=== PATIENT | female | born 1930 | race Hispanic/Latino ===

== ENCOUNTER 2016-12-03 13:28 | Emergency (ER) | payer MEDICARE, OTHER ==
[2016-12-03 13:29] VITALS: PULSE 78
[2016-12-03 13:39] VITALS: RESP 18; TEMP 97.6; O2SAT 95
[2016-12-03 13:40] VITALS: BMI 36.3
[2016-12-03] MEDS ORDERED: TraMADol/Apap 37.5/325 mg Tab PO STA (13:45)
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
[2016-12-03 14:22] LABS: HEMATOCRIT 47.2 % (36.0-48.0); MEAN CELL VOLUME 88.4 fl (80.0-105.0); MEAN CORPUSCULAR HEMOGLOBIN 30.3 pg (25.0-35.0); MEAN CORPUSCULAR HGB CONC 34.3 g/dl (31.0-37.0); MEAN PLATELET VOLUME 12.3 fl (7.0-11.0); RED CELL DISTRIBUTION WIDTH 14.1 % (11.5-14.5); WHITE BLOOD COUNT 16.5 10^3/ul (4.5-11.0)
[2016-12-03 14:31] LABS: INR 1.1 (0.93-1.08); PARTIAL THROMBOPLASTIN TIME 28.3 Seconds (23.7-30.8)
[2016-12-03 14:32] LABS: ALB/GLOB RATIO 1.2 (1.1-1.8); ALKALINE PHOSPHATASE 112 U/L (38-126); ALT/SGPT 71 U/L (7-56); AST/SGOT 52 U/L (14-36); BILIRUBIN,TOTAL 0.7 mg/dL (0.2-1.3); BLOOD UREA NITROGEN 13 mg/dL (7-21); CALCIUM 9.4 mg/dL (8.4-10.5); CARBON DIOXIDE 28 mmol/L (21-33); CHLORIDE 99 mmol/L (98-107); GFR AFRICAN-AMERICAN > 60; POTASSIUM 3.7 mmol/L (3.6-5.0); SODIUM 136 mmol/L (132-148)
[2016-12-03 14:44] LABS: GLUCOSE,RANDOM 380 mg/dL (70-110); TROPONIN I 0.04 ng/mL
--- NOTE | 2016-12-03 15:09 | CT ---
PROCEDURE: CT Lumbar Spine without contrast HISTORY: fall/back pain COMPARISON: None. TECHNIQUE: Axial computed tomography images were obtained of the lumbar spine without the use of intravenous contrast. Coronal and sagittal reformatted images were created and reviewed. Radiation dose: Total exam DLP = 655.87 mGy-cm. This CT exam was performed using one or more of the following dose reduction techniques: Automated exposure control, adjustment of the mA and/or kV according to patient size, and/or use of iterative reconstruction technique. FINDINGS: VERTEBRAE: Vertebral bodies are maintained in height. The transverse processes and posterior elements are intact. Normal vertebral alignment is maintained. DISCS/SPINAL CANAL/NEURAL FORAMINA: L1-2: Unremarkable. L2-3: Unremarkable. L3-4: Unremarkable. L4-5: Diffuse disc bulge. No focal herniation. Ligamentum flavum hypertrophy facet arthropathy. Mild central spinal stenosis. Mild bilateral neural foraminal stenosis. There is enlargement of the left L4 nerve root which may reflect a Tarlov cyst or a schwannoma. Similarly, there is enlargement of the left S1 nerve root, again which may reflect Tarlov cyst or schwannoma. There is chronic enlargement and remodeling of the left L5 neural foramen indicating the chronic nature of this process. Further evaluation with magnetic resonance imaging is advised on a nonemergent basis peer L5-S1: As above. Severe degenerative disc disease with loss of intervertebral disc space. Severe bilateral neural foraminal stenosis. PARASPINAL SOFT TISSUES: 3.1 cm infrarenal fusiform aneurysmal dilatation of the abdominal aorta. OTHER FINDINGS: None. IMPRESSION: No fracture/dislocation. 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 Recommend evaluation with magnetic resonance imaging on a nonemergent basis. 3.1 cm fusiform infrarenal abdominal aortic aneurysm.
[2016-12-03 16:38] LABS: URINE BILIRUBIN NEGATIVE (NEGATIVE); URINE BLOOD NEGATIVE (NEGATIVE); URINE GLUCOSE (UA) >=1000 mg/dL (NEGATIVE); URINE KETONE NEGATIVE (NEGATIVE); URINE LEUKOCYTE ESTERASE NEGATIVE Leu/uL (NEGATIVE); URINE PROTEIN NEGATIVE mg/dL (<30 mg/dL); URINE UROBILINOGEN 0.2 E.U./dL (<1 E.U./dL)
--- NOTE | 2016-12-03 16:42 | RAD ---
HISTORY: fall COMPARISON: No prior. FINDINGS: BONES: The vertebral bodies are maintained in height. Normal vertebral alignment is maintained. There are osteophytes seen at several lower thoracic intervertebral disc space levels without loss in height of the intervertebral disc spaces. DISC SPACES: Normal. SOFT TISSUES: Normal. OTHER FINDINGS: None. IMPRESSION: No evidence of fracture or dislocation.
--- NOTE | 2016-12-03 16:43 | RAD ---
PROCEDURE: CHEST RADIOGRAPH, 1 VIEW HISTORY: fall COMPARISON: None available. FINDINGS: LUNGS: Clear. PLEURA: No pneumothorax or pleural fluid seen. CARDIOVASCULAR: Mild cardiomegaly. Evaluation limited by oblique positioning. Mitral annular calcification noted. No congestive change. OSSEOUS STRUCTURES: No significant abnormalities. VISUALIZED UPPER ABDOMEN: Normal. OTHER FINDINGS: None. IMPRESSION: No active disease.
[2016-12-03 16:44] LABS: URINE APPEARANCE CLEAR (CLEAR); URINE COLOR YELLOW (YELLOW)
[2016-12-03] MEDS ORDERED: Insulin Regular 1 UNITS/0.01 ML ML SC STA (18:13)
[2016-12-03 19:01] VITALS: BP 128/71; PULSE 65
--- NOTE | 2016-12-04 08:00 | CARD ---
APPROVED REPORT EKG Measurement Heart [id number] <Conclusion> Atrial fibrillation Left axis deviation IVCD Inferior infarct, age unknown Anteroseptal infarct, old STTW changes c/w ischemia Prolonged QTc
--- NOTE | 2016-12-04 08:02 | RAD ---
PROCEDURE: Radiographs of the pelvis and bilateral hips HISTORY: fall COMPARISON: None. FINDINGS: BONES: The patient is seen to be status post open reduction internal fixation of proximal left femoral fracture by 3 compression screws through the proximal femurs intertrochanteric space and neck. No acute fractures identified with old healed fracture identified the proximal left femur. Pelvic ring appears intact. Diffuse osteopenia suggests osteoporosis. Degenerate changes seen moderately the bilateral sacroiliac and hip joints. JOINTS: No dislocation subluxation or distraction. Degenerate changes are identified as discussed above. Pubic symphysis: Unremarkable. SOFT TISSUES: Normal. OTHER FINDINGS: Vascular calcification are identified in the right greater than left pelvic and inguinal soft tissue regions. IMPRESSION: No acute fracture dislocation is identified bilaterally at the hip joints or throughout the remainder of the pelvic ring. Diffuse osteopenia suggests osteoporosis. Prior open reduction internal fixation proximal left femur noted.
== END 2016-12-03 20:20 | disposition home or self-care (01) ==
LOC: ED 13:28
DX: S39.012A Strain of muscle, fascia and tendon of lower back, initial encounter (principal); W06.XXXA Fall from bed, initial encounter; M54.5 Low back pain

== ENCOUNTER 2017-03-12 17:26 | Inpatient (IN) | payer OTHER ==
[2017-03-12 18:22] VITALS: BMI 32.5
[2017-03-12] MEDS ORDERED: Ceftaroline 400 mg Inj IVPB SCH (22:00)
[2017-03-12] MEDS: Insulin Detemir 100 units/ml Vial (Levemir) SC SCH (22:18)
[2017-03-12] MEDS: Insulin Lispro (humaLOG) LOW Coverage SC SCH (22:19)
[2017-03-12] MEDS ORDERED: Pneumococcal 23-Valent Vaccine IM ONE (23:50)
[2017-03-12] MEDS ORDERED: Influenza Vaccine 60 mcg/0.5 mL SYR (4YR UP) IM ONE (23:50)
[2017-03-13] MEDS: Pantoprazole 40 mg EC Tab PO SCH ×2 (05:25→10:16)
[2017-03-13] MEDS: Insulin Lispro (humaLOG) LOW Coverage SC SCH ×4 (07:01→21:51)
[2017-03-13] MEDS: Insulin Lispro 1 UNITS/0.01 ML SC SCH ×3 (07:01→18:03)
[2017-03-13 07:16] LABS: BASO # 0.02 K/mm3 (0.0-2.0); BASO % 0.2 % (0.0-3.0); BLOOD UREA NITROGEN 11 mg/dL (7-21); CALCIUM 9.3 mg/dL (8.4-10.5); EOS # 0.2 (0.0-0.7); EOS % 1.5 % (1.5-5.0); GFR AFRICAN-AMERICAN > 60; GFR NON-AFRICAN AMERICAN > 60; GRAN # 8.18 (1.4-6.5); GRAN % 76.7 % (50.0-68.0); HEMOGLOBIN 13.9 g/dL (12.0-16.0); LYMPH # 1.2 (1.2-3.4); LYMPH % 11.5 % (22.0-35.0); MEAN CELL VOLUME 92.5 fl (80.0-105.0); MEAN CORPUSCULAR HEMOGLOBIN 29.8 pg (25.0-35.0); MEAN CORPUSCULAR HGB CONC 32.2 g/dl (31.0-37.0); MEAN PLATELET VOLUME 13.4 fl (7.0-11.0); MONO # 1.1 (0.1-0.6); MONO % 10.1 % (1.0-6.0); RBC 4.67 10^6/uL (3.5-6.1); RED CELL DISTRIBUTION WIDTH 14.4 % (11.5-14.5); WHITE BLOOD COUNT 10.7 10^3/ul (4.5-11.0)
[2017-03-13 07:17] LABS: PH,URINE 7.5 (4.7-8.0); URINE BILIRUBIN NEGATIVE (NEGATIVE); URINE BLOOD NEGATIVE (NEGATIVE); URINE GLUCOSE (UA) NEGATIVE (NEGATIVE); URINE LEUKOCYTE ESTERASE NEGATIVE Leu/uL (NEGATIVE); URINE NITRATE NEGATIVE (NEGATIVE); URINE PROTEIN NEGATIVE mg/dL (<30 mg/dL)
[2017-03-13 07:18] LABS: URINE APPEARANCE CLEAR (CLEAR); URINE COLOR YELLOW (YELLOW)
[2017-03-13] MEDS: Potassium Chloride 20 mEq ER Tab PO SCH ×2 (08:42→10:14)
--- NOTE | 2017-03-13 08:53 | CON ---
DATE: 03/13/2017 ORTHOPEDIC CONSULTATION HISTORY OF PRESENT ILLNESS: An 86-year-old female in room 320, bed 1. Dr. Hubbard' patient. She wished to transfer from the regular floor to TCU floor for further therapy. She was complaining of weakness of lower extremities. She does have past history of a subcapital fracture that was displaced at the left hip approximately 5 years ago and it went on to successful union and there is no evidence of AVN or migration of the hardware which had 3 cannulated screws. She does have weakness to the lower extremities and has a tendency to have poor balance, so we are going to increase her strength and improve her balance and get her confidence to walk with a walker. She is very independent. FINAL DIAGNOSES: Lower extremity weakness and previous history of a left hip fracture. I did give her chance of getting stronger by giving her therapy and confidence to walk with a walker. Henry Maloney DO
--- NOTE | 2017-03-13 11:41 | PN ---
DATE: ENDOCRINOLOGY FOLLOWUP NOTE LOCATION: In room #320, TCU. This is an 86-year-old female with recent uncontrolled type 2 insulin-requiring diabetes, presenting here with left lower extremity cellulitis and worsening lymphedema and is now being followed closely for metabolic management. Her glycemic levels are fluctuating, but improved and the latest glucose levels have ranged from 149-164 mg/dL. The latest chemistry showed a BUN of 11, sodium 140, potassium 3.5, chloride 103, CO2 of 29, glucose 164 and creatinine 0.6. So at this time, we will modify her basal insulin and increase the Levemir to 20 units subcu at bedtime daily to start tonight. We will continue the Humalog given as 8 units subcu t.i.d. before meals to start today as ordered. We will modify the coverage scale using the low-dose algorithm which will be modified to obviate hypoglycemia and detailed orders have been given. We will obtain serial chemistries and supplement accordingly needed. We will follow. Chuyita Yoder MD
--- NOTE | 2017-03-13 13:06 | CP.PCM.CON ---
History of Present Illness - History of Present Illness History of Present Illness: 86 year old female with PMH of HTN, DM, atrial fibrillation, history of gastrointestinal bleed, dyslipidemia, coronary artery disease, obesity with BMI 32, chronic lower extremity edema was initially admitted in [facility] because of lower extremity swelling and cellulitis. She has been on antibiotics with improvement and is now transferred to [facility] for continued medical therapy and physical therapy. Infectious diseases consult is requested to re-evaluate her left lower extremity cellulitis. Currently the patient is feeling better, much improved swelling and pain in the left leg. She denies fever or chills, no no headache or dizziness, no sore throat, no dysphagia, no SOB, no chest pain, no abdominal pain, no diarrhea, no dysuria. Review of Systems - Review of Systems All systems: reviewed and no additional remarkable complaints except (as per HPI ) Past Patient History - Infectious Disease Hx of Infectious Diseases: None - Tetanus Immunizations Tetanus Immunization: Unknown - Past Social History Smoking Status: Former Smoker - CARDIAC Hx Hypertension: Yes Hx Pacemaker: No Hx Peripheral Edema: Yes Hx Peripheral Vascular Disease: Yes - PULMONARY Hx Respiratory Disorders: Yes Hx Pneumonia: Yes - NEUROLOGICAL Hx Neurological Disorder: No - HEENT Hx HEENT Problems: Yes Hx Cataracts: Yes (bilateral eyes) - RENAL Hx Chronic Kidney Disease: No - ENDOCRINE/METABOLIC Hx Diabetes Mellitus Type 2: Yes - HEMATOLOGICAL/ONCOLOGICAL Hx Blood Disorders: Yes Hx Anemia: Yes - INTEGUMENTARY Hx Dermatological Problems: No Other/Comment: red raised itchy rash to both arms - MUSCULOSKELETAL/RHEUMATOLOGICAL Hx Falls: No - GASTROINTESTINAL Hx Gastrointestinal Disorders: Yes (poor appetite,fatty liver,gi bleed h/o) - GENITOURINARY/GYNECOLOGICAL Hx Genitourinary Disorders: No Hx Reproductive Disorders: No - PSYCHIATRIC Hx Emotional Abuse: No Hx Physical Abuse: No - SURGICAL HISTORY Hx Appendectomy: Yes Hx Cholecystectomy: Yes Hx Orthopedic Surgery: Yes (left hip) - ANESTHESIA Hx Anesthesia Reactions: No Hx Malignant Hyperthermia: No Meds Allergies/Adverse Reactions: Allergies Allergy/AdvReac Type Severity Reaction Status Date / Time No Known Allergies Allergy Verified 03/12/17 21:02 - Medications Medications: Current Medications Amlodipine Besylate (Norvasc) 2.5 mg PO DAILY FLORIN PRN Reason: Protocol Clonidine HCl (Catapres) 0.1 mg PO Q6H PRN; Protocol PRN Reason: Diastolic blood pressure Digoxin (Lanoxin) 0.125 mg PO 1400 FLORIN PRN Reason: Protocol Furosemide (Lasix) 20 mg PO DAILY FLORIN PRN Reason: Protocol Glipizide (Glucotrol) 5 mg PO BID FLORIN PRN Reason: Protocol Ceftaroline Fosamil 400 mg/ (Sodium Chloride) 100 mls @ 100 mls/hr IVPB Q12 [facility] Last Admin: 03/12/17 22:18 Dose: 100 mls/hr Insulin Detemir (Levemir) 20 unit SC HS FLORIN PRN Reason: Protocol Last Admin: 03/12/17 22:18 Dose: 20 unit Insulin Human Lispro (Humalog) 8 units SC AC FLORIN PRN Reason: Protocol Insulin Human Lispro (Humalog Low) 0 units SC ACHS FLORIN PRN Reason: Protocol Last Admin: 03/12/17 22:19 Dose: Not Given Isosorbide Mononitrate (Imdur Er) 30 mg PO DAILY FLORIN PRN Reason: Protocol Last Admin: 03/13/17 05:25 Dose: 30 mg Metoprolol Tartrate (Lopressor) 50 mg PO DAILY FLORIN PRN Reason: Protocol Pantoprazole Sodium (Protonix Ec Tab) 40 mg PO DAILY FLORIN PRN Reason: Protocol Last Admin: 03/13/17 05:25 Dose: 40 mg Potassium Chloride (K-Dur 20 Meq Er Tab) 20 meq PO DAILY FLORIN PRN Reason: Protocol Valsartan (Diovan) 320 mg PO DAILY FLORIN PRN Reason: Protocol Physical Exam - Constitutional Appears: Non-toxic - Head Exam Head Exam: NORMAL INSPECTION - ENT Exam ENT Exam: Mucous Membranes Moist - Neck Exam Neck exam: Negative for: Meningismus - Respiratory Exam Respiratory Exam: Decreased Breath Sounds - Cardiovascular Exam Cardiovascular Exam: +S1, +S2 - GI/Abdominal Exam GI & Abdominal Exam: Soft. absent: Tenderness - Extremities Exam Additional comments: improved swelling and erythema of the left leg Results - Vital Signs Recent Vital Signs: Last Vital Signs Temp 98 F 03/12/17 23:39 Pulse 66 03/12/17 23:39 Resp 18 03/12/17 23:39 BP 164/90 H 03/12/17 23:39 Pulse Ox - Labs Result Diagrams: 03/13/17 06:15 03/13/17 06:15 Labs: Laboratory Results - last 24 hr 03/13/17 04:37 POC Glucose (mg/dL) 149 H Assessment & Plan - Assessment and Plan (Free Text) Plan: Assessment Systemic Inflammatory Response Syndrome, consider sepsis due to left lower extremity cellulitis on top of chronic lower leg edema, probably related to CHF ; no evidence of DVT HTN DM atrial fibrillation history of gastrointestinal bleed dyslipdemia coronary artery disease Plan continue Teflaro day 7; blood cx are negative; reviewed doppler U/S of the legs which did not show DVT; should complete 7-10 days of antibiotics will continue to monitor clinically
[2017-03-13] MEDS: Digoxin 125 mcg (0.125 mg) Tab PO SCH (14:04)
--- NOTE | 2017-03-13 17:31 | PN ---
DATE: SUBJECTIVE: The patient is currently seen in the TCU. She was transferred otherwise 24 hours. The patient states she would like to go home. Her blood pressure still remains elevated. Her renal parameters have corrected to normal. MEDICATIONS: Medication list reviewed. The patient is on p.r.n. clonidine, ceftaroline, Diovan, Glucotrol, Humalog, Imdur, K-Tabs, Lanoxin, low-dose Lasix, long-acting Levemir, Lopressor, Norvasc, and Protonix. OBJECTIVE: VITAL SIGNS: Blood pressure ranging from 164 systolic to 191 systolic, diastolics ranging from 89-95. HEENT: Shows her to be normocephalic, atraumatic. Conjunctivae are pink. Sclerae nonicteric. NECK: Supple. No neck vein distention. CHEST: Clear to auscultation and percussion. No rales, no rhonchi, no wheezing. CARDIOVASCULAR: Shows irregular S1, S2. No S3, no S4. No rub. ABDOMEN: Soft. Bowel sounds normal. Minimal distention. No rebound or guarding. EXTREMITIES: Show no lower extremity cyanosis, clubbing, or edema. No erythema. No increased warmth to touch. LABORATORY DATA AND IMAGING: CBC: White blood cell count today 10.7, hemoglobin is 13.9, platelet count of 168,000. Chemistries: Potassium 3.5, sodium 140, BUN 11 with a creatinine of 0.6, glucose 164, calcium 9.3. Microbiology: All blood cultures and urine cultures were negative. ASSESSMENT: 1. Uncontrolled hypertension. The patient still continues to have systolic hypertension despite addition of low-dose angiotensin receptor adali therapy. I will increase Norvasc to 5 mg a day. The patient will continue on beta-adali therapy, low-dose Lasix, and p.r.n. use of clonidine. 2. Lower extremity cellulitis. The patient is completing a course of antibiotic therapy under the guidance of Infectious Disease. She appears to be clinically improved. 3. History of atrial fibrillation. She is rate controlled, on chronic anticoagulation. 4. Borderline mild hypokalemia, on diuretic therapy. The patient may receive potassium supplements on a p.r.n. basis. 5. Noninsulin-dependent diabetes mellitus. The patient is currently on insulin with acceptable glucose control. PLAN: 1. Continue to monitor blood pressure closely. I will increase Norvasc to 5 mg a day. We will monitor for any increase in lower extremity edema. 2. Continue full dose losartan therapy. 3. P.r.n. clonidine. 3. Continue beta-adali therapy. 5. We will continue to monitor blood pressures closely with you while the patient is in the TCU. Clayton Wick MD MTDD
[2017-03-13] MEDS: Insulin Detemir 100 units/ml Vial (Levemir) SC SCH (21:49)
--- NOTE | 2017-03-14 03:22 | HP ---
HISTORY OF PRESENT ILLNESS: An 86-year-old female on the transitional care unit receiving IV antibiotic therapy for cellulitis of lower extremity, to be monitored and receive occupational and physical therapy. PAST MEDICAL HISTORY: Left hip surgery, hypertension, insulin-dependent diabetes, and atrial fibrillation. SOCIAL HISTORY: She is a nonsmoker, nondrinker, and non-drug user. ALLERGIES: NO KNOWN ALLERGIES. ACTIVE MEDICATIONS: Consist of Catapres 0.1 mg q.6 p.r.n., ceftaroline 400 mg q.12, Diovan 320 mg daily, Glucotrol 5 mg b.i.d., Humalog 8 units subcu before meals with the sliding insulin scale, Imdur 30 mg daily, K-Dur 20 mEq daily, digoxin 0.125 mg daily, Lasix 20 mg daily, Levemir 20 units subcu at bedtime, Lopressor 50 mg daily, Norvasc 5 mg daily, and Protonix 40 mg daily. PHYSICAL EXAMINATION GENERAL: She is alert and oriented x3. VITAL SIGNS: Temperature is 97.2, pulse is 80, blood pressure is 130/71, and respiratory rate is 16. NECK: Supple. There is no JVD. LUNGS: Clear. HEART: Irregular S1 and S2 rhythm. Grade 2/6 systolic murmur. EXTREMITIES: Show no evidence of edema. LABORATORY DATA: Shows a WBC of 10.7, RBC 4.67, hemoglobin 13.9, hematocrit is 43.2, and platelet count is 168. Chemistry shows sodium 140, potassium 3.5, chloride 103, BUN is 11, and creatinine is 0.6. Random blood sugar is 110. Calcium is 9.3. Urinalysis is clear. IMPRESSION AND PLAN: The patient is being followed by Orthopedics, Infectious Disease, Nephrology, and GI. She will continue on the current protocol. Cardiology has raised a discussion about using anticoagulation therapy in this patient after discussion with the daughter, she is hesitant to put the mother on this medication. She is aware of the benefits and the risks. I will await the daughter's decision regarding the care plan. This was discussed also with Cardiology. She will continue on the current antibiotics as per the recommendations of Infectious Disease. She has repeat labs ordered including the magnesium and phosphorus with electrolytes in the morning. She is on potassium supplementation as per Renal, and we will continue to monitor the patient closely at this time. Sherri Hubbard MD
[2017-03-14 07:12] LABS: HEMOGLOBIN 13.8 g/dL (12.0-16.0); MEAN CELL VOLUME 92.5 fl (80.0-105.0); MEAN CORPUSCULAR HEMOGLOBIN 29.7 pg (25.0-35.0); MEAN CORPUSCULAR HGB CONC 32.2 g/dl (31.0-37.0); RBC 4.64 10^6/uL (3.5-6.1); RED CELL DISTRIBUTION WIDTH 14.4 % (11.5-14.5); WHITE BLOOD COUNT 10.1 10^3/ul (4.5-11.0)
[2017-03-14] MEDS: Insulin Lispro (humaLOG) LOW Coverage SC SCH ×4 (07:35→22:39)
[2017-03-14 07:40] LABS: ALBUMIN 3.2 g/dL (3.0-4.8); ALT/SGPT 43 U/L (7-56); AST/SGOT 38 U/L (14-36); BLOOD UREA NITROGEN 11 mg/dL (7-21); CALCIUM 9.1 mg/dL (8.4-10.5); GFR AFRICAN-AMERICAN > 60; GFR NON-AFRICAN AMERICAN > 60; MAGNESIUM 1.8 mg/dL (1.7-2.2)
[2017-03-14] MEDS: Insulin Lispro 1 UNITS/0.01 ML SC SCH ×3 (08:37→17:37)
[2017-03-14] MEDS: Potassium Chloride 20 mEq ER Tab PO SCH (09:34)
[2017-03-14] MEDS: Pantoprazole 40 mg EC Tab PO SCH (09:36)
[2017-03-14] MEDS: Digoxin 125 mcg (0.125 mg) Tab PO SCH (13:32)
[2017-03-14 13:34] VITALS: PULSE 66
--- NOTE | 2017-03-14 13:36 | PN ---
DATE: ENDOCRINOLOGY FOLLOWUP NOTE SUBJECTIVE: This is an 86-year-old female with recent uncontrolled type 2 insulin-requiring diabetes, presenting here with lower extremity cellulitis, superimposed on underlying severe edema as noted at home. She is being followed closely up the metabolic management, and the glycemic levels overnight showed glucose values ranging from 127 to 128 mg/dL. LABORATORY DATA: Her latest chemistry shows a BUN of 11, sodium 141, potassium 3.6, chloride 106, CO2 of 28, glucose 165, and creatinine is 0.6. PLAN: So at this time, we will continue the same basal and bolus insulin regimen to allow for dose equilibration and keep her on the Levemir given as 20 units subcu at bedtime daily as ordered. We will continue the Humalog given as 8 units subcu t.i.d. before meals as given. We will titrate incrementally as indicated to optimize metabolic control. We will also continue the same low dose correction scale as ordered. We will follow and advise accordingly. Chuyita Yoder MD
--- NOTE | 2017-03-14 16:38 | CP.PCM.PN ---
Subjective - Date & Time of Evaluation Date of Evaluation: 03/14/17 Time of Evaluation: 11:00 - Subjective Subjective: Comfortable in bed, no fevers overnight, not in distress, improved swelling of left leg. Objective - Vital Signs/Intake and Output Vital Signs (last 24 hours): Temp Pulse Resp BP Pulse Ox 98.1 F 81 16 183/84 H 100 03/13/17 17:36 03/14/17 06:57 03/13/17 17:36 03/14/17 06:57 03/13/17 17:36 - Medications Medications: Current Medications Amlodipine Besylate (Norvasc) 5 mg PO DAILY FLORIN PRN Reason: Protocol Clonidine HCl (Catapres) 0.1 mg PO Q6H PRN; Protocol PRN Reason: Diastolic blood pressure Last Admin: 03/14/17 05:27 Dose: 0.1 mg Digoxin (Lanoxin) 0.125 mg PO 1400 FLORIN PRN Reason: Protocol Last Admin: 03/13/17 14:04 Dose: 0.125 mg Furosemide (Lasix) 20 mg PO DAILY FLORIN PRN Reason: Protocol Last Admin: 03/13/17 10:15 Dose: 20 mg Glipizide (Glucotrol) 5 mg PO BID FLORIN PRN Reason: Protocol Last Admin: 03/13/17 18:02 Dose: 5 mg Ceftaroline Fosamil 400 mg/ (Sodium Chloride) 100 mls @ 100 mls/hr IVPB Q12 FLORIN PRN Reason: Protocol Stop: 03/16/17 22:01 Last Admin: 03/13/17 21:49 Dose: 100 mls/hr Insulin Detemir (Levemir) 20 unit SC HS FLORIN PRN Reason: Protocol Last Admin: 03/13/17 21:49 Dose: 20 unit Insulin Human Lispro (Humalog) 8 units SC AC FLORIN PRN Reason: Protocol Last Admin: 03/14/17 08:37 Dose: Not Given Insulin Human Lispro (Humalog Low) 0 units SC ACHS FLORIN PRN Reason: Protocol Last Admin: 03/14/17 07:35 Dose: Not Given Isosorbide Mononitrate (Imdur Er) 30 mg PO DAILY FLORIN PRN Reason: Protocol Last Admin: 03/13/17 10:14 Dose: 30 mg Metoprolol Tartrate (Lopressor) 50 mg PO DAILY FLORIN PRN Reason: Protocol Last Admin: 03/13/17 10:16 Dose: Not Given Pantoprazole Sodium (Protonix Ec Tab) 40 mg PO DAILY FLORIN PRN Reason: Protocol Last Admin: 03/13/17 10:16 Dose: 40 mg Potassium Chloride (K-Dur 20 Meq Er Tab) 20 meq PO DAILY FLORIN PRN Reason: Protocol Last Admin: 03/13/17 10:14 Dose: 20 meq Valsartan (Diovan) 320 mg PO DAILY FLORIN PRN Reason: Protocol Last Admin: 03/13/17 10:14 Dose: 320 mg - Labs Labs: 03/14/17 06:30 03/14/17 06:30 - Constitutional Appears: Non-toxic - Head Exam Head Exam: NORMAL INSPECTION - ENT Exam ENT Exam: Mucous Membranes Moist - Neck Exam Neck Exam: absent: Meningismus - Respiratory Exam Respiratory Exam: Decreased Breath Sounds - Cardiovascular Exam Cardiovascular Exam: +S1, +S2 - GI/Abdominal Exam GI & Abdominal Exam: Soft. absent: Tenderness Assessment and Plan - Assessment and Plan (Free Text) Plan: Assessment Systemic Inflammatory Response Syndrome, consider sepsis due to left lower extremity cellulitis on top of chronic lower leg edema, probably related to CHF ; no evidence of DVT HTN DM atrial fibrillation history of gastrointestinal bleed dyslipdemia coronary artery disease Plan onTeflaro day 8; blood cx are negative; reviewed doppler U/S of the legs which did not show DVT; will d/c antibiotics today
--- NOTE | 2017-03-14 18:18 | CP.PCM.PN ---
Subjective - Date & Time of Evaluation Date of Evaluation: 03/14/17 Time of Evaluation: 13:30 - Subjective Subjective: Seen and examined at the bedside in CCU this afternoon, patient reported to have had loose stool on Sunday, patient stated that she had a formed BM yesterday, denies nausea, vomiting, abdominal pain. No reports of melena or bright red blood per rectum. Patient expresses that she wants to go home. Objective - Vital Signs/Intake and Output Vital Signs (last 24 hours): Temp Pulse Resp BP Pulse Ox 97.5 F L 76 18 174/79 H 100 03/14/17 10:00 03/14/17 17:39 03/14/17 10:00 03/14/17 17:39 03/13/17 17:36 - Medications Medications: Current Medications Amlodipine Besylate (Norvasc) 5 mg PO DAILY FLORIN PRN Reason: Protocol Last Admin: 03/14/17 09:35 Dose: 5 mg Clonidine HCl (Catapres) 0.1 mg PO Q6H PRN; Protocol PRN Reason: Diastolic blood pressure Last Admin: 03/14/17 17:39 Dose: 0.1 mg Digoxin (Lanoxin) 0.125 mg PO 1400 FLORIN PRN Reason: Protocol Last Admin: 03/14/17 13:32 Dose: 0.125 mg Furosemide (Lasix) 20 mg PO DAILY FLORIN PRN Reason: Protocol Last Admin: 03/14/17 09:35 Dose: 20 mg Glipizide (Glucotrol) 5 mg PO BID FLORIN PRN Reason: Protocol Last Admin: 03/14/17 17:36 Dose: 5 mg Ceftaroline Fosamil 400 mg/ (Sodium Chloride) 100 mls @ 100 mls/hr IVPB Q12 FLORIN PRN Reason: Protocol Stop: 03/16/17 22:01 Last Admin: 03/14/17 09:36 Dose: 100 mls/hr Insulin Detemir (Levemir) 20 unit SC HS FLORIN PRN Reason: Protocol Last Admin: 03/13/17 21:49 Dose: 20 unit Insulin Human Lispro (Humalog) 8 units SC AC FLORIN PRN Reason: Protocol Last Admin: 03/14/17 17:37 Dose: 8 units Insulin Human Lispro (Humalog Low) 0 units SC ACHS FLORIN PRN Reason: Protocol Last Admin: 03/14/17 17:38 Dose: Not Given Isosorbide Mononitrate (Imdur Er) 30 mg PO DAILY FLORIN PRN Reason: Protocol Last Admin: 03/14/17 09:34 Dose: 30 mg Metoprolol Tartrate (Lopressor) 50 mg PO DAILY FLORIN PRN Reason: Protocol Last Admin: 03/14/17 09:35 Dose: 50 mg Pantoprazole Sodium (Protonix Ec Tab) 40 mg PO DAILY FLORIN PRN Reason: Protocol Last Admin: 03/14/17 09:36 Dose: 40 mg Potassium Chloride (K-Dur 20 Meq Er Tab) 20 meq PO DAILY FLORIN PRN Reason: Protocol Last Admin: 03/14/17 09:34 Dose: 20 meq Valsartan (Diovan) 320 mg PO DAILY FLORIN PRN Reason: Protocol Last Admin: 03/14/17 09:34 Dose: 320 mg - Labs Labs: 03/14/17 06:30 03/14/17 06:30 - Constitutional Appears: No Acute Distress - Eye Exam Eye Exam: Normal appearance. absent: Scleral icterus - ENT Exam ENT Exam: Mucous Membranes Moist - Respiratory Exam Respiratory Exam: NORMAL BREATHING PATTERN. absent: Respiratory Distress - Cardiovascular Exam Cardiovascular Exam: +S1, +S2 - GI/Abdominal Exam GI & Abdominal Exam: Soft, Normal Bowel Sounds. absent: Guarding, Tenderness, Organomegaly, Rebound - Extremities Exam Extremities Exam: absent: Calf Tenderness - Neurological Exam Neurological Exam: Alert, Awake, Oriented x3 Assessment and Plan - Assessment and Plan (Free Text) Assessment: Assessment: Constipation Lower extremity cellulitis History of colon polyps Diabetes mellitus Hypertension History of atrial fibrillation Hypokalemia Plan: Diet as tolerated Continue GI prophylaxis on IV antibiotic Seen and discussed with Dr. Carlin.
--- NOTE | 2017-03-14 19:02 | PN ---
DATE: SUBJECTIVE: An 86-year-old female resting comfortably in bed this morning. Nursing staff related that there were no particular problems during the night. PHYSICAL EXAMINATION GENERAL: She is alert and oriented x3. VITAL SIGNS: Shows temperature of 97.5, pulse is 76, blood pressure is 171/78 and respiratory rate is 18. NECK: Supple. LUNGS: Clear. HEART: Irregular S1 and S2 rhythm, grade 2/6 systolic murmur. ABDOMEN: Soft, obese, positive bowel sounds. EXTREMITIES: Show no evidence of edema. LABORATORY DATA: Shows WBC of 10.1, RBC 4.64, hemoglobin 13.8, hematocrit 42.9 and platelet count 179,000. Chemistry shows normal electrolytes, BUN is 11, creatinine is 0.6 and blood sugar is 128. Her AST is 38. The patient is completing a course of IV ceftaroline for cellulitis of the lower extremities. She is on Humulin insulin regimen with Glucotrol as well. Being followed by Dr. Yoder, the Endocrinology Service. Her blood pressures being monitored with medication and she is on Diovan 320 mg daily, Norvasc 5 mg daily, Lopressor 50 mg daily, Lasix 20 mg daily, digoxin 0.125 mg daily, K-Dur 20 mEq daily and Imdur 30 mg daily. ASSESSMENT AND PLAN: She has been seen by Gastroenterology for reported history of dark stool, but at this particular point in time, Gastroenterology is just recommending continuing gastrointestinal prophylaxis with Protonix and monitoring the patient. Her blood count has been stable and there has been no further recommendations at this time by Gastroenterology. She is being followed by Infectious Disease for the cellulitis. Renal is following the patient for hypertension. We will continue current level of care and follow up the patient's labs. Sherri Hubbard MD
[2017-03-14] MEDS: Insulin Detemir 100 units/ml Vial (Levemir) SC SCH (22:38)
--- NOTE | 2017-03-15 00:41 | PN ---
DATE: 03/14/2017 SUBJECTIVE: Patient is seen lying in bed. Patient is awake and alert. She is comfortable. She wants to go home. PHYSICAL EXAMINATION GENERAL: An elderly lady lying in bed. VITAL SIGNS: Blood pressure 171/78, heart rate 76, respiratory rate 18, temperature 97.5. HEENT: Normocephalic and atraumatic. NECK: Supple. No JVD. LUNGS: Bilateral equal air entry. No rales. EXTREMITIES: 1+ pitting edema of the lower extremities. MEDICATIONS: Catapres 0.1 q.6 p.r.n., ceftaroline 400 q.12, Diovan 320, Glucotrol 5 b.i.d., insulin 8 units, Imdur 30, potassium 20 mEq daily, Lanoxin 0.125, Lasix 20 p.o. daily, Levemir 20, Lopressor 50 daily, amlodipine 5 and Protonix 40. ASSESSMENT: 1. Severe uncontrolled hypertension. 2. Resolved acute kidney injury. 3. Hypokalemia. 4. Lower extremity edema. 5. Deconditioning. PLAN: 1. Increase Lopressor to 100 mg daily. 2. Continue Lasix 20 mg daily. 3. Continue potassium supplementation. 4. Physical therapy. 5. Monitor blood pressure. Kadie Montiel MD
[2017-03-15] MEDS: Insulin Lispro 1 UNITS/0.01 ML SC SCH (06:36)
[2017-03-15] MEDS: Insulin Lispro (humaLOG) LOW Coverage SC SCH (06:37)
[2017-03-15 07:00] VITALS: O2SAT 92
[2017-03-15 07:27] LABS: BASO # 0.03 K/mm3 (0.0-2.0); BASO % 0.3 % (0.0-3.0); EOS # 0.2 (0.0-0.7); EOS % 1.9 % (1.5-5.0); GRAN # 6.88 (1.4-6.5); GRAN % 71.4 % (50.0-68.0); HEMOGLOBIN 13.8 g/dL (12.0-16.0); LYMPH # 1.4 (1.2-3.4); LYMPH % 14.7 % (22.0-35.0); MEAN CELL VOLUME 93.3 fl (80.0-105.0); MEAN CORPUSCULAR HEMOGLOBIN 29.7 pg (25.0-35.0); MEAN CORPUSCULAR HGB CONC 31.8 g/dl (31.0-37.0); MONO # 1.1 (0.1-0.6); MONO % 11.7 % (1.0-6.0); RBC 4.65 10^6/uL (3.5-6.1); RED CELL DISTRIBUTION WIDTH 14.7 % (11.5-14.5); WHITE BLOOD COUNT 9.6 10^3/ul (4.5-11.0)
[2017-03-15 07:48] LABS: ALBUMIN 3.3 g/dL (3.0-4.8); ALT/SGPT 42 U/L (7-56); AST/SGOT 36 U/L (14-36); BLOOD UREA NITROGEN 13 mg/dL (7-21); CALCIUM 9.3 mg/dL (8.4-10.5); GFR AFRICAN-AMERICAN > 60; GFR NON-AFRICAN AMERICAN > 60
[2017-03-15] MEDS: Potassium Chloride 20 mEq ER Tab PO SCH (10:31)
[2017-03-15] MEDS: Pantoprazole 40 mg EC Tab PO SCH (10:34)
[2017-03-15 10:43] VITALS: BP 156/58
--- NOTE | 2017-03-15 14:51 | CP.PCM.PN ---
Subjective - Date & Time of Evaluation Date of Evaluation: 03/15/17 Time of Evaluation: 12:05 - Subjective Subjective: Patient is anxious to go home, no fevers overnight, no diarrhea, no more pain in the left leg. Objective - Vital Signs/Intake and Output Vital Signs (last 24 hours): Temp Pulse Resp BP Pulse Ox 98.5 F 75 17 174/105 H 100 03/14/17 19:12 03/14/17 19:12 03/14/17 19:12 03/14/17 19:12 03/13/17 17:36 - Medications Medications: Current Medications Amlodipine Besylate (Norvasc) 5 mg PO DAILY FLORIN PRN Reason: Protocol Last Admin: 03/14/17 09:35 Dose: 5 mg Clonidine HCl (Catapres) 0.1 mg PO Q6H PRN; Protocol PRN Reason: Diastolic blood pressure Last Admin: 03/14/17 17:39 Dose: 0.1 mg Digoxin (Lanoxin) 0.125 mg PO 1400 FLORIN PRN Reason: Protocol Last Admin: 03/14/17 13:32 Dose: 0.125 mg Furosemide (Lasix) 20 mg PO DAILY FLORIN PRN Reason: Protocol Last Admin: 03/14/17 09:35 Dose: 20 mg Glipizide (Glucotrol) 5 mg PO BID FLORIN PRN Reason: Protocol Last Admin: 03/14/17 17:36 Dose: 5 mg Ceftaroline Fosamil 400 mg/ (Sodium Chloride) 100 mls @ 100 mls/hr IVPB Q12 FLORIN PRN Reason: Protocol Stop: 03/16/17 22:01 Last Admin: 03/14/17 21:19 Dose: 100 mls/hr Insulin Detemir (Levemir) 20 unit SC HS FLORIN PRN Reason: Protocol Last Admin: 03/14/17 22:38 Dose: 20 unit Insulin Human Lispro (Humalog) 8 units SC AC FLORIN PRN Reason: Protocol Last Admin: 03/15/17 06:36 Dose: 8 units Insulin Human Lispro (Humalog Low) 0 units SC ACHS FLORIN PRN Reason: Protocol Last Admin: 03/15/17 06:37 Dose: Not Given Isosorbide Mononitrate (Imdur Er) 30 mg PO DAILY FLORIN PRN Reason: Protocol Last Admin: 03/14/17 09:34 Dose: 30 mg Metoprolol Tartrate (Lopressor) 100 mg PO DAILY FLORIN PRN Reason: Protocol Pantoprazole Sodium (Protonix Ec Tab) 40 mg PO DAILY FLORIN PRN Reason: Protocol Last Admin: 03/14/17 09:36 Dose: 40 mg Potassium Chloride (K-Dur 20 Meq Er Tab) 20 meq PO DAILY FLORIN PRN Reason: Protocol Last Admin: 03/14/17 09:34 Dose: 20 meq Valsartan (Diovan) 320 mg PO DAILY FLORIN PRN Reason: Protocol Last Admin: 03/14/17 09:34 Dose: 320 mg - Labs Labs: 03/14/17 06:30 03/14/17 06:30 - Constitutional Appears: Non-toxic, No Acute Distress - Head Exam Head Exam: NORMAL INSPECTION - ENT Exam ENT Exam: Mucous Membranes Moist - Respiratory Exam Respiratory Exam: Decreased Breath Sounds - Cardiovascular Exam Cardiovascular Exam: +S1, +S2 - GI/Abdominal Exam GI & Abdominal Exam: Soft. absent: Tenderness - Extremities Exam Additional comments: improved swelling of left leg Assessment and Plan - Assessment and Plan (Free Text) Plan: Assessment Systemic Inflammatory Response Syndrome, consider sepsis due to left lower extremity cellulitis on top of chronic lower leg edema, probably related to CHF ; no evidence of DVT HTN DM atrial fibrillation history of gastrointestinal bleed dyslipdemia coronary artery disease Plan S/P 8 days of Teflaro blood cx are negative; reviewed doppler U/S of the legs which did not show DVT; monitor off antibiotics
--- NOTE | 2017-03-15 15:14 | PN ---
DATE: 03/15/2017 ENDOCRINOLOGY FOLLOWUP NOTE LOCATION: Room 320 SUBJECTIVE: The patient is an 86-year-old with recent uncontrolled type 2 insulin-requiring diabetes now being followed closely for metabolic management. Her glucose levels are fluctuating, but improved and the latest glucose levels have ranged from 139, 146, and 229 mg/dL. Her latest chemistry showed a BUN of 13, sodium 141, potassium 3.8, chloride 105, CO2 28, glucose 141, and creatinine 0.7. At this time, we will continue the same basal and bolus regimen as given with Levemir given at 20 units subcutaneous at bedtime daily as ordered. We will continue the Humalog given at 8 units subcutaneously t.i.d. before meals as given. She is scheduled for possible discharge today and we would recommend same dose regimen of both Levemir and Humalog insulin as ordered. We will follow and advice accordingly. Chuyita Yoder MD
[2017-03-15 15:22] VITALS: PULSE 53; RESP 18; TEMP 97.4
--- NOTE | 2017-03-15 18:40 | PN ---
DATE: 03/15/2017 SUBJECTIVE: The patient is seen lying in bed. She is awake, alert and comfortable. PHYSICAL EXAMINATION VITAL SIGNS: Blood pressure 156/58, heart rate 53, respiratory rate 18, temperature 97.4. HEENT: Normocephalic, atraumatic. NECK: Supple, no JVD. LUNGS: Bilateral equal entry, rales. EXTREMITIES: No lower extremity edema. INTAKE AND OUTPUT: Not charted. LABORATORY DATA: Hemoglobin 13.8. Sodium 141, potassium 3.8, chloride 105, CO2 28, BUN 13, creatinine 0.7, glucose 141, calcium 9.3. MEDICATIONS LIST: Reviewed. ASSESSMENT/PLAN: 1. Well-controlled hypertension for this 86-year lady. 2. Resolved acute kidney injury. 3. Mild hypokalemia. 4. Antibiotics for presumed cellulitis. PLAN: 1. The patient is stable from the renal standpoint. 2. Continue current antihypertensive regimen. 3. Continue low-dose Lasix. 4. Continue potassium supplementation. Kadie Montiel MD
--- NOTE | 2017-03-16 12:38 | DS ---
HISTORY OF PRESENT ILLNESS: An 86-year-old female on transitional care unit status post treatment for cellulitis of the lower extremities with treatment for uncontrolled insulin-dependent diabetes, hypertension with a past medical history of left hip surgery, gait disorder, abdominal wall hernia, bowel habit change, constipation. While in the hospital, she was seen in consultation by GI, Renal, Orthopedics, Cardiology. She was offered the option to stay in the hospital to continue her physical therapy; however, she declined. Also, she had a history of atrial fibrillation and was advised anticoagulation therapy; however, she declined. She will be returning to home with the family. Her medications would consist of Klor-Con 20 mEq daily, Protonix 40 mg daily, Imdur 30 mg daily, Glucotrol 1 mg b.i.d., Lasix 40 mg daily, and digoxin 0.125 mg daily, Norvasc 5 mg daily, Diovan 320 mg daily, Lopressor 100 mg daily, Humalog Lispro 8 units subcu before meals, and Levemir 20 units subcu at bedtime. She would be followed as an outpatient. PHYSICAL EXAMINATION: VITAL SIGNS: On discharge showed a temperature of 97.4, pulse was 53, blood pressure was 156/58, respiratory rate was 18. GENERAL: She was alert and oriented x3. NECK: Supple. LUNGS: Clear. HEART: With an irregular S1, S2 rhythm. ABDOMEN: Soft and obese. Positive bowel sounds. EXTREMITIES: No evidence of edema. NEUROLOGIC: She was alert and oriented x3. LABORATORY DATA: She had a WBC of 9.6, RBC of 4.65, hemoglobin 13.8, hematocrit 43.4, platelet count 185,000. Chemistries showed normal electrolytes, but BUN was 13, creatinine 0.7, random blood sugar was 141. LFTs were normal. Calcium was 9.3. The urinalysis was clear. She was aware of all the clinical findings and studies done in the hospital and would return home. She was advised to caution herself with regard to her diet and comply with the use of the meds and her diet. Sherri Hubbard MD [facility] # [id number]
== END 2017-03-15 17:03 | disposition home or self-care (01) | DRG 603 ==
LOC: TRCU 17:26
PROVIDERS: ADMIT Internal Medicine; ATTEND Internal Medicine
PROC: F07M6ZZ Therapeutic Exercise Treatment of Musculoskeletal System - Whole Body (ICD-10-PCS; principal; 2017-03-13)
PROC: F08Z1ZZ Dressing Techniques Treatment (ICD-10-PCS; 2017-03-13)
PROC: F08Z2ZZ Grooming/Personal Hygiene Treatment (ICD-10-PCS; 2017-03-13)
PROC: F08Z0ZZ Bathing/Showering Techniques Treatment (ICD-10-PCS; 2017-03-13)
PROC: F08Z4ZZ Home Management Treatment (ICD-10-PCS; 2017-03-13)
DX: L03.116 Cellulitis of left lower limb (principal); N17.9 Acute kidney failure, unspecified; E11.51 Type 2 diabetes mellitus with diabetic peripheral angiopathy without gangrene; I48.91 Unspecified atrial fibrillation; R65.10 Systemic inflammatory response syndrome (SIRS) of non-infectious origin without acute organ dysfunction; E11.65 Type 2 diabetes mellitus with hyperglycemia; D64.9 Anemia, unspecified; K76.0 Fatty (change of) liver, not elsewhere classified; E78.5 Hyperlipidemia, unspecified; E87.6 Hypokalemia; I10 Essential (primary) hypertension; I25.10 Atherosclerotic heart disease of native coronary artery without angina pectoris; I89.0 Lymphedema, not elsewhere classified; K59.00 Constipation, unspecified; Z79.01 Long term (current) use of anticoagulants; Z79.4 Long term (current) use of insulin; Z79.899 Other long term (current) drug therapy; Z86.010 Personal history of colon polyps; Z87.01 Personal history of pneumonia (recurrent); Z87.891 Personal history of nicotine dependence; Z90.49 Acquired absence of other specified parts of digestive tract; Z87.81 Personal history of (healed) traumatic fracture; E66.9 Obesity, unspecified; Z68.32 Body mass index [BMI] 32.0-32.9, adult; Z87.19 Personal history of other diseases of the digestive system; R21 Rash and other nonspecific skin eruption; R53.81 Other malaise

== ENCOUNTER 2017-10-21 02:32 | Inpatient (IN) | payer MEDICARE, OTHER ==
[2017-10-21 02:33] VITALS: PULSE 76
--- NOTE | 2017-10-21 02:36 | EDPD ---
HPI Stroke - General Time Seen by Provider: 10/21/17 02:35 Historian: Patient, EMS - History of Present Illness Narrative History of Present Illness (Free Text): 10/21/17 02:32 Yulia Ceja is an 87 year old female, whose past medical history includes diabetes, hypertension, atrial fibrillation, and hyperlipidemia, who presents to the Emergency department brought in by EMS for left-sided weakness. As per EMS, family notified EMS after patient was found with left-sided weakness, left- sided facial droop, and slurred speech prior to arrival. EMS states patient was last seen normal at 20:00 yesterday. Limited HPI and ROS secondary to patient's acuity of condition. Date:: 10/21/17 Time: 02:33 Onset:: Hours Timing: Currently Symptomatic Context: Home Associated Symptoms: Dysarthria, Paralysis Exacerbated by: Nothing - Location Location: Speech Locate Left: Face rTPA Inclusion/Exclusion - Refusal of Treatment Patient Refused Treatment: No - Inclusion Criteria for Altepase Patient is 18 years or Older: Yes The Clinical Diagnosis of Ischemic Stroke That is Causing a Potentially Disabling Neurological Deficit: Yes Time of Onset is Well Established to be Less Than 270 Minute Before Treatment Would Begin: No Risk/Benefit Discussed With Patient/Family Member Present: No - Exclusion Criteria for Altepase Uncontrolled Hypertension at Time of Treatment (Systolic BP above 185 or Diastolic BP above 110 mmHg): No Active Internal Bleeding: No Known Bleeding Diathesis Including but Not Limited to: Platelets Below 100,000/ mm,PTT Above 40 sec After Heparin Use, Current Use of Oral Anitcoagulant With INR Greater Than 1.7 or PT Greater Than 15 secs: No Evidence of an Intracranial Hemorrhage: No Evidence of Major Acute Infarct With Signs Greater Than 1/3 MCA Territory: Yes Suspicion of Subarachnoid Hemorrhage on Pretreatment Evaluation Even if CT Head Negative For Hemorrhage: No - Warning to TPA With Conditions Following Conditions Weighed Against Anticipated Benefit: Yes Condition: Age Greater Than 75 years Past Medical History - Provider Review Nursing Documentation Reviewed: Yes - Infectious Disease Hx of Infectious Diseases: None - Tetanus Immunization Tetanus Immunization: Unknown - Cardiac Hx Hypertension: Yes - Pulmonary Hx Respiratory Disorders: Yes Hx Pneumonia: Yes - Neurological Hx Neurological Disorder: No - HEENT Hx HEENT Disorder: Yes Hx Cataracts: Yes (bilateral eyes) - Renal Hx Renal Disorder: No - Endocrine/Metabolic Hx Diabetes Mellitus Type 2: Yes - Hematological/Oncological Hx Blood Disorders: Yes Hx Anemia: Yes - Integumentary Hx Dermatological Disorder: No Other/Comment: red raised itchy rash to both arms - Musculoskeletal/Rheumatological Hx Falls: No - Gastrointestinal Hx Gastrointestinal Disorders: Yes (poor appetite,fatty liver,gi bleed h/o) - Genitourinary/Gynecological Hx Genitourinary Disorders: No Hx Reproductive Disorders: No - Psychiatric Hx Emotional Abuse: No Hx Physical Abuse: No - Past Surgical History Past Surgical History: Non-Contributing - Surgical History Hx Appendectomy: Yes Hx Cholecystectomy: Yes Hx Orthopedic Surgery: Yes (left hip) - Anesthesia Hx Anesthesia Reactions: No Hx Malignant Hyperthermia: No - Suicidal Assessment Feels Threatened In Home Enviroment: No Family/Social History - Family/Social History Family History: Non-Contributory - DrLauren Review Nursing documentation reviewed.: Yes Allergies/Home Meds Allergies/Adverse Reactions: Allergies No Known Allergies Allergy (Verified 10/21/17 02:39) Home Medications: Home Meds Medication Instructions Recorded Confirmed Pantoprazole [Protonix EC Tab] 40 mg PO DAILY 12/13/12 10/21/17 Furosemide [Lasix] 40 mg PO DAILY 08/12/14 10/21/17 Digoxin 0.125 mg PO DAILY 11/27/15 10/21/17 GlipiZIDE [Glucotrol] 1 mg PO BID 11/27/15 10/21/17 Review of Systems - Review of Systems Systems not reviewed;Unavailable: Acuity of Condition Neurological: Focal Weakness (+left-sided weakness), Speech Changes (+slurred speech), Facial Droop (+left-sided facial droop) ED Stroke Physical Exam Vital Signs Reviewed: Yes Temperature: Afebrile Pulse: Regular Respiratory Rate: Normal Appearance: Positive for: Non-Toxic Pain Distress: None Mental Status: Positive for: other (Alert) - Systems Exam Head: Present: Atraumatic, Normocephalic Pupils: Present: PERRL Extroacular Muscles: Present: EOMI Conjunctiva: Present: Normal Mouth: Present: Moist Mucous Membranes Neck: Present: Normal Range of Motion Respiratory/Chest: Present: Clear to Auscultation, Good Air Exchange. No: Respiratory Distress, Accessory Muscle Use Cardiovascular: Present: Regular Rate and Rhythm, Normal S1, S2. No: Murmurs Abdomen: Present: Normal Bowel Sounds. No: Tenderness, Distention, Peritoneal Signs Upper Extremity: No: Cyanosis, Edema Lower Extremity: No: Edema Neurologic: Present: Facial Droop (Left-sided facial droop), Other (Mild pankaj- attention). No: Motor Func Grossly Intact (Left-sided weakness), Pronator Drift (No pronator drift) Skin: Present: Warm, Dry, Normal Color. No: Rashes Psychiatric: Present: Alert Medical Decision Making ED Course and Treatment: 10/21/17 02:33 Impression: 87 year old female brought in for left-sided weakness, left-sided facial droop, and slurred speech. Plan: -- CT Head w/o contrast -- EKG -- Chest X-ray -- Labs, troponin, lipid panel, blood type and screen -- IV fluids -- Reassess and disposition Prior Visits: Notes and results from previous visits were reviewed. Progress Notes: 10/21/17 02:34 Pt seen on arrival to Emergency department. Code Stroke called 10/21/17 02:[address] Jiménez, neurologist, who is aware and agrees with plan. Requests CTA Head/Neck. States pt can receive Plavix and Aspirin if CT findings are negative for hemorrhage. States pt is not a candidate for tPA as pt is out of the time frame. 10/21/17 03:04 Chest X-ray reviewed, shows no acute processes. 10/21/17 03:09 CT Head shows: Brain: Diffuse cerebral volume loss and chronic microvascular white matter changes. Stable small old focal infarct at the superior left cerebellum Ventricles: Unremarkable. Bones/joints: Unremarkable. No acute fracture. Soft tissues: Unremarkable. Sinuses: Unremarkable as visualized. Mastoid air cells: Unremarkable as visualized. IMPRESSION: No acute territorial infarction or other acute intracranial pathology. Stable chronic changes, as above. 10/21/17 04:46 CTA Neck shows: VASCULATURE: Right common carotid artery: Unremarkable. No significant stenosis. No dissection or occlusion. Right internal carotid artery: Unremarkable. Extracranial segment is patent with no significant stenosis. No dissection or occlusion. Right external carotid artery: Unremarkable. No occlusion. Right vertebral artery: Unremarkable. No significant stenosis. No dissection or occlusion. Left common carotid artery: Unremarkable. No significant stenosis. No dissection or occlusion. Left internal carotid artery: Advanced calcific plaque at the left carotid bulb and proximal ICA results in a results and borderline severe focal stenosis luminal narrowing of approximately 70%. Left external carotid artery: Unremarkable. No occlusion. Left vertebral artery: Calcific plaque at the origin of the left vertebral artery results in mild focal stenosis. No dissection or occlusion. 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 NECK: Bones/joints: No acute fracture. No dislocation. Soft tissues: Calcific atherosclerotic plaque formation with ulcerating plaques at the right carotid bulb and proximal ICA results in mild focal stenosis luminal narrowing of less than 50%. Pleural space: Partially visualized layering pleural effusions. Pulmonary interstitial edema. Advance calcific plaque of the proximal left subclavian artery results in mild to moderate stenosis. CAROTID STENOSIS REFERENCE USING NASCET CRITERIA: % ICA stenosis = (1 - narrowest ICA diameter/diameter of distal cervical ICA) x 100. Mild - <50% stenosis. Moderate - 50-69% stenosis. Severe - 70-94% stenosis. Near occlusion - 95-99% stenosis. Occluded - 100% stenosis. IMPRESSION: 1. Advanced calcific plaque at the left carotid bulb and proximal ICA results in a results and borderline severe focal stenosis luminal narrowing of approximately 70%. 2. Calcific atherosclerotic plaque formation with ulcerating plaques at the right carotid bulb and proximal ICA results in mild focal stenosis luminal narrowing of less than 50%. 3. 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 4. Otherwise, no dissection, thromboembolic disease, or occlusion throughout the bilateral cervical arterial vasculature. CTA Head show: Right internal carotid artery: No acute findings. Intracranial segment is patent with no significant stenosis. No aneurysm. Right anterior cerebral artery: Unremarkable. No occlusion or significant stenosis. No aneurysm. Right middle cerebral artery: Unremarkable. No occlusion or significant stenosis. No aneurysm. Right posterior cerebral artery: Unremarkable. No occlusion or significant stenosis. No aneurysm. Right vertebral artery: Calcific plaque along the intracranial vertebral arteries results in minimal to mild multifocal stenosis. Minimal multifocal stenosis at the proximal most of the basilar artery. Left internal carotid artery: No acute findings. Intracranial segment is patent with no significant stenosis. No aneurysm. Left anterior cerebral artery: Unremarkable. No occlusion or significant stenosis. No aneurysm. Left middle cerebral artery: Unremarkable. No occlusion or significant stenosis. No aneurysm. Left posterior cerebral artery: Unremarkable. No occlusion or significant stenosis. No aneurysm. Left vertebral artery: See above. Basilar artery: See above. IMPRESSION: Calcific plaque along the intracranial vertebral arteries results in minimal to mild multifocal stenosis. Minimal multifocal stenosis at the proximal most of the basilar artery. Otherwise, no high-grade stenosis, occlusion, thromboembolic disease, or aneurysm involving the intracranial arterial vasculature. 10/21/17 04:[address] Hubbard, who is aware and agrees with plan. Accepts pt in to his service. Requests ICU consult. 10/21/17 04:[address] Grace, aircraft structural fitter, who is aware and agrees with plan. residential air sealing technician notified. 10/21/17 05:[address] Grace, present in Emergency department to evaluate pt. Pt will be admitted to the ICU for cerebral infarction under Dr. Hubbard' service. - Critical Care Critical Care Minutes: 30 minutes Narrative Critical Care (Text): management of CVA - Lab Interpretations I have reviewed the lab results: Yes - RAD Interpretation Lead Java Developer Architect: ED Physician, Radiologist - EKG Interpretation Interpreted by ED Physician: Yes Type: 12 lead EKG - Scribe Statement The provider has reviewed the documentation as recorded by the Scribe Lamar Yao All medical record entries made by the Scribe were at my direction and personally dictated by me. I have reviewed the chart and agree that the record accurately reflects my personal performance of the history, physical exam, medical decision making, and the department course for this patient. I have also personally directed, reviewed, and agree with the discharge instructions and disposition. NIHSS Scale (Pierce) Time Performed: 02:34 - How Severe is the Stoke Baseline Level of Consciousness: 0=Alert LOC to Questions: 1=One correct LOC to commands: 1=Obeys one correctly Best Gaze: 1=Partial gaze palsy Visual: 0=No visual loss Facial: 2=Partial (lower face paralysis) Motor Arm - Left: 0=No drift Motor Arm - Right: 0=No drift Motor Leg - Left: 3=No effort against gravity (falls immediately) Motor Leg - Right: 3=No effort against gravity (falls immediately) Limb Ataxia: 1=Present Upper or Lower Sensory: 1=Mild to moderate loss Best Language: 1=Mild to moderate aphasia Dysarthia: 1=Mild to moderate slurring Extinction & Inattention (Neglect): 1=Partial neglect (mild pankaj-attention) Score: 16 Risk Level: Mod/Sev Stroke Risk Disposition/Present on Arrival - Present on Arrival Any Indicators Present on Arrival: No History of DVT/PE: No History of Uncontrolled Diabetes: No Urinary Catheter: No History Surgical Site Infection Following: None - Disposition Have Diagnosis and Disposition been Completed?: Yes Diagnosis: Cerebral vascular accident Disposition: HOSPITALIZED Disposition Time: 05:40 Patient Problems: Current Active Problems Problem Status Onset Cerebral vascular accident Acute Condition: FAIR
[2017-10-21] MEDS ORDERED: Sodium Chloride 0.9% 1,000 ML IV SCH ×2 (02:45→23:00)
[2017-10-21 02:58] LABS: BASO # 0.01 K/mm3 (0.0-2.0); BASO % 0.1 % (0.0-3.0); EOS # 0.2 (0.0-0.7); EOS % 1.1 % (1.5-5.0); GRAN # 9.49 (1.4-6.5); GRAN % 70.9 % (50.0-68.0); LYMPH # 2.7 (1.2-3.4); LYMPH % 20.3 % (22.0-35.0); MEAN CELL VOLUME 87.5 fl (80.0-105.0); MEAN CORPUSCULAR HEMOGLOBIN 28.8 pg (25.0-35.0); MEAN PLATELET VOLUME 13.3 fl (7.0-11.0); MONO % 7.6 % (1.0-6.0); RBC 5.2 10^6/uL (3.5-6.1); RED CELL DISTRIBUTION WIDTH 15.4 % (11.5-14.5); WHITE BLOOD COUNT 13.4 10^3/ul (4.5-11.0)
[2017-10-21 03:02] LABS: INR 1.15; PARTIAL THROMBOPLASTIN TIME 27.3 Seconds (25.1-36.5); PROTHROMBIN TIME 13.2 SECONDS (9.4-12.5)
[2017-10-21 03:03] LABS: ALB/GLOB RATIO 1.1 (1.1-1.8); ALBUMIN 3.8 g/dL (3.0-4.8); ALT/SGPT 34 U/L (7-56); AST/SGOT 23 U/L (14-36); BLOOD UREA NITROGEN 16 mg/dL (7-21); CALCIUM 9.4 mg/dL (8.4-10.5); GFR NON-AFRICAN AMERICAN > 60; HDL CHOLESTEROL 26 mg/dL (29-60)
[2017-10-21 03:14] LABS: LDL CHOLESTEROL 101 mg/dL (0-129)
[2017-10-21 03:17] LABS: TROPONIN I 0.02 ng/mL
[2017-10-21] MEDS ORDERED: Labetalol 5 mg/ml Inj 20ML IV STA (05:33)
--- NOTE | 2017-10-21 06:41 | CP.PCM.CON ---
<AbnerFarzana - Last Filed: 10/21/17 08:19> History of Present Illness - History of Present Illness History of Present Illness: Farzana Levine, PGY-1, ICU Consult Note for Dr. Grace. CC: facial droop, weakness HPI: 87 year old wheelchair bound female with past medical history of hypertension, diabetes mellitus II, gait disorder, valvular heart disease, UTI, cellulitis hyperlipidemia, atrial fibrillation, nephrolithiasis, presents with left sided weakness. As per EMS, family notified EMS after patient was found with left sided weakness, left sided facial droop, and slurred speech prior to arrival. EMS states patient was last seen normal at 20:00 on 10/20. On presentation, both daughter were present at bedside, who reported her history. 12-point ROS is unattainable due to patient's condition. PMH: hypertension, diabetes mellitus II, diastolic heart failure with preserved EF, gait disorder, valvular heart disease, UTI, cellulitis hyperlipidemia, atrial fibrillation, nephrolithiasis PSH: cholecystectomy, left leg surgery, left hip replacement FMHx: mother and aunt both from cardiac issues SHx: smoked 20 years for 25 years. unknown number of cigarettes. Daughters deny that patient had drinking or recreational drug history. PMD: Dr. Hubbard [facility]: [facility] Insurance: [employer], medicare outpatient Review of Systems - Review of Systems Systems not reviewed;Unavailable: Acuity of Condition Past Patient History - Infectious Disease Hx of Infectious Diseases: None - Tetanus Immunizations Tetanus Immunization: Unknown - Past Social History Smoking Status: Former Smoker Alcohol: None Drugs: Denies - CARDIAC Hx Hypertension: Yes - PULMONARY Hx Respiratory Disorders: Yes Hx Pneumonia: Yes - NEUROLOGICAL Hx Neurological Disorder: No - HEENT Hx HEENT Problems: Yes Hx Cataracts: Yes (bilateral eyes) - RENAL Hx Chronic Kidney Disease: No - ENDOCRINE/METABOLIC Hx Diabetes Mellitus Type 2: Yes - HEMATOLOGICAL/ONCOLOGICAL Hx Blood Disorders: Yes Hx Anemia: Yes - INTEGUMENTARY Hx Dermatological Problems: No Other/Comment: red raised itchy rash to both arms - MUSCULOSKELETAL/RHEUMATOLOGICAL Hx Falls: No - GASTROINTESTINAL Hx Gastrointestinal Disorders: Yes (poor appetite,fatty liver,gi bleed h/o) - GENITOURINARY/GYNECOLOGICAL Hx Genitourinary Disorders: No Hx Reproductive Disorders: No - PSYCHIATRIC Hx Emotional Abuse: No Hx Physical Abuse: No - SURGICAL HISTORY Hx Appendectomy: Yes Hx Cholecystectomy: Yes Hx Orthopedic Surgery: Yes (left hip) - ANESTHESIA Hx Anesthesia Reactions: No Hx Malignant Hyperthermia: No Meds Allergies/Adverse Reactions: Allergies Allergy/AdvReac Type Severity Reaction Status Date / Time No Known Allergies Allergy Verified 10/21/17 02:39 - Medications Medications: Current Medications Aspirin (Aspirin Chewable) 81 mg PO DAILY FLORIN Atorvastatin Calcium (Lipitor) 40 mg PO DAILY FLORIN Enoxaparin Sodium (Lovenox) 40 mg SC DAILY [facility]OR[facility] PRN Reason: Protocol Sodium Chloride (Sodium Chloride 0.9%) 1,000 mls @ 100 mls/hr IV .Q10H FLORIN Last Admin: 10/21/17 03:22 Dose: 100 mls/hr Labetalol HCl (Trandate) 10 mg IV Q4 PRN PRN Reason: Blood Pressure 220/110 & above Physical Exam - Constitutional Appears: In Acute Distress, Agitated, Confused - Head Exam Head Exam: ATRAUMATIC, NORMAL INSPECTION, NORMOCEPHALIC - Eye Exam Eye Exam: PERRL (2-3 mm pupils). absent: EOMI (patient unable to follow commands for extraocular movement on examination.) - ENT Exam ENT Exam: Mucous Membranes Dry - Neck Exam Neck exam: Negative for: Full Rom (patients neck is contracted to the right. Patient has been unable to move her neck.) - Respiratory Exam Respiratory Exam: Clear to Auscultation Bilateral, NORMAL BREATHING PATTERN - Cardiovascular Exam Cardiovascular Exam: Irregular Rhythm Additional comments: holosystolic murmur at apex, systolic ejection murmur at RUSB - GI/Abdominal Exam GI & Abdominal Exam: Distended, Firm, Normal Bowel Sounds - Extremities Exam Additional comments: Patient has multiple scratches on bilateral upper extremities. Nonpitting Edema present on bilateral lower extremities. +0/5 MSK on left upper and lower extremity +4/5 MSK on right upper extremity +3/5 MSK on right lower extremity - Neurological Exam Neurological exam: Alert Additional comments: Patient was AAOx2 on presentation. Patient has right eyelid droop and left eyelid stuck open. Left sided facial droop. Patient was able to protrude tongue but unable to move it left and right with control. Patient had loss of sensation on left and right forehead, and left side of lower face. Patient was unable to move neck. Neck was stuck on right side. CN II, VIII, XI, X intact. CN III, IV, and unable to evaluate. CN V, VII, XI , XII not intact on presentation. Results - Vital Signs Recent Vital Signs: Last Vital Signs Temp 98.7 F 10/21/17 04:48 Pulse 81 10/21/17 05:53 Resp 17 10/21/17 05:53 BP 185/88 H 10/21/17 05:53 Pulse Ox 93 L 10/21/17 05:53 - Labs Result Diagrams: 10/21/17 06:45 10/21/17 02:35 Assessment & Plan - Assessment and Plan (Free Text) Assessment: 87 year old wheelchair bound female with past medical history of hypertension, diabetes mellitus II, gait disorder, valvular heart disease, UTI, cellulitis hyperlipidemia, atrial fibrillation, nephrolithiasis, presents with left sided weakness. Patient was diagnosed with stroke and stroke protocol was initiated. Plan: Acute ischemic stroke 2/2 to atrial fibrillation vs. atherosclerosis -Patient present with left sided facial droop and left sided weakness -NIHSS: 16 -CT Head w/o contrast: No acute territorial infarction or other acute intracranial pathology. Stable chronic changes. -CTA Head: Calcific plaque along the intracranial vertebral arteries results in minimal to mild multifocal stenosis. Minimal multifocal stenosis at the proximal most of the basilar artery. Otherwise, no high-grade stenosis, occlusion, thromboembolic disease, or aneurysm involving the intracranial arterial vasculature. -Dr. Jiménez, neurology, consulted for recommendations. -On presentation to ED, code stroke called. Stroke team was consulted. Patient was not a candidate for tPA due to being out of time frame. Patient given aspirin 300 mg rectally. Patient given one dose of hydralazine 10 mg and labetalol 20 mg in ED. -HgbA1c, ESR, CRP, TSH, T3, T4 Vitamin B12 ordered for complete evaluation. -Lipid panel: Triglycerides 317. Cholesterol levels were normal. -Neurocheck Q2 -Vital signs Q15min -Routine CBC, CMP ordered. -Nursing swallow screening -NPO. -Swallow Eval and Treat due to stroke -Aspiration precautions due to stroke -PT/OT Evaluation due to stroke -Speech Evaluation due to stroke -Start aspirin 300 mg rectally, labetalol 10 mg Q4PRN for BP>220/120 for permission hypertension. Plavix 75 mg, Atorvastatin 40 mg (LFTs are normal) will be started once patient can tolerate PO intake -Patient's home antihypertensive medications held. Labetalol will be used for controlling hypertension. -Therapeutic Anticoagulation for atrial fibrillation held until cardio evaluation by Dr. See. PT/PTT daily ordered. Hypertension -BP 221/162 on presentation -BP down to 177/93. -Patient on permissive HTN protocol with labetalol 10 mg Q4PRN for BP>220/120. -Patient also started on nicardipine drip at 5mg/hr for atrial fibrillation. -Continue to monitor. Diastolic Congestive Heart Failure with last LVEF of 71.5% -Last known echocardiogram 05/2014: LVEF: 71.5%. Biatrial enlargement. Moderate concentric LVH, normal LV size and systolic function, moderate diastolic dysfunction, moderate to severe , moderate MR, TR. -Trop: 0.02 -BNP, routine CBC and CMP ordered. -Aspirin 300 mg rectal daily, labetalol 10 mg Q4 PRN for BP>220/120. -Will start plavix 75 PO and atorvastatin 40 mg PO once patient can tolerate PO intake. -Possible echocardiogram pending cardiology recommendations today. Insulin Dependent Diabetes Mellitus Type II -Random glucose: 247 -Last HgbA1c in 03/2017: 11.6. -HgbA1c, TSH ordered. -Lipid profile: Triglycerides 317. Cholesterol normal. -Home diabetic medication held. -Medium dose sliding scale insulin started. Atrial fibrillation -Currently not in RVR. -EKG: Atrial fibrillation with ventricular rate of 84 bpm. QRS: 102, QTc: 465 -Patient started on nicardipine drip at 5mg/hr. -Home Metoprolol tartrate, isosorbide nitrate, digoxin held. -Will restart digoxin pending Digoxin blood level. -Patient currently not on therapeutic anticoagualtion. -Follow up with Dr. See, cardiology, for recommendations. History of left hip and leg surgery -Prior hip and leg surgery -PT evaluation for mobility per outpatient. Leukocytosis likely 2/2 to stress response -WBC: 13.4 -Continue to monitor. Subtherapeutic INR -PT: 13.2/INR: 1.15. -Patient currently not on therapeutic anticoagulation for atrial fibrillation. -Follow up with Dr. See, cardiology, for recommendations. Elevated Triglycerides -Triglycerides: 317. Total, LDL, HDL normal. -Will start atorvastatin 40 mg PO daily after patient can tolerate PO intake. DVT prophylaxis: lovenox 40 mg daily GI prophylaxis: protonix 40 mg daily CODE STATUS: patient is currently DNR/DNI and discussed and decided by daughters present at bedside. Patient seen and assessed with Dr. Grace. - Date & Time Date: 10/21/17 Time: 07:00 <Rhonda Grace - Last Filed: 10/24/17 03:02> Meds - Medications Medications: Current Medications Acetaminophen (Tylenol 325mg Tab) 650 mg PO Q4H PRN PRN Reason: headache Last Admin: 10/21/17 18:41 Dose: 650 mg Amlodipine Besylate (Norvasc) 5 mg PO DAILY [facility] Last Admin: 10/23/17 17:07 Dose: 5 mg Aspirin (Ecotrin) 81 mg PO DAILY [facility] Last Admin: 10/23/17 09:20 Dose: 81 mg Atorvastatin Calcium (Lipitor) 40 mg PO DAILY [facility] Last Admin: 10/23/17 09:20 Dose: 40 mg Clonidine HCl (Catapres) 0.1 mg PO Q4H PRN PRN Reason: hypertension Last Admin: 10/23/17 22:22 Dose: 0.1 mg Clopidogrel Bisulfate (Plavix) 75 mg PO DAILY [facility] Last Admin: 10/23/17 09:20 Dose: 75 mg Dextrose (Dextrose 50% Inj) 0 ml IV STAT PRN; Protocol PRN Reason: Hypoglycemia Protocol Enoxaparin Sodium (Lovenox) 40 mg SC DAILY [facility] PRN Reason: Protocol Last Admin: 10/23/17 09:22 Dose: 40 mg Furosemide (Lasix) 20 mg IVP DAILY [facility] Last Admin: 10/23/17 09:22 Dose: 20 mg Dextrose (Dextrose 5% In Water 1000 Ml) 1,000 mls @ 0 mls/hr IV .Q0M PRN; Protocol; Per Protocol PRN Reason: Hypoglycemia Protocol Doxycycline Hyclate 100 mg/ (Sodium Chloride) 100 mls @ 100 mls/hr IVPB Q12 [facility] PRN Reason: Protocol Stop: 10/30/17 10:01 Last Admin: 10/23/17 21:21 Dose: 100 mls/hr Insulin Detemir (Levemir) 14 unit SC HS [facility] Last Admin: 10/23/17 22:17 Dose: 14 units Insulin Human Lispro (Humalog Low) 0 units SC ACHS [facility] PRN Reason: Protocol Last Admin: 10/23/17 22:15 Dose: Not Given Insulin Human Lispro (Humalog) 8 units SC AC [facility] Metoprolol Tartrate (Lopressor) 50 mg PO BID [facility] Last Admin: 10/23/17 17:08 Dose: 50 mg Pantoprazole Sodium (Protonix Inj) 40 mg IVP DAILY [facility] Last Admin: 10/23/17 09:23 Dose: 40 mg Valsartan (Diovan) 320 mg PO DAILY [facility] Last Admin: 10/23/17 16:29 Dose: 320 mg Results - Vital Signs Recent Vital Signs: Last Vital Signs Temp 98.3 F 10/24/17 00:01 Pulse 46 L 10/24/17 02:00 Resp 17 10/24/17 00:01 BP 130/78 10/24/17 00:01 Pulse Ox 95 10/24/17 00:01 - Labs Result Diagrams: 10/23/17 06:00 10/23/17 07:00 Labs: Laboratory Results - last 24 hr 10/23/17 10/23/17 10/23/17 06:00 06:00 07:00 WBC 13.4 H RBC 5.00 Hgb 14.6 Hct 45.2 MCV 90.4 MCH 29.2 MCHC 32.3 RDW 16.1 H Plt Count 231 MPV 13.7 H Gran % 83.9 H Lymph % (Auto) 9.6 L [place] % (Auto) 6.0 Eos % (Auto) 0.4 L Baso % (Auto) 0.1 Gran # 11.25 H Lymph # (Auto) 1.3 [place] # (Auto) 0.8 H Eos # (Auto) 0.1 Baso # (Auto) 0.01 PT 13.7 H INR 1.19 APTT 30.8 Sodium 144 Potassium 4.0 Chloride 106 Carbon Dioxide 26 Anion Gap 16 BUN 16 Creatinine 0.7 Est GFR ( Amer) > 60 Est GFR (Non-Af Amer) > 60 POC Glucose (mg/dL) Random Glucose 291 H Calcium 9.6 Total Bilirubin 0.9 AST 23 ALT 26 Alkaline Phosphatase 83 Total Protein 7.5 Albumin 3.9 Globulin 3.6 Albumin/Globulin Ratio 1.1 10/23/17 10/23/17 10/23/17 07:52 17:12 22:11 WBC RBC Hgb Hct MCV MCH MCHC RDW Plt Count MPV Gran % Lymph % (Auto) [place] % (Auto) Eos % (Auto) Baso % (Auto) Gran # Lymph # (Auto) [place] # (Auto) Eos # (Auto) Baso # (Auto) PT INR APTT Sodium Potassium Chloride Carbon Dioxide Anion Gap BUN Creatinine Est GFR ( Amer) Est GFR (Non-Af Amer) POC Glucose (mg/dL) 280 H 249 H 221 H Random Glucose Calcium Total Bilirubin AST ALT Alkaline Phosphatase Total Protein Albumin Globulin Albumin/Globulin Ratio Attending/Attestation - Attestation I have personally seen and examined this patient.: Yes I have fully participated in the care of the patient.: Yes I have reviewed all pertinent clinical information: Yes Notes (Text): 10/24/17 03:02 Patient was seen when she was in the ER. Agree with documentation.
[2017-10-21] MEDS ORDERED: Dextrose 50% SYRINGE Inj (50 ml) IV PRN (07:26)
[2017-10-21 08:12] LABS: MEAN CELL VOLUME 87.9 fl (80.0-105.0); MEAN CORPUSCULAR HEMOGLOBIN 28.8 pg (25.0-35.0); MEAN CORPUSCULAR HGB CONC 32.8 g/dl (31.0-37.0); MEAN PLATELET VOLUME 13.6 fl (7.0-11.0); RBC 5.2 10^6/uL (3.5-6.1); RED CELL DISTRIBUTION WIDTH 15.3 % (11.5-14.5); WHITE BLOOD COUNT 15.4 10^3/ul (4.5-11.0)
[2017-10-21 09:02] LABS: B-TYPE NATRIURETIC PEPTIDE 5960 pg/mL (0-450); TROPONIN I 0.02 ng/mL
[2017-10-21 09:06] LABS: ALB/GLOB RATIO 1.1 (1.1-1.8); ALBUMIN 3.6 g/dL (3.0-4.8); ALT/SGPT 26 U/L (7-56); AST/SGOT 23 U/L (14-36); BLOOD UREA NITROGEN 15 mg/dL (7-21); CALCIUM 9.5 mg/dL (8.4-10.5); GFR NON-AFRICAN AMERICAN > 60
[2017-10-21 09:14] LABS: INR 1.2; PARTIAL THROMBOPLASTIN TIME 30.4 Seconds (25.1-36.5); PROTHROMBIN TIME 13.9 SECONDS (9.4-12.5)
--- NOTE | 2017-10-21 09:14 | RAD ---
Date of service: 10/21/2017 PROCEDURE: CHEST RADIOGRAPH, 1 VIEW HISTORY: Pain COMPARISON: Comparison made with chest radiograph 03/06/2017 FINDINGS: LUNGS: Pulmonary vascular congestive changes with patchy bilateral lower lobe infiltrates left greater than right. Bilateral effusions left larger than right bilateral PLEURA: As above. No apparent pneumothorax. CARDIOVASCULAR: Cardiomegaly OSSEOUS STRUCTURES: No significant abnormalities. VISUALIZED UPPER ABDOMEN: Normal. OTHER FINDINGS: None. IMPRESSION: Pulmonary vascular congestive changes with patchy bilateral lower lobe infiltrates left greater than right. Bilateral effusions left larger than right bilateral
[2017-10-21 09:22] LABS: T3 1.17 ng/mL (0.97-1.69)
[2017-10-21 09:27] VITALS: BMI 26.4
[2017-10-21] MEDS: Insulin Lispro (humaLOG) MEDIUM Coverage SC SCH ×4 (09:34→22:00)
--- NOTE | 2017-10-21 09:47 | CT ---
Date of service: 10/21/2017 PROCEDURE: CT HEAD WITHOUT CONTRAST. HISTORY: Code Stroke COMPARISON: None available. TECHNIQUE: Axial computed tomography images were obtained through the head/brain without intravenous contrast. Radiation dose: Total exam DLP = 916.3 mGy-cm. This CT exam was performed using one or more of the following dose reduction techniques: Automated exposure control, adjustment of the mA and/or kV according to patient size, and/or use of iterative reconstruction technique. FINDINGS: HEMORRHAGE: No no acute parenchymal, subarachnoid or extra-axial hemorrhage. BRAIN: Mild to moderate diffuse/confluent chronic periventricular white matter ischemic changes seen extending peripherally into the deep and subcortical white matter both cerebral hemispheres. There are scattered chronic bilateral basal nuclei lacunar type infarcts. Questionable tiny chronic left cerebellar lacunar type infarct The possibility of a small hyperacute infarct cannot be excluded on this study. Moderate generalized volume loss. Mild vascular calcifications both carotid siphons and vertebral arteries. VENTRICLES: No obstructive hydrocephalus. CALVARIUM: No acute calvarial fractures. . PARANASAL SINUSES: Minimal mucosal thickening seen within few ethmoid air cells. There is focus polypoid like mucosal thickening in the left chamber sphenoid sinus MASTOID AIR CELLS: Unremarkable as visualized. No inflammatory changes. OTHER FINDINGS: None. IMPRESSION: Mild to moderate diffuse/confluent chronic periventricular white matter ischemic changes seen extending peripherally into the deep and subcortical white matter both cerebral hemispheres. There are scattered chronic bilateral basal nuclei lacunar type infarcts. Questionable tiny chronic left cerebellar lacunar type infarct. The possibility of a small hyperacute infarct cannot be excluded on this study. Moderate generalized volume loss.
[2017-10-21] MEDS: cefTRIAXone 1 gm 1 GM/100 ML BAG IVPB SCH (09:49)
[2017-10-21] MEDS ORDERED: Digoxin 125 mcg (0.125 mg) Tab PO SCH (10:00)
--- NOTE | 2017-10-21 11:19 | CARD ---
APPROVED REPORT Date of service: 10/21/2017 EKG Measurement Heart [id number] <Conclusion> Atrial fibrillation Anterolateral infarct, age undetermined Abnormal ECG
[2017-10-21] MEDS: Enoxaparin 40 mg Syringe SC SCH (13:00)
[2017-10-21 13:01] LABS: PH,URINE 7.5 (4.7-8.0); URINE BILIRUBIN NEGATIVE (NEGATIVE); URINE BLOOD NEGATIVE (NEGATIVE); URINE GLUCOSE (UA) 500 mg/dL (NEGATIVE); URINE LEUKOCYTE ESTERASE NEGATIVE Leu/uL (NEGATIVE); URINE PROTEIN NEGATIVE mg/dL (<30 mg/dL); URINE UROBILINOGEN 0.2 E.U./dL (<1 E.U./dL)
--- NOTE | 2017-10-21 13:02 | HP ---
Copied To: Sherri Hubbard MD Attending MD: Sherri Hubbard MD HISTORY OF PRESENT ILLNESS: An 87-year-old female, who was brought by EMS to the emergency room. Family noted this morning that the patient seemed to have a left facial droop at home; earlier in the evening, they did not notice any of these findings, and the patient did get out of bed to go to the bathroom. PAST MEDICAL HISTORY: The patient has a past medical history of diabetes, hypertension, atrial fibrillation, left hip surgery, cellulitis of the lower extremities. SOCIAL HISTORY: She is a nonsmoker, nondrinker, nondrug user. ALLERGIES: SHE HAS NO KNOWN ALLERGIES. She has a living will, she is a DNR/DNI. HOME MEDICATIONS: Consist of digoxin, Lasix, Glucotrol, Levemir, Imdur, Lopressor, Protonix and potassium. REVIEW OF SYSTEMS: Multiple systems were reviewed, pertinent findings in the physical. PHYSICAL EXAMINATION: VITAL SIGNS: Showed a temp of 98.1, pulse is 80, heart is irregular, blood pressure is reported at 202/112, respiratory rate of 18, oxygen sat on 3 L nasal oxygen was reported at 97%. GENERAL: The patient is awake, communicative, left facial droop, left sided weakness. LUNGS: Show rhonchi, with diminished breath sounds at the bases. HEART: Irregular S1 and S2 rhythm, with a grade 2/6 systolic murmur. ABDOMEN: Obese, soft, with positive bowel sounds. EXTREMITIES: No evidence of erythema. LABORATORY DATA: Shows WBC of 15.4, RBC 5.2, hemoglobin 15, hematocrit 45.7, platelet count is 209. PT is 13.9, with an INR of 1.2, PTT is 30.4. Chemistry now shows a sodium of 142, potassium 4.1, chloride 103, CO2 of 26, BUN is 15, creatinine is 0.6, blood sugar random is 273. LFTs are normal. Troponin is 0.02 x2. BNP is 5960. Triglycerides are 317, cholesterol 160, HDL is 26. TSH is 0.79, T3 total is 1.17, T4 is 10. C-reactive protein and vitamin B12 are pending. Digoxin level was 0.5. MEDICATIONS: At this time is aspirin, Cardene IV, doxycycline, sliding insulin scale, Lasix, Lipitor, Lovenox, Plavix, Protonix, Rocephin. IMPRESSION: Consult had been requested with Cardiology, Pulmonary, Infectious Disease and Neurology. We will check the results of the CAT scans; however, the verbal communication from the emergency room was that there was no acute findings on the CAT scan of the head. Chest x-ray is being reported as vascular congestive changes bilaterally with some infiltrates, left greater than right, with effusion left greater than right. PROBLEMS: 1. Acute stroke. 2. Atrial fibrillation. 3. Hypertension. 4. Vascular congestion. 5. Pleural effusions. 6. Diabetes mellitus. Request admission into the intensive care unit given the clinical status of the patient. Consults have been requested. Sherri Hubbard MD MTDD
[2017-10-21 13:07] LABS: URINE APPEARANCE CLEAR (CLEAR); URINE COLOR YELLOW (YELLOW)
--- NOTE | 2017-10-21 13:34 | PN ---
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 She continues to have right-sided weakness in the upper and lower extremity and has left-sided facial droop. Family is at bedside. No complaints of significant pain. No shortness of breath, does have occasional cough and phlegm. No wheezing, but a little congestion. No fever, chills, nauseousness or vomiting. PHYSICAL EXAMINATION: VITAL SIGNS: Her temperature is 98.3, pulse is 87, respirations are 17 and BP is 177/93. SKIN: Warm and dry. HEENT: Head atraumatic, normocephalic. Eyes reactive to light. Ear, nose and throat seemed to be within normal limits. Note that her face reveals left-sided facial droop. NECK: Supple. No JVD. No thyroid enlargement. No lymph nodes. LUNGS: Reveal rare rhonchi at the left base. HEART: Has regular rate and rhythm. Normal S1, S2. ABDOMEN: Soft, nontender, decreased bowel sounds. GENITALIA AND RECTAL: Deferred. MUSCULOSKELETAL: No joint deformities. EXTREMITIES: Reveal trace lower extremity edema. NEUROLOGIC: The patient has right-sided upper and lower extremity weakness with left-sided facial droop. LABORATORY DATA: Laboratories reveal a white count of 15.4, hemoglobin is 15, hematocrit 45.7 with platelets of 209,000. Her PT is 13.2, INR is 1.15 and PTT is 27.3. Sodium is 144, potassium 4, chloride 103, CO2 of 29 with a BUN of 16, creatinine of 0.7 and glucose of 247. Chest x-ray reveals that there is left-sided lower lobe infiltrate. IMPRESSION: The patient presents with cerebral infarct/cerebrovascular accident with left-sided upper and lower extremity weakness and right-sided facial droop. She has accelerated hypertension as well as atrial fibrillation, diabetes, arthritis and history of congestive heart failure. Noted on chest x-ray, she has left lower lobe infiltrates/pneumonia. PLAN: As far as our plan, consults have been called for Pulmonary as well as ID and Neurology and Cardiology. The patient is on aspirin as well as started on doxycycline and given her insulin as well. She is getting Lasix, Lipitor, Lovenox and has been started on Cardene IV to control her blood pressure. The patient is on Plavix as well as Protonix and has been started on Rocephin. We will continue to treat aggressively along with the other consultants and the primary care doctor. Luis M Figueroa MD
[2017-10-21] MEDS ORDERED: Digoxin 500 mcg/2ml (0.5 mg/2ml) Inj IVP SCH ×3 (14:00)
--- NOTE | 2017-10-21 14:23 | CP.PCM.CON ---
History of Present Illness - History of Present Illness History of Present Illness: 87 year old wheelchair bound female with past medical history of hypertension, diabetes mellitus II, gait disorder, valvular heart disease, UTI, cellulitis hyperlipidemia, atrial fibrillation, nephrolithiasis, presents with left sided weakness. As per EMS, family notified EMS after patient was found with left sided weakness, left sided facial droop, and slurred speech prior to arrival. EMS states patient was last seen normal at 20:00 on 10/20. On presentation, both daughter were present at bedside, who reported her history. 12-point ROS is unattainable due to patient's condition. PMH: hypertension, diabetes mellitus II, diastolic heart failure with preserved EF, gait disorder, valvular heart disease, UTI, cellulitis hyperlipidemia, atrial fibrillation, nephrolithiasis PSH: cholecystectomy, left leg surgery, left hip replacement FMHx: mother and aunt both from cardiac issues SHx: smoked 20 years for 25 years. unknown number of cigarettes. Daughters deny that patient had drinking or recreational drug history. PMD: Dr. Hubbard [facility]acy: [facility] Insurance: [employer], medicare outpatient Past Patient History - Infectious Disease Hx of Infectious Diseases: None - Tetanus Immunizations Tetanus Immunization: Unknown - Past Social History Smoking Status: Former Smoker - CARDIAC Hx Cardiac Disorders: Yes Hx Hypertension: Yes - PULMONARY Hx Respiratory Disorders: Yes Hx Pneumonia: Yes - NEUROLOGICAL Hx Neurological Disorder: No - HEENT Hx HEENT Problems: Yes Hx Cataracts: Yes (bilateral eyes) - RENAL Hx Chronic Kidney Disease: No - ENDOCRINE/METABOLIC Hx Diabetes Mellitus Type 2: Yes - HEMATOLOGICAL/ONCOLOGICAL Hx Blood Disorders: Yes Hx Anemia: Yes - INTEGUMENTARY Hx Dermatological Problems: No Other/Comment: red raised itchy rash to both arms - MUSCULOSKELETAL/RHEUMATOLOGICAL Hx Falls: Yes - GASTROINTESTINAL Hx Gastrointestinal Disorders: Yes (poor appetite,fatty liver,gi bleed h/o) - GENITOURINARY/GYNECOLOGICAL Hx Genitourinary Disorders: No - PSYCHIATRIC Hx Emotional Abuse: No Hx Physical Abuse: No Hx Substance Use: No - SURGICAL HISTORY Hx Appendectomy: Yes Hx Cholecystectomy: Yes Hx Orthopedic Surgery: Yes (left hip) - ANESTHESIA Hx Anesthesia Reactions: No Hx Malignant Hyperthermia: No Meds Allergies/Adverse Reactions: Allergies Allergy/AdvReac Type Severity Reaction Status Date / Time No Known Allergies Allergy Verified 10/21/17 02:39 - Medications Medications: Current Medications Aspirin (Aspirin Supp) 300 mg RC DAILY [facility] Last Admin: 10/21/17 10:00 Dose: Not Given Atorvastatin Calcium (Lipitor) 40 mg PO DAILY [facility] Last Admin: 10/21/17 12:59 Dose: 40 mg Clopidogrel Bisulfate (Plavix) 75 mg PO DAILY [facility] Last Admin: 10/21/17 12:58 Dose: 75 mg Dextrose (Dextrose 50% Inj) 0 ml IV STAT PRN; Protocol PRN Reason: Hypoglycemia Protocol Enoxaparin Sodium (Lovenox) 40 mg SC DAILY [facility] PRN Reason: Protocol Last Admin: 10/21/17 13:00 Dose: 40 mg Furosemide (Lasix) 20 mg IVP DAILY [facility] Last Admin: 10/21/17 09:51 Dose: 20 mg Sodium Chloride (Sodium Chloride 0.9%) 1,000 mls @ 100 mls/hr IV .Q10H [facility] Last Admin: 10/21/17 03:22 Dose: 100 mls/hr Nicardipine HCl (Cardene Iv Premix) 20 mg in 200 mls @ 50 mls/hr IV .Q4H PRN; Protocol; 5 MG/HR PRN Reason: TITRATE PER MD ORDER Dextrose (Dextrose 5% In Water 1000 Ml) 1,000 mls @ 0 mls/hr IV .Q0M PRN; Protocol; Per Protocol PRN Reason: Hypoglycemia Protocol Ceftriaxone Sodium (Rocephin 1 Gram Ivpb) 1 gm in 100 mls @ 100 mls/hr IVPB DAILY [facility] PRN Reason: Protocol Stop: 10/29/17 10:01 Last Admin: 10/21/17 09:49 Dose: 100 mls/hr Doxycycline Hyclate 100 mg/ (Sodium Chloride) 100 mls @ 100 mls/hr IVPB Q12 [facility] PRN Reason: Protocol Stop: 10/30/17 10:01 Last Admin: 10/21/17 09:50 Dose: 100 mls/hr Insulin Human Lispro (Humalog Med) 0 units SC ACHS [facility] PRN Reason: Protocol Last Admin: 10/21/17 13:00 Dose: 7 unit Labetalol HCl (Trandate) 10 mg IV Q4 PRN PRN Reason: Blood Pressure 220/110 & above Pantoprazole Sodium (Protonix Inj) 40 mg IVP DAILY [facility] Last Admin: 10/21/17 09:50 Dose: 40 mg Results - Vital Signs Recent Vital Signs: Last Vital Signs Temp 97.7 F 10/21/17 12:00 Pulse 90 10/21/17 13:07 Resp 25 H 10/21/17 13:07 BP 186/70 H 10/21/17 13:00 Pulse Ox 88 L 10/21/17 11:00 - Labs Result Diagrams: 10/21/17 06:45 10/21/17 06:45 Labs: Laboratory Results - last 24 hr 10/21/17 10/21/17 10/21/17 06:45 06:45 06:45 WBC 15.4 H RBC 5.20 Hgb 15.0 Hct 45.7 MCV 87.9 MCH 28.8 MCHC 32.8 RDW 15.3 H Plt Count 209 MPV 13.6 H ESR 60 H PT INR APTT Sodium 142 Potassium 4.1 Chloride 103 Carbon Dioxide 26 Anion Gap 17 BUN 15 Creatinine 0.6 L Est GFR ( Amer) > 60 Est GFR (Non-Af Amer) > 60 Random Glucose 273 H Calcium 9.5 Total Bilirubin 0.6 AST 23 ALT 26 Alkaline Phosphatase 98 Total Creatine Kinase 53 Troponin I 0.02 C-React Prot High Sens 8.63 H NT-Pro-B Natriuret Pep 5960 H Total Protein 6.8 Albumin 3.6 Globulin 3.2 Albumin/Globulin Ratio 1.1 Vitamin B12 262 Procalcitonin Thyroxine (T4) 10.0 Total T3 1.17 TSH 3rd Generation 0.79 Urine Color Urine Appearance Urine pH Ur Specific Browder Urine Protein Urine Glucose (UA) Urine Ketones Urine Blood Urine Nitrate Urine Bilirubin Urine Urobilinogen Ur Leukocyte Esterase Digoxin 10/21/17 10/21/17 10/21/17 08:30 08:30 08:30 WBC RBC Hgb Hct MCV MCH MCHC RDW Plt Count MPV ESR PT 13.9 H INR 1.20 APTT 30.4 Sodium Potassium Chloride Carbon Dioxide Anion Gap BUN Creatinine Est GFR ( Amer) Est GFR (Non-Af Amer) Random Glucose Calcium Total Bilirubin AST ALT Alkaline Phosphatase Total Creatine Kinase Troponin I C-React Prot High Sens NT-Pro-B Natriuret Pep Total Protein Albumin Globulin Albumin/Globulin Ratio Vitamin B12 Procalcitonin < 0.05 L Thyroxine (T4) Total T3 TSH 3rd Generation Urine Color Urine Appearance Urine pH Ur Specific Browder Urine Protein Urine Glucose (UA) Urine Ketones Urine Blood Urine Nitrate Urine Bilirubin Urine Urobilinogen Ur Leukocyte Esterase Digoxin 0.5 L 10/21/17 12:50 WBC RBC Hgb Hct MCV MCH MCHC RDW Plt Count MPV ESR PT INR APTT Sodium Potassium Chloride Carbon Dioxide Anion Gap BUN Creatinine Est GFR ( Amer) Est GFR (Non-Af Amer) Random Glucose Calcium Total Bilirubin AST ALT Alkaline Phosphatase Total Creatine Kinase Troponin I C-React Prot High Sens NT-Pro-B Natriuret Pep Total Protein Albumin Globulin Albumin/Globulin Ratio Vitamin B12 Procalcitonin Thyroxine (T4) Total T3 TSH 3rd Generation Urine Color Yellow Urine Appearance Clear Urine pH 7.5 Ur Specific Browder 1.010 Urine Protein Negative Urine Glucose (UA) 500 H Urine Ketones Negative Urine Blood Negative Urine Nitrate Negative Urine Bilirubin Negative Urine Urobilinogen 0.2 Ur Leukocyte Esterase Negative Digoxin Assessment & Plan - Assessment and Plan (Free Text) Assessment: CT head: CTA head and neck: A/p: 87 yr old woman with new embolic stroke most likely secondary to afib, now not on anticoagulation and stable. She will need stroke workup, and is on telemetry currently. PLan: 1. Appreciate ICU medical team management. BP around 180-190/90. 2. MRI Brain as soon as possible ,without contrast 3. Continue aspirin and plavix 4. ECHO. 5. PT/St/OT 6. Lipid profile shows increased triglycerides, and increased HDL. Statin will be needed. 7. official reading of CTA head and neck. Thank you
--- NOTE | 2017-10-21 15:37 | CT ---
Date of service: 10/21/2017. PROCEDURE: CT Angiography of the neck and brain with contrast. HISTORY: CVA COMPARISON: Correlation made with concurrent CT scan brain. TECHNIQUE: Contiguous helical/ transaxial images of the neck and brain were obtained from the level of the skull vertex to the superior mediastinum in the arteriographic phase of enhancement. Coronal and sagittal reformats or also generated. IV contrast dose: 144 cc Omnipaque 350 Radiation Dose - DLP: 528.72 mGy-cm This CT exam was performed using one or more of the following dose reduction techniques: Automated exposure control, adjustment of the mA and/or kV according to patient size, and/or use of iterative reconstruction technique.. FINDINGS: There are partially calcified atherosclerotic plaque changes seen along the entire aortic arch with calcified plaque at the origins of the great vessels most significantly affecting the left subclavian with a does appear to be stenosis at the origin. . 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 The RIGHT CAROTID ARTERIES: Right Common Carotid Artery: Normal. Carotid Bifurcation: Minor partially calcified atherosclerotic plaque seen at the right carotid bifurcation with minimal extension into the proximal aspect of the right internal carotid artery. More significant plaque changes seen in the proximal aspect of the right external carotid artery. . Note that the right distal common carotid artery and bifurcation as well as proximal internal carotid artery exhibit a short right sided retropharyngeal of course. Internal Carotid Artery:Normal. LEFT CAROTID ARTERIES: Left Common Carotid Artery: Normal. Carotid Bifurcation: Moderate partially calcified atherosclerotic plaque on left carotid bifurcation with extension into the proximal margin of the left internal carotid artery resulting in significant stenosis Note that the left internal carotid artery also exhibits a short retropharyngeal course. Internal Carotid Artery:Normal. External Carotid Artery (proximal branches): Normal. VERTEBRAL ARTERIES: Both vertebral arteries are patent and relatively symmetric in appearance. Partially calcified atherosclerotic plaque seen along the distal intradural segments of the vertebral arteries. Basilar artery is patent. OTHER FINDINGS: There are partially calcified atherosclerotic plaque changes seen along cavernous segments resulting in mild narrowing. The distal branches of the anterior middle and post cerebral arteries appear relatively symmetric. No evidence of large intracerebral aneurysm nor vascular malformation Bilateral effusions and suspected mild bibasilar atelectasis. Heterogeneous appearance of the thyroid gland IMPRESSION: Partially calcified atherosclerotic plaque changes both carotid bifurcations on which extend into the proximal left internal carotid artery resulting in significant stenosis. . Mild mild partially calcified atherosclerotic plaque both abort cavernous carotid segments with mild narrowing. No evidence of large intra cerebral aneurysm or vascular malformation. 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 Heterogeneous appearing thyroid gland. Thyroid ultrasound followup recommended
--- NOTE | 2017-10-21 15:59 | MRI ---
Date of service: 10/21/2017 PROCEDURE: MRI BRAIN WITHOUT CONTRAST HISTORY: stroke COMPARISON: None available. TECHNIQUE: Multiplanar, multisequence MR images of the brain were obtained without intravenous contrast enhancement. FINDINGS: HEMORRHAGE: There is a very tiny somewhat cylindrical of focus of bright T1 signal in the right caudate head which corresponds to a chronic infarct. This could represent some surrounding dystrophic type mineralization or microcalcification DWI: Acute/subacute infarct changes seen in the right anterior subinsular region extending superiorly into the right cool radiata and right centrum semiovale. There may be a smaller subacute to chronic infarct in the left centrum semiovale. BRAIN PARENCHYMA: Right moderate diffuse/confluent chronic periventricular white matter ischemic changes seen extending peripherally into the deep and subcortical white matter both cerebral hemispheres. There are also more discrete chronic appearing infarct changes scattered about the deep and subcortical white matter as well as bilateral basal nuclei, cerebellar hemispheres and probably within the brainstem as well. Moderate to significant generalized volume loss. VENTRICLES: No obstructive hydrocephalus. CRANIUM: Unremarkable. ORBITS: Orbits contents unremarkable. PARANASAL SINUSES/MASTOIDS: Clear VASCULAR SYSTEM: Visualized major vascular flow voids at skull base patent. OTHER FINDINGS: None. IMPRESSION: Acute/subacute infarct changes seen right anterior subinsular region extending superiorly into the right cool radiata and right centrum semiovale. Smaller on subacute to chronic infarct suspected left centrum semiovale. Moderate to significant chronic white matter ischemic changes with scattered chronic bilateral basal nuclei cerebellar and brainstem ischemic changes. Moderate generalized volume loss. Note that these findings were discussed with Dr. Arenas at approximately 3:50 p.m. with written down and read back verification.
[2017-10-21] MEDS: Nicardipine 20 MG/200 ML 20 MG/200 ML BAG IV PRN (18:30)
--- NOTE | 2017-10-21 21:01 | CON ---
Copied To: Lalo Matthews MD Attending MD: Lalo Matthews MD DATE: 10/21/2017 HISTORY OF PRESENT ILLNESS: The patient is seen in room 128, bed 4 in an ICU, patient of Dr. Hubbard. CHIEF COMPLAINT: Weakness times 1 day. HISTORY OF PRESENT ILLNESS: This is an 87-year-old female, known to me from previous admissions with a history of atrial fibrillation, GI bleed, coronary artery disease, aortic stenosis, diabetes mellitus, hypertension, degenerative joint disease, hyperlipidemia, fatty liver, was admitted through the Emergency Room, was seen by Dr. Manuel Murguia, where the patient was found to have left-sided weakness and the family notified EMS after the patient was found laying down on her left side with left-sided facial droop, slurred speech. REVIEW OF SYSTEMS: A 12-point review of systems is performed, there has been no fevers and chills reported. No abdominal pain, diarrhea or constipation. No cough, no hemoptysis. PAST MEDICAL HISTORY: Significant for degenerative joint disease, hypertension, diabetes, aortic stenosis, high lipids, fatty liver, GI bleed, coronary artery disease, atrial fibrillation. PAST SURGICAL HISTORY: Significant for cholecystectomy and appendectomy. ALLERGIES: THE PATIENT HAS NO KNOWN ALLERGIES. MEDICATIONS AT HOME: Include pantoprazole, metoprolol, isosorbide, insulin, glipizide, Lasix, digoxin. PHYSICAL EXAMINATION: VITAL SIGNS: The patient is in bed with a temperature of 98, blood pressure is 202/112, respiratory rate of 25, heart rate of 104 and 92% saturation. HEENT: Remarkable with a facial droop. The left side is weak. NECK: Supple. LUNGS: Have decreased breath sounds. HEART: Normal S1, S2. ABDOMEN: Soft, nontender. LABORATORY EXAMINATION: Reveals the patient's white count is 15,400 and chemistries are noted. The patient has BUN of 15, creatinine of 0.6. Digoxin level is 0.5. The patient's chest x-ray read by Dr. Juan Diego Zavala as pulmonary vascular congestion, bilateral lower infiltrates are noted. The patient's CAT scan of the head is noted. There is diffuse chronic periventricular white matter. Review of orders are noted. ASSESSMENT AND PLAN: An 87-year-old female, diabetic, hypertensive, aortic stenosis, history of gastrointestinal bleed, history of coronary artery disease, atrial fibrillation, hyperlipidemia, fatty liver, presenting with sepsis with acute cerebrovascular accident, left-sided weakness with community-acquired pneumonia, must rule out bacterial versus chemical pneumonitis. We will order blood cultures, urine cultures, sputum cultures, MRSA screen, procalcitonin and we will start the patient empirically on doxycycline and ceftriaxone. The patient is pending panculture and procalcitonin workup results. Case discussed with PMD. We will follow closely with you. Lalo Matthews MD
[2017-10-22] MEDS: Nicardipine 20 MG/200 ML 20 MG/200 ML BAG IV PRN (01:00)
[2017-10-22 06:29] LABS: BASO # 0.01 K/mm3 (0.0-2.0); BASO % 0.1 % (0.0-3.0); EOS # 0.1 (0.0-0.7); EOS % 0.4 % (1.5-5.0); GRAN # 11.88 (1.4-6.5); GRAN % 80.5 % (50.0-68.0); HEMOGLOBIN 14.3 g/dL (12.0-16.0); LYMPH # 1.7 (1.2-3.4); LYMPH % 11.7 % (22.0-35.0); MEAN CELL VOLUME 88.9 fl (80.0-105.0); MEAN CORPUSCULAR HEMOGLOBIN 28.4 pg (25.0-35.0); MEAN PLATELET VOLUME 13.5 fl (7.0-11.0); MONO # 1.1 (0.1-0.6); MONO % 7.3 % (1.0-6.0); RBC 5.03 10^6/uL (3.5-6.1); RED CELL DISTRIBUTION WIDTH 16.1 % (11.5-14.5); WHITE BLOOD COUNT 14.8 10^3/ul (4.5-11.0)
[2017-10-22 06:46] LABS: INR 1.24; PARTIAL THROMBOPLASTIN TIME 29.5 Seconds (25.1-36.5); PROTHROMBIN TIME 14.3 SECONDS (9.4-12.5)
[2017-10-22 07:14] LABS: ALB/GLOB RATIO 1.1 (1.1-1.8); ALBUMIN 3.7 g/dL (3.0-4.8); ALT/SGPT 28 U/L (7-56); AST/SGOT 28 U/L (14-36); BLOOD UREA NITROGEN 12 mg/dL (7-21); CALCIUM 9.1 mg/dL (8.4-10.5); GFR NON-AFRICAN AMERICAN > 60
--- NOTE | 2017-10-22 08:32 | CON ---
Copied To: Mark Bautista MD Attending MD: Mark Bautista MD DATE: 10/21/2017 PULMONARY CONSULTATION We were asked by Dr. Hubbrad, manager cable to evaluate and treat this 87-year-old woman, who was admitted to [facility] with chief complaints of left-sided weakness and diagnosed with cerebral infarction. She was also noted to have pleural effusion and we are asked to evaluate for abnormal chest x-ray. HISTORY OF PRESENT ILLNESS: The patient is an 87-year-old with past medical history of diabetes, hypertension, atrial fibrillation, hyperlipidemia and cardiomegaly, who presents to the emergency room with left-sided weakness. The family has notified EMS after the patient was found with left-sided weakness, left facial droop and slurred speech. The exact timing of the stroke was unclear. She was okay at 8:00 p.m. the day prior to that. The onset was hours. The patient was diagnosed with ischemic stroke and neurologic deficit and time of onset of treatment was not well established. Inclusion and exclusion criteria for t-PA treatment were reviewed by me. FAMILY HISTORY: Apparently negative for inherited diseases. SOCIAL HISTORY: She is nonsmoker, nondrinker. Never used illicit drugs. PAST SURGICAL HISTORY: Also includes left-hip replacement. ALLERGIES: NO KNOWN ALLERGIES. HOME MEDICATIONS: Include Protonix, furosemide, digoxin and glipizide. REVIEW OF SYSTEMS: Left-sided weakness, left facial droop, slurred speech. All other systems negative. PHYSICAL EXAMINATION: GENERAL: She is lethargic, but arousable. She is not in acute respiratory distress. HEENT: Examination of head normocephalic and atraumatic. NECK: Supple with no jugular vein distentions. CHEST: Clear to auscultation except for the left base with reduced breath sounds and some dullness to percussion. CARDIOVASCULAR: Irregular rhythm. S1, S2. No murmurs. GI: Soft, nontender. No organomegaly. : Within normal limits EXTREMITIES: No pedal edema. NEUROLOGIC: There is pronounced left-sided weakness and left facial droop. SKIN: Dry; intact. Upon arrival to emergency room, a code stroke was initiated. The CTA of head and neck was initiated. CT findings were negative for hemorrhage. She was considered not a candidate for t-PA because she was out of range for the timeframe. In addition to the findings mentioned above, the CT head showed volume loss and chronic microvascular changes. Stable small old focal infarct in cerebellum. Carotid Dopplers or MRA revealed some carotid disease on the left. I reviewed the chest x-ray, which reveals moderate congestive changes, cardiomegaly and left-sided effusion. I also compared this x-ray to the last x-ray available in her computer systems, which shows cardiomegaly, but no congestive changes, so those findings are new. LABORATORY DATA: The next reviewed were laboratory findings. Her WBC is elevated at 15.4, hemoglobin 15, platelet count is 209,000. Blood sugar is elevated to 247. The rest is within normal range. VITAL SIGNS: The temperature 98.7, pulse 82, respirations 18, blood pressure is 185/88, pulse oximetry is 93 on room air. The patient was started on nicardipine and labetalol. She was also started on broad-spectrum antibiotic for possible aspiration. Cardiology seen her for atrial fibrillation and Neurology is also involved. I would avoid BMP results. Continue with DVT prophylaxis and GI prophylaxis. The repeat wbc's are almost normalized to 13 and BNP is 5960. ASSESSMENT: 1. Cerebrovascular accident. 2. Left-sided hemiplegia. 3. Left pleural effusion. 4. Congestive heart failure. 5. Atrial fibrillation and left-sided pleural effusion. PLAN: The patient was started on anticoagulation. Attempt to control blood pressure and preserved perfusion to the brain. Left-sided pleural effusion is not large and she is oxygenating well on nasal cannula. With treatment of congestive heart failure, her effusion and congestion should improve. I do not suggest left-sided thoracentesis at the present point; however, if effusion fails to resolve, this will become necessary. We will follow up. Mark Bautista MD JAMES
[2017-10-22] MEDS ORDERED: Potassium Chloride 40 mEq/30 ml LIQ UD PO STA (08:44)
[2017-10-22] MEDS: Insulin Lispro (humaLOG) MEDIUM Coverage SC SCH ×4 (08:44→21:51)
--- NOTE | 2017-10-22 08:47 | CON ---
Copied To: Misbah Flores MD Attending MD: Misbah Flores MD DATE: 10/22/2017 PULMONARY CONSULTATION LOCATION: ICU bed 4. COMPLAINT: Pulmonary evaluation was requested due to pleural effusions in this 87-year-old woman who came into the hospital with a stroke. The patient was brought by an ambulance to the Emergency Room where she was found to be in the process of having completed CVA. She was monitored closely and admitted to the Intensive Care Unit. PAST HISTORY: Includes diabetes mellitus, hypertension, atrial fibrillation. She has cellulitis of both lower extremities. SOCIAL HISTORY: The patient is a nonsmoker and does not drink. FAMILY HISTORY: No inheritable diseases ALLERGIES: NO KNOWN ALLERGIES. HOME MEDICATIONS: Digoxin, Lasix, Glucotrol, Levemir, Imdur, Lopressor, Protonix and potassium. REVIEW OF SYSTEMS: Cannot be obtained, but has been gleaned from the chart. Of note, the patient is a DNR and DNI. All other systems negative. PHYSICAL EXAMINATION: GENERAL: The patient is resting comfortably in bed. She is poorly communicative with left-sided weakness. VITAL SIGNS: Irregular heart rate of 80. She is afebrile. Blood pressure 200/100, respiratory rate 16 on 3 meters of nasal cannula. Her O2 sat is 97. HEART: Irregular rhythm. S1, S2. Soft systolic ejection murmur at the lower left sternal border. NECK: Supple. No JVD. No bruit. No lymphadenopathy. LUNGS: Minimal rhonchi. Decreased breath sounds at both bases. ABDOMEN: Soft. Bowel sounds normoactive without mass, guarding, rebound or organomegaly. EXTREMITIES: Reveal no clubbing, cyanosis or edema. NEUROLOGIC: As per PMD and Neurology. SKIN: Dry; intact. DATA: Laboratory studies: White count 15,000, hemoglobin 15, hematocrit 46, platelet count 209. Sodium 142, potassium 4.1, CO2 25, BUN 15, creatinine 0.6. Chest x-ray shows effusions as described above. EKG, sinus tach, nonspecific ST-T wave changes. CLINICAL IMPRESSION: 1. Cerebrovascular accident. 2. Atrial fibrillation. 3. Hypertension. 4. Bilateral pleural effusions. 5. Diabetes mellitus. PLAN: The patient needs vigorous attention to her basic underlying metabolic conditions, attention for cerebrovascular accident. We will await hemodynamic stability and follow pleural effusions to see if further intervention is required. Thank you for the opportunity to evaluate this elderly woman. Misbah Flores MD JAMES
[2017-10-22] MEDS: cefTRIAXone 1 gm 1 GM/100 ML BAG IVPB SCH (09:42)
[2017-10-22] MEDS: Enoxaparin 40 mg Syringe SC SCH (09:44)
[2017-10-22] MEDS: Labetalol 5 mg/ml Inj 20ML IV PRN (09:45)
--- NOTE | 2017-10-22 12:31 | CP.PCM.PN ---
Subjective - Date & Time of Evaluation Date of Evaluation: 10/22/17 Time of Evaluation: 10:10 - Subjective Subjective: Comfortable in bed, no fevers, no diarrhea. Objective - Vital Signs/Intake and Output Vital Signs (last 24 hours): Temp Pulse Resp BP Pulse Ox 98.4 F 96 H 25 H 181/84 H 93 L 10/22/17 06:00 10/22/17 09:45 10/22/17 06:30 10/22/17 09:45 10/22/17 06:30 Intake and Output: 10/22/17 10/22/17 06:59 18:59 Intake Total 200 660 Output Total 400 Balance 200 260 - Medications Medications: Current Medications Acetaminophen (Tylenol 325mg Tab) 650 mg PO Q4H PRN PRN Reason: headache Last Admin: 10/21/17 18:41 Dose: 650 mg Aspirin (Ecotrin) 81 mg PO DAILY [facility] Last Admin: 10/22/17 09:42 Dose: 81 mg Atorvastatin Calcium (Lipitor) 40 mg PO DAILY [facility] Last Admin: 10/22/17 09:48 Dose: 40 mg Clopidogrel Bisulfate (Plavix) 75 mg PO DAILY [facility] Last Admin: 10/22/17 09:43 Dose: 75 mg Dextrose (Dextrose 50% Inj) 0 ml IV STAT PRN; Protocol PRN Reason: Hypoglycemia Protocol Enoxaparin Sodium (Lovenox) 40 mg SC DAILY [facility] PRN Reason: Protocol Last Admin: 10/22/17 09:44 Dose: 40 mg Furosemide (Lasix) 20 mg IVP DAILY [facility] Last Admin: 10/22/17 09:44 Dose: 20 mg Dextrose (Dextrose 5% In Water 1000 Ml) 1,000 mls @ 0 mls/hr IV .Q0M PRN; Protocol; Per Protocol PRN Reason: Hypoglycemia Protocol Ceftriaxone Sodium (Rocephin 1 Gram Ivpb) 1 gm in 100 mls @ 100 mls/hr IVPB DAILY [facility] PRN Reason: Protocol Stop: 10/29/17 10:01 Last Admin: 10/22/17 09:42 Dose: 100 mls/hr Doxycycline Hyclate 100 mg/ (Sodium Chloride) 100 mls @ 100 mls/hr IVPB Q12 [facility] PRN Reason: Protocol Stop: 10/30/17 10:01 Last Admin: 10/21/17 22:10 Dose: 100 mls/hr Insulin Human Lispro (Humalog Med) 0 units SC ACHS [facility] PRN Reason: Protocol Last Admin: 10/22/17 08:44 Dose: 3 unit Labetalol HCl (Trandate) 10 mg IV Q4 PRN PRN Reason: Blood Pressure 220/110 & above Last Admin: 10/22/17 09:45 Dose: 10 mg Lisinopril (Zestril) 10 mg PO DAILY [facility] Last Admin: 10/22/17 09:43 Dose: 10 mg Metoprolol Tartrate (Lopressor) 50 mg PO BID [facility] Last Admin: 10/22/17 09:44 Dose: 50 mg Pantoprazole Sodium (Protonix Inj) 40 mg IVP DAILY [facility] Last Admin: 10/22/17 09:42 Dose: 40 mg - Labs Labs: 10/22/17 05:20 10/22/17 05:20 PT 14.3 SECONDS (9.4-12.5) H 10/22/17 05:20 INR 1.24 10/22/17 05:20 APTT 29.5 Seconds (25.1-36.5) 10/22/17 05:20 - Constitutional Appears: Chronically Ill - Head Exam Head Exam: NORMAL INSPECTION - Respiratory Exam Respiratory Exam: Decreased Breath Sounds - Cardiovascular Exam Cardiovascular Exam: +S1, +S2 - GI/Abdominal Exam GI & Abdominal Exam: Soft. absent: Tenderness Assessment and Plan - Assessment and Plan (Free Text) Plan: Assessment sepsis due to community-acquired pneumonia in this patient with acute CVA history of sepsis due to left lower extremity cellulitis on top of chronic lower leg edema, probably related to CHF HTN DM atrial fibrillation history of gastrointestinal bleed dyslipdemia coronary artery disease Plan on Rocephin and Doxycycline day 2; PCT is less than 0.05; blood cx are negative x 1 day; follow up urine Legionella Ag - will d/c Rocephin and continue Doxycycline since PCT is less than 0.05 which points against typical pyogenic bacteria but cannot rule out atypical bacteria discussed with Dr. Hubbard will monitor clinically
--- NOTE | 2017-10-22 12:54 | CP.CCUPN ---
<SugarMargie cordovasang - Last Filed: 10/22/17 12:49> CCU Subjective - Physician Review Events Since Last Encounter (Free Text): Stephanie Parrish, PGY-1 ICU Progress Note Patient seen and examined at bedside this morning. No acute events overnight. Patient tolerating dysphagia diet well. Switched to oral medications and stopped fluids today. Will transfer to tele. Patient admits to left sided weakness. Denies chest pain, SOB, headaches, fevers, chills, abdominal pain, numbness or tingling in the extremities and urinary complaints. 12 point ROS noted here, otherwise unremarkable. CCU Objective - Vital Signs / Intake & Output Vital Signs (Last 4 hours): Vital Signs Pulse Resp BP Pulse Ox 10/22/17 11:30 72 35 H 95 10/22/17 11:00 76 36 H 173/85 H 96 10/22/17 10:30 65 31 H 94 L 10/22/17 10:00 190/97 H 10/22/17 09:59 91 H 19 93 L 10/22/17 09:45 96 H 181/84 H 10/22/17 09:44 91 H 181/84 H 10/22/17 09:43 91 H 181/84 H 10/22/17 09:30 92 H 25 H 95 10/22/17 09:27 84 25 H 181/84 H 93 L 10/22/17 09:02 84 24 200/105 H 94 L 10/22/17 09:00 86 25 H 91 L Intake and Output (Last 8hrs): Intake & Output 10/21/17 10/22/17 10/22/17 22:59 06:59 14:59 Intake Total 870 200 660 Output Total 0 400 Balance 870 200 260 Weight 149 lb 11.2 oz Intake: IV 750 200 660 Left Hand 600 Right Antecubital 750 Oral 120 Output: Urine 400 Urine, Voided 400 Stool 0 Other: # Bowel Movements 0 - Physical Exam Head: Positive for: Atraumatic, Normocephalic Pupils: Positive for: PERRL Extroacular Muscles: Positive for: EOMI Conjunctiva: Positive for: Normal Mouth: Positive for: Moist Mucous Membranes Neck: Positive for: Normal Range of Motion Respiratory/Chest: Positive for: Clear to Auscultation, Good Air Exchange. Negative for: Respiratory Distress, Accessory Muscle Use Cardiovascular: Positive for: Regular Rate and Rhythm, Normal S1, S2. Negative for: Murmurs Abdomen: Positive for: Normal Bowel Sounds. Negative for: Tenderness, Distention, Peritoneal Signs Upper Extremity: Positive for: Other (left upper arm weakness). Negative for: Cyanosis, Edema Lower Extremity: Positive for: Other (left lower leg weakness). Negative for: Edema Neurological: Positive for: Other (right sided facial droop) Skin: Positive for: Warm, Dry, Normal Color. Negative for: Rashes Psychiatric: Positive for: Alert, Oriented x 3 - Medications Active Medications: Active Medications Generic Name Dose Route Start Last Admin Trade Name Freq PRN Reason Stop Dose Admin Acetaminophen 650 mg 10/21/17 18:33 10/21/17 18:41 Tylenol 325mg Tab PO 650 mg Q4H PRN Administration headache Aspirin 81 mg 10/22/17 10:00 10/22/17 09:42 Ecotrin PO 81 mg DAILY FLORIN Administration Atorvastatin Calcium 40 mg 10/21/17 10:00 10/22/17 09:48 Lipitor PO 40 mg DAILY FLORIN Administration Clopidogrel Bisulfate 75 mg 10/21/17 10:00 10/22/17 09:43 Plavix PO 75 mg DAILY FLORIN Administration Dextrose 0 ml 10/21/17 07:26 Dextrose 50% Inj IV STAT PRN Hypoglycemia Protocol Protocol Enoxaparin Sodium 40 mg 10/21/17 10:00 10/22/17 09:44 Lovenox SC 40 mg DAILY FLORIN Administration Protocol Furosemide 20 mg 10/21/17 10:00 10/22/17 09:44 Lasix IVP 20 mg DAILY FLORIN Administration Dextrose 1,000 mls @ 0 mls/hr 10/21/17 07:26 Dextrose 5% In Water 1000 Ml IV .Q0M PRN Hypoglycemia Protocol Protocol Per Protocol Doxycycline Hyclate 100 mg/ 100 mls @ 100 mls/hr 10/21/17 10:00 10/22/17 10: 45 Sodium Chloride IVPB 10/30/17 10:01 100 mls/hr Q12 FLORIN Administration Protocol Insulin Human Lispro 0 units 10/21/17 07:30 10/22/17 12:08 Humalog Med SC 5 unit ACHS FLORIN Administration Protocol Labetalol HCl 10 mg 10/21/17 06:01 10/22/17 09:45 Trandate IV 10 mg Q4 PRN Administration Blood Pressure 220/110 & above Lisinopril 10 mg 10/22/17 10:00 10/22/17 09:43 Zestril PO 10 mg DAILY FLORIN Administration Metoprolol Tartrate 50 mg 10/22/17 10:00 10/22/17 09:44 Lopressor PO 50 mg BID FLORIN Administration Pantoprazole Sodium 40 mg 10/21/17 10:00 10/22/17 09:42 Protonix Inj IVP 40 mg DAILY FLORIN Administration - Patient Studies Lab Studies: Microbiology Studies 10/21/17 06:45 Blood Culture - Preliminary Blood NO GROWTH AFTER 24 HOURS Lab Studies 10/22/17 10/22/17 10/22/17 Range/Units 11:05 07:21 05:20 WBC (4.5-11.0) 10^3/ul RBC (3.5-6.1) 10^6/uL Hgb (12.0-16.0) g/dL Hct (36.0-48.0) % MCV (80.0-105.0) fl MCH (25.0-35.0) pg MCHC (31.0-37.0) g/dl RDW (11.5-14.5) % Plt Count (120.0-450.0) 10^3/uL MPV (7.0-11.0) fl Gran % (50.0-68.0) % Lymph % (Auto) (22.0-35.0) % [place] % (Auto) (1.0-6.0) % Eos % (Auto) (1.5-5.0) % Baso % (Auto) (0.0-3.0) % Gran # (1.4-6.5) Lymph # (Auto) (1.2-3.4) [place] # (Auto) (0.1-0.6) Eos # (Auto) (0.0-0.7) Baso # (Auto) (0.0-2.0) K/mm3 PT (9.4-12.5) SECONDS INR APTT (25.1-36.5) Seconds Sodium 144 (132-148) mmol/L Potassium 3.4 L (3.6-5.0) mmol/L Chloride 104 (98-107) mmol/L Carbon Dioxide 29 (21-33) mmol/L Anion Gap 15 (10-20) BUN 12 (7-21) mg/dL Creatinine 0.6 L (0.7-1.2) mg/dl Est GFR ( Amer) > 60 Est GFR (Non-Af Amer) > 60 POC Glucose (mg/dL) 292 H 245 H (65-110) mg/dL Random Glucose 229 H (70-110) mg/dL Calcium 9.1 (8.4-10.5) mg/dL Total Bilirubin 0.8 (0.2-1.3) mg/dL AST 28 (14-36) U/L ALT 28 (7-56) U/L Alkaline Phosphatase 82 (38-126) U/L Total Protein 7.1 (5.8-8.3) g/dL Albumin 3.7 (3.0-4.8) g/dL Globulin 3.4 gm/dL Albumin/Globulin Ratio 1.1 (1.1-1.8) Procalcitonin (0.19-0.49) NG/ML Urine Color (YELLOW) Urine Appearance (CLEAR) Urine pH (4.7-8.0) Ur Specific [place] (1.005-1.035) Urine Protein (<30 mg/dL) mg/dL Urine Glucose (UA) (NEGATIVE) mg/dL Urine Ketones (NEGATIVE) mg/dL Urine Blood (NEGATIVE) Urine Nitrate (NEGATIVE) Urine Bilirubin (NEGATIVE) Urine Urobilinogen (<1 E.U./dL) E.U./dL Ur Leukocyte Esterase (NEGATIVE) Dorcas/uL Ur L.pneumophila Ag (NEGATIVE) 10/22/17 10/22/17 10/21/17 Range/Units 05:20 05:20 21:26 WBC 14.8 H (4.5-11.0) 10^3/ul RBC 5.03 (3.5-6.1) 10^6/uL Hgb 14.3 (12.0-16.0) g/dL Hct 44.7 (36.0-48.0) % MCV 88.9 (80.0-105.0) fl MCH 28.4 (25.0-35.0) pg MCHC 32.0 (31.0-37.0) g/dl RDW 16.1 H (11.5-14.5) % Plt Count 208 (120.0-450.0) 10^3/uL MPV 13.5 H (7.0-11.0) fl Gran % 80.5 H (50.0-68.0) % Lymph % (Auto) 11.7 L (22.0-35.0) % [place] % (Auto) 7.3 H (1.0-6.0) % Eos % (Auto) 0.4 L (1.5-5.0) % Baso % (Auto) 0.1 (0.0-3.0) % Gran # 11.88 H (1.4-6.5) Lymph # (Auto) 1.7 (1.2-3.4) [place] # (Auto) 1.1 H (0.1-0.6) Eos # (Auto) 0.1 (0.0-0.7) Baso # (Auto) 0.01 (0.0-2.0) K/mm3 PT 14.3 H (9.4-12.5) SECONDS INR 1.24 APTT 29.5 (25.1-36.5) Seconds Sodium (132-148) mmol/L Potassium (3.6-5.0) mmol/L Chloride (98-107) mmol/L Carbon Dioxide (21-33) mmol/L Anion Gap (10-20) BUN (7-21) mg/dL Creatinine (0.7-1.2) mg/dl Est GFR ( Amer) Est GFR (Non-Af Amer) POC Glucose (mg/dL) 164 H (65-110) mg/dL Random Glucose (70-110) mg/dL Calcium (8.4-10.5) mg/dL Total Bilirubin (0.2-1.3) mg/dL AST (14-36) U/L ALT (7-56) U/L Alkaline Phosphatase (38-126) U/L Total Protein (5.8-8.3) g/dL Albumin (3.0-4.8) g/dL Globulin gm/dL Albumin/Globulin Ratio (1.1-1.8) Procalcitonin (0.19-0.49) NG/ML Urine Color (YELLOW) Urine Appearance (CLEAR) Urine pH (4.7-8.0) Ur Specific [place] (1.005-1.035) Urine Protein (<30 mg/dL) mg/dL Urine Glucose (UA) (NEGATIVE) mg/dL Urine Ketones (NEGATIVE) mg/dL Urine Blood (NEGATIVE) Urine Nitrate (NEGATIVE) Urine Bilirubin (NEGATIVE) Urine Urobilinogen (<1 E.U./dL) E.U./dL Ur Leukocyte Esterase (NEGATIVE) Dorcas/uL Ur L.pneumophila Ag (NEGATIVE) 10/21/17 10/21/17 10/21/17 Range/Units 15:55 12:50 12:50 WBC (4.5-11.0) 10^3/ul RBC (3.5-6.1) 10^6/uL Hgb (12.0-16.0) g/dL Hct (36.0-48.0) % MCV (80.0-105.0) fl MCH (25.0-35.0) pg MCHC (31.0-37.0) g/dl RDW (11.5-14.5) % Plt Count (120.0-450.0) 10^3/uL MPV (7.0-11.0) fl Gran % (50.0-68.0) % Lymph % (Auto) (22.0-35.0) % [place] % (Auto) (1.0-6.0) % Eos % (Auto) (1.5-5.0) % Baso % (Auto) (0.0-3.0) % Gran # (1.4-6.5) Lymph # (Auto) (1.2-3.4) [place] # (Auto) (0.1-0.6) Eos # (Auto) (0.0-0.7) Baso # (Auto) (0.0-2.0) K/mm3 PT (9.4-12.5) SECONDS INR APTT (25.1-36.5) Seconds Sodium (132-148) mmol/L Potassium (3.6-5.0) mmol/L Chloride (98-107) mmol/L Carbon Dioxide (21-33) mmol/L Anion Gap (10-20) BUN (7-21) mg/dL Creatinine (0.7-1.2) mg/dl Est GFR ( Amer) Est GFR (Non-Af Amer) POC Glucose (mg/dL) 217 H (65-110) mg/dL Random Glucose (70-110) mg/dL Calcium (8.4-10.5) mg/dL Total Bilirubin (0.2-1.3) mg/dL AST (14-36) U/L ALT (7-56) U/L Alkaline Phosphatase (38-126) U/L Total Protein (5.8-8.3) g/dL Albumin (3.0-4.8) g/dL Globulin gm/dL Albumin/Globulin Ratio (1.1-1.8) Procalcitonin (0.19-0.49) NG/ML Urine Color Yellow (YELLOW) Urine Appearance Clear (CLEAR) Urine pH 7.5 (4.7-8.0) Ur Specific [place] 1.010 (1.005-1.035) Urine Protein Negative (<30 mg/dL) mg/dL Urine Glucose (UA) 500 H (NEGATIVE) mg/dL Urine Ketones Negative (NEGATIVE) mg/dL Urine Blood Negative (NEGATIVE) Urine Nitrate Negative (NEGATIVE) Urine Bilirubin Negative (NEGATIVE) Urine Urobilinogen 0.2 (<1 E.U./dL) E.U./dL Ur Leukocyte Esterase Negative (NEGATIVE) Dorcas/uL Ur L.pneumophila Ag Negative (NEGATIVE) 10/21/17 10/21/17 10/21/17 Range/Units 11:10 08:30 07:25 WBC (4.5-11.0) 10^3/ul RBC (3.5-6.1) 10^6/uL Hgb (12.0-16.0) g/dL Hct (36.0-48.0) % MCV (80.0-105.0) fl MCH (25.0-35.0) pg MCHC (31.0-37.0) g/dl RDW (11.5-14.5) % Plt Count (120.0-450.0) 10^3/uL MPV (7.0-11.0) fl Gran % (50.0-68.0) % Lymph % (Auto) (22.0-35.0) % [place] % (Auto) (1.0-6.0) % Eos % (Auto) (1.5-5.0) % Baso % (Auto) (0.0-3.0) % Gran # (1.4-6.5) Lymph # (Auto) (1.2-3.4) [place] # (Auto) (0.1-0.6) Eos # (Auto) (0.0-0.7) Baso # (Auto) (0.0-2.0) K/mm3 PT (9.4-12.5) SECONDS INR APTT (25.1-36.5) Seconds Sodium (132-148) mmol/L Potassium (3.6-5.0) mmol/L Chloride (98-107) mmol/L Carbon Dioxide (21-33) mmol/L Anion Gap (10-20) BUN (7-21) mg/dL Creatinine (0.7-1.2) mg/dl Est GFR ( Amer) Est GFR (Non-Af Amer) POC Glucose (mg/dL) 309 H 287 H (65-110) mg/dL Random Glucose (70-110) mg/dL Calcium (8.4-10.5) mg/dL Total Bilirubin (0.2-1.3) mg/dL AST (14-36) U/L ALT (7-56) U/L Alkaline Phosphatase (38-126) U/L Total Protein (5.8-8.3) g/dL Albumin (3.0-4.8) g/dL Globulin gm/dL Albumin/Globulin Ratio (1.1-1.8) Procalcitonin < 0.05 L (0.19-0.49) NG/ML Urine Color (YELLOW) Urine Appearance (CLEAR) Urine pH (4.7-8.0) Ur Specific [place] (1.005-1.035) Urine Protein (<30 mg/dL) mg/dL Urine Glucose (UA) (NEGATIVE) mg/dL Urine Ketones (NEGATIVE) mg/dL Urine Blood (NEGATIVE) Urine Nitrate (NEGATIVE) Urine Bilirubin (NEGATIVE) Urine Urobilinogen (<1 E.U./dL) E.U./dL Ur Leukocyte Esterase (NEGATIVE) Dorcas/uL Ur L.pneumophila Ag (NEGATIVE) Laboratory Results - last 24 hr 10/21/17 10/21/17 10/21/17 07:25 08:30 11:10 WBC RBC Hgb Hct MCV MCH MCHC RDW Plt Count MPV Gran % Lymph % (Auto) [place] % (Auto) Eos % (Auto) Baso % (Auto) Gran # Lymph # (Auto) [place] # (Auto) Eos # (Auto) Baso # (Auto) PT INR APTT Sodium Potassium Chloride Carbon Dioxide Anion Gap BUN Creatinine Est GFR ( Amer) Est GFR (Non-Af Amer) POC Glucose (mg/dL) 287 H 309 H Random Glucose Calcium Total Bilirubin AST ALT Alkaline Phosphatase Total Protein Albumin Globulin Albumin/Globulin Ratio Procalcitonin < 0.05 L Urine Color Urine Appearance Urine pH Ur Specific [place] Urine Protein Urine Glucose (UA) Urine Ketones Urine Blood Urine Nitrate Urine Bilirubin Urine Urobilinogen Ur Leukocyte Esterase Ur L.pneumophila Ag 10/21/17 10/21/17 10/21/17 12:50 12:50 15:55 WBC RBC Hgb Hct MCV MCH MCHC RDW Plt Count MPV Gran % Lymph % (Auto) [place] % (Auto) Eos % (Auto) Baso % (Auto) Gran # Lymph # (Auto) [place] # (Auto) Eos # (Auto) Baso # (Auto) PT INR APTT Sodium Potassium Chloride Carbon Dioxide Anion Gap BUN Creatinine Est GFR ( Amer) Est GFR (Non-Af Amer) POC Glucose (mg/dL) 217 H Random Glucose Calcium Total Bilirubin AST ALT Alkaline Phosphatase Total Protein Albumin Globulin Albumin/Globulin Ratio Procalcitonin Urine Color Yellow Urine Appearance Clear Urine pH 7.5 Ur Specific [place] 1.010 Urine Protein Negative Urine Glucose (UA) 500 H Urine Ketones Negative Urine Blood Negative Urine Nitrate Negative Urine Bilirubin Negative Urine Urobilinogen 0.2 Ur Leukocyte Esterase Negative Ur L.pneumophila Ag Negative 10/21/17 10/22/17 10/22/17 21:26 05:20 05:20 WBC 14.8 H RBC 5.03 Hgb 14.3 Hct 44.7 MCV 88.9 MCH 28.4 MCHC 32.0 RDW 16.1 H Plt Count 208 MPV 13.5 H Gran % 80.5 H Lymph % (Auto) 11.7 L [place] % (Auto) 7.3 H Eos % (Auto) 0.4 L Baso % (Auto) 0.1 Gran # 11.88 H Lymph # (Auto) 1.7 [place] # (Auto) 1.1 H Eos # (Auto) 0.1 Baso # (Auto) 0.01 PT 14.3 H INR 1.24 APTT 29.5 Sodium Potassium Chloride Carbon Dioxide Anion Gap BUN Creatinine Est GFR ( Amer) Est GFR (Non-Af Amer) POC Glucose (mg/dL) 164 H Random Glucose Calcium Total Bilirubin AST ALT Alkaline Phosphatase Total Protein Albumin Globulin Albumin/Globulin Ratio Procalcitonin Urine Color Urine Appearance Urine pH Ur Specific [place] Urine Protein Urine Glucose (UA) Urine Ketones Urine Blood Urine Nitrate Urine Bilirubin Urine Urobilinogen Ur Leukocyte Esterase Ur L.pneumophila Ag 10/22/17 10/22/17 10/22/17 05:20 07:21 11:05 WBC RBC Hgb Hct MCV MCH MCHC RDW Plt Count MPV Gran % Lymph % (Auto) [place] % (Auto) Eos % (Auto) Baso % (Auto) Gran # Lymph # (Auto) [place] # (Auto) Eos # (Auto) Baso # (Auto) PT INR APTT Sodium 144 Potassium 3.4 L Chloride 104 Carbon Dioxide 29 Anion Gap 15 BUN 12 Creatinine 0.6 L Est GFR ( Amer) > 60 Est GFR (Non-Af Amer) > 60 POC Glucose (mg/dL) 245 H 292 H Random Glucose 229 H Calcium 9.1 Total Bilirubin 0.8 AST 28 ALT 28 Alkaline Phosphatase 82 Total Protein 7.1 Albumin 3.7 Globulin 3.4 Albumin/Globulin Ratio 1.1 Procalcitonin Urine Color Urine Appearance Urine pH Ur Specific [place] Urine Protein Urine Glucose (UA) Urine Ketones Urine Blood Urine Nitrate Urine Bilirubin Urine Urobilinogen Ur Leukocyte Esterase Ur L.pneumophila Ag Fingerstick Blood Sugar Results: 295 Critical Care Progress Note - Nutrition Nutrition: Nutrition Category Date Time Status Pureed [Dysphagia/Modified Consistency Diet] [DIET] Diets 10/21/17 Dinner Ordered Assessment/Plan - Assessment and Plan (Free Text) Assessment: This is a 87 year old female with PMH of HT, DM2, diastolic CHF, afib, cellulitis, valvular heart disease, CAD and history of GI bleed presenting to the ICU for management acute CVA and sepsis due to likely pneumonia. Transfer to [facility] today. Plan: Neuro: -maintain normothermia -AAO x3. Patient has difficulty moving left side of body and right side of face. -CT Head w/o contrast: No acute territorial infarction or other acute intracranial pathology. Stable chronic changes. -CTA Head: Calcific plaque along the intracranial vertebral arteries results in minimal to mild multifocal stenosis. -Bran MRI: acute/subacute infarct changes seen in right subinsular region -Neurology on consult, Dr. Jiménez Cardio: -maintain MAP>65 -will monitor vitals including HR and BP closely -permissive hypertension for 24 hours post stroke -labetolol 10mg if BP>220/120 -lopressor 50mg BID -echo pending -cardio on consult, Dr. See Lungs: -SaO2 >90% -supplementary O2 PRN -Pulm on consult, Dr. Anderson Renal: -maintain euvolemia -avoid nephrotoxic agents, hypochloremia -replace electrolytes as needed -BUN/Cr 12/0.6 WNL -replaced potassium this morning -lasix 20mg IV, lisinopril 10mg, Heme: -Hg today is 14.3 WNL -ASA 81mg, Plavix 75mg, Lovenox 40mg Endo: -maintain euglycemia -insulin lispro ACHS ID: -WBC is 14.8 today from 15.4, afebrile -blood culture negative after 24 hours -rocephin and doxycycline day 2 -PCT WNL -ID on consult, Dr. Matthews -GI: -pureed dysphagia diet -GI prophylaxis with protonic <Julien Cassidy - Last Filed: 10/22/17 14:22> CCU Objective - Vital Signs / Intake & Output Vital Signs (Last 4 hours): Vital Signs Temp Pulse Resp BP Pulse Ox 10/22/17 14:00 82 155/90 H 92 L 10/22/17 13:30 95 10/22/17 13:00 160/67 H 10/22/17 12:59 69 19 96 10/22/17 12:30 70 28 H 96 10/22/17 12:00 98.0 F 181/107 H 10/22/17 11:59 82 33 H 95 10/22/17 11:30 72 35 H 95 10/22/17 11:00 76 36 H 173/85 H 96 10/22/17 10:30 65 31 H 94 L Intake and Output (Last 8hrs): Intake & Output 10/21/17 10/22/17 10/22/17 22:59 06:59 14:59 Intake Total 870 200 660 Output Total 0 400 Balance 870 200 260 Weight 149 lb 11.2 oz Intake: IV 750 200 660 Left Hand 600 Right Antecubital 750 Oral 120 Output: Urine 400 Urine, Voided 400 Stool 0 Other: # Bowel Movements 0 - Medications Active Medications: Active Medications Generic Name Dose Route Start Last Admin Trade Name Freq PRN Reason Stop Dose Admin Acetaminophen 650 mg 10/21/17 18:33 10/21/17 18:41 Tylenol 325mg Tab PO 650 mg Q4H PRN Administration headache Aspirin 81 mg 10/22/17 10:00 10/22/17 09:42 Ecotrin PO 81 mg DAILY FLORIN Administration Atorvastatin Calcium 40 mg 10/21/17 10:00 10/22/17 09:48 Lipitor PO 40 mg DAILY FLORIN Administration Clopidogrel Bisulfate 75 mg 10/21/17 10:00 10/22/17 09:43 Plavix PO 75 mg DAILY FLORIN Administration Dextrose 0 ml 10/21/17 07:26 Dextrose 50% Inj IV STAT PRN Hypoglycemia Protocol Protocol Enoxaparin Sodium 40 mg 10/21/17 10:00 10/22/17 09:44 Lovenox SC 40 mg DAILY FLORIN Administration Protocol Furosemide 20 mg 10/21/17 10:00 10/22/17 09:44 Lasix IVP 20 mg DAILY FLORIN Administration Dextrose 1,000 mls @ 0 mls/hr 10/21/17 07:26 Dextrose 5% In Water 1000 Ml IV .Q0M PRN Hypoglycemia Protocol Protocol Per Protocol Doxycycline Hyclate 100 mg/ 100 mls @ 100 mls/hr 10/21/17 10:00 10/22/17 10: 45 Sodium Chloride IVPB 10/30/17 10:01 100 mls/hr Q12 FLORIN Administration Protocol Insulin Human Lispro 0 units 10/21/17 07:30 10/22/17 12:08 Humalog Med SC 5 unit ACHS FLORIN Administration Protocol Labetalol HCl 10 mg 10/21/17 06:01 10/22/17 09:45 Trandate IV 10 mg Q4 PRN Administration Blood Pressure 220/110 & above Lisinopril 10 mg 10/22/17 10:00 10/22/17 09:43 Zestril PO 10 mg DAILY FLORIN Administration Metoprolol Tartrate 50 mg 10/22/17 10:00 10/22/17 09:44 Lopressor PO 50 mg BID FLORIN Administration Pantoprazole Sodium 40 mg 10/21/17 10:00 10/22/17 09:42 Protonix Inj IVP 40 mg DAILY FLORIN Administration - Patient Studies Lab Studies: Microbiology Studies 10/21/17 06:45 Blood Culture - Preliminary Blood NO GROWTH AFTER 24 HOURS Lab Studies 10/22/17 10/22/17 10/22/17 Range/Units 11:05 07:21 05:20 WBC (4.5-11.0) 10^3/ul RBC (3.5-6.1) 10^6/uL Hgb (12.0-16.0) g/dL Hct (36.0-48.0) % MCV (80.0-105.0) fl MCH (25.0-35.0) pg MCHC (31.0-37.0) g/dl RDW (11.5-14.5) % Plt Count (120.0-450.0) 10^3/uL MPV (7.0-11.0) fl Gran % (50.0-68.0) % Lymph % (Auto) (22.0-35.0) % [place] % (Auto) (1.0-6.0) % Eos % (Auto) (1.5-5.0) % Baso % (Auto) (0.0-3.0) % Gran # (1.4-6.5) Lymph # (Auto) (1.2-3.4) [place] # (Auto) (0.1-0.6) Eos # (Auto) (0.0-0.7) Baso # (Auto) (0.0-2.0) K/mm3 PT (9.4-12.5) SECONDS INR APTT (25.1-36.5) Seconds Sodium 144 (132-148) mmol/L Potassium 3.4 L (3.6-5.0) mmol/L Chloride 104 (98-107) mmol/L Carbon Dioxide 29 (21-33) mmol/L Anion Gap 15 (10-20) BUN 12 (7-21) mg/dL Creatinine 0.6 L (0.7-1.2) mg/dl Est GFR ( Amer) > 60 Est GFR (Non-Af Amer) > 60 POC Glucose (mg/dL) 292 H 245 H (65-110) mg/dL Random Glucose 229 H (70-110) mg/dL Calcium 9.1 (8.4-10.5) mg/dL Total Bilirubin 0.8 (0.2-1.3) mg/dL AST 28 (14-36) U/L ALT 28 (7-56) U/L Alkaline Phosphatase 82 (38-126) U/L Total Protein 7.1 (5.8-8.3) g/dL Albumin 3.7 (3.0-4.8) g/dL Globulin 3.4 gm/dL Albumin/Globulin Ratio 1.1 (1.1-1.8) Ur L.pneumophila Ag (NEGATIVE) 10/22/17 10/22/17 10/21/17 Range/Units 05:20 05:20 21:26 WBC 14.8 H (4.5-11.0) 10^3/ul RBC 5.03 (3.5-6.1) 10^6/uL Hgb 14.3 (12.0-16.0) g/dL Hct 44.7 (36.0-48.0) % MCV 88.9 (80.0-105.0) fl MCH 28.4 (25.0-35.0) pg MCHC 32.0 (31.0-37.0) g/dl RDW 16.1 H (11.5-14.5) % Plt Count 208 (120.0-450.0) 10^3/uL MPV 13.5 H (7.0-11.0) fl Gran % 80.5 H (50.0-68.0) % Lymph % (Auto) 11.7 L (22.0-35.0) % [place] % (Auto) 7.3 H (1.0-6.0) % Eos % (Auto) 0.4 L (1.5-5.0) % Baso % (Auto) 0.1 (0.0-3.0) % Gran # 11.88 H (1.4-6.5) Lymph # (Auto) 1.7 (1.2-3.4) [place] # (Auto) 1.1 H (0.1-0.6) Eos # (Auto) 0.1 (0.0-0.7) Baso # (Auto) 0.01 (0.0-2.0) K/mm3 PT 14.3 H (9.4-12.5) SECONDS INR 1.24 APTT 29.5 (25.1-36.5) Seconds Sodium (132-148) mmol/L Potassium (3.6-5.0) mmol/L Chloride (98-107) mmol/L Carbon Dioxide (21-33) mmol/L Anion Gap (10-20) BUN (7-21) mg/dL Creatinine (0.7-1.2) mg/dl Est GFR ( Amer) Est GFR (Non-Af Amer) POC Glucose (mg/dL) 164 H (65-110) mg/dL Random Glucose (70-110) mg/dL Calcium (8.4-10.5) mg/dL Total Bilirubin (0.2-1.3) mg/dL AST (14-36) U/L ALT (7-56) U/L Alkaline Phosphatase (38-126) U/L Total Protein (5.8-8.3) g/dL Albumin (3.0-4.8) g/dL Globulin gm/dL Albumin/Globulin Ratio (1.1-1.8) Ur L.pneumophila Ag (NEGATIVE) 10/21/17 10/21/17 10/21/17 Range/Units 15:55 12:50 11:10 WBC (4.5-11.0) 10^3/ul RBC (3.5-6.1) 10^6/uL Hgb (12.0-16.0) g/dL Hct (36.0-48.0) % MCV (80.0-105.0) fl MCH (25.0-35.0) pg MCHC (31.0-37.0) g/dl RDW (11.5-14.5) % Plt Count (120.0-450.0) 10^3/uL MPV (7.0-11.0) fl Gran % (50.0-68.0) % Lymph % (Auto) (22.0-35.0) % [place] % (Auto) (1.0-6.0) % Eos % (Auto) (1.5-5.0) % Baso % (Auto) (0.0-3.0) % Gran # (1.4-6.5) Lymph # (Auto) (1.2-3.4) [place] # (Auto) (0.1-0.6) Eos # (Auto) (0.0-0.7) Baso # (Auto) (0.0-2.0) K/mm3 PT (9.4-12.5) SECONDS INR APTT (25.1-36.5) Seconds Sodium (132-148) mmol/L Potassium (3.6-5.0) mmol/L Chloride (98-107) mmol/L Carbon Dioxide (21-33) mmol/L Anion Gap (10-20) BUN (7-21) mg/dL Creatinine (0.7-1.2) mg/dl Est GFR ( Amer) Est GFR (Non-Af Amer) POC Glucose (mg/dL) 217 H 309 H (65-110) mg/dL Random Glucose (70-110) mg/dL Calcium (8.4-10.5) mg/dL Total Bilirubin (0.2-1.3) mg/dL AST (14-36) U/L ALT (7-56) U/L Alkaline Phosphatase (38-126) U/L Total Protein (5.8-8.3) g/dL Albumin (3.0-4.8) g/dL Globulin gm/dL Albumin/Globulin Ratio (1.1-1.8) Ur L.pneumophila Ag Negative (NEGATIVE) 10/21/17 Range/Units 07:25 WBC (4.5-11.0) 10^3/ul RBC (3.5-6.1) 10^6/uL Hgb (12.0-16.0) g/dL Hct (36.0-48.0) % MCV (80.0-105.0) fl MCH (25.0-35.0) pg MCHC (31.0-37.0) g/dl RDW (11.5-14.5) % Plt Count (120.0-450.0) 10^3/uL MPV (7.0-11.0) fl Gran % (50.0-68.0) % Lymph % (Auto) (22.0-35.0) % [place] % (Auto) (1.0-6.0) % Eos % (Auto) (1.5-5.0) % Baso % (Auto) (0.0-3.0) % Gran # (1.4-6.5) Lymph # (Auto) (1.2-3.4) [place] # (Auto) (0.1-0.6) Eos # (Auto) (0.0-0.7) Baso # (Auto) (0.0-2.0) K/mm3 PT (9.4-12.5) SECONDS INR APTT (25.1-36.5) Seconds Sodium (132-148) mmol/L Potassium (3.6-5.0) mmol/L Chloride (98-107) mmol/L Carbon Dioxide (21-33) mmol/L Anion Gap (10-20) BUN (7-21) mg/dL Creatinine (0.7-1.2) mg/dl Est GFR ( Amer) Est GFR (Non-Af Amer) POC Glucose (mg/dL) 287 H (65-110) mg/dL Random Glucose (70-110) mg/dL Calcium (8.4-10.5) mg/dL Total Bilirubin (0.2-1.3) mg/dL AST (14-36) U/L ALT (7-56) U/L Alkaline Phosphatase (38-126) U/L Total Protein (5.8-8.3) g/dL Albumin (3.0-4.8) g/dL Globulin gm/dL Albumin/Globulin Ratio (1.1-1.8) Ur L.pneumophila Ag (NEGATIVE) Laboratory Results - last 24 hr 10/21/17 10/21/17 10/21/17 07:25 11:10 12:50 WBC RBC Hgb Hct MCV MCH MCHC RDW Plt Count MPV Gran % Lymph % (Auto) [place] % (Auto) Eos % (Auto) Baso % (Auto) Gran # Lymph # (Auto) [place] # (Auto) Eos # (Auto) Baso # (Auto) PT INR APTT Sodium Potassium Chloride Carbon Dioxide Anion Gap BUN Creatinine Est GFR ( Amer) Est GFR (Non-Af Amer) POC Glucose (mg/dL) 287 H 309 H Random Glucose Calcium Total Bilirubin AST ALT Alkaline Phosphatase Total Protein Albumin Globulin Albumin/Globulin Ratio Ur L.pneumophila Ag Negative 10/21/17 10/21/17 10/22/17 15:55 21:26 05:20 WBC RBC Hgb Hct MCV MCH MCHC RDW Plt Count MPV Gran % Lymph % (Auto) [place] % (Auto) Eos % (Auto) Baso % (Auto) Gran # Lymph # (Auto) [place] # (Auto) Eos # (Auto) Baso # (Auto) PT 14.3 H INR 1.24 APTT 29.5 Sodium Potassium Chloride Carbon Dioxide Anion Gap BUN Creatinine Est GFR ( Amer) Est GFR (Non-Af Amer) POC Glucose (mg/dL) 217 H 164 H Random Glucose Calcium Total Bilirubin AST ALT Alkaline Phosphatase Total Protein Albumin Globulin Albumin/Globulin Ratio Ur L.pneumophila Ag 10/22/17 10/22/17 10/22/17 05:20 05:20 07:21 WBC 14.8 H RBC 5.03 Hgb 14.3 Hct 44.7 MCV 88.9 MCH 28.4 MCHC 32.0 RDW 16.1 H Plt Count 208 MPV 13.5 H Gran % 80.5 H Lymph % (Auto) 11.7 L [place] % (Auto) 7.3 H Eos % (Auto) 0.4 L Baso % (Auto) 0.1 Gran # 11.88 H Lymph # (Auto) 1.7 [place] # (Auto) 1.1 H Eos # (Auto) 0.1 Baso # (Auto) 0.01 PT INR APTT Sodium 144 Potassium 3.4 L Chloride 104 Carbon Dioxide 29 Anion Gap 15 BUN 12 Creatinine 0.6 L Est GFR ( Amer) > 60 Est GFR (Non-Af Amer) > 60 POC Glucose (mg/dL) 245 H Random Glucose 229 H Calcium 9.1 Total Bilirubin 0.8 AST 28 ALT 28 Alkaline Phosphatase 82 Total Protein 7.1 Albumin 3.7 Globulin 3.4 Albumin/Globulin Ratio 1.1 Ur L.pneumophila Ag 10/22/17 11:05 WBC RBC Hgb Hct MCV MCH MCHC RDW Plt Count MPV Gran % Lymph % (Auto) [place] % (Auto) Eos % (Auto) Baso % (Auto) Gran # Lymph # (Auto) [place] # (Auto) Eos # (Auto) Baso # (Auto) PT INR APTT Sodium Potassium Chloride Carbon Dioxide Anion Gap BUN Creatinine Est GFR ( Amer) Est GFR (Non-Af Amer) POC Glucose (mg/dL) 292 H Random Glucose Calcium Total Bilirubin AST ALT Alkaline Phosphatase Total Protein Albumin Globulin Albumin/Globulin Ratio Ur L.pneumophila Ag Critical Care Progress Note - Nutrition Nutrition: Nutrition Category Date Time Status Pureed [Dysphagia/Modified Consistency Diet] [DIET] Diets 10/21/17 Dinner Ordered Assessment/Plan - Assessment and Plan (Free Text) Assessment: Patient seen and examined on rounds with resident, agree with note with following additions/exceptions: Patient is 87yo female with PMHx HTN, DM2, diastolic CHF, afib, cellulitis, valvular heart disease, CAD and history of GI bleed, admitted to MICU for acute CVA Currently afebrile, HD stable, comfortable, in NAD, doing well MRI brain completed Neurology following Speech swallow eval pending Pt is DNR/DNI Acute CVA Hx of Afib not on A/C HTN DM CHF CAD Recommend: - supp o2 as needed, duonebs PRN - treat for CAP - follow up cultures, procal - ID follow up - neurology follow up - start on Lisinopril 10mg daily, Lopressor 50mg BID - Plavix, ASA - Defer A/C to neurology and cardiology - PT eval - speech swallow eval - DNR/DNI - Transfer to telemetry
--- NOTE | 2017-10-22 13:50 | CP.PCM.PN ---
Subjective - Date & Time of Evaluation Date of Evaluation: 10/22/17 Time of Evaluation: 09:45 - Subjective Subjective: Ben Tinsley PGY2 Neurology Progress Note for Dr. Jiménez Patient was seen and examined at bedside. Patient's symptoms are improving. There were no acute overnight events. The patient has been taken off the cardene drip and is being transferred out of ICU to telemetry monitoring today. 12-pt ROS was reviewed and is otherwise unremarkable. Objective - Vital Signs/Intake and Output Vital Signs (last 24 hours): Temp Pulse Resp BP Pulse Ox 98.4 F 72 35 H 173/85 H 95 10/22/17 06:00 10/22/17 11:30 10/22/17 11:30 10/22/17 11:00 10/22/17 11:30 Intake and Output: 10/22/17 10/22/17 06:59 18:59 Intake Total 200 660 Output Total 400 Balance 200 260 - Medications Medications: Current Medications Acetaminophen (Tylenol 325mg Tab) 650 mg PO Q4H PRN PRN Reason: headache Last Admin: 10/21/17 18:41 Dose: 650 mg Aspirin (Ecotrin) 81 mg PO DAILY [facility] Last Admin: 10/22/17 09:42 Dose: 81 mg Atorvastatin Calcium (Lipitor) 40 mg PO DAILY [facility] Last Admin: 10/22/17 09:48 Dose: 40 mg Clopidogrel Bisulfate (Plavix) 75 mg PO DAILY [facility] Last Admin: 10/22/17 09:43 Dose: 75 mg Dextrose (Dextrose 50% Inj) 0 ml IV STAT PRN; Protocol PRN Reason: Hypoglycemia Protocol Enoxaparin Sodium (Lovenox) 40 mg SC DAILY [facility] PRN Reason: Protocol Last Admin: 10/22/17 09:44 Dose: 40 mg Furosemide (Lasix) 20 mg IVP DAILY [facility] Last Admin: 10/22/17 09:44 Dose: 20 mg Dextrose (Dextrose 5% In Water 1000 Ml) 1,000 mls @ 0 mls/hr IV .Q0M PRN; Protocol; Per Protocol PRN Reason: Hypoglycemia Protocol Doxycycline Hyclate 100 mg/ (Sodium Chloride) 100 mls @ 100 mls/hr IVPB Q12 [facility] PRN Reason: Protocol Stop: 10/30/17 10:01 Last Admin: 10/22/17 10:45 Dose: 100 mls/hr Insulin Human Lispro (Humalog Med) 0 units SC ACHS [facility] PRN Reason: Protocol Last Admin: 10/22/17 12:08 Dose: 5 unit Labetalol HCl (Trandate) 10 mg IV Q4 PRN PRN Reason: Blood Pressure 220/110 & above Last Admin: 10/22/17 09:45 Dose: 10 mg Lisinopril (Zestril) 10 mg PO DAILY [facility] Last Admin: 10/22/17 09:43 Dose: 10 mg Metoprolol Tartrate (Lopressor) 50 mg PO BID [facility] Last Admin: 10/22/17 09:44 Dose: 50 mg Pantoprazole Sodium (Protonix Inj) 40 mg IVP DAILY [facility] Last Admin: 10/22/17 09:42 Dose: 40 mg - Labs Labs: 10/22/17 05:20 10/22/17 05:20 PT 14.3 SECONDS (9.4-12.5) H 10/22/17 05:20 INR 1.24 10/22/17 05:20 APTT 29.5 Seconds (25.1-36.5) 10/22/17 05:20 - Constitutional Appears: Non-toxic, No Acute Distress, Unkempt - Head Exam Head Exam: NORMAL INSPECTION - Eye Exam Eye Exam: EOMI, Normal appearance, PERRL - ENT Exam ENT Exam: Mucous Membranes Moist Additional comments: left facial palsy, improving - Neck Exam Neck Exam: Normal Inspection - Respiratory Exam Respiratory Exam: NORMAL BREATHING PATTERN. absent: Respiratory Distress - Cardiovascular Exam Cardiovascular Exam: Irregular Rhythm, +S1, +S2 - GI/Abdominal Exam GI & Abdominal Exam: Soft. absent: Distended, Tenderness - Extremities Exam Extremities Exam: Full ROM - Back Exam Back Exam: NORMAL INSPECTION - Neurological Exam Neurological Exam: Alert, Awake Neuro motor strength exam: Left Upper Extremity: 3, Right Upper Extremity: 5, Left Lower Extremity: 3, Right Lower Extremity: 5 - Psychiatric Exam Psychiatric exam: Normal Mood - Skin Skin Exam: Warm Assessment and Plan - Assessment and Plan (Free Text) Assessment: 87 year old female with PMH of Afib, HTN, DM2, diastolic CHF, cellulitis, valvular heart disease, CAD and history of GI bleed presenting to the ICU for management acute stroke and sepsis due to likely pneumonia. Code stroke was called. Brain MRI showing acute/subacute infarct changes seen in right subinsular region. LDL is also elevated. Plan: - cont ASA/Plavix - Cardiology to recommend oral anticoagulant to bridge patient to - cont Lipitor - Echo pending - PT eval - will transfer patient to telemetry unit from ICU - further recs per Dr. Jiménez Case was reviewed and discussed with Dr. Jiménez
--- NOTE | 2017-10-22 21:54 | PN ---
Copied To: Sherri Hubbard MD Attending MD: Sherri Hubbard MD DATE: 10/22/2017 SUBJECTIVE: An 87-year-old female in the intensive care unit with recent acute stroke with left facial droop and left-sided weakness being followed by Neurology, Pulmonary, Cardiology, Infectious Disease and the intensive care unit attending. PHYSICAL EXAMINATION: GENERAL: Patient is arousable. VITAL SIGNS: This morning show temp of 98, blood pressure 132/69, pulse is 81, respiratory rate is 31, oxygen saturation is 95%. LUNGS: Show bilateral rhonchi with diminished breath sounds at the bases. HEART: Irregular S1, S2 rhythm, grade 2/6 systolic murmur. ABDOMEN: Obese, soft. Positive bowel sounds. EXTREMITIES: Show no evidence of edema. LABORATORY DATA: Shows a WBC of 14.8, RBC 5.03, hemoglobin 14.3, hematocrit 44.7, platelet count 208. Sed rate is 60. The chemistry shows sodium of 144, potassium 3.4, chloride 104, BUN 12, creatinine 0.6. Blood sugar is 229. LFTs are normal. Today MRSA screen is negative. One blood culture is reported as being negative after 24 hours. MEDICATIONS: Consist of IV doxycycline, Ecotrin sliding insulin scale. She is on Lasix 20 mg IV daily, Lipitor, Lopressor, Lovenox, Plavix, Protonix, labetalol every 4 hours p.r.n. for blood pressure, Tylenol every 4 hours for headache and lisinopril 10 mg daily. ASSESSMENT: 1. Status post acute stroke with left-sided weakness and facial. 2. Hyperglycemia. 3. Atrial fibrillation. 4. Possible pneumonia. 5. Congestive heart failure. PLAN: Patient will continue to be followed by Neurology, Infectious Disease, Pulmonary and Cardiology. We will follow up labs. Patient has a living will. She is a DNR/DNI. Sherri Hubbard MD
--- NOTE | 2017-10-23 00:41 | CON ---
Copied To: Chuyita Yoder MD Attending MD: Chuyita Yoder MD DATE: 10/22/2017 ENDOCRINOLOGY CONSULT LOCATION: In ICU 128, room 4. HISTORY OF PRESENT ILLNESS: This is an 87-year-old female with known history of type 2 diabetes and hypertension, presenting here with sudden onset of left-sided weakness and supervening left facial palsy and slurred speech and has been evaluated to have an acute CVA, possibly ischemic infarction and is now being referred for diabetic evaluation with hyperglycemic accelerations as noted thereof. PAST MEDICAL HISTORY: As mentioned above, history of type 2 diabetes, currently on a combination of oral hypoglycemic therapy with glipizide given as 1 mg b.i.d. and insulin therapy with Levemir at 20 units subcu at bedtime daily and Humalog given as 8 units subcu t.i.d. before meals as given. History of hypertension and dyslipidemia. History of chronic atrial fibrillation, currently on no anticoagulation therapy. FAMILY HISTORY: Positive for hypertension and heart disease. SOCIAL HISTORY: The patient has supportive family. No known substance use. REVIEW OF SYSTEMS: Not possible at this time, but the chart has been reviewed in detail and the consultants' notes and management also have been reviewed in detail as noted. PHYSICAL EXAMINATION: GENERAL: This is an average built female, in no apparent distress. VITAL SIGNS: Blood pressure of 160/90; pulse of 100 beats per minute, regular; temperature 98; respirations 20; height is 5 feet 3 inches; weight is 149 pounds. HEENT: Head normocephalic. Eyes anicteric with pink conjunctivae. Funduscopy not possible at this time. Ears, nose and throat otherwise normal. NECK: Supple. Thyroid gland is normal in size. No carotid bruits or cervical adenopathy. CARDIOPULMONARY: Some adynamic precordium. S1, S2 is rapid and regular. LUNGS: Show scattered rhonchi. ABDOMEN: Flat, soft with positive bowel sounds. EXTREMITIES: No peripheral edema. Pulses are +2 bilaterally. LABORATORY DATA: Her WBC is 14.8, hemoglobin of 14, hematocrit of 45, MCV 89, platelets 208. Her chemistries showed a BUN of 12, sodium 144, potassium 3.4, chloride 104, CO2 of 29, glucose 229 and creatinine 0.6. Her glucose levels have ranged from 173-292 and 304 mg/dL. ASSESSMENT: This is an 87-year-old female with uncontrolled and decompensated type 2 insulin-requiring diabetes, presenting here with an acute cerebral infarction and associated left hemiparesis and slurred speech with left facial palsy on the background of chronic atrial fibrillation. PLAN OF MANAGEMENT: We will modify her current insulin coverage to obviate hypoglycemia and detailed orders have been given for a very low-dose algorithm using Humalog insulin as given. We will also start her on a much lower basal and bolus insulin drug combination with Humalog to be given as 6 units subcu t.i.d. before meals to start tomorrow morning as ordered. We will also add basal insulin given as 14 units subcu at bedtime daily to start tomorrow night. We will obtain serial chemistries and supplement accordingly as needed. We will also obtain baseline thyroid studies and a lipid panel as ordered. A hemoglobin A1c has already been sent out as noted. We will obtain serial chemistries and supplement accordingly as needed. She has been started on a pureed diet as noted. We will obtain serial chemistries and supplement accordingly as needed. We will follow. Chuyita Yoder MD
[2017-10-23] MEDS: Labetalol 5 mg/ml Inj 20ML IV PRN (03:07)
[2017-10-23] MEDS ORDERED: Labetalol 5 mg/ml Inj 20ML IVP ONE (05:45)
[2017-10-23 07:15] LABS: BASO # 0.01 K/mm3 (0.0-2.0); BASO % 0.1 % (0.0-3.0); EOS # 0.1 (0.0-0.7); EOS % 0.4 % (1.5-5.0); GRAN # 11.25 (1.4-6.5); GRAN % 83.9 % (50.0-68.0); HEMOGLOBIN 14.6 g/dL (12.0-16.0); LYMPH # 1.3 (1.2-3.4); LYMPH % 9.6 % (22.0-35.0); MEAN CELL VOLUME 90.4 fl (80.0-105.0); MEAN CORPUSCULAR HEMOGLOBIN 29.2 pg (25.0-35.0); MEAN CORPUSCULAR HGB CONC 32.3 g/dl (31.0-37.0); MEAN PLATELET VOLUME 13.7 fl (7.0-11.0); MONO # 0.8 (0.1-0.6); RED CELL DISTRIBUTION WIDTH 16.1 % (11.5-14.5); WHITE BLOOD COUNT 13.4 10^3/ul (4.5-11.0)
[2017-10-23 07:21] LABS: INR 1.19; PARTIAL THROMBOPLASTIN TIME 30.8 Seconds (25.1-36.5); PROTHROMBIN TIME 13.7 SECONDS (9.4-12.5)
[2017-10-23 08:02] LABS: ALB/GLOB RATIO 1.1 (1.1-1.8); ALBUMIN 3.9 g/dL (3.0-4.8); ALT/SGPT 26 U/L (7-56); AST/SGOT 23 U/L (14-36); BLOOD UREA NITROGEN 16 mg/dL (7-21); CALCIUM 9.6 mg/dL (8.4-10.5); GFR NON-AFRICAN AMERICAN > 60
[2017-10-23] MEDS: Insulin Lispro (humaLOG) LOW Coverage SC SCH ×4 (08:36→22:15)
[2017-10-23] MEDS: Insulin Lispro 1 UNITS/0.01 ML SC SCH ×3 (08:42→17:09)
--- NOTE | 2017-10-23 08:59 | CP.PCM.PN ---
Subjective - Date & Time of Evaluation Date of Evaluation: 10/23/17 Time of Evaluation: 07:15 - Subjective Subjective: Endocrinology progress note: Patient seen and examined at bedside. No acute events overnight. Sugars ranging from 173- 304. No other complaints at this time 12 point review of systems performed and negative other than stated above Objective - Vital Signs/Intake and Output Vital Signs (last 24 hours): Temp Pulse Resp BP Pulse Ox 97.5 F L 86 24 205/109 H 94 L 10/22/17 18:00 10/23/17 06:01 10/23/17 06:01 10/23/17 06:01 10/23/17 06:01 Intake and Output: 10/23/17 10/23/17 06:59 18:59 Intake Total 100 Output Total 350 Balance -250 - Medications Medications: Current Medications Acetaminophen (Tylenol 325mg Tab) 650 mg PO Q4H PRN PRN Reason: headache Last Admin: 10/21/17 18:41 Dose: 650 mg Aspirin (Ecotrin) 81 mg PO DAILY [facility] Last Admin: 10/22/17 09:42 Dose: 81 mg Atorvastatin Calcium (Lipitor) 40 mg PO DAILY [facility] Last Admin: 10/22/17 09:48 Dose: 40 mg Clopidogrel Bisulfate (Plavix) 75 mg PO DAILY [facility] Last Admin: 10/22/17 09:43 Dose: 75 mg Dextrose (Dextrose 50% Inj) 0 ml IV STAT PRN; Protocol PRN Reason: Hypoglycemia Protocol Enoxaparin Sodium (Lovenox) 40 mg SC DAILY [facility] PRN Reason: Protocol Last Admin: 10/22/17 09:44 Dose: 40 mg Furosemide (Lasix) 20 mg IVP DAILY [facility] Last Admin: 10/22/17 09:44 Dose: 20 mg Dextrose (Dextrose 5% In Water 1000 Ml) 1,000 mls @ 0 mls/hr IV .Q0M PRN; Protocol; Per Protocol PRN Reason: Hypoglycemia Protocol Doxycycline Hyclate 100 mg/ (Sodium Chloride) 100 mls @ 100 mls/hr IVPB Q12 [facility] PRN Reason: Protocol Stop: 10/30/17 10:01 Last Admin: 10/22/17 21:47 Dose: 100 mls/hr Insulin Detemir (Levemir) 14 unit SC HS [facility] Insulin Human Lispro (Humalog) 6 units SC AC [facility] Last Admin: 10/23/17 08:42 Dose: 6 unit Insulin Human Lispro (Humalog Low) 0 units SC ACHS [facility] PRN Reason: Protocol Last Admin: 10/23/17 08:36 Dose: Not Given Labetalol HCl (Trandate) 10 mg IV Q4 PRN PRN Reason: Blood Pressure 220/110 & above Last Admin: 10/23/17 03:07 Dose: 10 mg Lisinopril (Zestril) 10 mg PO DAILY [facility] Last Admin: 10/22/17 09:43 Dose: 10 mg Metoprolol Tartrate (Lopressor) 50 mg PO BID [facility] Last Admin: 10/22/17 18:55 Dose: Not Given Pantoprazole Sodium (Protonix Inj) 40 mg IVP DAILY [facility] Last Admin: 10/22/17 09:42 Dose: 40 mg - Labs Labs: 10/23/17 06:00 10/23/17 07:00 PT 13.7 SECONDS (9.4-12.5) H 10/23/17 06:00 INR 1.19 10/23/17 06:00 APTT 30.8 Seconds (25.1-36.5) 10/23/17 06:00 - Constitutional Appears: No Acute Distress - Eye Exam Eye Exam: EOMI - ENT Exam ENT Exam: Mucous Membranes Moist - Respiratory Exam Respiratory Exam: Clear to Ausculation Bilateral. absent: Rales, Wheezes - Cardiovascular Exam Cardiovascular Exam: Tachycardia, +S1, +S2 - GI/Abdominal Exam GI & Abdominal Exam: Soft. absent: Tenderness - Extremities Exam Extremities Exam: absent: Calf Tenderness - Neurological Exam Neuro motor strength exam: Left Upper Extremity: 2/1, Right Upper Extremity: 5, Left Lower Extremity: 2/1, Right Lower Extremity: 3 - Skin Skin Exam: Intact, Warm Assessment and Plan - Assessment and Plan (Free Text) Assessment: 87-year-old female presenting with uncontrolled and decompensated insulin requiring diabetes presenting with acute CVA. Patient being seen for metabolic management. Carb consistent diet Continue Levemir 14 units at bedtime Continue bolus of Humalog 6 units before meals Continue Humalog sliding scale low dose as protocol Replete electrolytes as needed Follow-up neurology recommendations Serial fingersticks and CMP's Case and plan was reviewed and discussed in detail with Dr. Yoder. Arian Kapoor, PGY 3
[2017-10-23] MEDS: Enoxaparin 40 mg Syringe SC SCH (09:22)
--- NOTE | 2017-10-23 09:35 | CP.PCM.PN ---
Subjective - Date & Time of Evaluation Date of Evaluation: 10/23/17 Time of Evaluation: 08:35 - Subjective Subjective: Ben Tinsley PGY2 Neurology Progress Note for Dr. Jiménez Patient was seen and examined at bedside. There were no acute overnight events. The patient has been tolerating her diet. PT evaluated the patient and recommend acute rehab, pending placement by SW. There are no changes in motor function since yesterday. 12-pt ROS was reviewed and is otherwise unremarkable. Objective - Vital Signs/Intake and Output Vital Signs (last 24 hours): Temp Pulse Resp BP Pulse Ox 97.5 F L 86 24 177/83 H 94 L 10/22/17 18:00 10/23/17 09:21 10/23/17 06:01 10/23/17 09:22 10/23/17 06:01 Intake and Output: 10/23/17 10/23/17 06:59 18:59 Intake Total 100 Output Total 350 Balance -250 - Medications Medications: Current Medications Acetaminophen (Tylenol 325mg Tab) 650 mg PO Q4H PRN PRN Reason: headache Last Admin: 10/21/17 18:41 Dose: 650 mg Aspirin (Ecotrin) 81 mg PO DAILY [facility] Last Admin: 10/23/17 09:20 Dose: 81 mg Atorvastatin Calcium (Lipitor) 40 mg PO DAILY [facility] Last Admin: 10/23/17 09:20 Dose: 40 mg Clopidogrel Bisulfate (Plavix) 75 mg PO DAILY [facility] Last Admin: 10/23/17 09:20 Dose: 75 mg Dextrose (Dextrose 50% Inj) 0 ml IV STAT PRN; Protocol PRN Reason: Hypoglycemia Protocol Enoxaparin Sodium (Lovenox) 40 mg SC DAILY [facility] PRN Reason: Protocol Last Admin: 10/23/17 09:22 Dose: 40 mg Furosemide (Lasix) 20 mg IVP DAILY [facility] Last Admin: 10/23/17 09:22 Dose: 20 mg Dextrose (Dextrose 5% In Water 1000 Ml) 1,000 mls @ 0 mls/hr IV .Q0M PRN; Protocol; Per Protocol PRN Reason: Hypoglycemia Protocol Doxycycline Hyclate 100 mg/ (Sodium Chloride) 100 mls @ 100 mls/hr IVPB Q12 [facility] PRN Reason: Protocol Stop: 10/30/17 10:01 Last Admin: 10/22/17 21:47 Dose: 100 mls/hr Insulin Detemir (Levemir) 14 unit SC HS [facility] Insulin Human Lispro (Humalog) 6 units SC AC [facility] Last Admin: 10/23/17 08:42 Dose: 6 unit Insulin Human Lispro (Humalog Low) 0 units SC ACHS [facility] PRN Reason: Protocol Last Admin: 10/23/17 08:36 Dose: Not Given Labetalol HCl (Trandate) 10 mg IV Q4 PRN PRN Reason: Blood Pressure 220/110 & above Last Admin: 10/23/17 03:07 Dose: 10 mg Lisinopril (Zestril) 10 mg PO DAILY [facility] Last Admin: 10/23/17 09:21 Dose: 10 mg Metoprolol Tartrate (Lopressor) 50 mg PO BID [facility] Last Admin: 10/23/17 09:21 Dose: 50 mg Pantoprazole Sodium (Protonix Inj) 40 mg IVP DAILY [facility] Last Admin: 10/23/17 09:23 Dose: 40 mg - Labs Labs: 10/23/17 06:00 10/23/17 07:00 PT 13.7 SECONDS (9.4-12.5) H 10/23/17 06:00 INR 1.19 10/23/17 06:00 APTT 30.8 Seconds (25.1-36.5) 10/23/17 06:00 - Additional Findings Additional findings: - Constitutional Appears: Non-toxic, No Acute Distress, Unkempt - Head Exam Head Exam: NORMAL INSPECTION - Eye Exam Eye Exam: EOMI, Normal appearance, PERRL - ENT Exam ENT Exam: Mucous Membranes Moist Additional comments: left facial palsy - Neck Exam Neck Exam: Normal Inspection - Respiratory Exam Respiratory Exam: NORMAL BREATHING PATTERN. absent: Respiratory Distress - Cardiovascular Exam Cardiovascular Exam: Irregular Rhythm, +S1, +S2 - GI/Abdominal Exam GI & Abdominal Exam: Soft. absent: Distended, Tenderness - Extremities Exam Extremities Exam: Full ROM - Back Exam Back Exam: NORMAL INSPECTION - Neurological Exam Neurological Exam: Alert, Awake Neuro motor strength exam: Left Upper Extremity: 3, Right Upper Extremity: 5, Left Lower Extremity: 3, Right Lower Extremity: 4 - Psychiatric Exam Psychiatric exam: Normal Mood - Skin Skin Exam: Warm Assessment and Plan - Assessment and Plan (Free Text) Assessment: 87 year old female with PMH of Afib, HTN, DM2, diastolic CHF, cellulitis, valvular heart disease, CAD and history of GI bleed presenting to the ICU for management acute stroke and sepsis due to likely pneumonia. Code stroke was called. Brain MRI showing acute/subacute infarct changes seen in right subinsular region. Echo showed moderate to severe concentric left ventricular hypertrophy, aortic valve is severely calcified with severe valvular aortic stenosis, severe pulmonary hypertension and moderate tricuspid regurgitation. LDL is also elevated. Plan: - cont ASA/Plavix - cont Lipitor - Echo done, pending official read - PT eval recommending acute rehab - target BP in normal range SBP < 130 - further recs per Dr. Jiménez Case was reviewed and discussed with Dr. Jiménez
--- NOTE | 2017-10-23 10:03 | CARD ---
APPROVED REPORT Date of service: 10/22/2017 EXAM: Two-dimensional and M-mode echocardiogram with Doppler and color Doppler. INDICATION CVA/TIA , Aortic Stenosis 2D DIMENSIONS Left Atrium (2D)5.8 (1.6-4.0cm)IVSd2.2 (0.7-1.1cm) LVDd4.2 (3.9-5.9cm)LVOT Diameter1.8 (1.8-2.4cm) PWd1.6 (0.7-1.1cm)LVDs2.8 (2.5-4.0cm) FS (%) 32.7 %LVEF (%)61.5 (>50%) M-Mode DIMENSIONS Aortic Root3.00 (2.2-3.7cm)Aortic Cusp Exc.0.60 (1.5-2.0cm) Aortic Valve AoV Peak Ofmilqxi460.0cm/sAoV GRL713.0cmAO Peak GR.107mmHg LVOT Peak Urlbtqgg41.7cm/sLVOT VTI20.70cmAO Mean GR.55mmHg JHON (VMAX)0.91ui3TTB (VTI)0.37qg3FU P 1/2 Srdc058ox Mitral Valve E/A ratio0.0 TDI E/Lateral E'0.0E/Medial E'0.0 Pulmonary Valve PV Peak Kibpcpep63.6cm/sPV Peak Grad.2mmHg Tricuspid Valve TR Peak Gtyhyhtb534ch/sRAP [id number] Peak Gr.49mmHg [id number] LEFT VENTRICLE The left ventricle is normal size. There is moderate to severe concentric left ventricular hypertrophy. The left ventricular function is normal. The left ventricular ejection fraction is within the normal range. There is normal LV segmental wall motion. RIGHT VENTRICLE The right ventricle is normal size. ATRIA The left atrium is severely dilated. The right atrium is mildly dilated. The interatrial septum is intact with no evidence for an atrial septal defect. AORTIC VALVE The aortic valve is severely calcified. There is mild aortic regurgitation. There is severe valvular aortic stenosis. MITRAL VALVE The mitral valve is normal in structure. Mitral annular calcification is moderate. Mitral regurgitation is moderate. TRICUSPID VALVE The tricuspid valve is normal in structure. There is moderate tricuspid regurgitation. There is severe pulmonary hypertension. PULMONIC VALVE The pulmonary valve is normal in structure. There is mild pulmonic valvular regurgitation. GREAT VESSELS The aortic root is normal in size. PERICARDIAL EFFUSION There is no pericardial effusion. <Conclusion> The left ventricle is normal size. There is moderate to severe concentric left ventricular hypertrophy. The left ventricular function is normal. The aortic valve is severely calcified. There is severe valvular aortic stenosis. There is mild aortic regurgitation. Mitral regurgitation is moderate. There is moderate tricuspid regurgitation. There is severe pulmonary hypertension.
--- NOTE | 2017-10-23 11:53 | CP.PCM.PN ---
Subjective - Date & Time of Evaluation Date of Evaluation: 10/23/17 Time of Evaluation: 10:25 - Subjective Subjective: Patient is comfortable in bed, no fevers, not in distress. Objective - Vital Signs/Intake and Output Vital Signs (last 24 hours): Temp Pulse Resp BP Pulse Ox 97.5 F L 86 24 205/109 H 94 L 10/22/17 18:00 10/23/17 06:01 10/23/17 06:01 10/23/17 06:01 10/23/17 06:01 Intake and Output: 10/23/17 10/23/17 06:59 18:59 Intake Total 100 Output Total 350 Balance -250 - Medications Medications: Current Medications Acetaminophen (Tylenol 325mg Tab) 650 mg PO Q4H PRN PRN Reason: headache Last Admin: 10/21/17 18:41 Dose: 650 mg Aspirin (Ecotrin) 81 mg PO DAILY [facility] Last Admin: 10/22/17 09:42 Dose: 81 mg Atorvastatin Calcium (Lipitor) 40 mg PO DAILY [facility] Last Admin: 10/22/17 09:48 Dose: 40 mg Clopidogrel Bisulfate (Plavix) 75 mg PO DAILY [facility] Last Admin: 10/22/17 09:43 Dose: 75 mg Dextrose (Dextrose 50% Inj) 0 ml IV STAT PRN; Protocol PRN Reason: Hypoglycemia Protocol Enoxaparin Sodium (Lovenox) 40 mg SC DAILY [facility] PRN Reason: Protocol Last Admin: 10/22/17 09:44 Dose: 40 mg Furosemide (Lasix) 20 mg IVP DAILY [facility] Last Admin: 10/22/17 09:44 Dose: 20 mg Dextrose (Dextrose 5% In Water 1000 Ml) 1,000 mls @ 0 mls/hr IV .Q0M PRN; Protocol; Per Protocol PRN Reason: Hypoglycemia Protocol Doxycycline Hyclate 100 mg/ (Sodium Chloride) 100 mls @ 100 mls/hr IVPB Q12 [facility] PRN Reason: Protocol Stop: 10/30/17 10:01 Last Admin: 10/22/17 21:47 Dose: 100 mls/hr Insulin Detemir (Levemir) 14 unit SC [facility] Insulin Human Lispro (Humalog) 6 units SC AC [facility] Insulin Human Lispro (Humalog Low) 0 units SC ACHS [facility] PRN Reason: Protocol Labetalol HCl (Trandate) 10 mg IV Q4 PRN PRN Reason: Blood Pressure 220/110 & above Last Admin: 10/23/17 03:07 Dose: 10 mg Lisinopril (Zestril) 10 mg PO DAILY [facility] Last Admin: 10/22/17 09:43 Dose: 10 mg Metoprolol Tartrate (Lopressor) 50 mg PO BID [facility] Last Admin: 10/22/17 18:55 Dose: Not Given Pantoprazole Sodium (Protonix Inj) 40 mg IVP DAILY [facility] Last Admin: 10/22/17 09:42 Dose: 40 mg - Labs Labs: 10/22/17 05:20 10/22/17 05:20 PT 14.3 SECONDS (9.4-12.5) H 10/22/17 05:20 INR 1.24 10/22/17 05:20 APTT 29.5 Seconds (25.1-36.5) 10/22/17 05:20 - Constitutional Appears: Chronically Ill - Head Exam Head Exam: NORMAL INSPECTION - ENT Exam ENT Exam: Mucous Membranes Moist - Neck Exam Neck Exam: absent: Meningismus - Respiratory Exam Respiratory Exam: Decreased Breath Sounds - Cardiovascular Exam Cardiovascular Exam: +S1, +S2 - GI/Abdominal Exam GI & Abdominal Exam: Soft. absent: Tenderness Assessment and Plan - Assessment and Plan (Free Text) Plan: Assessment sepsis due to community-acquired pneumonia in this patient with acute CVA history of sepsis due to left lower extremity cellulitis on top of chronic lower leg edema, probably related to CHF HTN DM atrial fibrillation history of gastrointestinal bleed dyslipdemia coronary artery disease Plan on Doxycycline day 3 to complete 5-7 days of therapy; PCT is less than 0.05; blood cx are negative discussed with Dr. Hubbard will continue to monitor clinically
--- NOTE | 2017-10-23 11:57 | RAD ---
Date of service: 10/23/2017 HISTORY: UP RIGHT CXR TO EVALUATE CHF AND EFFUSIONS COMPARISON: 10/21/2017. FINDINGS: LUNGS: The lungs are well inflated. There moderate pulmonary venous congestion, improved since the prior examination. PLEURA: No significant pleural effusion identified, no pneumothorax apparent. CARDIOVASCULAR: Persistent severe cardiomegaly. OSSEOUS STRUCTURES: No significant abnormalities. VISUALIZED UPPER ABDOMEN: Normal. OTHER FINDINGS: None. IMPRESSION: Persistent severe cardiomegaly. Improving pulmonary venous congestion.
--- NOTE | 2017-10-23 12:12 | PN ---
Copied To: Sherri Hubbard MD Attending MD: Sherri Hubbard MD DATE: 10/23/2017 SUBJECTIVE: An 87-year-old female in the Intensive Care Unit. Nursing staff states that there are no particular acute problems over the night. PHYSICAL EXAMINATION: VITAL SIGNS: Reported as showing blood pressure of 205/109, repeat was 177/83, pulse was 86, oxygen saturation was 94% and temperature reported as 98.7. GENERAL: The patient is alert. LUNGS: Show diminished breath sounds at the bases. HEART: In irregular S1, S2 rhythm with a grade of 3/6 systolic murmur. ABDOMEN: Obese, soft with positive bowel sounds. EXTREMITIES: No evidence of edema. I and O states that she has a negative 250 mL. Reported as having 350 mL of urine output with a 100 mL of intake as per the ICU documentation. LABORATORY DATA: Shows a WBC of 13.4, RBC 5, hemoglobin 14.6, hematocrit 45, platelet count is 231. Chemistry shows a sodium of 144, potassium 4, chloride 106, BUN is 16, creatinine is 0.7, blood sugar is 291. LFTs are normal. ASSESSMENT: 1. Acute stroke with left-sided weakness and left facial. 2. Atrial fibrillation. 3. Valvular heart disease. 4. Hypertension. 5. Degenerative arthritis of hips. 6. Remote history of cellulitis. 7. Congestive heart failure. 8. Possible aspiration or community-acquired pneumonia. 9. Insulin-dependent diabetes. PLAN: 1. The patient is being followed by Neurology and is currently on Ecotrin, Lipitor, Lovenox and Plavix. 2. She has been followed by Cardiology and is on Lasix and Lopressor with labetalol p.r.n. 3. She is on GI prophylaxis with Protonix. 4. She is being followed by Endocrinology on Levemir with fingerstick blood sugar coverage on a sliding scale and Humalog insulin. 5. She is currently on Vibramycin IV being followed by Infectious Disease. She is also being followed by Pulmonary. A followup chest x-ray has been requested. She is on aspiration precautions on a pureed diet. We will continue to monitor the patient closely at this time. A consult has been requested with Nephrology, hypertension because of the fluctuation in her blood pressure. She has a living will. She is a DNR/DNI and the family is aware of the patient's clinical status at this time. Sherri Hubbard, MD : 10/23/2017 11:24:08 [facility] # [id number]
--- NOTE | 2017-10-23 15:54 | PN ---
Copied To: Chuyita Yoder MD Attending MD: Chuyita Yoder MD DATE: 10/23/2017 ENDOCRINOLOGY FOLLOWUP NOTE LOCATION: In ICU 128, room 4. SUBJECTIVE: This is an 87-year-old female presenting here with an acute right CVA with left-sided focal neurologic deficits and currently being followed closely also for metabolic management because of supervening hyperglycemic accelerations as noted thereof. She has been started on a pureed diet as tolerated. Her chemistries today showed a BUN of 16, sodium 144, potassium 4, chloride 106, CO2 26, glucose 291 and creatinine 0.7. Her glucose levels have ranged from 173-280 mg/dL. It was 304 at dinnertime last night. Her hemoglobin A1c is 9.6% as noted which is indicative of suboptimal metabolic control of her diabetic condition even prior. Chuyita Yoder MD
--- NOTE | 2017-10-23 16:28 | CON ---
Copied To: Clayton Wick MD Attending MD: Clayton Wick MD DATE: 10/23/2017 The patient is admitted to the hospital on 10/21/[address] Sherri Hubbard. REFERRING MD: Sherri Hubbard MD. REASON FOR CONSULTATION: Evaluation of a patient unknown to me who presents with an acute right-sided CVA, left-sided weakness in the setting of atrial fibrillation and accelerated hypertension. HISTORY OF PRESENT ILLNESS: The patient is an 87-year-old white female, who is presently not communicating with me. History of IDDM, history of hypertension, atrial fibrillation, past history of kidney stones, history of lower extremity cellulitis, history of LVH with normal ejection fraction, history of severe aortic stenosis, mitral regurgitation, tricuspid regurgitation. History of severe pulmonary hypertension. The patient is presently a DNR/DNI. The patient was brought to the hospital for left-sided weakness and facial droop. She was noted to have an acute right-sided CVA. Her blood pressure was elevated. She was treated initially with IV labetalol. She presently remains hypertensive with systolic blood pressures in the 177-205 range. The patient was initially admitted to the ICU. She has been downgraded to telemetry. We are asked to evaluate the patient for her uncontrolled hypertension now 48 hours post admission to the hospital. PAST MEDICAL HISTORY: Significant for hypertension of many years' duration, IDDM, atrial fibrillation, LVH, aortic stenosis, mitral regurgitation, tricuspid regurgitation, pulmonary hypertension, ejection fraction is 62% on a recent echocardiogram, history of kidney stones, past history of lower extremity cellulitis, the patient is a DNR/DNI. MEDICATIONS AT HOME: Include that of potassium, Protonix, Lopressor, Imdur, Humalog, Levemir, Glucotrol, oral Lasix and digoxin. ALLERGIES: NO KNOWN ALLERGIES TO MEDICATIONS. CURRENT MEDICATIONS IN HOSPITAL: Include that of doxycycline, Ecotrin, insulin, IV Lasix, Levemir, Humalog, Lipitor, Lopressor, Lovenox, Plavix, Protonix, IV labetalol p.r.n., Tylenol p.r.n. and low-dose lisinopril. SOCIAL HISTORY: Past history of cigarettes. None for many years. Alcohol none. No history of substance abuse. FAMILY HISTORY: Unobtainable from the patient and as per my review of the electronic medical record is noncontributory. REVIEW OF SYSTEMS: Unable to obtain review of systems from the patient. PHYSICAL EXAMINATION: GENERAL: The patient is currently seen in ICU, bed 4, but she has been downgraded to telemetry. VITAL SIGNS: Blood pressure presently is 194/86 with a pulse of 79, temperature 97.5 with respiratory rate of 24. Pulse ox is 94%. HEENT: Shows her to be normocephalic, atraumatic. Conjunctivae are pink. Sclerae are nonicteric. Pupils appear equal, reactive to light and accommodation. Extraocular muscles are intact. Posterior pharynx is normal. NECK: Supple. No neck vein distention or thyromegaly. No lymphadenopathy. No bruits. CHEST: Clear to auscultation and percussion with slight decreased breath sounds at the bases. No rales, rhonchi or wheezing. CARDIOVASCULAR: Shows an irregular S1, S2. No S3. No S4. Harsh systolic ejection murmur, left lower sternal border. Positive aortic stenosis, aortic insufficiency, tricuspid regurgitation. ABDOMEN: Soft. Bowel sounds normal. No rebound, guarding or masses. EXTREMITIES: Show no cyanosis, no clubbing. No lower extremity edema. Distal lower extremity pulses are 1+ bilaterally. NEURO: Shows to be poorly communicative. Significant weakness of her left upper and left lower extremity with no purposeful movement. LABORATORY DATA AND IMAGING: An admitting EKG showed atrial fibrillation with anterolateral wall ischemic changes. Head CT initially showed diffuse ischemic changes. Followup brain MRI showed an acute right-sided CVA. Admitting chest x-ray showed bilateral infiltrates, left greater than right and pleural effusions. Possible community-acquired pneumonia versus mild CHF. Followup chest x-ray this morning showed decrease in the infiltrates and congestion. CTA of the neck showed bilateral carotid artery narrowing. Labs, CBC: White blood cell count is 13.4, hemoglobin 14.6 with a platelet count of 231,000. Coags: PT 13.7 with an INR of 1.19 and a PTT of 30.8. Chemistries showed normal electrolytes. BUN 16 with a creatinine of 0.7, potassium 4, sodium 144, glucose has been ranging today from 173-291. Calcium is normal at 9.6. Liver enzymes are normal. Albumin is normal at 3.9. B12 level is low normal. Thyroid function tests are normal. Procalcitonin was low. Urines showed no protein. Positive glucose. Microscopic was negative. Toxicology: Digoxin level 0.5. Serologies: Urine for Legionella was negative. Microbiology: Blood cultures 48 hours are negative. ASSESSMENT: 1. Acute right-sided cerebrovascular accident with left-sided weakness. This is in the setting of uncontrolled hypertension and atrial fibrillation. The patient is presently receiving Plavix, aspirin. The patient is 48 hours post presentation with an acute cerebrovascular accident and remains significantly hypertensive. As discussed with Dr. Hubbard, I will reintroduce oral medications to try and lower her blood pressure into a safe range. We will target a range of approximately 140-160 initially. 2. Uncontrolled hypertension. In the outpatient setting, the patient had been on Lopressor alone for blood pressure control. She was also on Lasix. I will again start the patient on calcium channel adali therapy. I will discontinue lisinopril and start her on an angiotensin receptor adali. She may receive clonidine on a p.r.n. basis for elevated blood pressure readings. She had been on metoprolol the past. She should continue this. I will discontinue IV labetalol. 3. History of significant aortic stenosis with mitral regurgitation/aortic insufficiency. History of severe pulmonary hypertension. The patient is deemed not to be a candidate for any aggressive cardiac intervention. 4. History of atrial fibrillation. The patient remains on Plavix and aspirin alone. No plans that I could see for anticoagulation with either Coumadin or Eliquis/Xarelto. Presently, the patient remains off heparin. 5. History of hyperlipidemia. The patient had been on no medication in the outpatient setting. She had been started on statin therapy during the early part of present hospitalization. 6. Possible community-acquired pneumonia. The patient will continue doxycycline therapy. 7. History of mild congestive heart failure on chest x-ray with pleural effusions. The patient will continue IV Lasix therapy. 8. DNR/DNI noted. PLAN: 1. As discussed with Dr. Hubbard and nursing staff in the ICU, the patient is downgraded to telemetry. She is awaiting a bed. I would like to try and lower her blood pressure to a safer range prior to her leaving the unit. 2. Continue to monitor labs on a daily basis. 3. We will introduce calcium channel adali therapy. I will discontinue the TERESE inhibitor and start her on angiotensin receptor adali with the possibility of using combination therapy upon discharge. I will also use clonidine on a p.r.n. basis to lower her blood pressure and discontinue IV labetalol. The patient may continue beta-adali therapy and Lasix. 4. Complete course of antibiotics for possible community-acquired pneumonia. 5. Continued followup by Endocrinology for her diabetes control. 6. Neuro evaluation as per Dr. Hubbard. Thank you for letting me partake and share in the care of your patient. Clayton Wick MD
[2017-10-23] MEDS ORDERED: Insulin Detemir 100 units/ml Vial (Levemir) SC SCH (22:00)
[2017-10-24] MEDS: Pantoprazole 40 mg Susp UD PO SCH (05:16)
[2017-10-24 06:25] LABS: BASO # 0.02 K/mm3 (0.0-2.0); BASO % 0.1 % (0.0-3.0); EOS # 0.1 (0.0-0.7); EOS % 0.8 % (1.5-5.0); GRAN # 12.02 (1.4-6.5); GRAN % 77.4 % (50.0-68.0); HEMOGLOBIN 13.8 g/dL (12.0-16.0); LYMPH # 1.9 (1.2-3.4); LYMPH % 12.4 % (22.0-35.0); MEAN CELL VOLUME 91.5 fl (80.0-105.0); MEAN CORPUSCULAR HEMOGLOBIN 28.5 pg (25.0-35.0); MEAN CORPUSCULAR HGB CONC 31.1 g/dl (31.0-37.0); MEAN PLATELET VOLUME 13.3 fl (7.0-11.0); MONO # 1.4 (0.1-0.6); MONO % 9.3 % (1.0-6.0); RBC 4.85 10^6/uL (3.5-6.1); WHITE BLOOD COUNT 15.5 10^3/ul (4.5-11.0)
[2017-10-24 06:34] LABS: INR 1.28; PARTIAL THROMBOPLASTIN TIME 28.1 Seconds (25.1-36.5); PROTHROMBIN TIME 14.8 SECONDS (9.4-12.5)
[2017-10-24 07:09] LABS: ALBUMIN 3.3 g/dL (3.0-4.8); ALT/SGPT 28 U/L (7-56); AST/SGOT 18 U/L (14-36); BLOOD UREA NITROGEN 22 mg/dL (7-21); CALCIUM 9.7 mg/dL (8.4-10.5); GFR NON-AFRICAN AMERICAN > 60
[2017-10-24] MEDS: Insulin Lispro (humaLOG) LOW Coverage SC SCH ×4 (08:15→22:25)
[2017-10-24] MEDS: Insulin Lispro 1 UNITS/0.01 ML SC SCH ×2 (08:20→12:04)
--- NOTE | 2017-10-24 09:57 | CP.PCM.PN ---
Subjective - Date & Time of Evaluation Date of Evaluation: 10/24/17 Time of Evaluation: 09:54 - Subjective Subjective: Ben Tinsley PGY2 Neurology Progress Note for Dr. Jiménez Patient was seen and examined at bedside. There were no acute overnight events. PT evaluated the patient and recommend acute rehab, pending placement by SW; and OT eval is pending. Dr. Hubbard discussed with the family regarding placing the patient on Coumadin, however, they are against it at this time. I made a call out to Nicole (POA/daughter; [phone]) to discuss placement on anticoagulation, and the benefits of anticoagulation due to Afib vs risk of bleeding movingf forward was discussed and the POA is agreeable to starting anticoagulation and understands the risks. Dr. See recommended starting Coumadin 5mg along with the DVT ppx dose of Lovenox that the patient is currently on, and d/c ASA/Plavix; Dr. Jiménez agrees. 12-pt ROS was reviewed and is otherwise unremarkable. Objective - Vital Signs/Intake and Output Vital Signs (last 24 hours): Temp Pulse Resp BP Pulse Ox 98.3 F 74 20 162/80 H 97 10/24/17 05:34 10/24/17 06:00 10/24/17 05:34 10/24/17 06:26 10/24/17 05:34 Intake and Output: 10/24/17 10/24/17 06:59 18:59 Intake Total 120 Balance 120 - Medications Medications: Current Medications Acetaminophen (Tylenol 325mg Tab) 650 mg PO Q4H PRN PRN Reason: headache Last Admin: 10/21/17 18:41 Dose: 650 mg Amlodipine Besylate (Norvasc) 5 mg PO DAILY [facility] Last Admin: 10/23/17 17:07 Dose: 5 mg Aspirin (Ecotrin) 81 mg PO DAILY [facility] Last Admin: 10/23/17 09:20 Dose: 81 mg Atorvastatin Calcium (Lipitor) 40 mg PO DAILY [facility] Last Admin: 10/23/17 09:20 Dose: 40 mg Clonidine HCl (Catapres) 0.1 mg PO Q4H PRN PRN Reason: hypertension Last Admin: 10/23/17 22:22 Dose: 0.1 mg Clopidogrel Bisulfate (Plavix) 75 mg PO DAILY [facility] Last Admin: 10/23/17 09:20 Dose: 75 mg Dextrose (Dextrose 50% Inj) 0 ml IV STAT PRN; Protocol PRN Reason: Hypoglycemia Protocol Enoxaparin Sodium (Lovenox) 40 mg SC DAILY [facility] PRN Reason: Protocol Last Admin: 10/23/17 09:22 Dose: 40 mg Furosemide (Lasix) 20 mg IVP DAILY [facility] Last Admin: 10/23/17 09:22 Dose: 20 mg Dextrose (Dextrose 5% In Water 1000 Ml) 1,000 mls @ 0 mls/hr IV .Q0M PRN; Protocol; Per Protocol PRN Reason: Hypoglycemia Protocol Doxycycline Hyclate 100 mg/ (Sodium Chloride) 100 mls @ 100 mls/hr IVPB Q12 [facility] PRN Reason: Protocol Stop: 10/30/17 10:01 Last Admin: 10/23/17 21:21 Dose: 100 mls/hr Insulin Detemir (Levemir) 14 unit SC [facility] Last Admin: 10/23/17 22:17 Dose: 14 units Insulin Human Lispro (Humalog Low) 0 units SC [facility] PRN Reason: Protocol Last Admin: 10/24/17 08:15 Dose: Not Given Insulin Human Lispro (Humalog) 8 units SC AC [facility] Last Admin: 10/24/17 08:20 Dose: 8 units Metoprolol Tartrate (Lopressor) 50 mg PO BID [facility] Last Admin: 10/23/17 17:08 Dose: 50 mg Pantoprazole Sodium (Protonix Susp) 40 mg PO 0600 [facility] Last Admin: 10/24/17 05:16 Dose: 40 mg Valsartan (Diovan) 320 mg PO DAILY [facility] Last Admin: 10/23/17 16:29 Dose: 320 mg - Labs Labs: 10/24/17 05:40 10/24/17 05:40 PT 14.8 SECONDS (9.4-12.5) H 10/24/17 05:40 INR 1.28 10/24/17 05:40 APTT 28.1 Seconds (25.1-36.5) 10/24/17 05:40 - Additional Findings Additional findings: - Constitutional Appears: Non-toxic, No Acute Distress, Unkempt - Head Exam Head Exam: NORMAL INSPECTION - Eye Exam Eye Exam: EOMI, Normal appearance, PERRL - ENT Exam ENT Exam: Mucous Membranes Moist Additional comments: left facial palsy - Neck Exam Neck Exam: Normal Inspection - Respiratory Exam Respiratory Exam: NORMAL BREATHING PATTERN. absent: Respiratory Distress - Cardiovascular Exam Cardiovascular Exam: Irregular Rhythm, +S1, +S2 - GI/Abdominal Exam GI & Abdominal Exam: Soft. absent: Distended, Tenderness - Extremities Exam Extremities Exam: Full ROM - Back Exam Back Exam: NORMAL INSPECTION - Neurological Exam Neurological Exam: Alert, Awake Neuro motor strength exam: Left Upper Extremity: 0, Right Upper Extremity: 4, Left Lower Extremity: 0, Right Lower Extremity: 2 - Psychiatric Exam Psychiatric exam: Normal Mood - Skin Skin Exam: Warm Assessment and Plan - Assessment and Plan (Free Text) Assessment: 87 year old female with PMH of Afib, HTN, DM2, diastolic CHF, cellulitis, valvular heart disease, CAD and history of GI bleed presenting to the ICU for management acute stroke and sepsis due to likely pneumonia. Code stroke was called. Brain MRI showing acute/subacute infarct changes seen in right subinsular region. EKG showed afib, rate controlled. Echo showed moderate to severe concentric left ventricular hypertrophy, aortic valve is severely calcified with severe valvular aortic stenosis, severe pulmonary hypertension and moderate tricuspid regurgitation. LDL is also elevated. Plan: - start coumadin 5mg daily - INR check for INR goal within range 1.6-2.5 - d/c ASA/Plavix - cont Lovenox DVT ppx dose - cont Lipitor - PT eval recommending acute rehab - target BP in normal range SBP < 130 - further recs per Dr. Jiménez Case was reviewed and discussed with Dr. Jiménez
--- NOTE | 2017-10-24 10:03 | PN ---
Copied To: Mark Bautista MD Attending MD: Mark Bautista MD DATE: 10/24/2017 PULMONARY PROGRESS NOTE SUBJECTIVE: The patient was seen and examined at bedside. She is currently on telemetry. She is out of intensive care unit. Her neurologic status did not change overnight. PHYSICAL EXAMINATION: GENERAL: Patient is currently asleep. VITAL SIGNS: Her blood pressure is 170/80, pulse 86, respirations 20, oxygen saturation is 94% on room air and temperature is 98. HEENT: Head: Normocephalic and atraumatic. LUNGS: Diminished breath sounds at both lung bases. CARDIOVASCULAR: S1, S2. No S3. Regular. A 3/6 systolic ejection murmur. GASTROINTESTINAL: Soft, nontender. No organomegaly. EXTREMITIES: No pedal edema. No cyanosis. SKIN: No acute skin rashes. NEUROLOGIC: Limited at present time. LABORATORY DATA: WBC is 13.4, hemoglobin 14.6. Potassium is 4, creatinine 0.7. ASSESSMENT: 1. Acute cerebrovascular accident with left-sided weakness. 2. Atrial fibrillation. 3. Chronic obstructive pulmonary disease. 4. Rule out aspiration pneumonia. PLAN: Patient did not show signs of aspiration pneumonia. Small bilateral pleural effusions could be from fluid overload. Her WBC normalizes. She was covered with antibiotics. We will continue following her p.r.n. Mark Bautista MD
[2017-10-24] MEDS: Enoxaparin 40 mg Syringe SC SCH (10:10)
--- NOTE | 2017-10-24 11:41 | CP.PCM.PN ---
Subjective - Date & Time of Evaluation Date of Evaluation: 10/24/17 Time of Evaluation: 10:15 - Subjective Subjective: Comfortable in bed, being fed by aide, no fevers, no diarrhea. Objective - Vital Signs/Intake and Output Vital Signs (last 24 hours): Temp Pulse Resp BP Pulse Ox 98.3 F 74 20 162/80 H 97 10/24/17 05:34 10/24/17 06:00 10/24/17 05:34 10/24/17 06:26 10/24/17 05:34 Intake and Output: 10/23/17 10/24/17 18:59 06:59 Intake Total 350 120 Output Total 1000 Balance -650 120 - Medications Medications: Current Medications Acetaminophen (Tylenol 325mg Tab) 650 mg PO Q4H PRN PRN Reason: headache Last Admin: 10/21/17 18:41 Dose: 650 mg Amlodipine Besylate (Norvasc) 5 mg PO DAILY [facility] Last Admin: 10/23/17 17:07 Dose: 5 mg Aspirin (Ecotrin) 81 mg PO DAILY [facility] Last Admin: 10/23/17 09:20 Dose: 81 mg Atorvastatin Calcium (Lipitor) 40 mg PO DAILY [facility] Last Admin: 10/23/17 09:20 Dose: 40 mg Clonidine HCl (Catapres) 0.1 mg PO Q4H PRN PRN Reason: hypertension Last Admin: 10/23/17 22:22 Dose: 0.1 mg Clopidogrel Bisulfate (Plavix) 75 mg PO DAILY [facility] Last Admin: 10/23/17 09:20 Dose: 75 mg Dextrose (Dextrose 50% Inj) 0 ml IV STAT PRN; Protocol PRN Reason: Hypoglycemia Protocol Enoxaparin Sodium (Lovenox) 40 mg SC DAILY [facility] PRN Reason: Protocol Last Admin: 10/23/17 09:22 Dose: 40 mg Furosemide (Lasix) 20 mg IVP DAILY [facility] Last Admin: 10/23/17 09:22 Dose: 20 mg Dextrose (Dextrose 5% In Water 1000 Ml) 1,000 mls @ 0 mls/hr IV .Q0M PRN; Protocol; Per Protocol PRN Reason: Hypoglycemia Protocol Doxycycline Hyclate 100 mg/ (Sodium Chloride) 100 mls @ 100 mls/hr IVPB Q12 [facility] PRN Reason: Protocol Stop: 10/30/17 10:01 Last Admin: 10/23/17 21:21 Dose: 100 mls/hr Insulin Detemir (Levemir) 14 unit SC HS [facility] Last Admin: 10/23/17 22:17 Dose: 14 units Insulin Human Lispro (Humalog Low) 0 units SC [facility] PRN Reason: Protocol Last Admin: 10/23/17 22:15 Dose: Not Given Insulin Human Lispro (Humalog) 8 units SC [facility] Metoprolol Tartrate (Lopressor) 50 mg PO BID [facility] Last Admin: 10/23/17 17:08 Dose: 50 mg Pantoprazole Sodium (Protonix Susp) 40 mg PO 0600 [facility] Last Admin: 10/24/17 05:16 Dose: 40 mg Valsartan (Diovan) 320 mg PO DAILY [facility] Last Admin: 10/23/17 16:29 Dose: 320 mg - Labs Labs: 10/24/17 05:40 10/23/17 07:00 PT 14.8 SECONDS (9.4-12.5) H 10/24/17 05:40 INR 1.28 10/24/17 05:40 APTT 28.1 Seconds (25.1-36.5) 10/24/17 05:40 - Constitutional Appears: Non-toxic, Chronically Ill - Head Exam Head Exam: NORMAL INSPECTION - ENT Exam ENT Exam: Mucous Membranes Moist - Neck Exam Neck Exam: absent: Meningismus - Respiratory Exam Respiratory Exam: Decreased Breath Sounds - Cardiovascular Exam Cardiovascular Exam: +S1, +S2 - GI/Abdominal Exam GI & Abdominal Exam: Soft. absent: Tenderness Assessment and Plan - Assessment and Plan (Free Text) Plan: Assessment sepsis due to community-acquired pneumonia in this patient with acute CVA history of sepsis due to left lower extremity cellulitis on top of chronic lower leg edema, probably related to CHF HTN DM atrial fibrillation history of gastrointestinal bleed dyslipdemia coronary artery disease Plan on Doxycycline day 4 to complete 5-7 days of therapy; PCT is less than 0.05; blood cx are negative discussed with Dr. Hubbard - will follow up urine cx will continue to monitor clinically
[2017-10-24] MEDS ORDERED: Insulin Detemir 100 units/ml Vial (Levemir) SC SCH (13:57)
[2017-10-24] MEDS ORDERED: Insulin Lispro 1 UNITS/0.01 ML SC SCH (13:58)
--- NOTE | 2017-10-24 14:26 | PN ---
Copied To: Chuyita Yoder MD Attending MD: Chuyita Yoder MD DATE: 10/24/2017 ENDOCRINOLOGY FOLLOWUP NOTE SUBJECTIVE: This is an 87-year-old female with recent uncontrolled type 2 insulin-requiring diabetes presenting here with an acute CVA and residual left-sided weakness, and is now being followed closely for metabolic management. Her glycemic levels are fluctuating, but improved and today's glucose levels have ranged from 213 to 257 and it was 221 at bedtime last night. The chemistry showed a BUN of 22. Sodium 147, potassium 3.7, chloride 107, CO2 of 30. Glucose 196. Creatinine 0.7. So at this time, we will modify once again her basal and bolus insulin regimen and increase the Levemir to 18 units subcu at bedtime daily to start tonight. We will also titrate her Humalog to 10 units subcu t.i.d. before meals to start at dinner time today as ordered. We will obtain serial chemistries and supplement accordingly as needed. We will follow. Chuyita Yoder MD
--- NOTE | 2017-10-24 14:28 | PN ---
Copied To: Clayton Wick MD Attending MD: Clayton Wick MD DATE: 10/24/2017 SUBJECTIVE: The patient is currently seen lying comfortable in bed in the TCU. She was transferred yesterday from the ICU. She is status post significant right-sided CVA with left-sided weakness. This is in the setting of atrial fibrillation and accelerated hypertension. The patient appears to be stable. She is on a pureed diet. MEDICATIONS: Medication list reviewed. The patient is currently on p.r.n. clonidine, Diovan 320 mg a day, doxycycline, Ecotrin, insulin, IV Lasix, Levemir, Humalog, Lipitor, Lopressor, Lovenox, Norvasc, Plavix, Protonix, and Tylenol p.r.n. OBJECTIVE: INTAKE/OUTPUT: Intake is 470, output is 1000. VITAL SIGNS: Blood pressure is 148/68, temperature is 100.8, pulse is 76 with a respiratory rate of 18, pulse ox is 97%. HEENT: Normocephalic, atraumatic. Conjunctivae are pink. Sclerae nonicteric. NECK: Supple. No neck vein distention. CHEST: Clear to auscultation and percussion. No rales, rhonchi or wheezing. CARDIOVASCULAR: Shows an irregular S1, S2. No S3, no S4. Positive /AI/TR. ABDOMEN: Soft. Bowel sounds normal. No rebound, guarding or masses. EXTREMITIES: Show no lower extremity cyanosis, clubbing or edema. NEURO: Shows her to be non-communicative. Significant weakness of her left upper, left lower extremity. These limbs are flaccid. LABORATORY DATA AND IMAGING: CBC, white blood cell count 15.5, hemoglobin 13.8 with a platelet count of 191,000. Chemistries showed normal electrolytes. BUN 22 with a creatinine of 0.7. Glucose is 196. Calcium, phos, mag are all normal. Liver enzymes are normal. Microbiology, all cultures are negative at 3 days. ASSESSMENT: 1. 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 This is in the setting of uncontrolled hypertension and atrial fibrillation. The patient is currently on aspirin, Plavix, Lovenox. The patient is being followed by Neurology. Initially the patient had significant elevations of blood pressure in the 200 systolic range. We targeted a blood pressure 150-160 immediately post admission for her cerebrovascular accident. Presently, her blood pressure is in the 140 systolic range with normal diastolics which is acceptable. 2. Uncontrolled hypertension, improve blood pressure control with start of angiotensin receptor adali therapy along with p.r.n. clonidine along with beta-adali therapy and calcium channel adali therapy. 3. History of significant aortic stenosis, mitral regurgitation, aortic insufficiency. The patient also has severe pulmonary hypertension. The patient is not receiving any aggressive cardiac intervention. 4. History of atrial fibrillation. She remains on Lovenox presently. Perhaps at some future point in time, a switch to oral anticoagulation along with aspirin and Plavix. 5. Hyperlipidemia. The patient is presently on statin therapy. 6. Possible community-acquired pneumonia. The patient is completing a course of doxycycline. 7. History of mild congestive heart failure on chest x-ray. Patient is on low-dose diuretic therapy. 8. History of DNR/DNI. PLAN: 1. Continue to monitor the patient on telemetry. 2. Continue close Neurology followup. 3. Continue present blood pressure medication, systolic blood pressure in the 140s is acceptable, diastolics have been normal. 4. Complete course of antibiotic therapy for possible community-acquired pneumonia. 5. Discussed with Dr. Hubbard and telemetry staff. Clayton Wick MD
--- NOTE | 2017-10-24 14:32 | CP.PCM.PN ---
Subjective - Date & Time of Evaluation Date of Evaluation: 10/24/17 Time of Evaluation: 07:00 - Subjective Subjective: Endocrinology progress note: Patient seen and examined at bedside. No acute events overnight. Sugars ranging in the 200's. No complaints at this time 12 point ROS performed and negative other than stated above Objective - Vital Signs/Intake and Output Vital Signs (last 24 hours): Temp Pulse Resp BP Pulse Ox 98.4 F 76 18 148/68 97 10/24/17 13:00 10/24/17 11:37 10/24/17 11:37 10/24/17 11:37 10/24/17 05:34 Intake and Output: 10/24/17 10/24/17 06:59 18:59 Intake Total 120 Balance 120 - Medications Medications: Current Medications Acetaminophen (Tylenol 325mg Tab) 650 mg PO Q4H PRN PRN Reason: headache Last Admin: 10/24/17 12:03 Dose: 650 mg Amlodipine Besylate (Norvasc) 5 mg PO DAILY [facility] Last Admin: 10/24/17 10:14 Dose: 5 mg Aspirin (Ecotrin) 81 mg PO DAILY [facility] Last Admin: 10/24/17 10:11 Dose: 81 mg Atorvastatin Calcium (Lipitor) 40 mg PO DAILY [facility] Last Admin: 10/24/17 10:11 Dose: 40 mg Clonidine HCl (Catapres) 0.1 mg PO Q4H PRN PRN Reason: hypertension Last Admin: 10/23/17 22:22 Dose: 0.1 mg Clopidogrel Bisulfate (Plavix) 75 mg PO DAILY [facility] Last Admin: 10/24/17 10:14 Dose: 75 mg Dextrose (Dextrose 50% Inj) 0 ml IV STAT PRN; Protocol PRN Reason: Hypoglycemia Protocol Enoxaparin Sodium (Lovenox) 40 mg SC DAILY [facility] PRN Reason: Protocol Last Admin: 10/24/17 10:10 Dose: 40 mg Furosemide (Lasix) 20 mg IVP DAILY [facility] Last Admin: 10/24/17 09:05 Dose: 20 mg Dextrose (Dextrose 5% In Water 1000 Ml) 1,000 mls @ 0 mls/hr IV .Q0M PRN; Protocol; Per Protocol PRN Reason: Hypoglycemia Protocol Doxycycline Hyclate 100 mg/ (Sodium Chloride) 100 mls @ 100 mls/hr IVPB Q12 [facility] PRN Reason: Protocol Stop: 10/30/17 10:01 Last Admin: 10/24/17 10:02 Dose: 100 mls/hr Insulin Detemir (Levemir) 18 unit SC HS [facility] Insulin Human Lispro (Humalog Low) 0 units SC ACHS [facility] PRN Reason: Protocol Last Admin: 10/24/17 12:05 Dose: Not Given Insulin Human Lispro (Humalog) 10 units SC AC [facility] Metoprolol Tartrate (Lopressor) 50 mg PO BID [facility] Last Admin: 10/24/17 10:14 Dose: 50 mg Pantoprazole Sodium (Protonix Susp) 40 mg PO 0600 [facility] Last Admin: 10/24/17 05:16 Dose: 40 mg Valsartan (Diovan) 320 mg PO DAILY [facility] Last Admin: 10/24/17 10:14 Dose: 320 mg - Labs Labs: 10/24/17 05:40 10/24/17 05:40 PT 14.8 SECONDS (9.4-12.5) H 10/24/17 05:40 INR 1.28 10/24/17 05:40 APTT 28.1 Seconds (25.1-36.5) 10/24/17 05:40 - Constitutional Appears: No Acute Distress - Head Exam Head Exam: ATRAUMATIC, NORMOCEPHALIC - Eye Exam Eye Exam: EOMI - ENT Exam ENT Exam: Mucous Membranes Moist - Respiratory Exam Respiratory Exam: Clear to Ausculation Bilateral. absent: Wheezes - Cardiovascular Exam Cardiovascular Exam: REGULAR RHYTHM, +S1, +S2 - GI/Abdominal Exam GI & Abdominal Exam: Soft. absent: Tenderness - Extremities Exam Extremities Exam: absent: Calf Tenderness, Pedal Edema - Neurological Exam Neurological Exam: Alert, Awake Neuro motor strength exam: Left Upper Extremity: 0, Right Upper Extremity: 5, Left Lower Extremity: 0, Right Lower Extremity: 5 - Skin Skin Exam: Normal Color, Warm Assessment and Plan - Assessment and Plan (Free Text) Assessment: 87-year-old female presenting with uncontrolled and decompensated insulin requiring diabetes presenting with acute CVA. Patient being seen for metabolic management. Carb consistent diet Increased Levemir to 20 units at bedtime Increased bolus of Humalog to 10 units before meals Humalog sliding scale low dose as protocol Replete electrolytes as needed Follow-up neuro recommendations Serial fingersticks and CMP's Case and plan was reviewed and discussed in detail with Dr. Cam. Arian Kapoor, PGY 3
--- NOTE | 2017-10-25 01:26 | PN ---
Copied To: Sherri Hubbard MD Attending MD: Sherri Hubbard MD DATE: 10/24/2017 SUBJECTIVE: An 87-year-old female, on telemetry. Nursing staff relates that there were no particular problems during the night. This morning, they state that she had a fairly good breakfast. She needs assistance. She is having a pureed breakfast. She is status post stroke with left hemiparesis and left facial. PHYSICAL EXAMINATION: VITAL SIGNS: Show temp of 98.4, pulse is 88, blood pressure is 121/67, respiratory rate is 18. LABORATORY DATA: WBC is 15.5, RBC is 4.85, hemoglobin is 13.8, hematocrit 44.4, platelet count is 191. PT is 14.8, with an INR of 1.28, PTT is 28.1. Chemistry shows normal electrolytes, BUN is 22, random blood sugar is 196. LFTs are normal. Calcium is 9.7. MEDICATIONS: The patient is on Catapres p.r.n., Diovan 320, doxycycline, Humalog 10 units in the morning, sliding insulin scale, Lasix 20 mg IV daily, Levemir 18 units at bedtime, Lipitor 40 mg, Lopressor 50 mg b.i.d., Lovenox 40 mg subcu daily, Norvasc 5 mg daily, Protonix p.o. 40 mg daily, and Tylenol. ASSESSMENT AND PLAN: Acute stroke with left hemiparesis and left facial. The patient is being followed by Neurology. After discussion with Neurology, Cardiology and the family, the patient will be initiated on Coumadin therapy, and the Plavix and aspirin will be stopped. Lovenox will be continued. Family is aware of the potential risks of bleeding and current stroke risk. The patient has underlying atrial fibrillation. She is being followed by Nephrology for her high blood pressure, Infectious Disease for leukocytosis. Urine culture has been requested. The patient is being followed by Endocrinology for her diabetes and she has a living will. She is a DNR/DNI. Continue supportive care at this time and continue current monitoring. Sherri Hubbard MD
[2017-10-25] MEDS ORDERED: Metoprolol 1 mg/ml Inj IVP ONE (05:46)
[2017-10-25] MEDS: Pantoprazole 40 mg Susp UD PO SCH (06:09)
[2017-10-25 06:31] LABS: BASO # 0.02 K/mm3 (0.0-2.0); BASO % 0.1 % (0.0-3.0); EOS # 0.1 (0.0-0.7); EOS % 0.9 % (1.5-5.0); GRAN # 10.81 (1.4-6.5); GRAN % 77.7 % (50.0-68.0); HEMOGLOBIN 13.9 g/dL (12.0-16.0); LYMPH # 1.7 (1.2-3.4); MEAN CELL VOLUME 91.4 fl (80.0-105.0); MEAN CORPUSCULAR HEMOGLOBIN 28.5 pg (25.0-35.0); MEAN CORPUSCULAR HGB CONC 31.2 g/dl (31.0-37.0); MEAN PLATELET VOLUME 13.7 fl (7.0-11.0); MONO # 1.3 (0.1-0.6); MONO % 9.3 % (1.0-6.0); RBC 4.88 10^6/uL (3.5-6.1); WHITE BLOOD COUNT 13.9 10^3/ul (4.5-11.0)
[2017-10-25 06:44] LABS: INR 1.33; PARTIAL THROMBOPLASTIN TIME 28.8 Seconds (25.1-36.5); PROTHROMBIN TIME 15.4 SECONDS (9.4-12.5)
[2017-10-25 07:06] LABS: ALBUMIN 3.2 g/dL (3.0-4.8); ALT/SGPT 34 U/L (7-56); AST/SGOT 48 U/L (14-36); BLOOD UREA NITROGEN 24 mg/dL (7-21); CALCIUM 9.5 mg/dL (8.4-10.5); GFR NON-AFRICAN AMERICAN > 60
--- NOTE | 2017-10-25 07:59 | CP.PCM.PN ---
Subjective - Date & Time of Evaluation Date of Evaluation: 10/25/17 Time of Evaluation: 07:00 - Subjective Subjective: Endocrinology progress note: Patient seen and examined at bedside. No acute events overnight. Sugars ranging from the 109-257. Still with L sided weakness. No complaints at this time 12 point ROS performed and negative other than stated above Objective - Vital Signs/Intake and Output Vital Signs (last 24 hours): Temp Pulse Resp BP Pulse Ox 97 F L 98 H 20 185/104 H 96 10/25/17 06:00 10/25/17 06:03 10/25/17 06:00 10/25/17 06:03 10/25/17 06:00 Intake and Output: 10/25/17 10/25/17 06:59 18:59 Intake Total 120 Balance 120 - Medications Medications: Current Medications Acetaminophen (Tylenol 325mg Tab) 650 mg PO Q4H PRN PRN Reason: headache Last Admin: 10/24/17 12:03 Dose: 650 mg Amlodipine Besylate (Norvasc) 5 mg PO DAILY [facility] Last Admin: 10/24/17 10:14 Dose: 5 mg Atorvastatin Calcium (Lipitor) 40 mg PO DAILY [facility] Last Admin: 10/24/17 10:11 Dose: 40 mg Clonidine HCl (Catapres) 0.1 mg PO Q4H PRN PRN Reason: hypertension Last Admin: 10/24/17 23:09 Dose: 0.1 mg Dextrose (Dextrose 50% Inj) 0 ml IV STAT PRN; Protocol PRN Reason: Hypoglycemia Protocol Enoxaparin Sodium (Lovenox) 40 mg SC DAILY [facility] PRN Reason: Protocol Last Admin: 10/24/17 10:10 Dose: 40 mg Furosemide (Lasix) 20 mg IVP DAILY [facility] Last Admin: 10/24/17 09:05 Dose: 20 mg Dextrose (Dextrose 5% In Water 1000 Ml) 1,000 mls @ 0 mls/hr IV .Q0M PRN; Protocol; Per Protocol PRN Reason: Hypoglycemia Protocol Doxycycline Hyclate 100 mg/ (Sodium Chloride) 100 mls @ 100 mls/hr IVPB Q12 [facility] PRN Reason: Protocol Stop: 10/30/17 10:01 Last Admin: 10/24/17 21:07 Dose: 100 mls/hr Insulin Detemir (Levemir) 18 unit SC [facility] Last Admin: 10/24/17 22:28 Dose: 18 bot Insulin Human Lispro (Humalog Low) 0 units SC ACHS [facility] PRN Reason: Protocol Last Admin: 10/24/17 22:25 Dose: Not Given Insulin Human Lispro (Humalog) 8 units SC AC [facility] Metoprolol Tartrate (Lopressor) 50 mg PO BID [facility] Last Admin: 10/24/17 17:51 Dose: 50 mg Pantoprazole Sodium (Protonix Susp) 40 mg PO 0600 [facility] Last Admin: 10/25/17 06:09 Dose: Not Given Valsartan (Diovan) 320 mg PO DAILY [facility] Last Admin: 10/24/17 10:14 Dose: 320 mg Warfarin Sodium (Coumadin) 5 mg PO 1800 [facility] PRN Reason: Protocol Last Admin: 10/24/17 17:49 Dose: 5 mg - Labs Labs: 10/25/17 05:40 10/25/17 05:40 PT 15.4 SECONDS (9.4-12.5) H 10/25/17 05:40 INR 1.33 10/25/17 05:40 APTT 28.8 Seconds (25.1-36.5) 10/25/17 05:40 - Constitutional Appears: No Acute Distress - Eye Exam Eye Exam: EOMI - ENT Exam ENT Exam: Mucous Membranes Moist - Respiratory Exam Respiratory Exam: Clear to Ausculation Bilateral. absent: Rales - Cardiovascular Exam Cardiovascular Exam: REGULAR RHYTHM, +S1, +S2 - GI/Abdominal Exam GI & Abdominal Exam: Soft. absent: Tenderness - Extremities Exam Extremities Exam: absent: Calf Tenderness - Neurological Exam Neurological Exam: Alert, Awake Neuro motor strength exam: Left Upper Extremity: 0, Right Upper Extremity: 5, Left Lower Extremity: 0, Right Lower Extremity: 4 - Psychiatric Exam Psychiatric exam: Normal Mood - Skin Skin Exam: Dry, Warm Assessment and Plan - Assessment and Plan (Free Text) Assessment: 87-year-old female presenting with uncontrolled and decompensated insulin requiring diabetes presenting with acute CVA. Patient being seen for metabolic management. Carb consistent diet Cont Levemir to 18 units at bedtime and bolus of Humalog to 8 units before meals Humalog sliding scale low dose as protocol Replete electrolytes as needed Serial fingersticks and CMP's Case and plan was reviewed and discussed in detail with Dr. Yoder. Arian Kapoor, PGY 3
[2017-10-25] MEDS: Insulin Lispro 1 UNITS/0.01 ML SC SCH ×3 (08:34→17:44)
[2017-10-25] MEDS: Enoxaparin 40 mg Syringe SC SCH (10:14)
--- NOTE | 2017-10-25 10:20 | CP.PCM.PN ---
Subjective - Date & Time of Evaluation Date of Evaluation: 10/25/17 Time of Evaluation: 10:17 - Subjective Subjective: Ben Tinsley PGY 2 Neurology Progress Note for Dr. Jiménez Patient was seen and examined at bedside. There were no acute overnight events. Patient was started on Coumadin 5 mg last night, and aspirin/Plavix were discontinued. The patient is neurologically the same this AM. Per , patient is accepted to [facility], once medically stable. Objective - Vital Signs/Intake and Output Vital Signs (last 24 hours): Temp Pulse Resp BP Pulse Ox 97 F L 90 20 170/100 H 96 10/25/17 06:00 10/25/17 08:35 10/25/17 06:00 10/25/17 08:35 10/25/17 06:00 Intake and Output: 10/25/17 10/25/17 06:59 18:59 Intake Total 120 Balance 120 - Medications Medications: Current Medications Acetaminophen (Tylenol 325mg Tab) 650 mg PO Q4H PRN PRN Reason: headache Last Admin: 10/24/17 12:03 Dose: 650 mg Amlodipine Besylate (Norvasc) 5 mg PO DAILY [facility] Last Admin: 10/24/17 10:14 Dose: 5 mg Atorvastatin Calcium (Lipitor) 40 mg PO DAILY [facility] Last Admin: 10/24/17 10:11 Dose: 40 mg Clonidine HCl (Catapres) 0.1 mg PO Q4H PRN PRN Reason: hypertension Last Admin: 10/25/17 08:35 Dose: 0.1 mg Dextrose (Dextrose 50% Inj) 0 ml IV STAT PRN; Protocol PRN Reason: Hypoglycemia Protocol Enoxaparin Sodium (Lovenox) 40 mg SC DAILY [facility] PRN Reason: Protocol Last Admin: 10/24/17 10:10 Dose: 40 mg Furosemide (Lasix) 20 mg IVP DAILY [facility] Last Admin: 10/24/17 09:05 Dose: 20 mg Dextrose (Dextrose 5% In Water 1000 Ml) 1,000 mls @ 0 mls/hr IV .Q0M PRN; Protocol; Per Protocol PRN Reason: Hypoglycemia Protocol Doxycycline Hyclate 100 mg/ (Sodium Chloride) 100 mls @ 100 mls/hr IVPB Q12 [facility] PRN Reason: Protocol Stop: 10/30/17 10:01 Last Admin: 10/24/17 21:07 Dose: 100 mls/hr Insulin Detemir (Levemir) 18 unit SC HS [facility] Last Admin: 10/24/17 22:28 Dose: 18 bot Insulin Human Lispro (Humalog Low) 0 units SC ACHS [facility] PRN Reason: Protocol Last Admin: 10/24/17 22:25 Dose: Not Given Insulin Human Lispro (Humalog) 8 units SC AC [facility] Last Admin: 10/25/17 08:34 Dose: 8 unit Metoprolol Tartrate (Lopressor) 50 mg PO BID [facility] Last Admin: 10/24/17 17:51 Dose: 50 mg Pantoprazole Sodium (Protonix Susp) 40 mg PO 0600 [facility] Last Admin: 10/25/17 06:09 Dose: Not Given Valsartan (Diovan) 320 mg PO DAILY [facility] Last Admin: 10/24/17 10:14 Dose: 320 mg Warfarin Sodium (Coumadin) 5 mg PO 1800 [facility] PRN Reason: Protocol Stop: 10/25/17 18:01 - Labs Labs: 10/25/17 05:40 10/25/17 05:40 PT 15.4 SECONDS (9.4-12.5) H 10/25/17 05:40 INR 1.33 10/25/17 05:40 APTT 28.8 Seconds (25.1-36.5) 10/25/17 05:40 - Additional Findings Additional findings: - Constitutional Appears: Non-toxic, No Acute Distress, Unkempt - Head Exam Head Exam: NORMAL INSPECTION - Eye Exam Eye Exam: EOMI, Normal appearance, PERRL - ENT Exam ENT Exam: Mucous Membranes Moist Additional comments: left facial palsy - Neck Exam Neck Exam: Normal Inspection - Respiratory Exam Respiratory Exam: NORMAL BREATHING PATTERN. absent: Respiratory Distress - Cardiovascular Exam Cardiovascular Exam: Irregular Rhythm, +S1, +S2 - GI/Abdominal Exam GI & Abdominal Exam: Soft. absent: Distended, Tenderness - Extremities Exam Extremities Exam: Full ROM - Back Exam Back Exam: NORMAL INSPECTION - Neurological Exam Neurological Exam: Alert, Awake Neuro motor strength exam: Left Upper Extremity: 0, Right Upper Extremity: 4, Left Lower Extremity: 0, Right Lower Extremity: 2 Additional findings: oriented x 2 (person and place) left sided pankaj-neglect - Psychiatric Exam Psychiatric exam: Normal Mood - Skin Skin Exam: Warm Assessment and Plan - Assessment and Plan (Free Text) Assessment: 87 year old female with PMH of Afib, HTN, DM2, diastolic CHF, cellulitis, valvular heart disease, CAD and history of GI bleed presenting to the ICU for management acute stroke and sepsis due to likely pneumonia. Code stroke was called. Brain MRI showing acute/subacute infarct changes seen in right subinsular region. EKG showed afib, rate controlled. Echo showed moderate to severe concentric left ventricular hypertrophy, aortic valve is severely calcified with severe valvular aortic stenosis, severe pulmonary hypertension and moderate tricuspid regurgitation. LDL is also elevated. Plan: - cont coumadin 5mg daily - INR check for INR goal within range 1.6-2.5 - cont Lovenox DVT ppx dose - cont Lipitor - accepted to [facility] once medically stable - target BP in normal range SBP < 130 - further recs per Dr. Jiménez Case was reviewed and discussed with Dr. Jiménez
--- NOTE | 2017-10-25 12:12 | CP.PCM.PN ---
Subjective - Date & Time of Evaluation Date of Evaluation: 10/25/17 Time of Evaluation: 10:20 - Subjective Subjective: Comfortable in bed, had low grade fever yesterday afternoon, no fevers since then, no diarrhea, no vomiting, not short of breath at rest. Objective - Vital Signs/Intake and Output Vital Signs (last 24 hours): Temp Pulse Resp BP Pulse Ox 97 F L 98 H 20 185/104 H 96 10/25/17 06:00 10/25/17 06:03 10/25/17 06:00 10/25/17 06:03 10/25/17 06:00 Intake and Output: 10/24/17 10/25/17 18:59 06:59 Intake Total 480 120 Output Total 200 Balance 280 120 - Medications Medications: Current Medications Acetaminophen (Tylenol 325mg Tab) 650 mg PO Q4H PRN PRN Reason: headache Last Admin: 10/24/17 12:03 Dose: 650 mg Amlodipine Besylate (Norvasc) 5 mg PO DAILY [facility] Last Admin: 10/24/17 10:14 Dose: 5 mg Atorvastatin Calcium (Lipitor) 40 mg PO DAILY [facility] Last Admin: 10/24/17 10:11 Dose: 40 mg Clonidine HCl (Catapres) 0.1 mg PO Q4H PRN PRN Reason: hypertension Last Admin: 10/24/17 23:09 Dose: 0.1 mg Dextrose (Dextrose 50% Inj) 0 ml IV STAT PRN; Protocol PRN Reason: Hypoglycemia Protocol Enoxaparin Sodium (Lovenox) 40 mg SC DAILY [facility] PRN Reason: Protocol Last Admin: 10/24/17 10:10 Dose: 40 mg Furosemide (Lasix) 20 mg IVP DAILY [facility] Last Admin: 10/24/17 09:05 Dose: 20 mg Dextrose (Dextrose 5% In Water 1000 Ml) 1,000 mls @ 0 mls/hr IV .Q0M PRN; Protocol; Per Protocol PRN Reason: Hypoglycemia Protocol Doxycycline Hyclate 100 mg/ (Sodium Chloride) 100 mls @ 100 mls/hr IVPB Q12 [facility] PRN Reason: Protocol Stop: 10/30/17 10:01 Last Admin: 10/24/17 21:07 Dose: 100 mls/hr Insulin Detemir (Levemir) 18 unit SC [facility] Last Admin: 10/24/17 22:28 Dose: 18 bot Insulin Human Lispro (Humalog Low) 0 units SC ACHS [facility] PRN Reason: Protocol Last Admin: 10/24/17 22:25 Dose: Not Given Insulin Human Lispro (Humalog) 8 units SC AC [facility] Metoprolol Tartrate (Lopressor) 50 mg PO BID [facility] Last Admin: 10/24/17 17:51 Dose: 50 mg Pantoprazole Sodium (Protonix Susp) 40 mg PO 0600 [facility] Last Admin: 10/25/17 06:09 Dose: Not Given Valsartan (Diovan) 320 mg PO DAILY [facility] Last Admin: 10/24/17 10:14 Dose: 320 mg Warfarin Sodium (Coumadin) 5 mg PO 1800 [facility] PRN Reason: Protocol Last Admin: 10/24/17 17:49 Dose: 5 mg - Labs Labs: 10/25/17 05:40 10/24/17 05:40 PT 15.4 SECONDS (9.4-12.5) H 10/25/17 05:40 INR 1.33 10/25/17 05:40 APTT 28.8 Seconds (25.1-36.5) 10/25/17 05:40 - Constitutional Appears: Non-toxic, Chronically Ill - Head Exam Head Exam: NORMAL INSPECTION - Neck Exam Neck Exam: absent: Meningismus - Respiratory Exam Respiratory Exam: Decreased Breath Sounds - Cardiovascular Exam Cardiovascular Exam: +S1, +S2 - GI/Abdominal Exam GI & Abdominal Exam: Soft. absent: Tenderness Assessment and Plan - Assessment and Plan (Free Text) Plan: Assessment sepsis due to community-acquired pneumonia in this patient with acute CVA; new onset fever R/O new onset sepsis history of sepsis due to left lower extremity cellulitis on top of chronic lower leg edema, probably related to CHF HTN DM atrial fibrillation history of gastrointestinal bleed dyslipdemia coronary artery disease Plan on Doxycycline day 5 to complete 5-7 days of therapy; PCT is less than 0.05; blood cx are negative because of the fever, will repeat blood and urine cx, PCT, CXR will continue to monitor clinically
--- NOTE | 2017-10-25 12:23 | PN ---
Copied To: Clayton Wick MD Attending MD: Clayton Wick MD DATE: 10/25/2017 SUBJECTIVE: The patient is currently seen on Telemetry. She is sitting up in bed. Eyes are closed. She is mumbling when spoken to. She still has no movement of the left side of her body. She is status post an acute right-sided CVA in the setting of atrial fibrillation and accelerated hypertension. She remains on a pureed diet with limited water intake. MEDICATIONS: Medication list reviewed. The patient is currently on p.r.n. clonidine, Coumadin, Diovan, doxycycline, insulin, IV Lasix, Lipitor, Lopressor, Lovenox, Norvasc, Protonix and Tylenol p.r.n. OBJECTIVE: INTAKE/OUTPUT: Intake is 600 and output is 200. VITAL SIGNS: Blood pressure is ranging anywhere from 144 to 185 systolic, diastolics range anywhere from 82 to 100. She has had elevated blood pressure systolic readings through the night. Heart rate is 82, temperature is 97. Respiratory rate is 20. HEENT: Exam shows her to have closed eyes. NECK: Supple. No neck vein distention. CHEST: Clear to auscultation and percussion. No rales, rhonchi or wheezing. CARDIOVASCULAR: Shows an irregular S1, S2. No S3, no S4. Positive /AI/TR. ABDOMEN: Soft. Bowel sounds normal. No rebound, guarding or masses. EXTREMITIES: Show no lower extremity cyanosis, clubbing or edema. NEUROLOGICAL: She appears to have no purposeful verbal communication. She is mumbling when spoken to. She has a flaccid left upper and left lower extremity. LABORATORY DATA AND IMAGING: CBC: White blood cell count today is 13.9, slightly improved. Hemoglobin 13.9, platelet count is 191,000. PT is 15.4 with an INR of 1.33. PTT is 28.8. Chemistries show a sodium today which is up to 150, likely representing diminished p.o. water intake. Electrolytes, otherwise, are normal. BUN 24 with a creatinine of 0.7. Glucose level is 193. Calcium 9.5. Phosphorus and magnesium have been normal. Liver enzymes are normal. Albumin is 3.2. All cultures are negative. ASSESSMENT: 1. 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 This is in the setting of uncontrolled hypertension and atrial fibrillation. The patient presently is on Coumadin therapy, monitoring her PT/INR on a regular basis. She continues on blood pressure medication with titration of dose. 2. Uncontrolled hypertension. Discussed with Dr. Hubbard. I will continue to make adjustments in her blood pressure medications. I would like to try and get a systolic blood pressure of 140-150. Systolics in the 170 to 200 range are not acceptable. Diastolic readings are normal for the most part. 3. History of significant aortic stenosis, mitral regurgitation, aortic insufficiency. The patient has severe pulmonary hypertension. 4. History of atrial fibrillation. The patient is on Lovenox and Coumadin. She had been using aspirin and Plavix. 5. Hyperlipidemia. The patient is on statin therapy. 6. Possible community-acquired pneumonia. The patient completing a course of doxycycline. 7. Hypernatremia with slight elevation of BUN secondary to volume depletion. If it is unable to give the patient p.o. fluid intake because of concern about swallowing, she will need IV fluid hydration with hypotonic fluids. 8. History of mild congestive heart failure on chest x-ray. The patient continues on very low-dose diuretic therapy. 9. History of do not resuscitate/do not intubate. PLAN: 1. Continue to monitor the patient on Telemetry. 2. Continue to monitor blood pressure and adjust medications. 3. Concern over a slight elevation of BUN and sodium. If the patient's p.o. fluid intake is poor, no choice other than to start IV fluids with hypotonic D5W. 4. Discussed with Dr. Hubbard on the Telemetry staff. Clayton Wick MD
[2017-10-25] MEDS: Insulin Lispro (humaLOG) LOW Coverage SC SCH ×3 (13:03→22:00)
--- NOTE | 2017-10-25 15:00 | PN ---
Copied To: Chuyita Yoder MD Attending MD: Chuyita Yoder MD DATE: 10/25/2017 ENDOCRINOLOGY FOLLOWUP ROOM: 263. This is an 87-year-old female with recent uncontrolled type 2 insulin-requiring diabetes presenting here with an acute CVA with residual left-sided weakness and is now being followed closely for metabolic management. Her glycemic levels are fluctuating, but improved and the glucose values have ranged from 109 to 211 mg/dL. Her latest chemistry showed a BUN of 24, sodium 150, potassium 3.7, chloride 107, CO2 of 31, glucose 193 and creatinine 0.7. So at this time, we will modify once again her basal and bolus insulin regimen and increase the Levemir to 24 units subcu at bedtime daily to start tonight. We will continue the low-dose correction scale using Humalog insulin as ordered to obviate hypoglycemia and detailed orders have been given. We will also continue her Humalog given as 8 units subcu t.i.d. before meals as given. We will titrate incrementally as indicated to optimize metabolic control. We will obtain serial chemistries and supplement accordingly as needed. We will follow with you. Chuyita Yoder MD
--- NOTE | 2017-10-25 19:30 | PN ---
Copied To: Sherri Hubbard MD Attending MD: Sherri Hubbard MD DATE: 10/25/2017 SUBJECTIVE: Patient is an 87-year-old female status post stroke with left facial and left hemiparesis. PHYSICAL EXAMINATION: VITAL SIGNS: Reported as showing a temperature of 99.4 orally, pulse is 82, blood pressure is 144/82. GENERAL: Patient is alert, able to speak, speech is slightly slurred. LUNGS: Showed diminished breath sounds at the bases. HEART: Irregular S1 and S2 rhythm. ABDOMEN: Obese, soft with positive bowel sounds. EXTREMITIES: Show no evidence of edema. LABORATORY DATA: Shows WBC of 13.9, RBC of 4.88, hemoglobin 13.9, hematocrit 44.6, platelet count is 191. PT is 15.4 with an INR of 1.33, PTT is 28.8. Chemistry shows a sodium of 150, potassium 3.7, chloride 107. The BUN is 24. The creatinine is 0.7. Random blood sugar is 193. AST is 48. MEDICATIONS: Patient is on Catapres, warfarin, IV D5W, valsartan, doxycycline, Humalog insulin 8 units a.c. subcutaneously in sliding scale followed by Endocrinology, Lasix 20 mg IV daily, Levemir 24 units subcutaneously at bedtime, Lipitor 40 mg daily, Lopressor 50 mg b.i.d., Lovenox 40 mg subcutaneously daily, Norvasc 10 mg daily, Protonix 40 mg daily and Tylenol 2 tabs every 4 hours p.r.n. headache. ASSESSMENT AND PLAN: Patient is being followed by Endocrinology, Infectious Disease, Renal and Neurology. Repeat urine culture has been requested with followup labs. Repeat swallowing evaluation has been requested. She has a living will. She is a DNR/DNI. Continue current supportive care with a follow up of her labs. Sherri Hubbard MD
[2017-10-25] MEDS: Insulin Detemir 100 units/ml Vial (Levemir) SC SCH (22:00)
[2017-10-26] MEDS: Pantoprazole 40 mg Susp UD PO SCH (06:18)
[2017-10-26 06:40] LABS: BASO # 0.02 K/mm3 (0.0-2.0); BASO % 0.1 % (0.0-3.0); EOS # 0.2 (0.0-0.7); EOS % 1.7 % (1.5-5.0); GRAN # 11.07 (1.4-6.5); GRAN % 78.7 % (50.0-68.0); HEMOGLOBIN 14.2 g/dL (12.0-16.0); LYMPH # 1.7 (1.2-3.4); LYMPH % 12.1 % (22.0-35.0); MEAN CELL VOLUME 91.1 fl (80.0-105.0); MEAN CORPUSCULAR HEMOGLOBIN 28.8 pg (25.0-35.0); MEAN CORPUSCULAR HGB CONC 31.6 g/dl (31.0-37.0); MEAN PLATELET VOLUME 14.2 fl (7.0-11.0); MONO % 7.4 % (1.0-6.0); RBC 4.93 10^6/uL (3.5-6.1); RED CELL DISTRIBUTION WIDTH 15.9 % (11.5-14.5); WHITE BLOOD COUNT 14.1 10^3/ul (4.5-11.0)
[2017-10-26 06:48] LABS: INR 1.69; PROTHROMBIN TIME 19.7 SECONDS (9.4-12.5)
[2017-10-26 07:19] LABS: ALBUMIN 3.1 g/dL (3.0-4.8); ALT/SGPT 29 U/L (7-56); AST/SGOT 38 U/L (14-36); BLOOD UREA NITROGEN 21 mg/dL (7-21); CALCIUM 9.3 mg/dL (8.4-10.5); GFR NON-AFRICAN AMERICAN > 60
[2017-10-26] MEDS ORDERED: Potassium Chloride 40 mEq/30 ml LIQ UD PO ONE (08:13)
[2017-10-26] MEDS: Insulin Lispro (humaLOG) LOW Coverage SC SCH ×4 (08:46→22:30)
[2017-10-26] MEDS: Insulin Lispro 1 UNITS/0.01 ML SC SCH ×4 (08:50→17:50)
--- NOTE | 2017-10-26 09:20 | PN ---
Copied To: Mark Bautista MD Attending MD: Mark Bautista MD DATE: 10/26/2017 PULMONARY PROGRESS NOTE SUBJECTIVE: The patient was seen and examined at the bedside. She is awake. Still left-sided weakness. She is on nasal cannula. In no respiratory distress. She is receiving antibiotics in the form of doxycycline. She is on prophylactic Lovenox. PHYSICAL EXAMINATION: VITAL SIGNS: Temperature is 98, pulse 104, respirations 20, pulse oximetry is 99 on nasal cannula, blood pressure is 160/84. HEENT: Examination of head normocephalic and atraumatic. NECK: Supple with no jugular vein distentions. CARDIOVASCULAR: S1, S2. No S3. Irregular. PULMONARY: Diminished breath sounds at both bases with few rhonchi. No wheezing. GASTROINTESTINAL: Soft, nontender. No organomegaly. EXTREMITIES: No pedal edema. SKIN: No acute skin rash. NEUROLOGIC: Limited except for pronounced left-sided deficit. ASSESSMENT: 1. Left-sided cerebrovascular accident. 2. Rule out aspiration pneumonia. 3. Atrial fibrillation. 4. Hypertension. PLAN: I have reviewed today's lab work. Her WBC is 14.1, hemoglobin is 14.2, glucose 219. Potassium 3.5. The rest of the electrolytes are normal. The patient is still on prophylactic doxycycline for rule out aspiration pneumonia; however, the chest x-ray on admission was clear. We repeated the x-ray yesterday, which is of poor quality. It is an under penetrated x-ray. It does not reveal any acute infiltrates. Mild congestion is present. Mark Bautista MD
[2017-10-26] MEDS: Enoxaparin 40 mg Syringe SC SCH (10:28)
--- NOTE | 2017-10-26 11:23 | PN ---
Copied To: Sherri Hubbard MD Attending MD: Sherri Hubbard MD DATE: 10/26/2017 SUBJECTIVE: This is an 87-year-old female resting in bed comfortably this morning. Nursing staff felt like that there were no particular problems during the night. Her pulse is reported at 88 with an oral temperature of 98. Her blood pressure is reported at 187/100 with a respiratory rate of 20, her oxygen saturation is 99% on nasal cannula. PHYSICAL EXAMINATION: GENERAL: The patient is alert, communicative. LUNGS: Show bibasilar rhonchi. HEART: Is in irregular S1, S2 rhythm with grade III/ systolic murmur to left cardiac border. ABDOMEN: Obese, soft with positive bowel sounds. EXTREMITIES: Show no evidence of edema. NEUROLOGIC: She has a left facial droop with left-sided weakness. LABORATORY DATA: Shows a WBC of 14, RBC of 4.93, hemoglobin 14, hematocrit 44.9, platelet count is 170. PT is 19.7 with an INR of 1.69. Chemistries show a normal sodium of 144, potassium 3.5, chloride 103, BUN is 21, creatinine 0.6. The CO2 is 31. Blood sugar is 219. AST is decreased at 38. Calcium is 9.3. MEDICATIONS: Currently, the patient is on Catapres p.r.n. every 4 hours 0.1 mg. She is on Diovan 320 mg daily, Lasix 20 mg daily, Lipitor 40 mg daily, Lopressor 50 mg b.i.d., Norvasc 10 mg daily. She is on Protonix 40 mg daily, Tylenol 2 tabs every 4 hours p.r.n., Lovenox 40 mg daily, Levemir 24 units at bedtime, Humalog insulin sliding scale and 8 units in the morning. IMPRESSION: 1. Status post acute stroke with left facial and left hemiparesis. 2. Hypertension. 3. Insulin-dependent diabetes. 4. Degenerative arthritis. 5. Aortic stenosis. 6. Atrial fibrillation. PLAN: Patient will continue on current medical management. Her potassium will be repleted with followup of her labs. We will continue anticoagulation therapy. Physical Therapy has been interacting with the patient. Continue current level of supportive care. Again, a urine culture has been requested. Patient has a persistent leukocytosis. Being followed by Infectious Disease, Pulmonary, Endocrinology, Renal and Neurology. Sherri Hubbard MD [facility] # [id number]
--- NOTE | 2017-10-26 13:28 | PN ---
Copied To: Chuyita Yoder MD Attending MD: Chuyita Yoder MD DATE: 10/26/2017 ENDOCRINOLOGY FOLLOWUP LOCATION: In Room 263. SUBJECTIVE: This is an 87-year-old female presenting here with an acute CVA and currently being followed closely for metabolic management. Her glycemic levels are fluctuating, but improved and the glucose values have ranged from 166 to 238 mg/dL. Her latest chemistry shows a BUN of 21, sodium 144, potassium 3.5, chloride 103, CO2 31, glucose 219 and creatinine 0.3. ASSESSMENT: This is an 87-year-old female with uncontrolled and decompensated type 2 insulin-requiring diabetes, now being followed closely for metabolic management with improving metabolic profile after the initiation of a basal and bolus insulin drug combination. She also has an acute cerebrovascular accident with residual left-sided weakness as noted. Plan of management as discussed with the patient and staff. We will continue her current basal and bolus insulin regimen as ordered to allow for dose equilibration, especially with the variability of her oral intake. We will continue the Humalog given as 8 units subcu t.i.d. before meals as ordered. We will also continue her Levemir given as 24 units subcu at bedtime daily as given. We will continue the low-dose correction scale using Humalog insulin as ordered. We will follow with you. Chuyita Yoder MD
--- NOTE | 2017-10-26 15:24 | PN ---
Copied To: Clayton Wick MD Attending MD: Clayton Wick MD DATE: 10/26/2017 SUBJECTIVE: The patient is currently seen with family in the room. She is sitting up in bed. She is attempting to eat pureed diet. Her p.o. fluid intake still remains very minimal. She was cleared by the swallowing evaluation to start pureed fluids, but she cannot drink water. She is status post an acute right-sided CVA in the setting of atrial fibrillation and accelerated hypertension. Blood pressure control is improved on medication. She is on anticoagulation. MEDICATIONS: Medication list reviewed. The patient is currently on p.r.n. clonidine, Coumadin, D5W 60 mL an hour, Diovan, insulin sliding scale, IV Lasix, Levemir, Lipitor, Lopressor, Lovenox, Norvasc, Protonix and Tylenol p.r.n. OBJECTIVE: INTAKE/OUTPUT: Intake is 2000, output charted is 250 mL. VITAL SIGNS: Blood pressure is ranging from 147-154 systolic, which is acceptable; diastolics ranging from 59-88. Temperature 98.1; pulse of 53, in atrial fibrillation. Respiratory rate is 18. HEENT: Shows her to be normocephalic, atraumatic. Conjunctiva are pink. Sclerae are nonicteric. NECK: Supple. No neck vein distention. CHEST: Clear to auscultation and percussion. No rales, rhonchi or wheezing. CARDIOVASCULAR: Shows an irregular S1, S2 with no S3, no S4. Positive aortic stenosis, aortic insufficiency, tricuspid regurgitation. ABDOMEN: Soft. Bowel sounds normal. No rebound, guarding or masses. EXTREMITIES: Show no lower extremity cyanosis, clubbing or edema. NEURO: Shows her to have no function of her left upper and left lower extremity. These were completely flaccid. She is attempting to speak to her family members. LABORATORY DATA AND IMAGING: CBC: White blood cell count is elevated at 14.1, hemoglobin is 14.2, platelet count is 170,000. Coags: PT 19.7 with an INR of 1.69. On Coumadin. Chemistries show potassium of 3.5, sodium 144, BUN down to 21 with IV fluid hydration, creatinine remained stable at 0.6. Glucose is ranging from the low 200 range to the mid 300 range on D5W. Liver enzymes are essentially normal. Calcium, phosphorus, magnesium level are normal. Albumin is 3.1. Microbiology: All blood cultures are negative at 5 days. Repeat blood cultures are negative at 1 day. ASSESSMENT: 1. Status post acute right-sided cerebrovascular accident with significant left-sided hemiparesis and a flaccid left upper and left lower extremity. This is in the setting of uncontrolled hypertension and atrial fibrillation. The patient is currently on Coumadin. Blood pressure control is improved. INR is slowly coming up into a therapeutic range. The patient has had difficulty swallowing fluids. She is on a pureed diet. This is limiting her ability to take n.p.o., water and fluid intake. 2. Uncontrolled hypertension. As discussed with Dr. Hubbard in the last 24 hours, blood pressure control is improving. We are targeting a systolic blood pressure in the 140-150 range post a cerebrovascular accident. Diastolic blood pressures are acceptable. 3. History of significant aortic stenosis, mitral regurgitation and aortic insufficiency. The patient also has severe pulmonary hypertension. 4. History of atrial fibrillation. The patient remains on Lovenox and she is transitioning over to Coumadin. INR is slowly approaching a therapeutic range. The patient is also on aspirin and Plavix. 5. Hyperlipidemia. The patient is on statin therapy. 6. Possible community-acquired pneumonia. This is seen on admitting chest x-ray. The patient is currently off all antibiotics. 7. Mild hypernatremia. This resolved with hypotonic fluids. 8. History of mild congestive heart failure on initial chest x-ray. With low-dose IV diuretic therapy, the patient appears clinically improved. 9. DNR/DNI. PLAN: 1. Continue to monitor the patient on telemetry. 2. Discussed with the patient's family. They are hopeful that she will make enough of the recovery to be able to go home. She lives with a daughter who helps her with all activities. 3. I would like to ideally discontinue D5W in light of her elevated sugar levels. If I do do this, it would be important for her to take in adequate fluid hydration, but this is difficult because of her ability to not be able to drink water or fluids. She needs thickened fluids. 4. Continue present blood pressure medication and adjust medicines accordingly. The patient will remain on Norvasc, Diovan, metoprolol and she is on p.r.n. clonidine, which she has not been receiving. Clayton Wick MD
[2017-10-26 19:46] LABS: BASO # 0.01 K/mm3 (0.0-2.0); BASO % 0.1 % (0.0-3.0); EOS # 0.2 (0.0-0.7); EOS % 1.1 % (1.5-5.0); GRAN # 11.17 (1.4-6.5); GRAN % 79.1 % (50.0-68.0); HEMOGLOBIN 13.8 g/dL (12.0-16.0); LYMPH # 1.5 (1.2-3.4); LYMPH % 10.8 % (22.0-35.0); MEAN CELL VOLUME 91.4 fl (80.0-105.0); MEAN CORPUSCULAR HEMOGLOBIN 28.8 pg (25.0-35.0); MEAN CORPUSCULAR HGB CONC 31.5 g/dl (31.0-37.0); MEAN PLATELET VOLUME 13.6 fl (7.0-11.0); MONO # 1.3 (0.1-0.6); MONO % 8.9 % (1.0-6.0); RBC 4.79 10^6/uL (3.5-6.1); RED CELL DISTRIBUTION WIDTH 15.4 % (11.5-14.5); WHITE BLOOD COUNT 14.1 10^3/ul (4.5-11.0)
[2017-10-26 19:52] LABS: INR 2.34; PROTHROMBIN TIME 27.2 SECONDS (9.4-12.5)
--- NOTE | 2017-10-26 20:08 | CP.PCM.PN ---
Subjective - Date & Time of Evaluation Date of Evaluation: 10/25/17 Time of Evaluation: 10:35 - Subjective Subjective: No fevers, not in distress. No diarrhea, no vomiting. Objective - Vital Signs/Intake and Output Vital Signs (last 24 hours): Temp Pulse Resp BP Pulse Ox 97 F L 82 20 144/82 96 10/25/17 06:00 10/25/17 10:15 10/25/17 06:00 10/25/17 10:16 10/25/17 06:00 Intake and Output: 10/25/17 10/25/17 06:59 18:59 Intake Total 120 Balance 120 - Medications Medications: Current Medications Acetaminophen (Tylenol 325mg Tab) 650 mg PO Q4H PRN PRN Reason: headache Last Admin: 10/24/17 12:03 Dose: 650 mg Amlodipine Besylate (Norvasc) 10 mg PO DAILY [facility] Atorvastatin Calcium (Lipitor) 40 mg PO DAILY [facility] Last Admin: 10/25/17 10:14 Dose: 40 mg Clonidine HCl (Catapres) 0.1 mg PO Q4H PRN PRN Reason: hypertension Last Admin: 10/25/17 08:35 Dose: 0.1 mg Dextrose (Dextrose 50% Inj) 0 ml IV STAT PRN; Protocol PRN Reason: Hypoglycemia Protocol Enoxaparin Sodium (Lovenox) 40 mg SC DAILY [facility] PRN Reason: Protocol Last Admin: 10/25/17 10:14 Dose: 40 mg Furosemide (Lasix) 20 mg IVP DAILY [facility] Last Admin: 10/25/17 10:16 Dose: 20 mg Doxycycline Hyclate 100 mg/ (Sodium Chloride) 100 mls @ 100 mls/hr IVPB Q12 [facility] PRN Reason: Protocol Stop: 10/30/17 10:01 Last Admin: 10/25/17 10:16 Dose: 100 mls/hr Dextrose (Dextrose 5% In Water 1000 Ml) 1,000 mls @ 60 mls/hr IV .[id number] [facility] Insulin Detemir (Levemir) 18 unit SC HS [facility] Last Admin: 10/24/17 22:28 Dose: 18 bot Insulin Human Lispro (Humalog Low) 0 units SC ACHS [facility] PRN Reason: Protocol Last Admin: 10/24/17 22:25 Dose: Not Given Insulin Human Lispro (Humalog) 8 units SC AC [facility] Last Admin: 10/25/17 08:34 Dose: 8 unit Metoprolol Tartrate (Lopressor) 50 mg PO BID [facility] Last Admin: 10/25/17 10:15 Dose: 50 mg Pantoprazole Sodium (Protonix Susp) 40 mg PO 0600 [facility] Last Admin: 10/25/17 06:09 Dose: Not Given Valsartan (Diovan) 320 mg PO DAILY [facility] Last Admin: 10/25/17 10:14 Dose: 320 mg Warfarin Sodium (Coumadin) 5 mg PO 1800 [facility] PRN Reason: Protocol Stop: 10/25/17 18:01 - Labs Labs: 10/25/17 05:40 10/25/17 05:40 PT 15.4 SECONDS (9.4-12.5) H 10/25/17 05:40 INR 1.33 10/25/17 05:40 APTT 28.8 Seconds (25.1-36.5) 10/25/17 05:40 - Constitutional Appears: Chronically Ill - Head Exam Head Exam: NORMAL INSPECTION - Neck Exam Neck Exam: absent: Meningismus - Respiratory Exam Respiratory Exam: Decreased Breath Sounds - Cardiovascular Exam Cardiovascular Exam: +S1, +S2 - GI/Abdominal Exam GI & Abdominal Exam: Soft. absent: Tenderness Assessment and Plan - Assessment and Plan (Free Text) Plan: Assessment sepsis due to community-acquired pneumonia in this patient with acute CVA history of sepsis due to left lower extremity cellulitis on top of chronic lower leg edema, probably related to CHF HTN DM atrial fibrillation history of gastrointestinal bleed dyslipdemia coronary artery disease Plan on Doxycycline day 6 to complete 5-7 days of therapy; PCT is less than 0.05; blood cx are negative repeat blood are negative, follow up repeat urine cx; repeat CXR does not show infiltrates will continue to monitor clinically discussed with Dr. Hubbard
--- NOTE | 2017-10-26 22:29 | CP.PCM.PN ---
Subjective - Date & Time of Evaluation Date of Evaluation: 10/26/17 Time of Evaluation: 11:25 - Subjective Subjective: Ben Tinsley PGY 2 [address] Progress Note for Dr. Jiménez Patient was seen and examined at bedside. There were no acute overnight events. Patient remains on Coumadin 5 mg, and is awaiting workup for possible UTI prior to discharge. The patient is neurologically the same this AM. Per , patient is accepted to [facility], once medically stable. Objective - Vital Signs/Intake and Output Vital Signs (last 24 hours): Temp Pulse Resp BP Pulse Ox 98.5 F 84 16 184/103 H 97 10/26/17 18:00 10/26/17 18:00 10/26/17 18:00 10/26/17 18:00 10/26/17 18:00 Intake and Output: 10/26/17 10/27/17 18:59 06:59 Intake Total 720 Output Total 400 Balance 320 - Medications Medications: Current Medications Acetaminophen (Tylenol 325mg Tab) 650 mg PO Q4H PRN PRN Reason: headache Last Admin: 10/24/17 12:03 Dose: 650 mg Amlodipine Besylate (Norvasc) 10 mg PO DAILY [facility] Last Admin: 10/26/17 10:28 Dose: 10 mg Atorvastatin Calcium (Lipitor) 40 mg PO DAILY [facility] Last Admin: 10/26/17 10:28 Dose: 40 mg Clonidine HCl (Catapres) 0.1 mg PO Q4H PRN PRN Reason: hypertension Last Admin: 10/25/17 08:35 Dose: 0.1 mg Dextrose (Dextrose 50% Inj) 0 ml IV STAT PRN; Protocol PRN Reason: Hypoglycemia Protocol Enoxaparin Sodium (Lovenox) 40 mg SC DAILY FLORIN PRN Reason: Protocol Last Admin: 10/26/17 10:28 Dose: 40 mg Furosemide (Lasix) 20 mg IVP DAILY [facility] Last Admin: 10/26/17 10:28 Dose: 20 mg Insulin Detemir (Levemir) 24 unit SC HS [facility] Last Admin: 10/25/17 22:00 Dose: 24 applic Insulin Human Lispro (Humalog Low) 0 units SC ACHS FLORIN PRN Reason: Protocol Last Admin: 10/26/17 16:33 Dose: Not Given Insulin Human Lispro (Humalog) 8 units SC AC [facility] Last Admin: 10/26/17 17:50 Dose: 8 unit Metoprolol Tartrate (Lopressor) 50 mg PO BID [facility] Last Admin: 10/26/17 17:51 Dose: 50 mg Pantoprazole Sodium (Protonix Susp) 40 mg PO 0600 [facility] Last Admin: 10/26/17 06:18 Dose: 40 mg Valsartan (Diovan) 320 mg PO DAILY [facility] Last Admin: 10/26/17 10:28 Dose: 320 mg - Labs Labs: 10/26/17 19:35 10/26/17 05:30 PT 27.2 SECONDS (9.4-12.5) H 10/26/17 19:35 INR 2.34 10/26/17 19:35 APTT 28.8 Seconds (25.1-36.5) 10/25/17 05:40 - Additional Findings Additional findings: - Constitutional Appears: Non-toxic, No Acute Distress, Unkempt - Head Exam Head Exam: NORMAL INSPECTION - Eye Exam Eye Exam: EOMI, Normal appearance, PERRL - ENT Exam ENT Exam: Mucous Membranes Moist Additional comments: left facial palsy - Neck Exam Neck Exam: Normal Inspection - Respiratory Exam Respiratory Exam: NORMAL BREATHING PATTERN. absent: Respiratory Distress - Cardiovascular Exam Cardiovascular Exam: Irregular Rhythm, +S1, +S2 - GI/Abdominal Exam GI & Abdominal Exam: Soft. absent: Distended, Tenderness - Extremities Exam Extremities Exam: Full ROM - Back Exam Back Exam: NORMAL INSPECTION - Neurological Exam Neurological Exam: Alert, Awake Neuro motor strength exam: Left Upper Extremity: 0, Right Upper Extremity: 4, Left Lower Extremity: 0, Right Lower Extremity: 2 Additional findings: oriented x 2 (person and place) left sided pankaj-neglect - Psychiatric Exam Psychiatric exam: Normal Mood - Skin Skin Exam: Warm Assessment and Plan - Assessment and Plan (Free Text) Assessment: 87 year old female with PMH of Afib, HTN, DM2, diastolic CHF, cellulitis, valvular heart disease, CAD and history of GI bleed presenting to the ICU for management acute stroke and sepsis due to likely pneumonia. Code stroke was called. Brain MRI showing acute/subacute infarct changes seen in right subinsular region. EKG showed afib, rate controlled. Echo showed moderate to severe concentric left ventricular hypertrophy, aortic valve is severely calcified with severe valvular aortic stenosis, severe pulmonary hypertension and moderate tricuspid regurgitation. LDL is also elevated. Plan: - cont coumadin 5mg daily - INR check for INR goal within range 1.6-2.5 - cont Lovenox DVT ppx dose - cont Lipitor - accepted to [facility] once medically stable - target BP in normal range SBP < 130 - further recs per Dr. Jiménez Case was reviewed and discussed with Dr. Jiménez
[2017-10-26] MEDS: Insulin Detemir 100 units/ml Vial (Levemir) SC SCH (22:40)
[2017-10-27 07:39] LABS: BASO # 0.01 K/mm3 (0.0-2.0); BASO % 0.1 % (0.0-3.0); EOS # 0.3 (0.0-0.7); EOS % 1.9 % (1.5-5.0); GRAN # 10.28 (1.4-6.5); GRAN % 77.1 % (50.0-68.0); HEMOGLOBIN 14.3 g/dL (12.0-16.0); LYMPH # 1.7 (1.2-3.4); LYMPH % 12.6 % (22.0-35.0); MEAN CELL VOLUME 90.5 fl (80.0-105.0); MEAN CORPUSCULAR HEMOGLOBIN 28.3 pg (25.0-35.0); MEAN CORPUSCULAR HGB CONC 31.3 g/dl (31.0-37.0); MONO # 1.1 (0.1-0.6); MONO % 8.3 % (1.0-6.0); PLATELET COUNT 163 10^3/uL (120.0-450.0); RBC 5.05 10^6/uL (3.5-6.1); RED CELL DISTRIBUTION WIDTH 15.4 % (11.5-14.5); WHITE BLOOD COUNT 13.3 10^3/ul (4.5-11.0)
[2017-10-27 07:43] LABS: INR 2.73; PROTHROMBIN TIME 32.1 SECONDS (9.4-12.5)
[2017-10-27 07:54] LABS: ALBUMIN 3.3 g/dL (3.0-4.8); ALT/SGPT 27 U/L (7-56); AST/SGOT 29 U/L (14-36); BLOOD UREA NITROGEN 18 mg/dL (7-21); CALCIUM 9.1 mg/dL (8.4-10.5); GFR NON-AFRICAN AMERICAN > 60
[2017-10-27] MEDS: Insulin Lispro (humaLOG) LOW Coverage SC SCH ×4 (08:19→22:11)
[2017-10-27] MEDS: Insulin Lispro 1 UNITS/0.01 ML SC SCH ×3 (08:19→16:03)
--- NOTE | 2017-10-27 09:13 | PN ---
Copied To: Clayton Wick MD Attending MD: Clayton Wick MD DATE: 10/27/2017 SUBJECTIVE: The patient is currently seen sitting up in her bed. Her family member is assisting her in taking in pureed thickened fluids. IV fluids have been discontinued. The patient's blood pressure still remains variable, but on a whole is better controlled. She is status post significant a right-sided CVA with significant left-sided hemiparesis. She remains on anticoagulation for her atrial fibrillation. MEDICATIONS: Medication list reviewed. The patient is on p.r.n. clonidine, Diovan, sliding scale insulin, long-acting insulin, Lipitor, Lopressor, Lovenox, Norvasc, Protonix and Tylenol p.r.n. OBJECTIVE: INTAKE/OUTPUT: Intake is 720, output is 800. Weight is 144 pounds. VITAL SIGNS: Present blood pressure is 137/81, earlier this morning was 156/88. She did have a blood pressure spike last night. Pulse is 81. Respiratory rate is 18 with a temperature of 98.5. HEENT: Shows her to be normocephalic, atraumatic. Conjunctivae pink. Sclerae nonicteric. NECK: Supple. No neck vein distention. CHEST: Clear to auscultation and percussion with no rales, rhonchi or wheezing. CARDIOVASCULAR: Shows an irregular S1, S2. No S3, no S4. /AI/tricuspid regurgitation. ABDOMEN: Soft. Bowel sounds normal. No rebound, guarding or masses. EXTREMITIES: Show no lower extremity cyanosis, clubbing or edema. NEURO: Shows her to have a flaccid left upper and left lower extremity. LABORATORY DATA AND IMAGING: CBC today, white blood cell count slightly lower at 13.3, hemoglobin is 14.2 with a platelet count of 163,000. Coags: INR today is 2.73 on Coumadin. Chemistry showed normal electrolytes. With IV fluid hydration, BUN had dropped from 24 TO 18. Her sodium level had dropped from 150 TO 145. Glucose is 172. Calcium 9.1. Phosphorus levels are normal. Magnesium level is normal. Liver enzymes are normal. Microbiology: All cultures are negative. ASSESSMENT: 1. 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 This occurred in the setting of uncontrolled hypertension and atrial fibrillation. Her blood pressure control presently is improved with the initiation of the above-mentioned medications and the patient is on Coumadin. Unfortunately, the damage was done and she will likely have a very little recovery. This was discussed with her family member. She apparently has difficulty swallowing and all of her nutrition is pureed and liquids are thickened. 2. Uncontrolled hypertension. The patient will continue calcium channel adali therapy, beta-adali therapy and angiotensin receptor adali therapy. Perhaps in the outpatient setting, we will switch generic Diovan to perhaps a safer angiotensin receptor adali such as Benicar generic. 3. Significant aortic stenosis, mitral regurgitation, aortic insufficiency. The patient does have severe pulmonary hypertension. 4. History of atrial fibrillation. Heart rate remains controlled. The patient is on Lovenox transitioning over to Coumadin. INR is now therapeutic. The patient also remains on aspirin therapy. 5. History of hyperlipidemia. The patient will continue diet and statin therapy. 6. Possible community-acquired pneumonia. The patient has completed a course of antibiotic therapy. Her white blood cell count is trending down. 7. History of mild hypernatremia. This resolved with hypotonic IV fluid replacement therapy. 8. History of mild congestive heart failure on her initial chest x-ray. Agree with decision to discontinue diuretics. The patient appears to be clinically euvolemic and her chest exam is normal. 9. History of DNR/DNI. PLAN: 1. Continue to monitor the patient on telemetry. 2. Encourage family and staff to try and push thickened fluids to prevent dehydration. 3. Continue present blood pressure medications. If necessary, perhaps a clonidine patch can be placed on the patient if it appears that this is helping to control her blood pressure. For right now, she remain on higher doses of Diovan, amlodipine and remain on present dose of Lopressor. 4. Discussed with the patient's family. I explained to them that I do not feel that she is going to recover significant function on her left side. Clayton Wick MD
[2017-10-27] MEDS: Enoxaparin 40 mg Syringe SC SCH (10:06)
--- NOTE | 2017-10-27 11:30 | PN ---
Copied To: Lalo Matthews MD Attending MD: Lalo Matthews MD DATE: 10/27/2017 SUBJECTIVE: The patient is seen earlier this morning in room 263, bed 1. No fevers and no chills. Uneventful night. PHYSICAL EXAMINATION: VITAL SIGNS: On exam, temperature is 98, blood pressure is 114/60, respiratory rate of 18, heart rate of 63. HEENT: Examination of HEENT is unremarkable. NECK: Supple. LUNGS: Have decreased breath sounds. HEART: Normal S1, S2. ABDOMEN: Soft, nontender. LABORATORY DATA: Laboratory examination reveals a white count of 13,300, hemoglobin of 14, platelets of 163. BUN of 18, creatinine of 0.6. Procalcitonin is noted. Microbiology is reviewed. The blood cultures are no growth. Nares cultures are negative. Urinalysis is noted. Urine for Legionella is negative. Review of orders reveals the patient to be off of antibiotics. ASSESSMENT AND PLAN: An 87-year-old female seen earlier today in 263, bed 1. Uneventful night. We had been admitted with sepsis due to community-acquired pneumonia in a patient with acute cerebrovascular accident, history of sepsis due to left lower extremity cellulitis on top of chronic lower leg edema, probably related to the congestive heart failure, hypertension, diabetes, atrial fibrillation, history of gastrointestinal bleed, dyslipidemia, coronary artery disease. Completed 6-7 days and doxycycline and cultures negative. Currently, off of antibiotics, afebrile. The patient is at risk for developing nosocomial infections. Lalo Matthews MD
--- NOTE | 2017-10-27 13:32 | PN ---
Copied To: Chuyita Yoder MD Attending MD: Chuyita Yoder MD DATE: 10/27/2017 ENDO FOLLOWUP NOTE LOCATION: In room 263. SUBJECTIVE: This is a an 87-year-old female with recent uncontrolled type 2 insulin-requiring diabetes, now being followed closely for metabolic management. She presented here with an acute CVA with residual left-sided weakness as noted thereof. Her glycemic levels are fluctuating, but improved and the glucose values overnight have ranged from 173-187 mg/dL. Her latest chemistry showed a BUN of 18, sodium 145, potassium 3.6, chloride 103, CO2 of 32, glucose 172 and creatinine 0.6. So at this time, we will continue the same modified basal and bolus insulin regimen to allow for dose equilibration and keep her on the Levemir given as 24 units subcu at bedtime daily as ordered. We will continue her Humalog given as 8 units subcu t.i.d. before meals as ordered. We will continue also the low-dose correction scale using Humalog insulin as given. We will obtain serial chemistries and supplement accordingly as needed. We will follow. Chuyita Yoder MD
--- NOTE | 2017-10-27 16:52 | PN ---
Copied To: Sherri Hubbard MD Attending MD: Sherri Hubbard MD DATE: 10/27/2017 SUBJECTIVE: An 87-year-old female resting in bed on the telemetry unit. Nursing staff relates that there were no particular problems during the night or day. PHYSICAL EXAMINATION: VITAL SIGNS: Show a temperature of 98.7, her pulse is 101, blood pressure is 114/65, she is on nasal oxygen at 2 L. GENERAL: The patient is sleepy, but arousable, some degree of verbalization is possible. LUNGS: She has diminished breath sounds at the bases of her lungs. HEART: S1 and S2, irregular. ABDOMEN: Obese, soft with positive bowel sounds. EXTREMITIES: Show no evidence of edema. NEUROLOGIC: She has a left hemiparesis and left facial. LABORATORY DATA: Shows a WBC of 13.3, RBC of 5.05, hemoglobin 14.3, hematocrit 45.7, platelet count is 163. PT is 32.1 with an INR of 2.73. Chemistries show normal electrolytes. BUN is 18, creatinine 0.6. Random blood sugar is 172. LFTs are normal. Albumin is 3.3. Urine culture is negative. MEDICATIONS: Currently, the patient is on Catapres 0.1 mg every 4 hours p.r.n., Diovan 320 mg daily, Humalog 8 units before meals , Lasix 20 mg daily, Levemir 24 units at bedtime, Lipitor 40 mg daily, Lopressor 50 mg b.i.d., Lovenox 40 mg subcu daily, Norvasc 10 mg daily, Protonix 40 mg daily, Tylenol 2 tabs every 4 hours p.r.n. The patient has been receiving Coumadin based upon her PT/INR. IMPRESSION: 1. Status post acute stroke with left facial and left hemiparesis. 2. Insulin-dependent diabetes. 3. Atrial fibrillation. 4. Valvular heart disease. 5. Leukocytosis. 6. Congestive heart failure. 7. Degenerative arthritis with gait disorder. 8. Hypernatremia, which is now improved. 9. Possible community-acquired pneumonia, treated by Infectious Disease. 10. Uncontrolled hypertension. PLAN: We will continue above-mentioned medical management at this time. She has a living will. She is DNR/DNI. Follow up the patient's lab work and followup of the chest x-ray. Continue supportive care. Sherri Hubbard MD
[2017-10-27] MEDS: Insulin Detemir 100 units/ml Vial (Levemir) SC SCH (22:00)
[2017-10-28] MEDS: Pantoprazole 40 mg Susp UD PO SCH (05:59)
--- NOTE | 2017-10-28 06:24 | CP.PCM.PN ---
Subjective - Date & Time of Evaluation Date of Evaluation: 10/28/17 Time of Evaluation: 06:24 - Subjective Subjective: Ms. Ceja was seen and examined at the bedside. She answer some questions with forgetfulness. She claims of being sleepy and unable to participate during assessment, but with pupils reactive but sluggish, withdraws from pain stimuli. She remains with left side weakness with bilateral lower SCD. Awaiting placement for DUNIA.There was no untoward events overnight. Objective - Vital Signs/Intake and Output Vital Signs (last 24 hours): Temp Pulse Resp BP Pulse Ox 98 F 84 18 193/74 H 97 10/27/17 23:31 10/28/17 05:58 10/27/17 23:31 10/28/17 05:58 10/27/17 23:31 Intake and Output: 10/27/17 10/28/17 18:59 06:59 Intake Total 1380 Output Total 501 Balance 879 - Medications Medications: Current Medications Acetaminophen (Tylenol 325mg Tab) 650 mg PO Q4H PRN PRN Reason: headache Last Admin: 10/24/17 12:03 Dose: 650 mg Amlodipine Besylate (Norvasc) 10 mg PO DAILY [facility] Last Admin: 10/27/17 10:05 Dose: 10 mg Atorvastatin Calcium (Lipitor) 40 mg PO DAILY [facility] Last Admin: 10/27/17 10:05 Dose: 40 mg Clonidine HCl (Catapres) 0.1 mg PO Q4H PRN PRN Reason: hypertension Last Admin: 10/28/17 05:58 Dose: 0.1 mg Dextrose (Dextrose 50% Inj) 0 ml IV STAT PRN; Protocol PRN Reason: Hypoglycemia Protocol Enoxaparin Sodium (Lovenox) 40 mg SC DAILY FLORIN PRN Reason: Protocol Last Admin: 10/27/17 10:06 Dose: 40 mg Furosemide (Lasix) 20 mg IVP DAILY [facility] Last Admin: 10/27/17 10:06 Dose: 20 mg Insulin Detemir (Levemir) 28 unit SC HS [facility] Insulin Human Lispro (Humalog Low) 0 units SC ACHS FLORIN PRN Reason: Protocol Last Admin: 10/27/17 22:11 Dose: Not Given Insulin Human Lispro (Humalog) 10 units SC AC [facility] Metoprolol Tartrate (Lopressor) 50 mg PO BID [facility] Last Admin: 10/27/17 17:43 Dose: 50 mg Pantoprazole Sodium (Protonix Susp) 40 mg PO 0600 [facility] Last Admin: 10/28/17 05:59 Dose: 40 mg Valsartan (Diovan) 320 mg PO DAILY [facility] Last Admin: 10/27/17 10:05 Dose: 320 mg - Labs Labs: 10/27/17 06:30 10/27/17 06:30 PT 32.1 SECONDS (9.4-12.5) H 10/27/17 06:30 INR 2.73 10/27/17 06:30 APTT 28.8 Seconds (25.1-36.5) 10/25/17 05:40 - Constitutional Appears: No Acute Distress - Head Exam Head Exam: NORMAL INSPECTION - Eye Exam Pupil Exam: Miosis - Neurological Exam Neurological Exam: Awake Neuro motor strength exam: Left Upper Extremity: 0, Right Upper Extremity: 4, Left Lower Extremity: 0, Right Lower Extremity: 3 Additional comments: awake, response to any tactile stimuli, sensation is intact. Assessment and Plan (1) Cerebral vascular accident Assessment & Plan: Continue all current medical, physical occupational, and speech therapies. Recommend blood pressure and glycemic control. Maintain therapeutic level for INR, keep head of bed elevated at least 30 degrees, normothermic, treat any electrolyte abnormalities. Status: Acute
[2017-10-28 07:45] LABS: INR 3.04; PROTHROMBIN TIME 35.8 SECONDS (9.4-12.5)
[2017-10-28] MEDS: Insulin Lispro 1 UNITS/0.01 ML SC SCH ×3 (08:15→17:00)
[2017-10-28] MEDS: Insulin Lispro (humaLOG) LOW Coverage SC SCH ×4 (08:16→21:39)
[2017-10-28] MEDS: Enoxaparin 40 mg Syringe SC SCH (10:11)
--- NOTE | 2017-10-28 10:42 | RAD ---
Date of service: 10/28/2017 HISTORY: CHF COMPARISON: 10/25/2017. FINDINGS: LUNGS: The lungs are well inflated. There is mild pulmonary venous congestion. PLEURA: Small left pleural effusion, no pneumothorax apparent. CARDIOVASCULAR: Moderate cardiomegaly. OSSEOUS STRUCTURES: No significant abnormalities. VISUALIZED UPPER ABDOMEN: Normal. OTHER FINDINGS: None. IMPRESSION: Moderate cardiomegaly and mild pulmonary venous congestion. Small left pleural effusion.
--- NOTE | 2017-10-28 12:03 | PN ---
Copied To: Lalo Matthews MD Attending MD: Lalo Matthews MD DATE: 10/28/2017 SUBJECTIVE: The patient is in bed, in no acute distress, was seen earlier today. PHYSICAL EXAMINATION: VITAL SIGNS: On exam, temperature is 98, blood pressure is 190/70, respiratory rate of 18. HEENT: Examination of HEENT is unremarkable. NECK: Supple. LUNGS: Have decreased breath sounds. HEART: Normal S1, S2. ABDOMEN: Soft, nontender. LABORATORY DATA: Laboratory examination reveals a white count of 13,300, hemoglobin of 14. The chemistries are noted. The patient's creatinine is 0.6. The urinalysis is noted. Serology, urine for Legionella antigen is negative. Microbiology reveals the blood cultures are negative and the nares are negative and the urine cultures negative. Review of orders reveals the patient should be off of antibiotics. Chest x-ray from this morning is pending. ASSESSMENT AND PLAN: An 87-year-old female who was seen earlier today in 263, bed 1. Admitted with sepsis due to community-acquired pneumonia in a patient with acute cerebrovascular accident, sepsis due to left lower extremity cellulitis on top of chronic left lower leg edema related to the congestive heart failure, hypertension, diabetes, atrial fibrillation and history of gastrointestinal bleed, dyslipidemia, coronary artery disease. Has completed the antibiotics. Currently now off of antibiotics, afebrile. The patient is at risk for developing nosocomial infections. The patient is a DNR and DNI. We will follow with you. Lalo Matthews MD
--- NOTE | 2017-10-28 14:54 | PN ---
Copied To: Chuyita Yoder MD Attending MD: Chuyita Yoder MD DATE: 10/28/2017 ENDOCRINOLOGY FOLLOWUP NOTE SUBJECTIVE: This is an 87-year-old female with recent uncontrolled type 2 insulin-requiring diabetes, now being followed closely for metabolic management. Her oral intake remains variable at this time and the latest glucose levels have ranged from 159-208 and 277 mg/dL. Her latest chemistry showed a BUN of 18, sodium 145, potassium 3.6, chloride 103, CO2 of 32, glucose 172 and creatinine 0.6. So at this time, we will continue the modified basal and bolus insulin regimen which was actually started today as ordered. We will continue the Humalog given as 10 units subcu t.i.d. before meals and Levemir given as basal insulin to 28 units subcu at bedtime daily to allow for dose equilibration. We will continue also the low-dose correction scale using Humalog insulin to obviate hypoglycemia and detailed orders are in place. We will obtain serial chemistries and supplement accordingly as needed. We will follow with you. Chuyita Yoder MD
--- NOTE | 2017-10-28 17:20 | PN ---
Copied To: Sherri Hubbard MD Attending MD: Sherri Hubbard MD DATE: 10/28/2017 SUBJECTIVE: An 87-year-old female, status post acute stroke with left facial and left hemiparesis. Resting in bed this morning. Nursing staff relates that there were no particular problems during the night. PHYSICAL EXAMINATION: VITAL SIGNS: Temp orally is reported at 99 with a pulse of 67, the blood pressure is 134/79, the respiratory rate is 20. HEART: An irregular S1 and S2 rhythm. ABDOMEN: Obese, soft with positive bowel sounds. EXTREMITIES: No evidence of edema. LUNGS: Show diminished breath sounds at the bases. LABORATORY DATA: Shows a PT of 35.8 with an INR of 3.04. Random blood sugar is 159. ASSESSMENT AND PLAN: The patient is receiving IV Lasix for congestive heart failure. She is on insulin therapy for her diabetes. She is on blood pressure medications for her hypertension. She is on cholesterol medications for stroke. She is on anticoagulation therapy for her atrial fibrillation. She is being followed by Pulmonary and Infectious Disease. We will follow up the patient's chest x-ray. Neurology is following the patient as well as is Endocrinology. Followup labs have been ordered. Discussion is ongoing with the family regarding subacute rehab placement. Sherri Hubbard MD
--- NOTE | 2017-10-28 17:22 | CP.PCM.CON ---
<IrenaandreyClaus - Last Filed: 10/28/17 17:14> History of Present Illness - History of Present Illness History of Present Illness: PGY-4 GI Fellow Consult Note Mrs. Ceja is a 87 yo WF who presented on 10/21/17 with L sided weakness and ultimately diagnosed with CVA and also recieved trt for Comm Acquired PNA. She also has a h/o DM2, Valvular heart disease, Afib, HTN, CAD. GI is now consulted later in this hospital stay for constipation. Pt states that she had a formed brown BM this AM and nursing confirmed this. However, prior to this it may have been some time since her last BM. Prior to this hospitalization, patient stated that she normally had formed brown bowel movement nearly everyday or every other day. Since her CVA, she as had L sided pankaj-paresis and facial droop. She has been on puree diet. She had colonoscopy in Nov 2015 with int hemorroids, 1 tub adenoma and 1 hyperplastic polyp. Otherwise, patient denies any N/V or abd pain at this time. 12 point ROS negative other than stated above MHx: See above Surg Hx: Hip replacement Meds: Reviewed in MAR FamHx: Denied Gi probs SocHx: Denied x3 All: NKDA Past Patient History - Infectious Disease Hx of Infectious Diseases: None - Tetanus Immunizations Tetanus Immunization: Unknown - Past Social History Smoking Status: Never Smoked - CARDIAC Hx Cardiac Disorders: Yes (CAD) Hx Congestive Heart Failure: Yes Hx Hypertension: Yes - PULMONARY Hx Respiratory Disorders: Yes Hx Pneumonia: Yes - NEUROLOGICAL Hx Neurological Disorder: No - HEENT Hx HEENT Problems: Yes Hx Cataracts: Yes (bilateral eyes) - RENAL Hx Chronic Kidney Disease: No - ENDOCRINE/METABOLIC Hx Diabetes Mellitus Type 2: Yes - HEMATOLOGICAL/ONCOLOGICAL Hx Blood Disorders: Yes Hx Anemia: Yes - INTEGUMENTARY Hx Dermatological Problems: No Other/Comment: red raised itchy rash to both arms - MUSCULOSKELETAL/RHEUMATOLOGICAL Hx Falls: No - GASTROINTESTINAL Hx Gastrointestinal Disorders: Yes (poor appetite,fatty liver,gi bleed h/o) - GENITOURINARY/GYNECOLOGICAL Hx Genitourinary Disorders: No Hx Reproductive Disorders: No - PSYCHIATRIC Hx Emotional Abuse: No Hx Physical Abuse: No - SURGICAL HISTORY Hx Appendectomy: Yes Hx Cholecystectomy: Yes Hx Orthopedic Surgery: Yes (left hip) - ANESTHESIA Hx Anesthesia Reactions: No Hx Malignant Hyperthermia: No Meds Allergies/Adverse Reactions: Allergies Allergy/AdvReac Type Severity Reaction Status Date / Time No Known Allergies Allergy Verified 10/21/17 02:39 - Medications Medications: Current Medications Acetaminophen (Tylenol 325mg Tab) 650 mg PO Q4H PRN PRN Reason: headache Last Admin: 10/24/17 12:03 Dose: 650 mg Amlodipine Besylate (Norvasc) 10 mg PO DAILY [facility] Last Admin: 10/28/17 10:11 Dose: 10 mg Atorvastatin Calcium (Lipitor) 40 mg PO DAILY [facility] Last Admin: 10/28/17 10:10 Dose: 40 mg Clonidine HCl (Catapres) 0.1 mg PO Q4H PRN PRN Reason: hypertension Last Admin: 10/28/17 05:58 Dose: 0.1 mg Dextrose (Dextrose 50% Inj) 0 ml IV STAT PRN; Protocol PRN Reason: Hypoglycemia Protocol Enoxaparin Sodium (Lovenox) 40 mg SC DAILY [facility] PRN Reason: Protocol Last Admin: 10/28/17 10:11 Dose: 40 mg Furosemide (Lasix) 20 mg IVP DAILY [facility] Last Admin: 10/28/17 10:09 Dose: 20 mg Insulin Detemir (Levemir) 28 unit SC HS [facility] Insulin Human Lispro (Humalog Low) 0 units SC [facility] PRN Reason: Protocol Last Admin: 10/28/17 16:40 Dose: Not Given Insulin Human Lispro (Humalog) 10 units SC AC [facility] Last Admin: 10/28/17 12:28 Dose: 10 units Metoprolol Tartrate (Lopressor) 50 mg PO BID [facility] Last Admin: 10/28/17 10:10 Dose: 50 mg Pantoprazole Sodium (Protonix Susp) 40 mg PO 0600 [facility] Last Admin: 10/28/17 05:59 Dose: 40 mg Valsartan (Diovan) 320 mg PO DAILY [facility] Last Admin: 10/28/17 10:09 Dose: 320 mg Physical Exam - Constitutional Appears: No Acute Distress, Chronically Ill - Head Exam Head Exam: ATRAUMATIC Additional comments: L sided facial droop - Eye Exam Eye Exam: absent: Conjunctival injection, Scleral icterus - ENT Exam ENT Exam: Mucous Membranes Dry. absent: Mucous Membranes Moist, Normal External Ear Exam - Respiratory Exam Respiratory Exam: Clear to Auscultation Bilateral. absent: Accessory Muscle Use , Respiratory Distress - Cardiovascular Exam Cardiovascular Exam: absent: Bradycardia, Tachycardia - GI/Abdominal Exam GI & Abdominal Exam: Normal Bowel Sounds, Soft. absent: Distended, Firm, Guarding, Organomegaly, Tenderness - Rectal Exam Rectal Exam: Deferred - Neurological Exam Neurological exam: Alert Additional comments: L facial droop, not moving L extremities - Psychiatric Exam Psychiatric exam: Flat Affect, Normal Mood - Skin Skin Exam: Dry, Warm Results - Vital Signs Recent Vital Signs: Last Vital Signs Temp 99.0 F 10/28/17 12:00 Pulse 65 10/28/17 14:00 Resp 20 10/28/17 12:00 BP 171/70 H 10/28/17 12:00 Pulse Ox 97 10/28/17 06:00 - Labs Result Diagrams: 10/27/17 06:30 10/27/17 06:30 Labs: Laboratory Results - last 24 hr 10/27/17 10/27/17 10/28/17 15:50 21:26 02:38 PT INR POC Glucose (mg/dL) 142 H 277 H 208 H 10/28/17 10/28/17 10/28/17 06:30 07:42 11:04 PT 35.8 H INR 3.04 POC Glucose (mg/dL) 159 H 231 H 10/28/17 16:25 PT INR POC Glucose (mg/dL) 134 H Assessment & Plan - Assessment and Plan (Free Text) Assessment: 87 yo WF with recent CVA with L hemiparesis and facial droop. GI consult for constipation. # Constipation: Seems resolved with recent formed brown BM this AM. Given that patient is on puree diet due to recent CVA, should constipation concerns arise again, would avoid PO and lean toward rectal administration of meds. Plan: - Cont supportive care - Recommend dulcolax supp should constipation return Pt seen and examined with Dr. Carlin. Please see his note for further details /changes. <Madonna Carlin V - Last Filed: 10/29/17 00:06> Meds - Medications Medications: Current Medications Acetaminophen (Tylenol 325mg Tab) 650 mg PO Q4H PRN PRN Reason: headache Last Admin: 10/24/17 12:03 Dose: 650 mg Amlodipine Besylate (Norvasc) 10 mg PO DAILY [facility] Last Admin: 10/28/17 10:11 Dose: 10 mg Atorvastatin Calcium (Lipitor) 40 mg PO DAILY [facility] Last Admin: 10/28/17 10:10 Dose: 40 mg Clonidine HCl (Catapres) 0.1 mg PO Q4H PRN PRN Reason: hypertension Last Admin: 10/28/17 05:58 Dose: 0.1 mg Dextrose (Dextrose 50% Inj) 0 ml IV STAT PRN; Protocol PRN Reason: Hypoglycemia Protocol Enoxaparin Sodium (Lovenox) 40 mg SC DAILY [facility] PRN Reason: Protocol Last Admin: 10/28/17 10:11 Dose: 40 mg Furosemide (Lasix) 20 mg IVP DAILY [facility] Last Admin: 10/28/17 10:09 Dose: 20 mg Insulin Detemir (Levemir) 28 unit SC HS [facility] Last Admin: 10/28/17 21:44 Dose: 28 unit Insulin Human Lispro (Humalog Low) 0 units SC [facility] PRN Reason: Protocol Last Admin: 10/28/17 21:39 Dose: Not Given Insulin Human Lispro (Humalog) 10 units SC AC [facility] Last Admin: 10/28/17 17:00 Dose: Not Given Metoprolol Tartrate (Lopressor) 50 mg PO BID [facility] Last Admin: 10/28/17 18:18 Dose: 50 mg Pantoprazole Sodium (Protonix Susp) 40 mg PO 0600 [facility] Last Admin: 10/28/17 05:59 Dose: 40 mg Valsartan (Diovan) 320 mg PO DAILY [facility] Last Admin: 10/28/17 10:09 Dose: 320 mg Results - Vital Signs Recent Vital Signs: Last Vital Signs Temp 97.4 F L 10/28/17 18:00 Pulse 73 10/28/17 22:00 Resp 20 10/28/17 18:00 BP 132/58 L 10/28/17 18:18 Pulse Ox 98 10/28/17 18:00 - Labs Result Diagrams: 10/27/17 06:30 10/27/17 06:30 Labs: Laboratory Results - last 24 hr 10/28/17 10/28/17 10/28/17 02:38 06:30 07:42 PT 35.8 H INR 3.04 POC Glucose (mg/dL) 208 H 159 H 10/28/17 10/28/17 10/28/17 11:04 16:25 21:25 PT INR POC Glucose (mg/dL) 231 H 134 H 211 H Attending/Attestation - Attestation I have personally seen and examined this patient.: Yes I have fully participated in the care of the patient.: Yes I have reviewed all pertinent clinical information: Yes Notes (Text): This is an addendum to GI consult report dictated by the GI Fellow.The patient was seen and examined earlier. Medical records, lab studies, imagings were reviewed. Last 24 hours events reviewed. Agreed with the above treatment plan as outlined in GI Fellow 's notes with the addition of the following status post CVA On pured diet Patient was constipated and she had bowel movement today Would recommend to use Dulcolax tablets by mouth and Dulcolax suppositories if recurrence of constipation previous endoscopy reports reviewed Q very much for allowing us to participate in the care 10/29/17 00:02
[2017-10-28] MEDS ORDERED: Insulin Detemir 100 units/ml Vial (Levemir) SC SCH (22:00)
[2017-10-29] MEDS: Pantoprazole 40 mg Susp UD PO SCH (05:23)
[2017-10-29 06:31] LABS: BASO # 0.02 K/mm3 (0.0-2.0); BASO % 0.2 % (0.0-3.0); EOS # 0.2 (0.0-0.7); EOS % 1.3 % (1.5-5.0); GRAN # 9.73 (1.4-6.5); GRAN % 76.9 % (50.0-68.0); HEMOGLOBIN 14.2 g/dL (12.0-16.0); LYMPH # 1.6 (1.2-3.4); LYMPH % 12.7 % (22.0-35.0); MEAN CELL VOLUME 88.5 fl (80.0-105.0); MEAN CORPUSCULAR HEMOGLOBIN 28.1 pg (25.0-35.0); MEAN CORPUSCULAR HGB CONC 31.7 g/dl (31.0-37.0); MONO # 1.1 (0.1-0.6); MONO % 8.9 % (1.0-6.0); RBC 5.06 10^6/uL (3.5-6.1); RED CELL DISTRIBUTION WIDTH 15.1 % (11.5-14.5); WHITE BLOOD COUNT 12.6 10^3/ul (4.5-11.0)
[2017-10-29 06:45] LABS: ALBUMIN 2.9 g/dL (3.0-4.8); ALT/SGPT 31 U/L (7-56); AST/SGOT 27 U/L (14-36); BLOOD UREA NITROGEN 20 mg/dL (7-21); GFR NON-AFRICAN AMERICAN > 60; INR 2.84; PROTHROMBIN TIME 33.4 SECONDS (9.4-12.5)
[2017-10-29 06:48] VITALS: O2SAT 98
--- NOTE | 2017-10-29 08:05 | PN ---
Copied To: Liban Anderson MD Attending MD: Liban Anderson MD DATE: 10/29/2017 PULMONARY NOTE SUBJECTIVE: The patient appears comfortable this morning. She is not short of breath at rest. PHYSICAL EXAMINATION: VITAL SIGNS: Temperature is 98.4, pulse 88, respirations 18-20, blood pressure 128/84. Oxygen saturation on room air is 98%. HEENT: Normocephalic, atraumatic. No JVD. CARDIOVASCULAR: Systolic ejection murmur at the lower left sternal border. Questionable S3 gallop. LUNGS: Decreased breath sounds at the bases. No rhonchi. No wheezing. EXTREMITIES: Mild edema. No cyanosis, no clubbing. Calves are nontender to palpation. GASTROINTESTINAL: Abdomen is soft, nontender, and nondistended. Bowel sounds are positive. SKIN: No acute rash. NEUROLOGIC: Limited at the present time. PERTINENT LABORATORY DATA: Chest x-ray was done yesterday and reviewed. There is mild pulmonary venous congestion. There are no significant infiltrates. IMPRESSION: 1. Left-sided cerebrovascular accident. 2. Rule out aspiration pneumonia - now resolved. 3. Atrial fibrillation. 4. Possible mild congestive heart failure. 5. Diabetes mellitus. PLAN: The patient appears comfortable this morning. She is not short of breath at rest. On physical exam, there is no significant bronchospasm noted. In addition, there is no significant alveolar-arterial gradient. I will continue with the aspiration precautions for now. I did review the last chest x-ray-- noted above. The patient is currently on low-dose intravenous Lasix. Inputs by Neurology and Infectious Disease are also noted. Clinical status of the patient is significantly improved overall. However, her future status/prognosis does remain guarded. I will discuss the above with Dr. Hubbard. Liban Anderson MD MTDD
[2017-10-29] MEDS: Insulin Lispro (humaLOG) LOW Coverage SC SCH ×2 (08:08→11:30)
[2017-10-29] MEDS: Insulin Lispro 1 UNITS/0.01 ML SC SCH ×2 (08:11→11:30)
[2017-10-29] MEDS ORDERED: Potassium Chloride 20 mEq/15 ml LIQ UD PO STA (08:25)
--- NOTE | 2017-10-29 09:33 | CP.PCM.PN ---
Subjective - Date & Time of Evaluation Date of Evaluation: 10/29/17 Time of Evaluation: 09:32 - Subjective Subjective: Endocrinology progress note for Dr. Yoder's service - Dina Velazquez PGY3 Patient seen and examined at bedside this morning. No acute overnight events or new complaints were reported. Denies chest pain, palpitations, SOB. Objective - Vital Signs/Intake and Output Vital Signs (last 24 hours): Temp Pulse Resp BP Pulse Ox 98.4 F 88 20 128/84 98 10/29/17 08:35 10/29/17 08:35 10/29/17 08:35 10/29/17 08:35 10/29/17 08:35 Intake and Output: 10/29/17 10/29/17 06:59 18:59 Intake Total 120 Output Total 375 Balance -255 - Medications Medications: Current Medications Acetaminophen (Tylenol 325mg Tab) 650 mg PO Q4H PRN PRN Reason: headache Last Admin: 10/24/17 12:03 Dose: 650 mg Amlodipine Besylate (Norvasc) 10 mg PO DAILY [facility] Last Admin: 10/28/17 10:11 Dose: 10 mg Atorvastatin Calcium (Lipitor) 40 mg PO DAILY [facility] Last Admin: 10/28/17 10:10 Dose: 40 mg Clonidine HCl (Catapres) 0.1 mg PO Q4H PRN PRN Reason: hypertension Last Admin: 10/28/17 05:58 Dose: 0.1 mg Dextrose (Dextrose 50% Inj) 0 ml IV STAT PRN; Protocol PRN Reason: Hypoglycemia Protocol Enoxaparin Sodium (Lovenox) 40 mg SC DAILY [facility] PRN Reason: Protocol Last Admin: 10/28/17 10:11 Dose: 40 mg Furosemide (Lasix) 20 mg IVP DAILY [facility] Last Admin: 10/28/17 10:09 Dose: 20 mg Insulin Detemir (Levemir) 28 unit SC HS [facility] Last Admin: 10/28/17 21:44 Dose: 28 unit Insulin Human Lispro (Humalog Low) 0 units SC ACHS [facility] PRN Reason: Protocol Last Admin: 10/29/17 08:08 Dose: Not Given Insulin Human Lispro (Humalog) 10 units SC AC [facility] Last Admin: 10/29/17 08:11 Dose: 10 units Metoprolol Tartrate (Lopressor) 50 mg PO BID [facility] Last Admin: 10/28/17 18:18 Dose: 50 mg Pantoprazole Sodium (Protonix Susp) 40 mg PO 0600 [facility] Last Admin: 10/29/17 05:23 Dose: 40 mg Valsartan (Diovan) 320 mg PO DAILY [facility] Last Admin: 10/28/17 10:09 Dose: 320 mg - Labs Labs: 10/29/17 05:30 10/29/17 05:30 PT 33.4 SECONDS (9.4-12.5) H 10/29/17 05:30 INR 2.84 10/29/17 05:30 APTT 28.8 Seconds (25.1-36.5) 10/25/17 05:40 - Constitutional Appears: No Acute Distress - Head Exam Head Exam: ATRAUMATIC, NORMOCEPHALIC - Eye Exam Eye Exam: EOMI Pupil Exam: PERRL - ENT Exam ENT Exam: Mucous Membranes Moist - Neck Exam Neck Exam: absent: Lymphadenopathy, Tenderness, Thyromegaly - Respiratory Exam Respiratory Exam: absent: Rales, Rhonchi, Wheezes - Cardiovascular Exam Cardiovascular Exam: +S1, +S2. absent: Gallop, Rubs - GI/Abdominal Exam GI & Abdominal Exam: Soft. absent: Distended, Firm, Guarding, Rigid, Tenderness , Rebound - Neurological Exam Neurological Exam: Alert, Awake, Oriented x3 Additional comments: left-sided motor strength impaired left-sided facial droop - Psychiatric Exam Psychiatric exam: Normal Affect, Normal Mood - Skin Skin Exam: Dry, Intact, Normal Color, Warm Assessment and Plan - Assessment and Plan (Free Text) Plan: 87yo female with history of HTN, CAD, DM type 2, afib presents with left-sided weakness secondary to acute CVA in the setting of uncontrolled and decompensated insulin-requiring diabetes. Patient being seen for metabolic management. -Continue levemir 28u HS and humalog 10u AC with concurrent humalog sliding scale as ordered -Will follow and adjust insulin regimen as indicated -Carb consistent diet -Monitor/correct electrolytes as indicated -Continue current medical management as per primary team Patient seen and case to be discussed/reviewed with attending, Dr. Yoder
[2017-10-29] MEDS: Enoxaparin 40 mg Syringe SC SCH (10:06)
[2017-10-29 12:12] VITALS: BP 142/85; PULSE 71; RESP 18; TEMP 98
--- NOTE | 2017-10-29 14:34 | CP.PCM.PN ---
<Faith Chapin - Last Filed: 10/29/17 15:54> Subjective - Date & Time of Evaluation Date of Evaluation: 10/29/17 Time of Evaluation: 11:00 - Subjective Subjective: PGY-1 Faith Chapin D.O. Neurology progress note for Dr. Restrepo service: Patient is seen and examined this morning. No acute overnight events reported. She is slumped towards the right lying in bed. She is not in any acute distress. Patient is able to state her name. She does not know she is in the hospital. She states it is Sunday and does not know the year. Her gaze remains towards the right. She can follow simple commands. Most of her speech is incoherent/irrelevant. She is able to move her right arm and leg but not left arm and leg. She has a noticeable left facial droop and asymmetric smile. Objective - Vital Signs/Intake and Output Vital Signs (last 24 hours): Temp Pulse Resp BP Pulse Ox 98 F 71 18 142/85 98 10/29/17 12:10 10/29/17 12:10 10/29/17 12:10 10/29/17 12:10 10/29/17 08:35 Intake and Output: 10/29/17 10/29/17 06:59 18:59 Intake Total 120 Output Total 375 Balance -255 - Medications Medications: Current Medications Acetaminophen (Tylenol 325mg Tab) 650 mg PO Q4H PRN PRN Reason: headache Last Admin: 10/24/17 12:03 Dose: 650 mg Amlodipine Besylate (Norvasc) 10 mg PO DAILY [facility] Last Admin: 10/29/17 10:06 Dose: 10 mg Atorvastatin Calcium (Lipitor) 40 mg PO DAILY [facility] Last Admin: 10/29/17 10:06 Dose: 40 mg Clonidine HCl (Catapres) 0.1 mg PO Q4H PRN PRN Reason: hypertension Last Admin: 10/28/17 05:58 Dose: 0.1 mg Dextrose (Dextrose 50% Inj) 0 ml IV STAT PRN; Protocol PRN Reason: Hypoglycemia Protocol Furosemide (Lasix) 20 mg IVP DAILY [facility] Last Admin: 10/29/17 10:06 Dose: 20 mg Insulin Detemir (Levemir) 28 unit SC HS [facility] Last Admin: 10/28/17 21:44 Dose: 28 unit Insulin Human Lispro (Humalog Low) 0 units SC ACHS [facility] PRN Reason: Protocol Last Admin: 10/29/17 11:30 Dose: Not Given Insulin Human Lispro (Humalog) 10 units SC AC [facility] Last Admin: 10/29/17 11:30 Dose: Not Given Metoprolol Tartrate (Lopressor) 50 mg PO BID [facility] Last Admin: 10/29/17 10:06 Dose: 50 mg Pantoprazole Sodium (Protonix Susp) 40 mg PO 0600 [facility] Last Admin: 10/29/17 05:23 Dose: 40 mg Valsartan (Diovan) 320 mg PO DAILY [facility] Last Admin: 10/29/17 10:06 Dose: 320 mg - Labs Labs: 10/29/17 05:30 10/29/17 05:30 PT 33.4 SECONDS (9.4-12.5) H 10/29/17 05:30 INR 2.84 10/29/17 05:30 APTT 28.8 Seconds (25.1-36.5) 10/25/17 05:40 - Constitutional Appears: Non-toxic, No Acute Distress, Confused - Head Exam Head Exam: ATRAUMATIC, NORMAL INSPECTION, NORMOCEPHALIC - Eye Exam Eye Exam: Normal appearance Additional comments: partial left-sided neglect- pt does not follow examiners finger to test extraocular muscles, does not look towards left when asked, impaired left-sided peripheral vision - ENT Exam ENT Exam: Mucous Membranes Moist, Normal Exam - Neck Exam Neck Exam: Normal Inspection - Respiratory Exam Respiratory Exam: Clear to Ausculation Bilateral, NORMAL BREATHING PATTERN - Cardiovascular Exam Cardiovascular Exam: REGULAR RHYTHM, +S1, +S2 - GI/Abdominal Exam GI & Abdominal Exam: Soft - Rectal Exam Rectal Exam: Deferred - Extremities Exam Additional comments: pt able to move RUE and RLE only, moves her right side when asked to move left - Back Exam Back Exam: NORMAL INSPECTION - Neurological Exam Neurological Exam: Abnormal Gait (unable to ambulate, uses wheelchair at baseline), Alert, Awake Neuro motor strength exam: Left Upper Extremity: 0, Right Upper Extremity: 5, Left Lower Extremity: 0, Right Lower Extremity: 5 Additional comments: oriented to person only pt states she can feel light touch on LUE and LLE but this is difficult to determine objectively - Psychiatric Exam Psychiatric exam: Flat Affect - Skin Skin Exam: Dry, Intact, Normal Color, Warm Assessment and Plan - Assessment and Plan (Free Text) Assessment: 87 yo female with PMH of Afib, valvular heart disease, HTN, DM2, diastolic CHF, and CAD presented with acute L-sided weakness. She was found to have an acute CVA and was initially managed in the ICU x1 day. She was also septic, likely due to PNA. Brain MRI showed acute/subacute infarct changes in right subinsular region extending superiorly. LDL is also elevated. Patients current symptoms seem more severe than infarcted area seen on initial MRI. Will order a repeat head CT. Plan: Acute CVA of MCA territory- persistent L-sided weakness/paralysis OOP to initial MRI findings - CTA head and neck on admission (10/21): Partially calcified atherosclerotic plaque changes both carotid bifurcations on which extend into the proximal left internal carotid artery resulting in significant stenosis. Mild mild partially calcified atherosclerotic plaque both abort cavernous carotid segments with mild narrowing. No evidence of large intra cerebral aneurysm or vascular malformation. 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 - MRI brain on admission (10/21): Acute/subacute infarct changes seen right anterior subinsular region extending superiorly into the right cool radiata and right centrum semiovale. Smaller on subacute to chronic infarct suspected left centrum semiovale. - F/u repeat CT head pending - Recommend continuing Lovenox 40 mg SQ daily - Aspirations and fall precautions - PT consulted- rec [facility] - OT consulted- rec acute rehab - ST consulted- Sepsis, improving- suspect 2/2 CAP PNA (infiltrates seen on CXR) - Afebrile >5 days (Tmax 100.8 on 10/24) - WBC downtrending (12.6) - Blood Cx no growth >4 days - Treated with 7 day course of doxycycline T2DM, chronic - Management per primary team and endocrinology - Currently on Levemir 28u QHS, ISS with Accuchecks ACHS H/o A fib and valvular heart disease- currently in NSR - Management per primary team - Currently on metoprolol 50 mg PO daily HTN, chronic- SBP 120s-140s - Management per primary team - Currently on Norvasc 10 mg PO daily, Lasix 20 mg PO daily, metoprolol 50 mg PO daily, valsartan 320 mg PO daily, clonidine 0.1 mg PO q4hrs prn HLD, chronic - Management per primary team - Currently on Lipitor 40 mg PO daily Dispo: Awaiting [facility] placement Case was discussed with attending, Dr. Baxter. <Francis Baxter - Last Filed: 10/30/17 00:07> Objective - Vital Signs/Intake and Output Vital Signs (last 24 hours): Temp Pulse Resp BP Pulse Ox 98 F 71 18 142/85 98 10/29/17 12:10 10/29/17 12:10 10/29/17 12:10 10/29/17 12:10 10/29/17 08:35 - Labs Labs: 10/29/17 05:30 10/29/17 05:30 PT 33.4 SECONDS (9.4-12.5) H 10/29/17 05:30 INR 2.84 10/29/17 05:30 APTT 28.8 Seconds (25.1-36.5) 10/25/17 05:40 Attending/Attestation - Attestation I have personally seen and examined this patient.: Yes I have fully participated in the care of the patient.: Yes I have reviewed all pertinent clinical information, including history, physical exam and plan: Yes Notes (Text): 10/30/17 00:05 I saw and examined the patient along with the resident. On my exam, the patient had left upper and lower extremity weakness along with a mild neglect and left side sensory changes. She had a gaze deviation to the right side indicating a right MCA stroke. The patient will benefit from acute rehab and should be on DVT prophylaxis. I agree with the assessment and plan.
--- NOTE | 2017-10-29 15:22 | CP.PCM.PN ---
Subjective - Date & Time of Evaluation Date of Evaluation: 10/29/17 Time of Evaluation: 15:21 - Subjective Subjective: GI Progress Note for Dr. Carlin's Service- Pam, PGY2 Patient seen and assessed at bedside. No acute events overnight Objective - Vital Signs/Intake and Output Vital Signs (last 24 hours): Temp Pulse Resp BP Pulse Ox 98 F 71 18 142/85 98 10/29/17 12:10 10/29/17 12:10 10/29/17 12:10 10/29/17 12:10 10/29/17 08:35 Intake and Output: 10/29/17 10/29/17 06:59 18:59 Intake Total 120 Output Total 375 Balance -255 - Medications Medications: Current Medications Acetaminophen (Tylenol 325mg Tab) 650 mg PO Q4H PRN PRN Reason: headache Last Admin: 10/24/17 12:03 Dose: 650 mg Amlodipine Besylate (Norvasc) 10 mg PO DAILY [facility] Last Admin: 10/29/17 10:06 Dose: 10 mg Atorvastatin Calcium (Lipitor) 40 mg PO DAILY [facility] Last Admin: 10/29/17 10:06 Dose: 40 mg Clonidine HCl (Catapres) 0.1 mg PO Q4H PRN PRN Reason: hypertension Last Admin: 10/28/17 05:58 Dose: 0.1 mg Dextrose (Dextrose 50% Inj) 0 ml IV STAT PRN; Protocol PRN Reason: Hypoglycemia Protocol Furosemide (Lasix) 20 mg IVP DAILY [facility] Last Admin: 10/29/17 10:06 Dose: 20 mg Insulin Detemir (Levemir) 28 unit SC HS [facility] Last Admin: 10/28/17 21:44 Dose: 28 unit Insulin Human Lispro (Humalog Low) 0 units SC ACHS [facility] PRN Reason: Protocol Last Admin: 10/29/17 11:30 Dose: Not Given Insulin Human Lispro (Humalog) 10 units SC AC [facility] Last Admin: 10/29/17 11:30 Dose: Not Given Metoprolol Tartrate (Lopressor) 50 mg PO BID [facility] Last Admin: 10/29/17 10:06 Dose: 50 mg Pantoprazole Sodium (Protonix Susp) 40 mg PO 0600 [facility] Last Admin: 10/29/17 05:23 Dose: 40 mg Valsartan (Diovan) 320 mg PO DAILY [facility] Last Admin: 10/29/17 10:06 Dose: 320 mg - Labs Labs: 10/29/17 05:30 10/29/17 05:30 PT 33.4 SECONDS (9.4-12.5) H 10/29/17 05:30 INR 2.84 10/29/17 05:30 APTT 28.8 Seconds (25.1-36.5) 10/25/17 05:40
--- NOTE | 2017-10-29 17:18 | PN ---
Copied To: Clayton Wick MD Attending MD: Clayton Wick MD DATE: 10/29/2017 SUBJECTIVE: The patient is currently seen on telemetry. She appears to be tolerating thickened liquids well without any difficulty. Her electrolytes remain normal. A blood pressure control is acceptable. The patient is scheduled for transfer to subacute rehab today. She is status post a significant right-sided CVA with left-sided hemiparesis. MEDICATIONS: List reviewed. The patient is currently on p.r.n. clonidine, valsartan, insulin, Lasix, Lipitor, Lopressor, Norvasc, Protonix, and Tylenol. PHYSICAL EXAMINATION: INTAKE AND OUTPUT: Intake is 120, output is 375. VITAL SIGNS: Blood pressure presently is 142/85, temperature 98, respiratory rate 18 with a pulse of 71. HEENT: Shows the patient to be normocephalic, atraumatic. Conjunctivae are pink. Sclerae are nonicteric. NECK: Supple. No neck vein distention. CHEST: Clear to auscultation and percussion with no rales, rhonchi, or wheezing. CARDIOVASCULAR: Shows an irregular S1, S2. No S3, no S4. Aortic stenosis, aortic insufficiency, tricuspid regurgitation. ABDOMEN: Soft. Bowel sounds normal. No rebound, guarding, or masses. EXTREMITIES: Show no lower extremity cyanosis, clubbing, or edema. NEUROLOGIC: Shows her to have a flaccid left upper and left lower extremity. LABORATORY DATA AND IMAGING: CBC: White blood cell count today 12.6, hemoglobin 14.2 with a platelet count of 186,000. Coags, INR is 2.84 with a PT of 33.4. Chemistries showed normal electrolytes. Creatinine is 0.5 with a BUN of 20. Sodium is excellent at 141, K is borderline at 3.5. Magnesium level, calcium and phosphorus levels are all normal. Albumin level is stable at 2.9. Microbiology, all cultures are negative. ASSESSMENT: 1. 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 This occurred in the setting of uncontrolled hypertension and atrial fibrillation. Currently, her blood pressure is controlled on adjustments in blood pressure medication. Her atrial fibrillation remains rate controlled. She remains on Coumadin with therapeutic INR. Her ability to swallow liquids thickened appears to be okay and the patient should tolerate oral intake without any difficulty. Nevertheless, she is an aspiration risk. 2. Uncontrolled hypertension. The patient will continue calcium-channel adali therapy, beta-adali therapy, angiotensin-receptor adali therapy. The patient may switch from generic Diovan to generic Benicar in the outpatient setting if it is not possible to obtain a safe formulation of generic Diovan. 3. Significant aortic stenosis, mitral regurgitation, aortic insufficiency, tricuspid regurgitation. The patient does have significant pulmonary hypertension. 4. History of atrial fibrillation. Heart rate is controlled. The patient is transitioned over to Coumadin. INR is now therapeutic. 5. History of hyperlipidemia. The patient will continue diet and statin therapy. 6. Status post possible community-acquired pneumonia. The patient completed a course of antibiotic therapy. 7. Status post mild hypernatremia. This resolved with hypotonic fluid, IV fluid hydration, and the ability for her to keep down liquids. 8. History of mild congestive heart failure on initial chest x-ray. From my standpoint, the patient can be maintained on a very low dose of oral diuretic therapy. 9. History of do not resuscitate/do not intubate. PLAN: 1. Agree with plans for transfer to subacute rehab. 2. It is important that the patient receive adequate hydration in subacute rehab, she will likely be back to the hospital with abnormal chemistries and elevated BUN and creatinine. 3. The patient must be sitting upright for oral intake to avoid aspiration pneumonia. 4. For right now, I would continue her on all present blood pressure medications with the possibility of switching generic Diovan over to generic Benicar because of the recall of Diovan. 5. Discussed with Dr. Hubbard. Clayton Wick MD
--- NOTE | 2017-10-30 08:30 | PN ---
Copied To: Chuyita Ydoer MD Attending MD: Chuyita Yoder MD DATE: 10/29/2017 ENDOCRINOLOGY FOLLOWUP NOTE LOCATION: In room 263. This is an 87-year-old female with recent uncontrolled type 2 insulin-requiring diabetes, now being followed closely for metabolic management. Her glycemic levels are fluctuating, but much improved at this time and the latest glucose levels have ranged from 142-187 mg/dL. Her chemistry showed a BUN of 20, sodium 141, potassium 3.5, chloride of 100, CO2 of 32, glucose 181 and creatinine 0.5. So at this time, we will continue the same basal and bolus insulin regimen as given with Humalog given as 10 units subcu t.i.d. before meals as ordered. We will continue the Levemir given as basal insulin at 28 units subcu at bedtime daily as given. We will titrate incrementally as indicated to optimize metabolic control. We will follow. Chuyita Yoder MD
== END 2017-10-29 16:30 | DRG 64 ==
LOC: ED 02:32 → ERH 05:41 → ICU 07:06 → 2RNO 10-23 23:03
PROVIDERS: ADMIT Internal Medicine; ATTEND Internal Medicine
DX: I63.40 Cerebral infarction due to embolism of unspecified cerebral artery (principal); J18.9 Pneumonia, unspecified organism; A41.9 Sepsis, unspecified organism; G81.04 Flaccid hemiplegia affecting left nondominant side; I50.32 Chronic diastolic (congestive) heart failure; J44.0 Chronic obstructive pulmonary disease with (acute) lower respiratory infection; E87.0 Hyperosmolality and hypernatremia; R29.810 Facial weakness; R29.716 NIHSS score 16; I48.2 Chronic atrial fibrillation; E78.5 Hyperlipidemia, unspecified; I11.0 Hypertensive heart disease with heart failure; E11.65 Type 2 diabetes mellitus with hyperglycemia; I25.10 Atherosclerotic heart disease of native coronary artery without angina pectoris; I27.20 Pulmonary hypertension, unspecified; I65.22 Occlusion and stenosis of left carotid artery; Z66 Do not resuscitate; I08.3 Combined rheumatic disorders of mitral, aortic and tricuspid valves; K59.00 Constipation, unspecified; Z87.891 Personal history of nicotine dependence; Z99.3 Dependence on wheelchair; Z79.4 Long term (current) use of insulin; Z90.49 Acquired absence of other specified parts of digestive tract; Z96.642 Presence of left artificial hip joint

== ENCOUNTER 2018-01-06 17:59 | Inpatient (IN) | payer MEDICARE, OTHER ==
[2018-01-06 18:00] VITALS: PULSE 76; BMI 26.5
--- NOTE | 2018-01-06 18:14 | ED PDOC ---
Arrival/HPI - General Chief Complaint: Altered Mental Status Time Seen by Provider: 01/06/18 18:10 Historian: Family, EMS EM Caveat: Altered Mental Status - Critical Care Critical Care Minutes: 30 minutes - History of Present Illness Narrative History of Present Illness (Text): 87 y/o F w/ h/o HTN, CHF & atrial fibrillation(on Coumadin), CVA w/ residual left sided hemiparesis presenting to the Emergency Room by EMS for altered mental status. Patient was found to be aphasic with a left-sided gaze palsy at 3PM today when she was being changed by nursing staff at [facility]). She was able to exert some motor control of the RUE, but has no motor strength on the left. When EMS was called, the reported a blood sugar of 200s with no change in deficits. Per the patient's daughter's the patient is a DNR/DNI and has a living will. Of note, patient had a previous CVA in October 2017. A more complete HPI was unable to be obtained due to the patient's clinical condition. PCP: Dr. Hubbard Neurologist: Dr. Baxter Time/Duration: 4-6 hours Symptom Course: Unchanged Severity Level: Moderate Context: Other ([facility]) Past Medical History - Provider Review Nursing Documentation Reviewed: Yes - Travel History Have you recently traveled outside [place] w/in the past 3 mons?: No - Infectious Disease Hx of Infectious Diseases: None - Tetanus Immunization Tetanus Immunization: Unknown - Cardiac Hx Cardiac Disorders: Yes (CAD) Hx Congestive Heart Failure: Yes Hx Hypertension: Yes - Pulmonary Hx Respiratory Disorders: Yes Hx Pneumonia: Yes - Neurological Hx Neurological Disorder: No - HEENT Hx HEENT Disorder: Yes Hx Cataracts: Yes (bilateral eyes) - Renal Hx Renal Disorder: No - Endocrine/Metabolic Hx Endocrine Disorders: Yes Hx Diabetes Mellitus Type 2: Yes - Hematological/Oncological Hx Blood Disorders: Yes Hx Anemia: Yes - Integumentary Hx Dermatological Disorder: No Other/Comment: red raised itchy rash to both arms - Musculoskeletal/Rheumatological Hx Musculoskeletal Disorders: No - Gastrointestinal Hx Gastrointestinal Disorders: Yes (poor appetite,fatty liver,gi bleed h/o) - Genitourinary/Gynecological Hx Genitourinary Disorders: No - Psychiatric Hx Psychophysiologic Disorder: No Hx Substance Use: No - Past Surgical History Past Surgical History: Non-Contributing - Surgical History Hx Appendectomy: Yes Hx Cholecystectomy: Yes Hx Orthopedic Surgery: Yes (left hip) - Anesthesia Hx Anesthesia Reactions: No Hx Malignant Hyperthermia: No - Suicidal Assessment Feels Threatened In Home Enviroment: No Family/Social History - Physician Review Nursing Documentation Reviewed: Yes Family/Social History: Unknown Family HX Smoking Status: Never Smoked Hx Alcohol Use: No Hx Substance Use: No Allergies/Home Meds Allergies/Adverse Reactions: Allergies No Known Allergies Allergy (Verified 10/21/17 02:39) Home Medications: Home Meds Medication Instructions Recorded Confirmed RX: Furosemide [Lasix] 20 mg PO DAILY 08/12/14 01/06/18 RX: Insulin Detemir [Levemir] 28 unit SC HS 10/31/17 01/06/18 RX: Insulin Lispro [humALOG] 10 units SC ACTID 10/31/17 01/06/18 RX: Warfarin [Coumadin] 2.5 mg PO DAILY 10/31/17 01/06/18 Review of Systems - Review of Systems Systems not reviewed;Unavailable: Altered Mental Status Physical Exam - Physical Exam Physical Exam Limitations: Altered Mental Status Temperature: Afebrile Blood Pressure: Normal Pulse: Irregular Respiratory Rate: Normal Appearance: Positive for: Non-Toxic, Comfortable Mental Status: Positive for: Confused Finger Stick Blood Glucose: 188 - Systems Exam Head: Present: Atraumatic, Normocephalic Pupils: Present: Sluggish Extroacular Muscles: Present: Gaze Palsy (left sided gaze palsy) Conjunctiva: Present: Normal Mouth: Present: Moist Mucous Membranes Respiratory/Chest: Present: Clear to Auscultation, Good Air Exchange. No: Respiratory Distress Cardiovascular: Present: Irregular Rhythm (irregularly irregular rhythm consistent with atrial fibrillation) Abdomen: Present: Normal Bowel Sounds. No: Tenderness, Distention, Peritoneal Signs Upper Extremity: Present: Edema (B/L edema noted to hands b/l) Lower Extremity: Present: Edema (pedal edma noted to b/l) Neurological: Present: Normal Sensory Function, Other (Severe aphasia. left lateral gaze palsy w/ 0/5 motor strength in LUE, LLE, & RLE. 2/5 RUE rubber goods tester water. ) Skin: Present: Warm, Dry, Normal Color Psychiatric: Present: Alert Medical Decision Making ED Course and Treatment: 01/06/18 18:14 Impression 87 y/o F w/ h/o atrial fibrillation found verbal unresponsive at the alf NIHSS: 30 Differential Diagnoses Include But Are Not Limited To CVA Sepsis Plan --Labs --EKG --CXR --CTH --Neurology consult --ICU consult --UA/Urine Culture --Blood Culture Progress Notes 01/06/18 18:10 Patient noted to be aphasic and unable to move RLE. Discussion with daughters regarding patient's code status with confirmation of DNR/DNI and refusal of tPA at this time. SBP 147. Code Stroke called. Dr. Hubbard(PCP) at the bedside. 01/06/18 18:[address] Hubbard after his evaluation of patient reveals patient was last seen feeding herself with expressive aphasia on 01/02/18. He states patient has a living will and will speak to family in regards of continuation of care. Transporting patient to CT scan. 01/06/18 18:37 Patient returned from [facility]. Review of imaging reveals no acute intracranial bleeding at this time. Call placed to Dr. Baxter. 01/06/18 18:[address] Baxter(neurology) who states patient is not a candidate for tPA given her history of coumadin use, high NIHSS and stroke within the last 3 months. He recommends permissive hypertension with BP to be maintained over 140 and for NSS @ 100cc to be given. Call placed to ICU. 01/06/18 19:03 Patient noted to have regained RLE movement and is found to be wiggling her toes and moaning incomprehensible sounds. Dr. Hubbard aware of change in patient's clinical condition and still requests ICU consult. Call placed to Dr. Steven Kiser(irs agent). 01/06/18 19:10 Spoke to medical center representative and Dr. Steven Kiser who will come to evaluate patient. - EKG Interpretation EKG Interpretation (Text): Atrial fibrillation w/ PVCs @88bpm Left axis deviation Q waves seen in inferior leads QT interval prolonged Interpreted by ED Physician: Yes Type: 12 lead EKG NIHSS Scale (Rhodes) Time Performed: 18:10 - How Severe is the Stoke Baseline Level of Consciousness: 3=Unresponsive LOC to Questions: 2=Neither correct LOC to commands: 1=Obeys one correctly Best Gaze: 2=Forced deviation Visual: 0=No visual loss Facial: 2=Partial (lower face paralysis) Motor Arm - Left: 4=No movement Motor Arm - Right: 3=No effort against gravity (falls immediately) Motor Leg - Left: 4=No movement Motor Leg - Right: 3=No effort against gravity (falls immediately) Limb Ataxia: 0=Absent Sensory: 1=Mild to moderate loss Best Language: 2=Severe aphasia Dysarthia: 2=Severe, near unintelligible or worse Extinction & Inattention (Neglect): 1=Partial neglect (mild pankaj-attention) Score: 30 Risk Level: Severe Stroke Risk rTPA Inclusion/Exclusion - Refusal of Treatment Patient Refused Treatment: Yes - Inclusion Criteria for Altepase Patient is 18 years or Older: Yes The Clinical Diagnosis of Ischemic Stroke That is Causing a Potentially Disabling Neurological Deficit: Yes Time of Onset is Well Established to be Less Than 270 Minute Before Treatment Would Begin: Yes Risk/Benefit Discussed With Patient/Family Member Present: Yes - Exclusion Criteria for Altepase Uncontrolled Hypertension at Time of Treatment (Systolic BP above 185 or Diastolic BP above 110 mmHg): No Less Than 3 Months Had a Recent: Stroke Active Internal Bleeding: No Evidence of an Intracranial Hemorrhage: No - Warning to TPA With Conditions Following Conditions Weighed Against Anticipated Benefit: Yes Condition: Age Greater Than 75 years, Stroke Severity Too Severe (NIHSS greater than 22) Additional Condition (For 3-4.5 Hour Window): Age Greater Than 80, Prior Stroke and Diabetes, Any anticoagulant use prior to admission (Even if INR less than 1.7), NIHSS Above 25 Disposition/Present on Arrival - Present on Arrival Any Indicators Present on Arrival: No History of DVT/PE: No History of Uncontrolled Diabetes: No Urinary Catheter: No History of Decub. Ulcer: No History Surgical Site Infection Following: None - Disposition Have Diagnosis and Disposition been Completed?: Yes Diagnosis: Cerebral vascular accident Disposition: HOSPITALIZED Disposition Time: 19:10 Patient Plan: Admission Condition: SERIOUS
[2018-01-06] MEDS ORDERED: Sodium Chloride 0.9% 1,000 ML IV SCH (18:15)
[2018-01-06 18:47] LABS: ALBUMIN 3.3 g/dL (3.0-4.8); ALT/SGPT 25 U/L (7-56); AST/SGOT 26 U/L (14-36); BLOOD UREA NITROGEN 18 mg/dL (7-21); CALCIUM 9.2 mg/dL (8.4-10.5); GFR NON-AFRICAN AMERICAN > 60; HDL CHOLESTEROL 28 mg/dL (29-60)
[2018-01-06 18:57] LABS: BASO # 0.03 K/mm3 (0.0-2.0); BASO % 0.3 % (0.0-3.0); EOS # 0.3 (0.0-0.7); EOS % 2.7 % (1.5-5.0); GRAN # 7.75 (1.4-6.5); GRAN % 69.3 % (50.0-68.0); HEMOGLOBIN 13.7 g/dL (12.0-16.0); LYMPH # 2.1 (1.2-3.4); LYMPH % 19.1 % (22.0-35.0); MEAN CELL VOLUME 90.1 fl (80.0-105.0); MEAN CORPUSCULAR HEMOGLOBIN 28.7 pg (25.0-35.0); MEAN CORPUSCULAR HGB CONC 31.9 g/dl (31.0-37.0); MEAN PLATELET VOLUME 12.7 fl (7.0-11.0); MONO % 8.6 % (1.0-6.0); RBC 4.77 10^6/uL (3.5-6.1); RED CELL DISTRIBUTION WIDTH 16.1 % (11.5-14.5); WHITE BLOOD COUNT 11.2 10^3/uL (4.5-11.0)
[2018-01-06 18:58] LABS: LDL CHOLESTEROL 65 mg/dL (0-129)
[2018-01-06 18:59] LABS: INR 1.34; PARTIAL THROMBOPLASTIN TIME 36.1 Seconds (25.1-36.5); PROTHROMBIN TIME 15.4 SECONDS (9.4-12.5)
[2018-01-06 19:01] LABS: TROPONIN I 0.02 ng/mL
[2018-01-06 19:14] LABS: VENOUS BLOOD GAS BASE EXCESS 3.3 mmol/L (0.0-2.0); VENOUS BLOOD GAS PO2 50 mm/Hg (30-55); VENOUS BLOOD PH 7.44 (7.32-7.43)
--- NOTE | 2018-01-06 19:17 | CP.PCM.CON ---
History of Present Illness - History of Present Illness History of Present Illness: Bienvenido Geronimo PGY2 ICU Consult Note 87 y/o F w/ h/o HTN, CHF & atrial fibrillation(on Coumadin), HLD CVA w/ residual left sided hemiparesis presented to the Emergency Room by EMS for altered mental status. Per EMS, Patient was found to be aphasic with a left-sided gaze palsy at 3PM today at [facility]. Per the patient's daughter's the patient is a DNR/DNI. Unable to obtain full ROS due to patients altered mental status. PMH: HTN, CHF & atrial fibrillation(on Coumadin), CVA w/ residual left sided hemiparesis, HLD PSH: cholecystectomy, left leg surgery, left hip replacement (obtained from previous chart) FMHx: mother and aunt both from cardiac issues SHx: smoked cigarettes for 20 plus years, no alcohol or drug use PMD: Dr. Hubbard Pharmacy: [facility]: as per MAR, will verify with pharmacy Review of Systems - Review of Systems Systems not reviewed;Unavailable: Altered Mental Status Review of Systems: unobtainable due to AMS Past Patient History - Infectious Disease Hx of Infectious Diseases: None - Tetanus Immunizations Tetanus Immunization: Unknown - Past Medical History & Family History Past Medical History?: Yes - Past Social History Smoking Status: Never Smoked - CARDIAC Hx Cardiac Disorders: Yes (CAD) Hx Congestive Heart Failure: Yes Hx Hypertension: Yes - PULMONARY Hx Respiratory Disorders: Yes Hx Pneumonia: Yes - NEUROLOGICAL Hx Neurological Disorder: No - HEENT Hx HEENT Problems: Yes Hx Cataracts: Yes (bilateral eyes) - RENAL Hx Chronic Kidney Disease: No - ENDOCRINE/METABOLIC Hx Endocrine Disorders: Yes Hx Diabetes Mellitus Type 2: Yes - HEMATOLOGICAL/ONCOLOGICAL Hx Blood Disorders: Yes Hx Anemia: Yes - INTEGUMENTARY Hx Dermatological Problems: No Other/Comment: red raised itchy rash to both arms - MUSCULOSKELETAL/RHEUMATOLOGICAL Hx Musculoskeletal Disorders: No - GASTROINTESTINAL Hx Gastrointestinal Disorders: Yes (poor appetite,fatty liver,gi bleed h/o) - GENITOURINARY/GYNECOLOGICAL Hx Genitourinary Disorders: No - PSYCHIATRIC Hx Psychophysiologic Disorder: No Hx Substance Use: No - SURGICAL HISTORY Hx Appendectomy: Yes Hx Cholecystectomy: Yes Hx Orthopedic Surgery: Yes (left hip) - ANESTHESIA Hx Anesthesia Reactions: No Hx Malignant Hyperthermia: No Meds Allergies/Adverse Reactions: Allergies Allergy/AdvReac Type Severity Reaction Status Date / Time No Known Allergies Allergy Verified 10/21/17 02:39 - Medications Medications: Current Medications Sodium Chloride (Sodium Chloride 0.9%) 1,000 mls @ 100 mls/hr IV .Q10H FLORIN Physical Exam - Constitutional Appears: Other Additional comments: lethargic - Head Exam Head Exam: ATRAUMATIC, NORMAL INSPECTION, NORMOCEPHALIC - Eye Exam Eye Exam: PERRL. absent: EOMI Additional comments: sluggish pupils with left sided gaze palsy - ENT Exam ENT Exam: Mucous Membranes Moist - Respiratory Exam Respiratory Exam: Clear to Auscultation Bilateral, NORMAL BREATHING PATTERN - Cardiovascular Exam Cardiovascular Exam: Irregular Rhythm Additional comments: Afib - GI/Abdominal Exam GI & Abdominal Exam: Normal Bowel Sounds. absent: Distended, Tenderness - Extremities Exam Extremities exam: Positive for: pedal edema, pedal pulses present - Neurological Exam Additional comments: awake, but not alert or oreientedx3 0/5 Motor strength in LUE, LLE and RLE, 2/5 RUE contact clerk strength NIHSS : 30 - Skin Skin Exam: Dry, Warm Results - Vital Signs Recent Vital Signs: Last Vital Signs Temp 98.3 F 01/06/18 18:13 Pulse 82 01/06/18 18:56 Resp 20 01/06/18 18:56 BP 134/82 01/06/18 18:56 Pulse Ox 99 01/06/18 18:56 - Labs Result Diagrams: 01/06/18 18:22 01/06/18 18:22 Labs: Laboratory Results - last 24 hr 01/06/18 01/06/18 01/06/18 18:20 18:22 18:22 WBC 11.2 H RBC 4.77 Hgb 13.7 Hct 43.0 MCV 90.1 MCH 28.7 MCHC 31.9 RDW 16.1 H Plt Count 256 MPV 12.7 H Gran % 69.3 H Lymph % (Auto) 19.1 L Sibley % (Auto) 8.6 H Eos % (Auto) 2.7 Baso % (Auto) 0.3 Gran # 7.75 H Lymph # (Auto) 2.1 Sibley # (Auto) 1.0 H Eos # (Auto) 0.3 Baso # (Auto) 0.03 PT 15.4 H INR 1.34 APTT 36.1 pO2 50 VBG pH 7.44 H VBG pCO2 41.0 VBG HCO3 27.8 VBG Total CO2 29.1 H VBG O2 Sat (Calc) 90.6 H VBG Base Excess 3.3 H VBG Potassium 3.9 Sodium 140.0 Chloride 103.0 Glucose 215 H Lactate 1.4 FiO2 21.0 Potassium Carbon Dioxide Anion Gap BUN Creatinine Est GFR ( Amer) Est GFR (Non-Af Amer) Random Glucose Calcium Total Bilirubin AST ALT Alkaline Phosphatase Troponin I Total Protein Albumin Globulin Albumin/Globulin Ratio Triglycerides Cholesterol LDL Cholesterol Direct HDL Cholesterol Venous Blood Potassium 3.9 01/06/18 18:22 WBC RBC Hgb Hct MCV MCH MCHC RDW Plt Count MPV Gran % Lymph % (Auto) Sibley % (Auto) Eos % (Auto) Baso % (Auto) Gran # Lymph # (Auto) Sibley # (Auto) Eos # (Auto) Baso # (Auto) PT INR APTT pO2 VBG pH VBG pCO2 VBG HCO3 VBG Total CO2 VBG O2 Sat (Calc) VBG Base Excess VBG Potassium Sodium 140 Chloride 105 Glucose Lactate FiO2 Potassium 3.7 Carbon Dioxide 28 Anion Gap 11 BUN 18 Creatinine 0.6 L Est GFR ( Amer) > 60 Est GFR (Non-Af Amer) > 60 Random Glucose 206 H Calcium 9.2 Total Bilirubin 0.4 AST 26 ALT 25 Alkaline Phosphatase 130 H D Troponin I 0.02 Total Protein 6.9 Albumin 3.3 Globulin 3.5 Albumin/Globulin Ratio 1.0 L Triglycerides 321 H Cholesterol 115 L LDL Cholesterol Direct 65 HDL Cholesterol 28 L Venous Blood Potassium Assessment & Plan - Assessment and Plan (Free Text) Assessment: 87 y/o F w/ h/o HTN, CHF & atrial fibrillation(on Coumadin), HLD CVA w/ residual left sided hemiparesis presented to the Emergency Room by EMS for altered mental status. Plan: Neuro: -awake but patient is not oriented to person, place or time, aphasic with left sided gaze palsy. -CT Head w/o contrast: no acute intracranial pathology -Neurology on consult, Dr. Baxter, follow recs -NIHSS 30, patient is not candidate for TPA per neurology -EEG Pending -swallow eval pending -Seizure precautions -fall precautions -Neuro checks Q2H -lipitor starting in AM Cardio: -EKG shows Afib, chronic -maintain MAP>65 -monitor vitals including HR and BP closely -permissive hypertension post stroke as per neurology -will administer antihypertensives PRN if systolic BP>200 -currently holding home coumadin and antihypertensives inlcuding metoprolol -echo pending -cardio on consult, Dr. Drake, follow recs Resp: -SaO2 >90% -supplementary O2 PRN Renal: -maintain euvolemia -avoid nephrotoxic agents -replace electrolytes as needed -BUN/Cr 18/0.6 -holding home lasix currently Heme: -Hg today is 13.7 -coumadin currently on hold Endo: -maintain euglycemia -insulin lispro ACHS ID: -WBC is 11.2 -blood cultures and urine cultures pending -afebrile GI Prophylaxis: Protonix
[2018-01-06 21:11] LABS: FREE T4 1.07 ng/dL (0.78-2.19)
[2018-01-06] MEDS: Insulin Lispro (humaLOG) MEDIUM Coverage SC SCH (22:05)
[2018-01-06] MEDS: Sodium Chloride 0.9% 1,000 ML IV SCH (22:06)
[2018-01-06 23:48] LABS: URINE BILIRUBIN NEGATIVE (NEGATIVE); URINE BLOOD NEGATIVE (NEGATIVE); URINE GLUCOSE (UA) NEGATIVE (NEGATIVE); URINE LEUKOCYTE ESTERASE MODERATE Leu/uL (NEGATIVE); URINE PROTEIN TRACE mg/dL (<30 mg/dL)
[2018-01-06 23:49] LABS: URINE APPEARANCE CLOUDY (CLEAR); URINE COLOR YELLOW (YELLOW)
[2018-01-07 00:02] LABS: URINE BACTERIA MANY (NEG); URINE RBC 0 - 2 /hpf (0-2); URINE WBC 15 - 20 /hpf (0-6)
[2018-01-07 06:53] LABS: INR 1.38
[2018-01-07 07:04] LABS: BASO # 0.03 K/mm3 (0.0-2.0); BASO % 0.3 % (0.0-3.0); EOS # 0.2 (0.0-0.7); EOS % 1.8 % (1.5-5.0); GRAN # 7.64 (1.4-6.5); GRAN % 74.3 % (50.0-68.0); HEMOGLOBIN 12.5 g/dL (12.0-16.0); LYMPH # 1.5 (1.2-3.4); LYMPH % 14.7 % (22.0-35.0); MEAN CELL VOLUME 91.3 fl (80.0-105.0); MEAN CORPUSCULAR HGB CONC 30.7 g/dl (31.0-37.0); MONO # 0.9 (0.1-0.6); MONO % 8.9 % (1.0-6.0); RBC 4.46 10^6/uL (3.5-6.1); RED CELL DISTRIBUTION WIDTH 16.2 % (11.5-14.5); WHITE BLOOD COUNT 10.3 10^3/uL (4.5-11.0)
[2018-01-07 07:32] LABS: ALB/GLOB RATIO 0.9 (1.1-1.8); ALBUMIN 2.9 g/dL (3.0-4.8); ALT/SGPT 30 U/L (7-56); AST/SGOT 21 U/L (14-36); BLOOD UREA NITROGEN 14 mg/dL (7-21); CALCIUM 8.8 mg/dL (8.4-10.5); GFR NON-AFRICAN AMERICAN > 60
[2018-01-07] MEDS: Insulin Lispro (humaLOG) MEDIUM Coverage SC SCH ×4 (08:00→23:00)
--- NOTE | 2018-01-07 08:55 | CP.PCM.CON ---
History of Present Illness - History of Present Illness History of Present Illness: David Lee- Internal Medicine Resident- Consult Note on Behalf of Neurology Team Subjective: CC: AMS/Code Stroke HPI: Patient is a 87 year old female with a past medical history of HTN, CHF & atrial fibrillation(on Coumadin), CVA w/ residual left sided hemiparesis, HLD who was admitted for evaluation and treatment of altered mental status. As per records, the patient was aphasic with a left-sided gaze palsy and was transferred from [facility]. Further subjective data cannot be ascertained at this time due to altered mental status. 12 point ROS cannot be ascertained at this time secondary to AMS Past medical history: HTN, CHF & atrial fibrillation(on Coumadin), CVA w/ residual left sided hemiparesis, HLD Past surgical history: cholecystectomy, left leg surgery, left hip replacement (obtained from previous chart) Allergies: NKDA Social history: as per records no ETOH use, smoked cigarettes for > 20yrs, no illicit drug use Family history: mother from cardiac issues Home meds: please see medication reconciliation Physical Examination: - Constitutional Appears: No Acute Distress - Head Exam Head Exam: ATRAUMATIC, NORMAL INSPECTION, NORMOCEPHALIC - Eye Exam Eye Exam: sluggish pupils with left sided gaze palsy - ENT Exam ENT Exam: Mucous Membranes Moist, Normal Exam, No tongue laceration - Neck Exam Neck exam: Positive for: Full Rom, Normal Inspection - Respiratory Exam Respiratory Exam: Clear to Auscultation Bilateral, NORMAL BREATHING PATTERN. absent: Accessory Muscle Use, Rales, Rhonchi, Wheezes, Respiratory Distress - Cardiovascular Exam Cardiovascular Exam: Tachycardic, +S1, +S2 - GI/Abdominal Exam GI & Abdominal Exam: Normal Bowel Sounds, Soft. absent: Distended, Firm, Guarding, Rebound, Rigid, Tenderness - Extremities Exam Extremities exam: no cyanosis, no edema - Neurological Exam Neurological exam: awake, not alert, not oriented - Psychiatric Exam Psychiatric exam: Normal Affect, Normal Mood - Skin Skin Exam: Intact, Normal Color, Warm Assessment and Plan: Patient is a 87 year old female with a past medical history of HTN, CHF & atrial fibrillation(on Coumadin), HLD, CVA w/ residual left sided hemiparesis who was a dmitted for evaluation and treatment of altered mental status. Patient was not a candidate for tPA given her history of coumadin use, high NIHSS, and stroke within the last 3 months. AMS - ddx- cva vs tia vs delirium 2/2 infection - 01/07/2018 CT head without contrast-Old right frontal and old high left frontal infarcts, possible acute sphenoid sinusitis - 11/06/2017 CT head without contrast- no acute findings - MRI brain without contrast ordered and pending - EEG ordered and pending - recommend permissive hypertension with BP (treat if > 220mmHg/120mmHg) - keep patient euglycemic, normothermic, and electrolytes WNL - c/w IVF NS @ 100cc - recommend secondary stroke prevention - aspirin (hemorrhagic stroke is ruled out), statin - PT/OT Patient case discussed with and plan approved by attending physician, Dr. Jiménez. Past Patient History - Infectious Disease Hx of Infectious Diseases: None - Tetanus Immunizations Tetanus Immunization: Unknown - Past Medical History & Family History Past Medical History?: Yes - Past Social History Smoking Status: Former Smoker - CARDIAC Hx Cardiac Disorders: Yes Hx Cardia Arrhythmia: Yes (afib) Hx Congestive Heart Failure: Yes Hx Hypertension: Yes - PULMONARY Hx Respiratory Disorders: Yes Hx Pneumonia: Yes - NEUROLOGICAL Hx Neurological Disorder: Yes HX Cerebrovascular Accident: Yes (10/2017) - HEENT Hx HEENT Problems: Yes Hx Cataracts: Yes (bilateral eyes) - RENAL Hx Chronic Kidney Disease: No - ENDOCRINE/METABOLIC Hx Endocrine Disorders: Yes Hx Diabetes Mellitus Type 2: Yes - HEMATOLOGICAL/ONCOLOGICAL Hx Blood Disorders: Yes Hx Anemia: Yes - INTEGUMENTARY Hx Dermatological Problems: Yes Other/Comment: red raised itchy rash to both arms - MUSCULOSKELETAL/RHEUMATOLOGICAL Hx Musculoskeletal Disorders: Yes Hx Falls: Yes - GASTROINTESTINAL Hx Gastrointestinal Disorders: Yes Other/Comment: hx poor appetite,fatty liver,gi bleed - GENITOURINARY/GYNECOLOGICAL Hx Genitourinary Disorders: Yes Hx Incontinence: Yes - PSYCHIATRIC Hx Psychophysiologic Disorder: Yes Hx Depression: Yes Hx Substance Use: No - SURGICAL HISTORY Hx Surgeries: Yes Hx Appendectomy: Yes Hx Cholecystectomy: Yes Hx Orthopedic Surgery: Yes (left hip) - ANESTHESIA Hx Anesthesia Reactions: No Hx Malignant Hyperthermia: No Meds Allergies/Adverse Reactions: Allergies Allergy/AdvReac Type Severity Reaction Status Date / Time No Known Allergies Allergy Verified 10/21/17 02:39 - Medications Medications: Current Medications Atorvastatin Calcium (Lipitor) 40 mg PO DAILY FLORIN Sodium Chloride (Sodium Chloride 0.9%) 1,000 mls @ 100 mls/hr IV .Q10H FLORIN Last Admin: 01/06/18 22:06 Dose: 100 mls/hr Potassium Chloride (Potassium Chloride 10 Meq/100 Ml) 10 meq in 100 mls @ 50 m ls/hr IVPB Q2H FLORIN Stop: 01/07/18 12:14 Insulin Human Lispro (Humalog Med) 0 units SC ACHS [facility]; Protocol Last Admin: 01/06/18 22:05 Dose: Not Given Pantoprazole Sodium (Protonix Inj) 40 mg IVP DAILY [facility] Results - Vital Signs Recent Vital Signs: Last Vital Signs Temp 98.9 F 01/06/18 19:57 Pulse 90 01/07/18 06:07 Resp 20 01/07/18 06:07 BP 138/77 01/07/18 06:07 Pulse Ox 97 01/07/18 06:07 - Labs Result Diagrams: 01/07/18 05:45 01/07/18 05:45 Labs: Laboratory Results - last 24 hr 01/06/18 01/06/18 01/06/18 18:09 18:20 18:22 WBC 11.2 H RBC 4.77 Hgb 13.7 Hct 43.0 MCV 90.1 MCH 28.7 MCHC 31.9 RDW 16.1 H Plt Count 256 MPV 12.7 H Gran % 69.3 H Lymph % (Auto) 19.1 L [place] % (Auto) 8.6 H Eos % (Auto) 2.7 Baso % (Auto) 0.3 Gran # 7.75 H Lymph # (Auto) 2.1 [place] # (Auto) 1.0 H Eos # (Auto) 0.3 Baso # (Auto) 0.03 PT INR APTT pO2 50 VBG pH 7.44 H VBG pCO2 41.0 VBG HCO3 27.8 VBG Total CO2 29.1 H VBG O2 Sat (Calc) 90.6 H VBG Base Excess 3.3 H VBG Potassium 3.9 Sodium 140.0 Chloride 103.0 Glucose 215 H Lactate 1.4 FiO2 21.0 Potassium Carbon Dioxide Anion Gap BUN Creatinine Est GFR ( Amer) Est GFR (Non-Af Amer) POC Glucose (mg/dL) 188 H Random Glucose Calcium Phosphorus Magnesium Total Bilirubin AST ALT Alkaline Phosphatase Troponin I NT-Pro-B Natriuret Pep Total Protein Albumin Globulin Albumin/Globulin Ratio Triglycerides Cholesterol LDL Cholesterol Direct HDL Cholesterol Free T4 TSH 3rd Generation Venous Blood Potassium 3.9 Urine Color Urine Appearance Urine pH Ur Specific [place] Urine Protein Urine Glucose (UA) Urine Ketones Urine Blood Urine Nitrate Urine Bilirubin Urine Urobilinogen Ur Leukocyte Esterase Urine RBC Urine WBC Ur Epithelial Cells Urine Bacteria Blood Type Antibody Screen BBK History Checked 01/06/18 01/06/18 01/06/18 18:22 18:22 18:22 WBC RBC Hgb Hct MCV MCH MCHC RDW Plt Count MPV Gran % Lymph % (Auto) [place] % (Auto) Eos % (Auto) Baso % (Auto) Gran # Lymph # (Auto) [place] # (Auto) Eos # (Auto) Baso # (Auto) PT 15.4 H INR 1.34 APTT 36.1 pO2 VBG pH VBG pCO2 VBG HCO3 VBG Total CO2 VBG O2 Sat (Calc) VBG Base Excess VBG Potassium Sodium 140 Chloride 105 Glucose Lactate FiO2 Potassium 3.7 Carbon Dioxide 28 Anion Gap 11 BUN 18 Creatinine 0.6 L Est GFR ( Amer) > 60 Est GFR (Non-Af Amer) > 60 POC Glucose (mg/dL) Random Glucose 206 H Calcium 9.2 Phosphorus Magnesium Total Bilirubin 0.4 AST 26 ALT 25 Alkaline Phosphatase 130 H D Troponin I 0.02 NT-Pro-B Natriuret Pep 6120 H Total Protein 6.9 Albumin 3.3 Globulin 3.5 Albumin/Globulin Ratio 1.0 L Triglycerides 321 H Cholesterol 115 L LDL Cholesterol Direct 65 HDL Cholesterol 28 L Free T4 TSH 3rd Generation Venous Blood Potassium Urine Color Urine Appearance Urine pH Ur Specific [place] Urine Protein Urine Glucose (UA) Urine Ketones Urine Blood Urine Nitrate Urine Bilirubin Urine Urobilinogen Ur Leukocyte Esterase Urine RBC Urine WBC Ur Epithelial Cells Urine Bacteria Blood Type Antibody Screen BBK History Checked 01/06/18 01/06/18 01/06/18 18:22 19:00 22:46 WBC RBC Hgb Hct MCV MCH MCHC RDW Plt Count MPV Gran % Lymph % (Auto) [place] % (Auto) Eos % (Auto) Baso % (Auto) Gran # Lymph # (Auto) [place] # (Auto) Eos # (Auto) Baso # (Auto) PT INR APTT pO2 VBG pH VBG pCO2 VBG HCO3 VBG Total CO2 VBG O2 Sat (Calc) VBG Base Excess VBG Potassium Sodium Chloride Glucose Lactate FiO2 Potassium Carbon Dioxide Anion Gap BUN Creatinine Est GFR ( Amer) Est GFR (Non-Af Amer) POC Glucose (mg/dL) 165 H Random Glucose Calcium Phosphorus Magnesium Total Bilirubin AST ALT Alkaline Phosphatase Troponin I NT-Pro-B Natriuret Pep Total Protein Albumin Globulin Albumin/Globulin Ratio Triglycerides Cholesterol LDL Cholesterol Direct HDL Cholesterol Free T4 1.07 TSH 3rd Generation 1.66 Venous Blood Potassium Urine Color Urine Appearance Urine pH Ur Specific [place] Urine Protein Urine Glucose (UA) Urine Ketones Urine Blood Urine Nitrate Urine Bilirubin Urine Urobilinogen Ur Leukocyte Esterase Urine RBC Urine WBC Ur Epithelial Cells Urine Bacteria Blood Type B POSITIVE Antibody Screen Negative BBK History Checked Patient has bt 01/06/18 01/07/18 01/07/18 23:30 05:45 05:45 WBC 10.3 RBC 4.46 Hgb 12.5 Hct 40.7 MCV 91.3 MCH 28.0 MCHC 30.7 L RDW 16.2 H Plt Count 228 MPV 13.0 H Gran % 74.3 H Lymph % (Auto) 14.7 L [place] % (Auto) 8.9 H Eos % (Auto) 1.8 Baso % (Auto) 0.3 Gran # 7.64 H Lymph # (Auto) 1.5 [place] # (Auto) 0.9 H Eos # (Auto) 0.2 Baso # (Auto) 0.03 PT INR APTT pO2 VBG pH VBG pCO2 VBG HCO3 VBG Total CO2 VBG O2 Sat (Calc) VBG Base Excess VBG Potassium Sodium 142 Chloride 110 H Glucose Lactate FiO2 Potassium 3.5 L Carbon Dioxide 28 Anion Gap 8 L BUN 14 Creatinine 0.5 L Est GFR ( Amer) > 60 Est GFR (Non-Af Amer) > 60 POC Glucose (mg/dL) Random Glucose 174 H Calcium 8.8 Phosphorus 3.3 Magnesium 2.1 Total Bilirubin 0.6 AST 21 ALT 30 Alkaline Phosphatase 105 Troponin I NT-Pro-B Natriuret Pep Total Protein 6.2 Albumin 2.9 L Globulin 3.2 Albumin/Globulin Ratio 0.9 L Triglycerides Cholesterol LDL Cholesterol Direct HDL Cholesterol Free T4 TSH 3rd Generation Venous Blood Potassium Urine Color Yellow Urine Appearance Cloudy Urine pH 7.0 Ur Specific [place] 1.020 Urine Protein Trace H Urine Glucose (UA) Negative Urine Ketones Negative Urine Blood Negative Urine Nitrate Negative Urine Bilirubin Negative Urine Urobilinogen 1.0 H Ur Leukocyte Esterase Moderate H Urine RBC 0 - 2 Urine WBC 15 - 20 Ur Epithelial Cells 1 - 3 Urine Bacteria Many Blood Type Antibody Screen BBK History Checked 01/07/18 01/07/18 05:45 08:18 WBC RBC Hgb Hct MCV MCH MCHC RDW Plt Count MPV Gran % Lymph % (Auto) [place] % (Auto) Eos % (Auto) Baso % (Auto) Gran # Lymph # (Auto) [place] # (Auto) Eos # (Auto) Baso # (Auto) PT 16.0 H INR 1.38 APTT pO2 VBG pH VBG pCO2 VBG HCO3 VBG Total CO2 VBG O2 Sat (Calc) VBG Base Excess VBG Potassium Sodium Chloride Glucose Lactate FiO2 Potassium Carbon Dioxide Anion Gap BUN Creatinine Est GFR ( Amer) Est GFR (Non-Af Amer) POC Glucose (mg/dL) 145 H Random Glucose Calcium Phosphorus Magnesium Total Bilirubin AST ALT Alkaline Phosphatase Troponin I NT-Pro-B Natriuret Pep Total Protein Albumin Globulin Albumin/Globulin Ratio Triglycerides Cholesterol LDL Cholesterol Direct HDL Cholesterol Free T4 TSH 3rd Generation Venous Blood Potassium Urine Color Urine Appearance Urine pH Ur Specific [place] Urine Protein Urine Glucose (UA) Urine Ketones Urine Blood Urine Nitrate Urine Bilirubin Urine Urobilinogen Ur Leukocyte Esterase Urine RBC Urine WBC Ur Epithelial Cells Urine Bacteria Blood Type Antibody Screen BBK History Checked
--- NOTE | 2018-01-07 09:14 | CT ---
Date of service: 01/06/2018 PROCEDURE: CT HEAD WITHOUT CONTRAST. HISTORY: Code Stroke COMPARISON: 11/06/2017 TECHNIQUE: Axial computed tomography images were obtained through the head/brain without intravenous contrast. Radiation dose: Total exam DLP = 945.12 mGy-cm. This CT exam was performed using one or more of the following dose reduction techniques: Automated exposure control, adjustment of the mA and/or kV according to patient size, and/or use of iterative reconstruction technique. FINDINGS: HEMORRHAGE: No intracranial hemorrhage. BRAIN: No mass effect or edema. Right frontal encephalomalacia change representing progression of previously identified right frontal infarct. Small old high left frontal infarct which was not evident on previous examination. No evidence of acute infarct. No intracranial hemorrhage. Moderate chronic periventricular white matter ischemic change. Evaluation limited due to markedly oblique positioning of the patient for the examination. VENTRICLES: Unremarkable. No hydrocephalus. CALVARIUM: Unremarkable. PARANASAL SINUSES: There is an air/fluid level in the sphenoid sinus which may reflect acute sinusitis. Please correlate clinically. MASTOID AIR CELLS: Unremarkable as visualized. No inflammatory changes. OTHER FINDINGS: None. IMPRESSION: Old right frontal MCA territory infarct progressed from prior CT examination of 11/06/2017. Small old left high frontal infarct. Air/fluid level in sphenoid sinus. This may reflect acute sinusitis and clinical correlation is requested. The preliminary findings for this examination were reported by [facility] at 6:54 p.m. on 01/06/2018. There is discordance of this report with the preliminary findings. Old right frontal and old high left frontal infarcts were not described in the preliminary report of this examination. Possible acute sphenoid sinusitis was not described in the preliminary report of this examination.
[2018-01-07] MEDS: Sodium Chloride 0.9% 1,000 ML IV SCH ×2 (11:00→16:00)
--- NOTE | 2018-01-07 11:13 | RAD ---
Date of service: 01/06/2018 PROCEDURE: CHEST RADIOGRAPH, 1 VIEW HISTORY: Code Stroke COMPARISON: 11/03/2017 FINDINGS: LUNGS: Mild peribronchial thickening. No focal consolidation PLEURA: No pneumothorax or pleural fluid seen. CARDIOVASCULAR: Mild cardiomegaly. Aortic calcification and mitral valve calcification OSSEOUS STRUCTURES: No significant abnormalities. VISUALIZED UPPER ABDOMEN: Normal. OTHER FINDINGS: None. IMPRESSION: No active disease.
--- NOTE | 2018-01-07 12:59 | CP.CCUPN ---
<Matilde Bee - Last Filed: 01/07/18 13:27> CCU Subjective - Physician Review Subjective (Free Text): CRITICAL CARE PROGRESS NOTE FOR DR. LEROY Bee PGY-1 Pt seen and examined at bedside this am. Pt lethargic, however arousable to tactile and verbal stimuli. Per PMD, pt is more arousable compared to when she came in. 12 point ROS is unobtainable due to patient's mental status. CCU Objective - Vital Signs / Intake & Output Vital Signs (Last 4 hours): Vital Signs Pulse Resp BP Pulse Ox 01/07/18 12:30 105 H 25 H 96 01/07/18 12:10 105 H 27 H 173/91 H 95 01/07/18 12:00 96 H 24 153/104 H 97 01/07/18 11:50 102 H 24 97 01/07/18 11:40 94 H 25 H 96 01/07/18 11:30 173/81 H 01/07/18 11:20 97 H 21 97 01/07/18 11:10 104 H 21 97 01/07/18 11:00 88 23 166/85 H 97 01/07/18 10:50 96 H 22 96 01/07/18 10:40 94 H 20 96 01/07/18 10:30 90 22 165/88 H 95 01/07/18 10:20 94 H 22 97 01/07/18 10:10 91 H 21 96 01/07/18 10:00 90 23 166/85 H 96 01/07/18 09:50 83 19 96 01/07/18 09:40 84 19 96 01/07/18 09:30 89 19 145/78 96 01/07/18 09:20 88 19 96 01/07/18 09:10 83 16 96 01/07/18 09:00 88 19 141/68 96 Intake and Output (Last 8hrs): Intake & Output 01/06/18 01/07/18 01/07/18 22:59 06:59 14:59 Output Total 450 Balance -450 Weight 63.503 kg 63.503 kg Output: Urine 450 Urethral (Ta) 450 Other: Voiding Method Diaper - Physical Exam Physical Exam Limitations: Positive for: Altered Mental Status Head: Positive for: Atraumatic, Normocephalic Pupils: Positive for: Sluggish Extroacular Muscles: Positive for: Gaze Palsy (left sided gaze palsy) Conjunctiva: Positive for: Normal Mouth: Positive for: Moist Mucous Membranes Respiratory/Chest: Positive for: Clear to Auscultation, Good Air Exchange. Negative for: Respiratory Distress Cardiovascular: Positive for: Irregular Rhythm (irregularly irregular rhythm consistent with atrial fibrillation) Abdomen: Positive for: Normal Bowel Sounds. Negative for: Tenderness, Distention, Peritoneal Signs Upper Extremity: Positive for: Edema (B/L edema noted to hands b/l) Lower Extremity: Positive for: Edema (pedal edma noted to b/l) Neurological: Positive for: Normal Sensory Function, Other (Severe aphasia. left lateral gaze palsy w/ 1/5 motor strength in LUE, LLE, & RLE. 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 ) Skin: Positive for: Warm, Dry, Normal Color Psychiatric: Positive for: Alert - Medications Active Medications: Active Medications Generic Name Dose Route Start Last Admin Trade Name Freq PRN Reason Stop Dose Admin Aspirin 81 mg 01/08/18 10:00 Ecotrin PO DAILY [facility] Atorvastatin Calcium 40 mg 01/07/18 10:00 01/07/18 12:12 Lipitor PO Not Given DAILY FLORIN Sodium Chloride 1,000 mls @ 100 mls/hr 01/06/18 19:00 01/07/18 11:00 Sodium Chloride 0.9% IV 100 mls/hr .Q10H FLORIN Administration Insulin Human Lispro 0 units 01/06/18 22:00 01/07/18 12:11 Humalog Med SC Not Given ACHS [facility] Protocol Pantoprazole Sodium 40 mg 01/07/18 10:00 01/07/18 12:18 Protonix Inj IVP 40 mg DAILY FLORIN Administration - Patient Studies Lab Studies: Lab Studies 01/07/18 01/07/18 01/07/18 Range/Units 12:10 08:18 05:45 WBC (4.5-11.0) 10^3/uL RBC (3.5-6.1) 10^6/uL Hgb (12.0-16.0) g/dL Hct (36.0-48.0) % MCV (80.0-105.0) fl MCH (25.0-35.0) pg MCHC (31.0-37.0) g/dl RDW (11.5-14.5) % Plt Count (120.0-450.0) 10^3/uL MPV (7.0-11.0) fl Gran % (50.0-68.0) % Lymph % (Auto) (22.0-35.0) % [place] % (Auto) (1.0-6.0) % Eos % (Auto) (1.5-5.0) % Baso % (Auto) (0.0-3.0) % Gran # (1.4-6.5) Lymph # (Auto) (1.2-3.4) [place] # (Auto) (0.1-0.6) Eos # (Auto) (0.0-0.7) Baso # (Auto) (0.0-2.0) K/mm3 PT 16.0 H (9.4-12.5) SECONDS INR 1.38 APTT (25.1-36.5) Seconds pO2 (30-55) mm/Hg VBG pH (7.32-7.43) VBG pCO2 (40-60) VBG HCO3 (21-28) mmol/l VBG Total CO2 (22-28) mmol.L VBG O2 Sat (Calc) (40-65) % VBG Base Excess (0.0-2.0) mmol/L VBG Potassium (3.6-5.2) mmol/L Sodium (132-148) mmol/L Chloride (98-107) mmol/L Glucose (65-105) mg/dl Lactate (0.7-2.1) mmol/L FiO2 % Potassium (3.6-5.0) mmol/L Carbon Dioxide (21-33) mmol/L Anion Gap (10-20) BUN (7-21) mg/dL Creatinine (0.7-1.2) mg/dl Est GFR ( Amer) Est GFR (Non-Af Amer) POC Glucose (mg/dL) 156 H 145 H (65-110) mg/dL Random Glucose (70-110) mg/dL Hemoglobin A1c (4.2-6.5) % Calcium (8.4-10.5) mg/dL Phosphorus (2.5-4.5) mg/dL Magnesium (1.7-2.2) mg/dL Total Bilirubin (0.2-1.3) mg/dL AST (14-36) U/L ALT (7-56) U/L Alkaline Phosphatase (38-126) U/L Troponin I ng/mL NT-Pro-B Natriuret Pep (0-450) pg/mL Total Protein (5.8-8.3) g/dL Albumin (3.0-4.8) g/dL Globulin gm/dL Albumin/Globulin Ratio (1.1-1.8) Triglycerides (35-160) mg/dL Cholesterol (130-200) mg/dL LDL Cholesterol Direct (0-129) mg/dL HDL Cholesterol (29-60) mg/dL Free T4 (0.78-2.19) ng/dL TSH 3rd Generation (0.46-4.68) mIU/mL Venous Blood Potassium (3.6-5.2) mmol/L Urine Color (YELLOW) Urine Appearance (CLEAR) Urine pH (4.7-8.0) Ur Specific Cecil (1.005-1.035) Urine Protein (<30 mg/dL) mg/dL Urine Glucose (UA) (NEGATIVE) mg/dL Urine Ketones (NEGATIVE) mg/dL Urine Blood (NEGATIVE) Urine Nitrate (NEGATIVE) Urine Bilirubin (NEGATIVE) Urine Urobilinogen (<1 E.U./dL) E.U./dL Ur Leukocyte Esterase (NEGATIVE) Dorcas/uL Urine RBC (0-2) /hpf Urine WBC (0-6) /hpf Ur Epithelial Cells (0-5) /hpf Urine Bacteria (NEG) Blood Type Antibody Screen BBK History Checked 01/07/18 01/07/18 01/06/18 Range/Units 05:45 05:45 23:30 WBC 10.3 (4.5-11.0) 10^3/uL RBC 4.46 (3.5-6.1) 10^6/uL Hgb 12.5 (12.0-16.0) g/dL Hct 40.7 (36.0-48.0) % MCV 91.3 (80.0-105.0) fl MCH 28.0 (25.0-35.0) pg MCHC 30.7 L (31.0-37.0) g/dl RDW 16.2 H (11.5-14.5) % Plt Count 228 (120.0-450.0) 10^3/uL MPV 13.0 H (7.0-11.0) fl Gran % 74.3 H (50.0-68.0) % Lymph % (Auto) 14.7 L (22.0-35.0) % [place] % (Auto) 8.9 H (1.0-6.0) % Eos % (Auto) 1.8 (1.5-5.0) % Baso % (Auto) 0.3 (0.0-3.0) % Gran # 7.64 H (1.4-6.5) Lymph # (Auto) 1.5 (1.2-3.4) [place] # (Auto) 0.9 H (0.1-0.6) Eos # (Auto) 0.2 (0.0-0.7) Baso # (Auto) 0.03 (0.0-2.0) K/mm3 PT (9.4-12.5) SECONDS INR APTT (25.1-36.5) Seconds pO2 (30-55) mm/Hg VBG pH (7.32-7.43) VBG pCO2 (40-60) VBG HCO3 (21-28) mmol/l VBG Total CO2 (22-28) mmol.L VBG O2 Sat (Calc) (40-65) % VBG Base Excess (0.0-2.0) mmol/L VBG Potassium (3.6-5.2) mmol/L Sodium 142 (132-148) mmol/L Chloride 110 H (98-107) mmol/L Glucose (65-105) mg/dl Lactate (0.7-2.1) mmol/L FiO2 % Potassium 3.5 L (3.6-5.0) mmol/L Carbon Dioxide 28 (21-33) mmol/L Anion Gap 8 L (10-20) BUN 14 (7-21) mg/dL Creatinine 0.5 L (0.7-1.2) mg/dl Est GFR ( Amer) > 60 Est GFR (Non-Af Amer) > 60 POC Glucose (mg/dL) (65-110) mg/dL Random Glucose 174 H (70-110) mg/dL Hemoglobin A1c (4.2-6.5) % Calcium 8.8 (8.4-10.5) mg/dL Phosphorus 3.3 (2.5-4.5) mg/dL Magnesium 2.1 (1.7-2.2) mg/dL Total Bilirubin 0.6 (0.2-1.3) mg/dL AST 21 (14-36) U/L ALT 30 (7-56) U/L Alkaline Phosphatase 105 (38-126) U/L Troponin I ng/mL NT-Pro-B Natriuret Pep (0-450) pg/mL Total Protein 6.2 (5.8-8.3) g/dL Albumin 2.9 L (3.0-4.8) g/dL Globulin 3.2 gm/dL Albumin/Globulin Ratio 0.9 L (1.1-1.8) Triglycerides (35-160) mg/dL Cholesterol (130-200) mg/dL LDL Cholesterol Direct (0-129) mg/dL HDL Cholesterol (29-60) mg/dL Free T4 (0.78-2.19) ng/dL TSH 3rd Generation (0.46-4.68) mIU/mL Venous Blood Potassium (3.6-5.2) mmol/L Urine Color Yellow (YELLOW) Urine Appearance Cloudy (CLEAR) Urine pH 7.0 (4.7-8.0) Ur Specific Cecil 1.020 (1.005-1.035) Urine Protein Trace H (<30 mg/dL) mg/dL Urine Glucose (UA) Negative (NEGATIVE) mg/dL Urine Ketones Negative (NEGATIVE) mg/dL Urine Blood Negative (NEGATIVE) Urine Nitrate Negative (NEGATIVE) Urine Bilirubin Negative (NEGATIVE) Urine Urobilinogen 1.0 H (<1 E.U./dL) E.U./dL Ur Leukocyte Esterase Moderate H (NEGATIVE) Dorcas/uL Urine RBC 0 - 2 (0-2) /hpf Urine WBC 15 - 20 (0-6) /hpf Ur Epithelial Cells 1 - 3 (0-5) /hpf Urine Bacteria Many (NEG) Blood Type Antibody Screen BBK History Checked 01/06/18 01/06/18 01/06/18 Range/Units 22:46 19:00 18:22 WBC (4.5-11.0) 10^3/uL RBC (3.5-6.1) 10^6/uL Hgb (12.0-16.0) g/dL Hct (36.0-48.0) % MCV (80.0-105.0) fl MCH (25.0-35.0) pg MCHC (31.0-37.0) g/dl RDW (11.5-14.5) % Plt Count (120.0-450.0) 10^3/uL MPV (7.0-11.0) fl Gran % (50.0-68.0) % Lymph % (Auto) (22.0-35.0) % [place] % (Auto) (1.0-6.0) % Eos % (Auto) (1.5-5.0) % Baso % (Auto) (0.0-3.0) % Gran # (1.4-6.5) Lymph # (Auto) (1.2-3.4) [place] # (Auto) (0.1-0.6) Eos # (Auto) (0.0-0.7) Baso # (Auto) (0.0-2.0) K/mm3 PT (9.4-12.5) SECONDS INR APTT (25.1-36.5) Seconds pO2 (30-55) mm/Hg VBG pH (7.32-7.43) VBG pCO2 (40-60) VBG HCO3 (21-28) mmol/l VBG Total CO2 (22-28) mmol.L VBG O2 Sat (Calc) (40-65) % VBG Base Excess (0.0-2.0) mmol/L VBG Potassium (3.6-5.2) mmol/L Sodium (132-148) mmol/L Chloride (98-107) mmol/L Glucose (65-105) mg/dl Lactate (0.7-2.1) mmol/L FiO2 % Potassium (3.6-5.0) mmol/L Carbon Dioxide (21-33) mmol/L Anion Gap (10-20) BUN (7-21) mg/dL Creatinine (0.7-1.2) mg/dl Est GFR ( Amer) Est GFR (Non-Af Amer) POC Glucose (mg/dL) 165 H (65-110) mg/dL Random Glucose (70-110) mg/dL Hemoglobin A1c (4.2-6.5) % Calcium (8.4-10.5) mg/dL Phosphorus (2.5-4.5) mg/dL Magnesium (1.7-2.2) mg/dL Total Bilirubin (0.2-1.3) mg/dL AST (14-36) U/L ALT (7-56) U/L Alkaline Phosphatase (38-126) U/L Troponin I ng/mL NT-Pro-B Natriuret Pep (0-450) pg/mL Total Protein (5.8-8.3) g/dL Albumin (3.0-4.8) g/dL Globulin gm/dL Albumin/Globulin Ratio (1.1-1.8) Triglycerides (35-160) mg/dL Cholesterol (130-200) mg/dL LDL Cholesterol Direct (0-129) mg/dL HDL Cholesterol (29-60) mg/dL Free T4 1.07 (0.78-2.19) ng/dL TSH 3rd Generation 1.66 (0.46-4.68) mIU/mL Venous Blood Potassium (3.6-5.2) mmol/L Urine Color (YELLOW) Urine Appearance (CLEAR) Urine pH (4.7-8.0) Ur Specific Cecil (1.005-1.035) Urine Protein (<30 mg/dL) mg/dL Urine Glucose (UA) (NEGATIVE) mg/dL Urine Ketones (NEGATIVE) mg/dL Urine Blood (NEGATIVE) Urine Nitrate (NEGATIVE) Urine Bilirubin (NEGATIVE) Urine Urobilinogen (<1 E.U./dL) E.U./dL Ur Leukocyte Esterase (NEGATIVE) Dorcas/uL Urine RBC (0-2) /hpf Urine WBC (0-6) /hpf Ur Epithelial Cells (0-5) /hpf Urine Bacteria (NEG) Blood Type B POSITIVE Antibody Screen Negative BBK History Checked Patient has bt 01/06/18 01/06/18 01/06/18 Range/Units 18:22 18:22 18:22 WBC (4.5-11.0) 10^3/uL RBC (3.5-6.1) 10^6/uL Hgb (12.0-16.0) g/dL Hct (36.0-48.0) % MCV (80.0-105.0) fl MCH (25.0-35.0) pg MCHC (31.0-37.0) g/dl RDW (11.5-14.5) % Plt Count (120.0-450.0) 10^3/uL MPV (7.0-11.0) fl Gran % (50.0-68.0) % Lymph % (Auto) (22.0-35.0) % [place] % (Auto) (1.0-6.0) % Eos % (Auto) (1.5-5.0) % Baso % (Auto) (0.0-3.0) % Gran # (1.4-6.5) Lymph # (Auto) (1.2-3.4) [place] # (Auto) (0.1-0.6) Eos # (Auto) (0.0-0.7) Baso # (Auto) (0.0-2.0) K/mm3 PT (9.4-12.5) SECONDS INR APTT (25.1-36.5) Seconds pO2 (30-55) mm/Hg VBG pH (7.32-7.43) VBG pCO2 (40-60) VBG HCO3 (21-28) mmol/l VBG Total CO2 (22-28) mmol.L VBG O2 Sat (Calc) (40-65) % VBG Base Excess (0.0-2.0) mmol/L VBG Potassium (3.6-5.2) mmol/L Sodium 140 (132-148) mmol/L Chloride 105 (98-107) mmol/L Glucose (65-105) mg/dl Lactate (0.7-2.1) mmol/L FiO2 % Potassium 3.7 (3.6-5.0) mmol/L Carbon Dioxide 28 (21-33) mmol/L Anion Gap 11 (10-20) BUN 18 (7-21) mg/dL Creatinine 0.6 L (0.7-1.2) mg/dl Est GFR ( Amer) > 60 Est GFR (Non-Af Amer) > 60 POC Glucose (mg/dL) (65-110) mg/dL Random Glucose 206 H (70-110) mg/dL Hemoglobin A1c 7.7 H (4.2-6.5) % Calcium 9.2 (8.4-10.5) mg/dL Phosphorus (2.5-4.5) mg/dL Magnesium (1.7-2.2) mg/dL Total Bilirubin 0.4 (0.2-1.3) mg/dL AST 26 (14-36) U/L ALT 25 (7-56) U/L Alkaline Phosphatase 130 H D (38-126) U/L Troponin I 0.02 ng/mL NT-Pro-B Natriuret Pep 6120 H (0-450) pg/mL Total Protein 6.9 (5.8-8.3) g/dL Albumin 3.3 (3.0-4.8) g/dL Globulin 3.5 gm/dL Albumin/Globulin Ratio 1.0 L (1.1-1.8) Triglycerides 321 H (35-160) mg/dL Cholesterol 115 L (130-200) mg/dL LDL Cholesterol Direct 65 (0-129) mg/dL HDL Cholesterol 28 L (29-60) mg/dL Free T4 (0.78-2.19) ng/dL TSH 3rd Generation (0.46-4.68) mIU/mL Venous Blood Potassium (3.6-5.2) mmol/L Urine Color (YELLOW) Urine Appearance (CLEAR) Urine pH (4.7-8.0) Ur Specific Cecil (1.005-1.035) Urine Protein (<30 mg/dL) mg/dL Urine Glucose (UA) (NEGATIVE) mg/dL Urine Ketones (NEGATIVE) mg/dL Urine Blood (NEGATIVE) Urine Nitrate (NEGATIVE) Urine Bilirubin (NEGATIVE) Urine Urobilinogen (<1 E.U./dL) E.U./dL Ur Leukocyte Esterase (NEGATIVE) Dorcas/uL Urine RBC (0-2) /hpf Urine WBC (0-6) /hpf Ur Epithelial Cells (0-5) /hpf Urine Bacteria (NEG) Blood Type Antibody Screen BBK History Checked 01/06/18 01/06/18 01/06/18 Range/Units 18:22 18:22 18:20 WBC 11.2 H (4.5-11.0) 10^3/uL RBC 4.77 (3.5-6.1) 10^6/uL Hgb 13.7 (12.0-16.0) g/dL Hct 43.0 (36.0-48.0) % MCV 90.1 (80.0-105.0) fl MCH 28.7 (25.0-35.0) pg MCHC 31.9 (31.0-37.0) g/dl RDW 16.1 H (11.5-14.5) % Plt Count 256 (120.0-450.0) 10^3/uL MPV 12.7 H (7.0-11.0) fl Gran % 69.3 H (50.0-68.0) % Lymph % (Auto) 19.1 L (22.0-35.0) % [place] % (Auto) 8.6 H (1.0-6.0) % Eos % (Auto) 2.7 (1.5-5.0) % Baso % (Auto) 0.3 (0.0-3.0) % Gran # 7.75 H (1.4-6.5) Lymph # (Auto) 2.1 (1.2-3.4) [place] # (Auto) 1.0 H (0.1-0.6) Eos # (Auto) 0.3 (0.0-0.7) Baso # (Auto) 0.03 (0.0-2.0) K/mm3 PT 15.4 H (9.4-12.5) SECONDS INR 1.34 APTT 36.1 (25.1-36.5) Seconds pO2 50 (30-55) mm/Hg VBG pH 7.44 H (7.32-7.43) VBG pCO2 41.0 (40-60) VBG HCO3 27.8 (21-28) mmol/l VBG Total CO2 29.1 H (22-28) mmol.L VBG O2 Sat (Calc) 90.6 H (40-65) % VBG Base Excess 3.3 H (0.0-2.0) mmol/L VBG Potassium 3.9 (3.6-5.2) mmol/L Sodium 140.0 (132-148) mmol/L Chloride 103.0 (98-107) mmol/L Glucose 215 H (65-105) mg/dl Lactate 1.4 (0.7-2.1) mmol/L FiO2 21.0 % Potassium (3.6-5.0) mmol/L Carbon Dioxide (21-33) mmol/L Anion Gap (10-20) BUN (7-21) mg/dL Creatinine (0.7-1.2) mg/dl Est GFR ( Amer) Est GFR (Non-Af Amer) POC Glucose (mg/dL) (65-110) mg/dL Random Glucose (70-110) mg/dL Hemoglobin A1c (4.2-6.5) % Calcium (8.4-10.5) mg/dL Phosphorus (2.5-4.5) mg/dL Magnesium (1.7-2.2) mg/dL Total Bilirubin (0.2-1.3) mg/dL AST (14-36) U/L ALT (7-56) U/L Alkaline Phosphatase (38-126) U/L Troponin I ng/mL NT-Pro-B Natriuret Pep (0-450) pg/mL Total Protein (5.8-8.3) g/dL Albumin (3.0-4.8) g/dL Globulin gm/dL Albumin/Globulin Ratio (1.1-1.8) Triglycerides (35-160) mg/dL Cholesterol (130-200) mg/dL LDL Cholesterol Direct (0-129) mg/dL HDL Cholesterol (29-60) mg/dL Free T4 (0.78-2.19) ng/dL TSH 3rd Generation (0.46-4.68) mIU/mL Venous Blood Potassium 3.9 (3.6-5.2) mmol/L Urine Color (YELLOW) Urine Appearance (CLEAR) Urine pH (4.7-8.0) Ur Specific Cecil (1.005-1.035) Urine Protein (<30 mg/dL) mg/dL Urine Glucose (UA) (NEGATIVE) mg/dL Urine Ketones (NEGATIVE) mg/dL Urine Blood (NEGATIVE) Urine Nitrate (NEGATIVE) Urine Bilirubin (NEGATIVE) Urine Urobilinogen (<1 E.U./dL) E.U./dL Ur Leukocyte Esterase (NEGATIVE) Dorcas/uL Urine RBC (0-2) /hpf Urine WBC (0-6) /hpf Ur Epithelial Cells (0-5) /hpf Urine Bacteria (NEG) Blood Type Antibody Screen BBK History Checked 01/06/18 Range/Units 18:09 WBC (4.5-11.0) 10^3/uL RBC (3.5-6.1) 10^6/uL Hgb (12.0-16.0) g/dL Hct (36.0-48.0) % MCV (80.0-105.0) fl MCH (25.0-35.0) pg MCHC (31.0-37.0) g/dl RDW (11.5-14.5) % Plt Count (120.0-450.0) 10^3/uL MPV (7.0-11.0) fl Gran % (50.0-68.0) % Lymph % (Auto) (22.0-35.0) % [place] % (Auto) (1.0-6.0) % Eos % (Auto) (1.5-5.0) % Baso % (Auto) (0.0-3.0) % Gran # (1.4-6.5) Lymph # (Auto) (1.2-3.4) [place] # (Auto) (0.1-0.6) Eos # (Auto) (0.0-0.7) Baso # (Auto) (0.0-2.0) K/mm3 PT (9.4-12.5) SECONDS INR APTT (25.1-36.5) Seconds pO2 (30-55) mm/Hg VBG pH (7.32-7.43) VBG pCO2 (40-60) VBG HCO3 (21-28) mmol/l VBG Total CO2 (22-28) mmol.L VBG O2 Sat (Calc) (40-65) % VBG Base Excess (0.0-2.0) mmol/L VBG Potassium (3.6-5.2) mmol/L Sodium (132-148) mmol/L Chloride (98-107) mmol/L Glucose (65-105) mg/dl Lactate (0.7-2.1) mmol/L FiO2 % Potassium (3.6-5.0) mmol/L Carbon Dioxide (21-33) mmol/L Anion Gap (10-20) BUN (7-21) mg/dL Creatinine (0.7-1.2) mg/dl Est GFR ( Amer) Est GFR (Non-Af Amer) POC Glucose (mg/dL) 188 H (65-110) mg/dL Random Glucose (70-110) mg/dL Hemoglobin A1c (4.2-6.5) % Calcium (8.4-10.5) mg/dL Phosphorus (2.5-4.5) mg/dL Magnesium (1.7-2.2) mg/dL Total Bilirubin (0.2-1.3) mg/dL AST (14-36) U/L ALT (7-56) U/L Alkaline Phosphatase (38-126) U/L Troponin I ng/mL NT-Pro-B Natriuret Pep (0-450) pg/mL Total Protein (5.8-8.3) g/dL Albumin (3.0-4.8) g/dL Globulin gm/dL Albumin/Globulin Ratio (1.1-1.8) Triglycerides (35-160) mg/dL Cholesterol (130-200) mg/dL LDL Cholesterol Direct (0-129) mg/dL HDL Cholesterol (29-60) mg/dL Free T4 (0.78-2.19) ng/dL TSH 3rd Generation (0.46-4.68) mIU/mL Venous Blood Potassium (3.6-5.2) mmol/L Urine Color (YELLOW) Urine Appearance (CLEAR) Urine pH (4.7-8.0) Ur Specific Cecil (1.005-1.035) Urine Protein (<30 mg/dL) mg/dL Urine Glucose (UA) (NEGATIVE) mg/dL Urine Ketones (NEGATIVE) mg/dL Urine Blood (NEGATIVE) Urine Nitrate (NEGATIVE) Urine Bilirubin (NEGATIVE) Urine Urobilinogen (<1 E.U./dL) E.U./dL Ur Leukocyte Esterase (NEGATIVE) Dorcas/uL Urine RBC (0-2) /hpf Urine WBC (0-6) /hpf Ur Epithelial Cells (0-5) /hpf Urine Bacteria (NEG) Blood Type Antibody Screen BBK History Checked Laboratory Results - last 24 hr 01/06/18 01/06/18 01/06/18 18:09 18:20 18:22 WBC 11.2 H RBC 4.77 Hgb 13.7 Hct 43.0 MCV 90.1 MCH 28.7 MCHC 31.9 RDW 16.1 H Plt Count 256 MPV 12.7 H Gran % 69.3 H Lymph % (Auto) 19.1 L [place] % (Auto) 8.6 H Eos % (Auto) 2.7 Baso % (Auto) 0.3 Gran # 7.75 H Lymph # (Auto) 2.1 [place] # (Auto) 1.0 H Eos # (Auto) 0.3 Baso # (Auto) 0.03 PT INR APTT pO2 50 VBG pH 7.44 H VBG pCO2 41.0 VBG HCO3 27.8 VBG Total CO2 29.1 H VBG O2 Sat (Calc) 90.6 H VBG Base Excess 3.3 H VBG Potassium 3.9 Sodium 140.0 Chloride 103.0 Glucose 215 H Lactate 1.4 FiO2 21.0 Potassium Carbon Dioxide Anion Gap BUN Creatinine Est GFR ( Amer) Est GFR (Non-Af Amer) POC Glucose (mg/dL) 188 H Random Glucose Hemoglobin A1c Calcium Phosphorus Magnesium Total Bilirubin AST ALT Alkaline Phosphatase Troponin I NT-Pro-B Natriuret Pep Total Protein Albumin Globulin Albumin/Globulin Ratio Triglycerides Cholesterol LDL Cholesterol Direct HDL Cholesterol Free T4 TSH 3rd Generation Venous Blood Potassium 3.9 Urine Color Urine Appearance Urine pH Ur Specific [place] Urine Protein Urine Glucose (UA) Urine Ketones Urine Blood Urine Nitrate Urine Bilirubin Urine Urobilinogen Ur Leukocyte Esterase Urine RBC Urine WBC Ur Epithelial Cells Urine Bacteria Blood Type Antibody Screen BBK History Checked 01/06/18 01/06/18 01/06/18 18:22 18:22 18:22 WBC RBC Hgb Hct MCV MCH MCHC RDW Plt Count MPV Gran % Lymph % (Auto) [place] % (Auto) Eos % (Auto) Baso % (Auto) Gran # Lymph # (Auto) [place] # (Auto) Eos # (Auto) Baso # (Auto) PT 15.4 H INR 1.34 APTT 36.1 pO2 VBG pH VBG pCO2 VBG HCO3 VBG Total CO2 VBG O2 Sat (Calc) VBG Base Excess VBG Potassium Sodium 140 Chloride 105 Glucose Lactate FiO2 Potassium 3.7 Carbon Dioxide 28 Anion Gap 11 BUN 18 Creatinine 0.6 L Est GFR ( Amer) > 60 Est GFR (Non-Af Amer) > 60 POC Glucose (mg/dL) Random Glucose 206 H Hemoglobin A1c 7.7 H Calcium 9.2 Phosphorus Magnesium Total Bilirubin 0.4 AST 26 ALT 25 Alkaline Phosphatase 130 H D Troponin I 0.02 NT-Pro-B Natriuret Pep Total Protein 6.9 Albumin 3.3 Globulin 3.5 Albumin/Globulin Ratio 1.0 L Triglycerides 321 H Cholesterol 115 L LDL Cholesterol Direct 65 HDL Cholesterol 28 L Free T4 TSH 3rd Generation Venous Blood Potassium Urine Color Urine Appearance Urine pH Ur Specific [place] Urine Protein Urine Glucose (UA) Urine Ketones Urine Blood Urine Nitrate Urine Bilirubin Urine Urobilinogen Ur Leukocyte Esterase Urine RBC Urine WBC Ur Epithelial Cells Urine Bacteria Blood Type Antibody Screen BBK History Checked 01/06/18 01/06/18 01/06/18 18:22 18:22 19:00 WBC RBC Hgb Hct MCV MCH MCHC RDW Plt Count MPV Gran % Lymph % (Auto) [place] % (Auto) Eos % (Auto) Baso % (Auto) Gran # Lymph # (Auto) [place] # (Auto) Eos # (Auto) Baso # (Auto) PT INR APTT pO2 VBG pH VBG pCO2 VBG HCO3 VBG Total CO2 VBG O2 Sat (Calc) VBG Base Excess VBG Potassium Sodium Chloride Glucose Lactate FiO2 Potassium Carbon Dioxide Anion Gap BUN Creatinine Est GFR ( Amer) Est GFR (Non-Af Amer) POC Glucose (mg/dL) Random Glucose Hemoglobin A1c Calcium Phosphorus Magnesium Total Bilirubin AST ALT Alkaline Phosphatase Troponin I NT-Pro-B Natriuret Pep 6120 H Total Protein Albumin Globulin Albumin/Globulin Ratio Triglycerides Cholesterol LDL Cholesterol Direct HDL Cholesterol Free T4 1.07 TSH 3rd Generation 1.66 Venous Blood Potassium Urine Color Urine Appearance Urine pH Ur Specific [place] Urine Protein Urine Glucose (UA) Urine Ketones Urine Blood Urine Nitrate Urine Bilirubin Urine Urobilinogen Ur Leukocyte Esterase Urine RBC Urine WBC Ur Epithelial Cells Urine Bacteria Blood Type B POSITIVE Antibody Screen Negative BBK History Checked Patient has bt 01/06/18 01/06/18 01/07/18 22:46 23:30 05:45 WBC 10.3 RBC 4.46 Hgb 12.5 Hct 40.7 MCV 91.3 MCH 28.0 MCHC 30.7 L RDW 16.2 H Plt Count 228 MPV 13.0 H Gran % 74.3 H Lymph % (Auto) 14.7 L [place] % (Auto) 8.9 H Eos % (Auto) 1.8 Baso % (Auto) 0.3 Gran # 7.64 H Lymph # (Auto) 1.5 [place] # (Auto) 0.9 H Eos # (Auto) 0.2 Baso # (Auto) 0.03 PT INR APTT pO2 VBG pH VBG pCO2 VBG HCO3 VBG Total CO2 VBG O2 Sat (Calc) VBG Base Excess VBG Potassium Sodium Chloride Glucose Lactate FiO2 Potassium Carbon Dioxide Anion Gap BUN Creatinine Est GFR ( Amer) Est GFR (Non-Af Amer) POC Glucose (mg/dL) 165 H Random Glucose Hemoglobin A1c Calcium Phosphorus Magnesium Total Bilirubin AST ALT Alkaline Phosphatase Troponin I NT-Pro-B Natriuret Pep Total Protein Albumin Globulin Albumin/Globulin Ratio Triglycerides Cholesterol LDL Cholesterol Direct HDL Cholesterol Free T4 TSH 3rd Generation Venous Blood Potassium Urine Color Yellow Urine Appearance Cloudy Urine pH 7.0 Ur Specific [place] 1.020 Urine Protein Trace H Urine Glucose (UA) Negative Urine Ketones Negative Urine Blood Negative Urine Nitrate Negative Urine Bilirubin Negative Urine Urobilinogen 1.0 H Ur Leukocyte Esterase Moderate H Urine RBC 0 - 2 Urine WBC 15 - 20 Ur Epithelial Cells 1 - 3 Urine Bacteria Many Blood Type Antibody Screen BBK History Checked 01/07/18 01/07/18 01/07/18 05:45 05:45 08:18 WBC RBC Hgb Hct MCV MCH MCHC RDW Plt Count MPV Gran % Lymph % (Auto) [place] % (Auto) Eos % (Auto) Baso % (Auto) Gran # Lymph # (Auto) [place] # (Auto) Eos # (Auto) Baso # (Auto) PT 16.0 H INR 1.38 APTT pO2 VBG pH VBG pCO2 VBG HCO3 VBG Total CO2 VBG O2 Sat (Calc) VBG Base Excess VBG Potassium Sodium 142 Chloride 110 H Glucose Lactate FiO2 Potassium 3.5 L Carbon Dioxide 28 Anion Gap 8 L BUN 14 Creatinine 0.5 L Est GFR ( Amer) > 60 Est GFR (Non-Af Amer) > 60 POC Glucose (mg/dL) 145 H Random Glucose 174 H Hemoglobin A1c Calcium 8.8 Phosphorus 3.3 Magnesium 2.1 Total Bilirubin 0.6 AST 21 ALT 30 Alkaline Phosphatase 105 Troponin I NT-Pro-B Natriuret Pep Total Protein 6.2 Albumin 2.9 L Globulin 3.2 Albumin/Globulin Ratio 0.9 L Triglycerides Cholesterol LDL Cholesterol Direct HDL Cholesterol Free T4 TSH 3rd Generation Venous Blood Potassium Urine Color Urine Appearance Urine pH Ur Specific [place] Urine Protein Urine Glucose (UA) Urine Ketones Urine Blood Urine Nitrate Urine Bilirubin Urine Urobilinogen Ur Leukocyte Esterase Urine RBC Urine WBC Ur Epithelial Cells Urine Bacteria Blood Type Antibody Screen BBK History Checked 01/07/18 12:10 WBC RBC Hgb Hct MCV MCH MCHC RDW Plt Count MPV Gran % Lymph % (Auto) [place] % (Auto) Eos % (Auto) Baso % (Auto) Gran # Lymph # (Auto) [place] # (Auto) Eos # (Auto) Baso # (Auto) PT INR APTT pO2 VBG pH VBG pCO2 VBG HCO3 VBG Total CO2 VBG O2 Sat (Calc) VBG Base Excess VBG Potassium Sodium Chloride Glucose Lactate FiO2 Potassium Carbon Dioxide Anion Gap BUN Creatinine Est GFR ( Amer) Est GFR (Non-Af Amer) POC Glucose (mg/dL) 156 H Random Glucose Hemoglobin A1c Calcium Phosphorus Magnesium Total Bilirubin AST ALT Alkaline Phosphatase Troponin I NT-Pro-B Natriuret Pep Total Protein Albumin Globulin Albumin/Globulin Ratio Triglycerides Cholesterol LDL Cholesterol Direct HDL Cholesterol Free T4 TSH 3rd Generation Venous Blood Potassium Urine Color Urine Appearance Urine pH Ur Specific [place] Urine Protein Urine Glucose (UA) Urine Ketones Urine Blood Urine Nitrate Urine Bilirubin Urine Urobilinogen Ur Leukocyte Esterase Urine RBC Urine WBC Ur Epithelial Cells Urine Bacteria Blood Type Antibody Screen BBK History Checked EKG/Cardiology Studies: Cardiology / EKG Studies 01/06/18 18:07 EKG [ELECTROCARDIOGRAM] Stat Comment: Reason For Exam: AMS Fingerstick Blood Sugar Results: 156 Review of Systems - Review of Systems Review of Systems: per [facility] Critical Care Progress Note - Nutrition Nutrition: Nutrition Category Date Time Status Heart Healthy Diet [DIET] Diets 01/07/18 Breakfast Active Assessment/Plan - Assessment and Plan (Free Text) Assessment: 87 y/o F w/ h/o HTN, CHF & atrial fibrillation(on coumadin), HLD CVA w/ residual left sided hemiparesis presented to the Emergency Room by EMS for altered mental status. Pt admitted to ICU for CVA, likely secondary to progression from previous R MCA stroke per CT head report. Plan: Neuro: Pt awake, however does not respond to orientation questions NIHSS: 30. Pt not candidate for tpa CT Head: no acute findings. 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 Aspirin 300RC MRI brain EEG NIHSS stroke scale Consult neurology speech eval seizure precautions fall precautions neuro checks continue home lipitor Cardiovascular: Hx of chronic afib Echocardiogram speech eval, then continue AC Maintain MAP >65 Maintain euvolemia Permissive hypertension per neuro recs 220/120 aspirin/atorvastatin consult cardiology. f/u recs Pulmonary: Maintain SaO2 >90% Supplement O2 prn abg wnl GI: NPO GI ppx: protonix IVP /Renal Replete electrolytes prn maintain euvolemia avoid nephrotoxic agents U/a: moderate leukocyte esterase Avoid nephrotoxic agents Consult ID: UTI Monitor I/Os Heme: H/H stable INR: 1.38 Resume AC if passes swallow eval Leukocytosis resolving Endo: maintain euglycemia insulin lispro ACHS ID: Afebrile Leukocytosis resolved UTI on u/a blood cultures and urine cultures pending Consult ID for UTI DVT/GI PPx: SCD/Protonix Code status: DNR/DNI Dispo: Pt is lethargic, however improved from when she arrived to ED. She has no acute complaints. Vital signs stable, hemodynamically stable. H/h stable, leukocytosis resolving. Pt to be monitored in ICU, f/u neuro recs. Case seen, examined and discussed with attending physician, Dr. Cassidy <Julien Cassidy - Last Filed: 01/07/18 14:06> CCU Objective - Vital Signs / Intake & Output Vital Signs (Last 4 hours): Vital Signs Pulse Resp BP Pulse Ox 01/07/18 12:30 105 H 25 H 96 01/07/18 12:10 105 H 27 H 173/91 H 95 01/07/18 12:00 96 H 24 153/104 H 97 01/07/18 11:50 102 H 24 97 01/07/18 11:40 94 H 25 H 96 01/07/18 11:30 173/81 H 01/07/18 11:20 97 H 21 97 01/07/18 11:10 104 H 21 97 01/07/18 11:00 88 23 166/85 H 97 01/07/18 10:50 96 H 22 96 01/07/18 10:40 94 H 20 96 01/07/18 10:30 90 22 165/88 H 95 01/07/18 10:20 94 H 22 97 01/07/18 10:10 91 H 21 96 Intake and Output (Last 8hrs): Intake & Output 01/06/18 01/07/18 01/07/18 22:59 06:59 14:59 Output Total 450 Balance -450 Weight 140 lb 140 lb Output: Urine 450 Urethral (Ta) 450 Other: Voiding Method Diaper - Medications Active Medications: Active Medications Generic Name Dose Route Start Last Admin Trade Name Freq PRN Reason Stop Dose Admin Aspirin 81 mg 01/08/18 10:00 Ecotrin PO DAILY [facility] Atorvastatin Calcium 40 mg 01/07/18 10:00 01/07/18 12:12 Lipitor PO Not Given DAILY FLORIN Sodium Chloride 1,000 mls @ 100 mls/hr 01/06/18 19:00 01/07/18 11:00 Sodium Chloride 0.9% IV 100 mls/hr .Q10H FLORIN Administration Insulin Human Lispro 0 units 01/06/18 22:00 01/07/18 12:11 Humalog Med SC Not Given ACHS [facility] Protocol Pantoprazole Sodium 40 mg 01/07/18 10:00 01/07/18 12:18 Protonix Inj IVP 40 mg DAILY FLORIN Administration - Patient Studies Lab Studies: Lab Studies 01/07/18 01/07/18 01/07/18 Range/Units 12:10 08:18 05:45 WBC (4.5-11.0) 10^3/uL RBC (3.5-6.1) 10^6/uL Hgb (12.0-16.0) g/dL Hct (36.0-48.0) % MCV (80.0-105.0) fl MCH (25.0-35.0) pg MCHC (31.0-37.0) g/dl RDW (11.5-14.5) % Plt Count (120.0-450.0) 10^3/uL MPV (7.0-11.0) fl Gran % (50.0-68.0) % Lymph % (Auto) (22.0-35.0) % [place] % (Auto) (1.0-6.0) % Eos % (Auto) (1.5-5.0) % Baso % (Auto) (0.0-3.0) % Gran # (1.4-6.5) Lymph # (Auto) (1.2-3.4) [place] # (Auto) (0.1-0.6) Eos # (Auto) (0.0-0.7) Baso # (Auto) (0.0-2.0) K/mm3 PT 16.0 H (9.4-12.5) SECONDS INR 1.38 APTT (25.1-36.5) Seconds pO2 (30-55) mm/Hg VBG pH (7.32-7.43) VBG pCO2 (40-60) VBG HCO3 (21-28) mmol/l VBG Total CO2 (22-28) mmol.L VBG O2 Sat (Calc) (40-65) % VBG Base Excess (0.0-2.0) mmol/L VBG Potassium (3.6-5.2) mmol/L Sodium (132-148) mmol/L Chloride (98-107) mmol/L Glucose (65-105) mg/dl Lactate (0.7-2.1) mmol/L FiO2 % Potassium (3.6-5.0) mmol/L Carbon Dioxide (21-33) mmol/L Anion Gap (10-20) BUN (7-21) mg/dL Creatinine (0.7-1.2) mg/dl Est GFR ( Amer) Est GFR (Non-Af Amer) POC Glucose (mg/dL) 156 H 145 H (65-110) mg/dL Random Glucose (70-110) mg/dL Hemoglobin A1c (4.2-6.5) % Calcium (8.4-10.5) mg/dL Phosphorus (2.5-4.5) mg/dL Magnesium (1.7-2.2) mg/dL Total Bilirubin (0.2-1.3) mg/dL AST (14-36) U/L ALT (7-56) U/L Alkaline Phosphatase (38-126) U/L Troponin I ng/mL NT-Pro-B Natriuret Pep (0-450) pg/mL Total Protein (5.8-8.3) g/dL Albumin (3.0-4.8) g/dL Globulin gm/dL Albumin/Globulin Ratio (1.1-1.8) Triglycerides (35-160) mg/dL Cholesterol (130-200) mg/dL LDL Cholesterol Direct (0-129) mg/dL HDL Cholesterol (29-60) mg/dL Free T4 (0.78-2.19) ng/dL TSH 3rd Generation (0.46-4.68) mIU/mL Venous Blood Potassium (3.6-5.2) mmol/L Urine Color (YELLOW) Urine Appearance (CLEAR) Urine pH (4.7-8.0) Ur Specific Cecil (1.005-1.035) Urine Protein (<30 mg/dL) mg/dL Urine Glucose (UA) (NEGATIVE) mg/dL Urine Ketones (NEGATIVE) mg/dL Urine Blood (NEGATIVE) Urine Nitrate (NEGATIVE) Urine Bilirubin (NEGATIVE) Urine Urobilinogen (<1 E.U./dL) E.U./dL Ur Leukocyte Esterase (NEGATIVE) Dorcas/uL Urine RBC (0-2) /hpf Urine WBC (0-6) /hpf Ur Epithelial Cells (0-5) /hpf Urine Bacteria (NEG) Blood Type Antibody Screen BBK History Checked 01/07/18 01/07/18 01/06/18 Range/Units 05:45 05:45 23:30 WBC 10.3 (4.5-11.0) 10^3/uL RBC 4.46 (3.5-6.1) 10^6/uL Hgb 12.5 (12.0-16.0) g/dL Hct 40.7 (36.0-48.0) % MCV 91.3 (80.0-105.0) fl MCH 28.0 (25.0-35.0) pg MCHC 30.7 L (31.0-37.0) g/dl RDW 16.2 H (11.5-14.5) % Plt Count 228 (120.0-450.0) 10^3/uL MPV 13.0 H (7.0-11.0) fl Gran % 74.3 H (50.0-68.0) % Lymph % (Auto) 14.7 L (22.0-35.0) % [place] % (Auto) 8.9 H (1.0-6.0) % Eos % (Auto) 1.8 (1.5-5.0) % Baso % (Auto) 0.3 (0.0-3.0) % Gran # 7.64 H (1.4-6.5) Lymph # (Auto) 1.5 (1.2-3.4) [place] # (Auto) 0.9 H (0.1-0.6) Eos # (Auto) 0.2 (0.0-0.7) Baso # (Auto) 0.03 (0.0-2.0) K/mm3 PT (9.4-12.5) SECONDS INR APTT (25.1-36.5) Seconds pO2 (30-55) mm/Hg VBG pH (7.32-7.43) VBG pCO2 (40-60) VBG HCO3 (21-28) mmol/l VBG Total CO2 (22-28) mmol.L VBG O2 Sat (Calc) (40-65) % VBG Base Excess (0.0-2.0) mmol/L VBG Potassium (3.6-5.2) mmol/L Sodium 142 (132-148) mmol/L Chloride 110 H (98-107) mmol/L Glucose (65-105) mg/dl Lactate (0.7-2.1) mmol/L FiO2 % Potassium 3.5 L (3.6-5.0) mmol/L Carbon Dioxide 28 (21-33) mmol/L Anion Gap 8 L (10-20) BUN 14 (7-21) mg/dL Creatinine 0.5 L (0.7-1.2) mg/dl Est GFR ( Amer) > 60 Est GFR (Non-Af Amer) > 60 POC Glucose (mg/dL) (65-110) mg/dL Random Glucose 174 H (70-110) mg/dL Hemoglobin A1c (4.2-6.5) % Calcium 8.8 (8.4-10.5) mg/dL Phosphorus 3.3 (2.5-4.5) mg/dL Magnesium 2.1 (1.7-2.2) mg/dL Total Bilirubin 0.6 (0.2-1.3) mg/dL AST 21 (14-36) U/L ALT 30 (7-56) U/L Alkaline Phosphatase 105 (38-126) U/L Troponin I ng/mL NT-Pro-B Natriuret Pep (0-450) pg/mL Total Protein 6.2 (5.8-8.3) g/dL Albumin 2.9 L (3.0-4.8) g/dL Globulin 3.2 gm/dL Albumin/Globulin Ratio 0.9 L (1.1-1.8) Triglycerides (35-160) mg/dL Cholesterol (130-200) mg/dL LDL Cholesterol Direct (0-129) mg/dL HDL Cholesterol (29-60) mg/dL Free T4 (0.78-2.19) ng/dL TSH 3rd Generation (0.46-4.68) mIU/mL Venous Blood Potassium (3.6-5.2) mmol/L Urine Color Yellow (YELLOW) Urine Appearance Cloudy (CLEAR) Urine pH 7.0 (4.7-8.0) Ur Specific Cecil 1.020 (1.005-1.035) Urine Protein Trace H (<30 mg/dL) mg/dL Urine Glucose (UA) Negative (NEGATIVE) mg/dL Urine Ketones Negative (NEGATIVE) mg/dL Urine Blood Negative (NEGATIVE) Urine Nitrate Negative (NEGATIVE) Urine Bilirubin Negative (NEGATIVE) Urine Urobilinogen 1.0 H (<1 E.U./dL) E.U./dL Ur Leukocyte Esterase Moderate H (NEGATIVE) Dorcas/uL Urine RBC 0 - 2 (0-2) /hpf Urine WBC 15 - 20 (0-6) /hpf Ur Epithelial Cells 1 - 3 (0-5) /hpf Urine Bacteria Many (NEG) Blood Type Antibody Screen BBK History Checked 01/06/18 01/06/18 01/06/18 Range/Units 22:46 19:00 18:22 WBC (4.5-11.0) 10^3/uL RBC (3.5-6.1) 10^6/uL Hgb (12.0-16.0) g/dL Hct (36.0-48.0) % MCV (80.0-105.0) fl MCH (25.0-35.0) pg MCHC (31.0-37.0) g/dl RDW (11.5-14.5) % Plt Count (120.0-450.0) 10^3/uL MPV (7.0-11.0) fl Gran % (50.0-68.0) % Lymph % (Auto) (22.0-35.0) % [place] % (Auto) (1.0-6.0) % Eos % (Auto) (1.5-5.0) % Baso % (Auto) (0.0-3.0) % Gran # (1.4-6.5) Lymph # (Auto) (1.2-3.4) [place] # (Auto) (0.1-0.6) Eos # (Auto) (0.0-0.7) Baso # (Auto) (0.0-2.0) K/mm3 PT (9.4-12.5) SECONDS INR APTT (25.1-36.5) Seconds pO2 (30-55) mm/Hg VBG pH (7.32-7.43) VBG pCO2 (40-60) VBG HCO3 (21-28) mmol/l VBG Total CO2 (22-28) mmol.L VBG O2 Sat (Calc) (40-65) % VBG Base Excess (0.0-2.0) mmol/L VBG Potassium (3.6-5.2) mmol/L Sodium (132-148) mmol/L Chloride (98-107) mmol/L Glucose (65-105) mg/dl Lactate (0.7-2.1) mmol/L FiO2 % Potassium (3.6-5.0) mmol/L Carbon Dioxide (21-33) mmol/L Anion Gap (10-20) BUN (7-21) mg/dL Creatinine (0.7-1.2) mg/dl Est GFR ( Amer) Est GFR (Non-Af Amer) POC Glucose (mg/dL) 165 H (65-110) mg/dL Random Glucose (70-110) mg/dL Hemoglobin A1c (4.2-6.5) % Calcium (8.4-10.5) mg/dL Phosphorus (2.5-4.5) mg/dL Magnesium (1.7-2.2) mg/dL Total Bilirubin (0.2-1.3) mg/dL AST (14-36) U/L ALT (7-56) U/L Alkaline Phosphatase (38-126) U/L Troponin I ng/mL NT-Pro-B Natriuret Pep (0-450) pg/mL Total Protein (5.8-8.3) g/dL Albumin (3.0-4.8) g/dL Globulin gm/dL Albumin/Globulin Ratio (1.1-1.8) Triglycerides (35-160) mg/dL Cholesterol (130-200) mg/dL LDL Cholesterol Direct (0-129) mg/dL HDL Cholesterol (29-60) mg/dL Free T4 1.07 (0.78-2.19) ng/dL TSH 3rd Generation 1.66 (0.46-4.68) mIU/mL Venous Blood Potassium (3.6-5.2) mmol/L Urine Color (YELLOW) Urine Appearance (CLEAR) Urine pH (4.7-8.0) Ur Specific Cecil (1.005-1.035) Urine Protein (<30 mg/dL) mg/dL Urine Glucose (UA) (NEGATIVE) mg/dL Urine Ketones (NEGATIVE) mg/dL Urine Blood (NEGATIVE) Urine Nitrate (NEGATIVE) Urine Bilirubin (NEGATIVE) Urine Urobilinogen (<1 E.U./dL) E.U./dL Ur Leukocyte Esterase (NEGATIVE) Dorcas/uL Urine RBC (0-2) /hpf Urine WBC (0-6) /hpf Ur Epithelial Cells (0-5) /hpf Urine Bacteria (NEG) Blood Type B POSITIVE Antibody Screen Negative BBK History Checked Patient has bt 01/06/18 01/06/18 01/06/18 Range/Units 18:22 18:22 18:22 WBC (4.5-11.0) 10^3/uL RBC (3.5-6.1) 10^6/uL Hgb (12.0-16.0) g/dL Hct (36.0-48.0) % MCV (80.0-105.0) fl MCH (25.0-35.0) pg MCHC (31.0-37.0) g/dl RDW (11.5-14.5) % Plt Count (120.0-450.0) 10^3/uL MPV (7.0-11.0) fl Gran % (50.0-68.0) % Lymph % (Auto) (22.0-35.0) % [place] % (Auto) (1.0-6.0) % Eos % (Auto) (1.5-5.0) % Baso % (Auto) (0.0-3.0) % Gran # (1.4-6.5) Lymph # (Auto) (1.2-3.4) [place] # (Auto) (0.1-0.6) Eos # (Auto) (0.0-0.7) Baso # (Auto) (0.0-2.0) K/mm3 PT (9.4-12.5) SECONDS INR APTT (25.1-36.5) Seconds pO2 (30-55) mm/Hg VBG pH (7.32-7.43) VBG pCO2 (40-60) VBG HCO3 (21-28) mmol/l VBG Total CO2 (22-28) mmol.L VBG O2 Sat (Calc) (40-65) % VBG Base Excess (0.0-2.0) mmol/L VBG Potassium (3.6-5.2) mmol/L Sodium 140 (132-148) mmol/L Chloride 105 (98-107) mmol/L Glucose (65-105) mg/dl Lactate (0.7-2.1) mmol/L FiO2 % Potassium 3.7 (3.6-5.0) mmol/L Carbon Dioxide 28 (21-33) mmol/L Anion Gap 11 (10-20) BUN 18 (7-21) mg/dL Creatinine 0.6 L (0.7-1.2) mg/dl Est GFR ( Amer) > 60 Est GFR (Non-Af Amer) > 60 POC Glucose (mg/dL) (65-110) mg/dL Random Glucose 206 H (70-110) mg/dL Hemoglobin A1c 7.7 H (4.2-6.5) % Calcium 9.2 (8.4-10.5) mg/dL Phosphorus (2.5-4.5) mg/dL Magnesium (1.7-2.2) mg/dL Total Bilirubin 0.4 (0.2-1.3) mg/dL AST 26 (14-36) U/L ALT 25 (7-56) U/L Alkaline Phosphatase 130 H D (38-126) U/L Troponin I 0.02 ng/mL NT-Pro-B Natriuret Pep 6120 H (0-450) pg/mL Total Protein 6.9 (5.8-8.3) g/dL Albumin 3.3 (3.0-4.8) g/dL Globulin 3.5 gm/dL Albumin/Globulin Ratio 1.0 L (1.1-1.8) Triglycerides 321 H (35-160) mg/dL Cholesterol 115 L (130-200) mg/dL LDL Cholesterol Direct 65 (0-129) mg/dL HDL Cholesterol 28 L (29-60) mg/dL Free T4 (0.78-2.19) ng/dL TSH 3rd Generation (0.46-4.68) mIU/mL Venous Blood Potassium (3.6-5.2) mmol/L Urine Color (YELLOW) Urine Appearance (CLEAR) Urine pH (4.7-8.0) Ur Specific Cecil (1.005-1.035) Urine Protein (<30 mg/dL) mg/dL Urine Glucose (UA) (NEGATIVE) mg/dL Urine Ketones (NEGATIVE) mg/dL Urine Blood (NEGATIVE) Urine Nitrate (NEGATIVE) Urine Bilirubin (NEGATIVE) Urine Urobilinogen (<1 E.U./dL) E.U./dL Ur Leukocyte Esterase (NEGATIVE) Dorcas/uL Urine RBC (0-2) /hpf Urine WBC (0-6) /hpf Ur Epithelial Cells (0-5) /hpf Urine Bacteria (NEG) Blood Type Antibody Screen BBK History Checked 01/06/18 01/06/18 01/06/18 Range/Units 18:22 18:22 18:20 WBC 11.2 H (4.5-11.0) 10^3/uL RBC 4.77 (3.5-6.1) 10^6/uL Hgb 13.7 (12.0-16.0) g/dL Hct 43.0 (36.0-48.0) % MCV 90.1 (80.0-105.0) fl MCH 28.7 (25.0-35.0) pg MCHC 31.9 (31.0-37.0) g/dl RDW 16.1 H (11.5-14.5) % Plt Count 256 (120.0-450.0) 10^3/uL MPV 12.7 H (7.0-11.0) fl Gran % 69.3 H (50.0-68.0) % Lymph % (Auto) 19.1 L (22.0-35.0) % [place] % (Auto) 8.6 H (1.0-6.0) % Eos % (Auto) 2.7 (1.5-5.0) % Baso % (Auto) 0.3 (0.0-3.0) % Gran # 7.75 H (1.4-6.5) Lymph # (Auto) 2.1 (1.2-3.4) [place] # (Auto) 1.0 H (0.1-0.6) Eos # (Auto) 0.3 (0.0-0.7) Baso # (Auto) 0.03 (0.0-2.0) K/mm3 PT 15.4 H (9.4-12.5) SECONDS INR 1.34 APTT 36.1 (25.1-36.5) Seconds pO2 50 (30-55) mm/Hg VBG pH 7.44 H (7.32-7.43) VBG pCO2 41.0 (40-60) VBG HCO3 27.8 (21-28) mmol/l VBG Total CO2 29.1 H (22-28) mmol.L VBG O2 Sat (Calc) 90.6 H (40-65) % VBG Base Excess 3.3 H (0.0-2.0) mmol/L VBG Potassium 3.9 (3.6-5.2) mmol/L Sodium 140.0 (132-148) mmol/L Chloride 103.0 (98-107) mmol/L Glucose 215 H (65-105) mg/dl Lactate 1.4 (0.7-2.1) mmol/L FiO2 21.0 % Potassium (3.6-5.0) mmol/L Carbon Dioxide (21-33) mmol/L Anion Gap (10-20) BUN (7-21) mg/dL Creatinine (0.7-1.2) mg/dl Est GFR ( Amer) Est GFR (Non-Af Amer) POC Glucose (mg/dL) (65-110) mg/dL Random Glucose (70-110) mg/dL Hemoglobin A1c (4.2-6.5) % Calcium (8.4-10.5) mg/dL Phosphorus (2.5-4.5) mg/dL Magnesium (1.7-2.2) mg/dL Total Bilirubin (0.2-1.3) mg/dL AST (14-36) U/L ALT (7-56) U/L Alkaline Phosphatase (38-126) U/L Troponin I ng/mL NT-Pro-B Natriuret Pep (0-450) pg/mL Total Protein (5.8-8.3) g/dL Albumin (3.0-4.8) g/dL Globulin gm/dL Albumin/Globulin Ratio (1.1-1.8) Triglycerides (35-160) mg/dL Cholesterol (130-200) mg/dL LDL Cholesterol Direct (0-129) mg/dL HDL Cholesterol (29-60) mg/dL Free T4 (0.78-2.19) ng/dL TSH 3rd Generation (0.46-4.68) mIU/mL Venous Blood Potassium 3.9 (3.6-5.2) mmol/L Urine Color (YELLOW) Urine Appearance (CLEAR) Urine pH (4.7-8.0) Ur Specific Cecil (1.005-1.035) Urine Protein (<30 mg/dL) mg/dL Urine Glucose (UA) (NEGATIVE) mg/dL Urine Ketones (NEGATIVE) mg/dL Urine Blood (NEGATIVE) Urine Nitrate (NEGATIVE) Urine Bilirubin (NEGATIVE) Urine Urobilinogen (<1 E.U./dL) E.U./dL Ur Leukocyte Esterase (NEGATIVE) Dorcas/uL Urine RBC (0-2) /hpf Urine WBC (0-6) /hpf Ur Epithelial Cells (0-5) /hpf Urine Bacteria (NEG) Blood Type Antibody Screen BBK History Checked 01/06/18 Range/Units 18:09 WBC (4.5-11.0) 10^3/uL RBC (3.5-6.1) 10^6/uL Hgb (12.0-16.0) g/dL Hct (36.0-48.0) % MCV (80.0-105.0) fl MCH (25.0-35.0) pg MCHC (31.0-37.0) g/dl RDW (11.5-14.5) % Plt Count (120.0-450.0) 10^3/uL MPV (7.0-11.0) fl Gran % (50.0-68.0) % Lymph % (Auto) (22.0-35.0) % [place] % (Auto) (1.0-6.0) % Eos % (Auto) (1.5-5.0) % Baso % (Auto) (0.0-3.0) % Gran # (1.4-6.5) Lymph # (Auto) (1.2-3.4) [place] # (Auto) (0.1-0.6) Eos # (Auto) (0.0-0.7) Baso # (Auto) (0.0-2.0) K/mm3 PT (9.4-12.5) SECONDS INR APTT (25.1-36.5) Seconds pO2 (30-55) mm/Hg VBG pH (7.32-7.43) VBG pCO2 (40-60) VBG HCO3 (21-28) mmol/l VBG Total CO2 (22-28) mmol.L VBG O2 Sat (Calc) (40-65) % VBG Base Excess (0.0-2.0) mmol/L VBG Potassium (3.6-5.2) mmol/L Sodium (132-148) mmol/L Chloride (98-107) mmol/L Glucose (65-105) mg/dl Lactate (0.7-2.1) mmol/L FiO2 % Potassium (3.6-5.0) mmol/L Carbon Dioxide (21-33) mmol/L Anion Gap (10-20) BUN (7-21) mg/dL Creatinine (0.7-1.2) mg/dl Est GFR ( Amer) Est GFR (Non-Af Amer) POC Glucose (mg/dL) 188 H (65-110) mg/dL Random Glucose (70-110) mg/dL Hemoglobin A1c (4.2-6.5) % Calcium (8.4-10.5) mg/dL Phosphorus (2.5-4.5) mg/dL Magnesium (1.7-2.2) mg/dL Total Bilirubin (0.2-1.3) mg/dL AST (14-36) U/L ALT (7-56) U/L Alkaline Phosphatase (38-126) U/L Troponin I ng/mL NT-Pro-B Natriuret Pep (0-450) pg/mL Total Protein (5.8-8.3) g/dL Albumin (3.0-4.8) g/dL Globulin gm/dL Albumin/Globulin Ratio (1.1-1.8) Triglycerides (35-160) mg/dL Cholesterol (130-200) mg/dL LDL Cholesterol Direct (0-129) mg/dL HDL Cholesterol (29-60) mg/dL Free T4 (0.78-2.19) ng/dL TSH 3rd Generation (0.46-4.68) mIU/mL Venous Blood Potassium (3.6-5.2) mmol/L Urine Color (YELLOW) Urine Appearance (CLEAR) Urine pH (4.7-8.0) Ur Specific Cecil (1.005-1.035) Urine Protein (<30 mg/dL) mg/dL Urine Glucose (UA) (NEGATIVE) mg/dL Urine Ketones (NEGATIVE) mg/dL Urine Blood (NEGATIVE) Urine Nitrate (NEGATIVE) Urine Bilirubin (NEGATIVE) Urine Urobilinogen (<1 E.U./dL) E.U./dL Ur Leukocyte Esterase (NEGATIVE) Dorcas/uL Urine RBC (0-2) /hpf Urine WBC (0-6) /hpf Ur Epithelial Cells (0-5) /hpf Urine Bacteria (NEG) Blood Type Antibody Screen BBK History Checked Laboratory Results - last 24 hr 01/06/18 01/06/18 01/06/18 18:09 18:20 18:22 WBC 11.2 H RBC 4.77 Hgb 13.7 Hct 43.0 MCV 90.1 MCH 28.7 MCHC 31.9 RDW 16.1 H Plt Count 256 MPV 12.7 H Gran % 69.3 H Lymph % (Auto) 19.1 L [place] % (Auto) 8.6 H Eos % (Auto) 2.7 Baso % (Auto) 0.3 Gran # 7.75 H Lymph # (Auto) 2.1 [place] # (Auto) 1.0 H Eos # (Auto) 0.3 Baso # (Auto) 0.03 PT INR APTT pO2 50 VBG pH 7.44 H VBG pCO2 41.0 VBG HCO3 27.8 VBG Total CO2 29.1 H VBG O2 Sat (Calc) 90.6 H VBG Base Excess 3.3 H VBG Potassium 3.9 Sodium 140.0 Chloride 103.0 Glucose 215 H Lactate 1.4 FiO2 21.0 Potassium Carbon Dioxide Anion Gap BUN Creatinine Est GFR ( Amer) Est GFR (Non-Af Amer) POC Glucose (mg/dL) 188 H Random Glucose Hemoglobin A1c Calcium Phosphorus Magnesium Total Bilirubin AST ALT Alkaline Phosphatase Troponin I NT-Pro-B Natriuret Pep Total Protein Albumin Globulin Albumin/Globulin Ratio Triglycerides Cholesterol LDL Cholesterol Direct HDL Cholesterol Free T4 TSH 3rd Generation Venous Blood Potassium 3.9 Urine Color Urine Appearance Urine pH Ur Specific [place] Urine Protein Urine Glucose (UA) Urine Ketones Urine Blood Urine Nitrate Urine Bilirubin Urine Urobilinogen Ur Leukocyte Esterase Urine RBC Urine WBC Ur Epithelial Cells Urine Bacteria Blood Type Antibody Screen BBK History Checked 01/06/18 01/06/18 01/06/18 18:22 18:22 18:22 WBC RBC Hgb Hct MCV MCH MCHC RDW Plt Count MPV Gran % Lymph % (Auto) [place] % (Auto) Eos % (Auto) Baso % (Auto) Gran # Lymph # (Auto) [place] # (Auto) Eos # (Auto) Baso # (Auto) PT 15.4 H INR 1.34 APTT 36.1 pO2 VBG pH VBG pCO2 VBG HCO3 VBG Total CO2 VBG O2 Sat (Calc) VBG Base Excess VBG Potassium Sodium 140 Chloride 105 Glucose Lactate FiO2 Potassium 3.7 Carbon Dioxide 28 Anion Gap 11 BUN 18 Creatinine 0.6 L Est GFR ( Amer) > 60 Est GFR (Non-Af Amer) > 60 POC Glucose (mg/dL) Random Glucose 206 H Hemoglobin A1c 7.7 H Calcium 9.2 Phosphorus Magnesium Total Bilirubin 0.4 AST 26 ALT 25 Alkaline Phosphatase 130 H D Troponin I 0.02 NT-Pro-B Natriuret Pep Total Protein 6.9 Albumin 3.3 Globulin 3.5 Albumin/Globulin Ratio 1.0 L Triglycerides 321 H Cholesterol 115 L LDL Cholesterol Direct 65 HDL Cholesterol 28 L Free T4 TSH 3rd Generation Venous Blood Potassium Urine Color Urine Appearance Urine pH Ur Specific [place] Urine Protein Urine Glucose (UA) Urine Ketones Urine Blood Urine Nitrate Urine Bilirubin Urine Urobilinogen Ur Leukocyte Esterase Urine RBC Urine WBC Ur Epithelial Cells Urine Bacteria Blood Type Antibody Screen BBK History Checked 01/06/18 01/06/18 01/06/18 18:22 18:22 19:00 WBC RBC Hgb Hct MCV MCH MCHC RDW Plt Count MPV Gran % Lymph % (Auto) [place] % (Auto) Eos % (Auto) Baso % (Auto) Gran # Lymph # (Auto) [place] # (Auto) Eos # (Auto) Baso # (Auto) PT INR APTT pO2 VBG pH VBG pCO2 VBG HCO3 VBG Total CO2 VBG O2 Sat (Calc) VBG Base Excess VBG Potassium Sodium Chloride Glucose Lactate FiO2 Potassium Carbon Dioxide Anion Gap BUN Creatinine Est GFR ( Amer) Est GFR (Non-Af Amer) POC Glucose (mg/dL) Random Glucose Hemoglobin A1c Calcium Phosphorus Magnesium Total Bilirubin AST ALT Alkaline Phosphatase Troponin I NT-Pro-B Natriuret Pep 6120 H Total Protein Albumin Globulin Albumin/Globulin Ratio Triglycerides Cholesterol LDL Cholesterol Direct HDL Cholesterol Free T4 1.07 TSH 3rd Generation 1.66 Venous Blood Potassium Urine Color Urine Appearance Urine pH Ur Specific [place] Urine Protein Urine Glucose (UA) Urine Ketones Urine Blood Urine Nitrate Urine Bilirubin Urine Urobilinogen Ur Leukocyte Esterase Urine RBC Urine WBC Ur Epithelial Cells Urine Bacteria Blood Type B POSITIVE Antibody Screen Negative BBK History Checked Patient has bt 01/06/18 01/06/18 01/07/18 22:46 23:30 05:45 WBC 10.3 RBC 4.46 Hgb 12.5 Hct 40.7 MCV 91.3 MCH 28.0 MCHC 30.7 L RDW 16.2 H Plt Count 228 MPV 13.0 H Gran % 74.3 H Lymph % (Auto) 14.7 L [place] % (Auto) 8.9 H Eos % (Auto) 1.8 Baso % (Auto) 0.3 Gran # 7.64 H Lymph # (Auto) 1.5 [place] # (Auto) 0.9 H Eos # (Auto) 0.2 Baso # (Auto) 0.03 PT INR APTT pO2 VBG pH VBG pCO2 VBG HCO3 VBG Total CO2 VBG O2 Sat (Calc) VBG Base Excess VBG Potassium Sodium Chloride Glucose Lactate FiO2 Potassium Carbon Dioxide Anion Gap BUN Creatinine Est GFR ( Amer) Est GFR (Non-Af Amer) POC Glucose (mg/dL) 165 H Random Glucose Hemoglobin A1c Calcium Phosphorus Magnesium Total Bilirubin AST ALT Alkaline Phosphatase Troponin I NT-Pro-B Natriuret Pep Total Protein Albumin Globulin Albumin/Globulin Ratio Triglycerides Cholesterol LDL Cholesterol Direct HDL Cholesterol Free T4 TSH 3rd Generation Venous Blood Potassium Urine Color Yellow Urine Appearance Cloudy Urine pH 7.0 Ur Specific [place] 1.020 Urine Protein Trace H Urine Glucose (UA) Negative Urine Ketones Negative Urine Blood Negative Urine Nitrate Negative Urine Bilirubin Negative Urine Urobilinogen 1.0 H Ur Leukocyte Esterase Moderate H Urine RBC 0 - 2 Urine WBC 15 - 20 Ur Epithelial Cells 1 - 3 Urine Bacteria Many Blood Type Antibody Screen BBK History Checked 01/07/18 01/07/18 01/07/18 05:45 05:45 08:18 WBC RBC Hgb Hct MCV MCH MCHC RDW Plt Count MPV Gran % Lymph % (Auto) [place] % (Auto) Eos % (Auto) Baso % (Auto) Gran # Lymph # (Auto) [place] # (Auto) Eos # (Auto) Baso # (Auto) PT 16.0 H INR 1.38 APTT pO2 VBG pH VBG pCO2 VBG HCO3 VBG Total CO2 VBG O2 Sat (Calc) VBG Base Excess VBG Potassium Sodium 142 Chloride 110 H Glucose Lactate FiO2 Potassium 3.5 L Carbon Dioxide 28 Anion Gap 8 L BUN 14 Creatinine 0.5 L Est GFR ( Amer) > 60 Est GFR (Non-Af Amer) > 60 POC Glucose (mg/dL) 145 H Random Glucose 174 H Hemoglobin A1c Calcium 8.8 Phosphorus 3.3 Magnesium 2.1 Total Bilirubin 0.6 AST 21 ALT 30 Alkaline Phosphatase 105 Troponin I NT-Pro-B Natriuret Pep Total Protein 6.2 Albumin 2.9 L Globulin 3.2 Albumin/Globulin Ratio 0.9 L Triglycerides Cholesterol LDL Cholesterol Direct HDL Cholesterol Free T4 TSH 3rd Generation Venous Blood Potassium Urine Color Urine Appearance Urine pH Ur Specific [place] Urine Protein Urine Glucose (UA) Urine Ketones Urine Blood Urine Nitrate Urine Bilirubin Urine Urobilinogen Ur Leukocyte Esterase Urine RBC Urine WBC Ur Epithelial Cells Urine Bacteria Blood Type Antibody Screen BBK History Checked 01/07/18 12:10 WBC RBC Hgb Hct MCV MCH MCHC RDW Plt Count MPV Gran % Lymph % (Auto) [place] % (Auto) Eos % (Auto) Baso % (Auto) Gran # Lymph # (Auto) [place] # (Auto) Eos # (Auto) Baso # (Auto) PT INR APTT pO2 VBG pH VBG pCO2 VBG HCO3 VBG Total CO2 VBG O2 Sat (Calc) VBG Base Excess VBG Potassium Sodium Chloride Glucose Lactate FiO2 Potassium Carbon Dioxide Anion Gap BUN Creatinine Est GFR ( Amer) Est GFR (Non-Af Amer) POC Glucose (mg/dL) 156 H Random Glucose Hemoglobin A1c Calcium Phosphorus Magnesium Total Bilirubin AST ALT Alkaline Phosphatase Troponin I NT-Pro-B Natriuret Pep Total Protein Albumin Globulin Albumin/Globulin Ratio Triglycerides Cholesterol LDL Cholesterol Direct HDL Cholesterol Free T4 TSH 3rd Generation Venous Blood Potassium Urine Color Urine Appearance Urine pH Ur Specific Cecil Urine Protein Urine Glucose (UA) Urine Ketones Urine Blood Urine Nitrate Urine Bilirubin Urine Urobilinogen Ur Leukocyte Esterase Urine RBC Urine WBC Ur Epithelial Cells Urine Bacteria Blood Type Antibody Screen BBK History Checked EKG/Cardiology Studies: Cardiology / EKG Studies 01/06/18 18:07 EKG [ELECTROCARDIOGRAM] Stat Comment: Reason For Exam: AMS Critical Care Progress Note - Nutrition Nutrition: Nutrition Category Date Time Status Heart Healthy Diet [DIET] Diets 01/07/18 Breakfast Active Assessment/Plan - Assessment and Plan (Free Text) Plan: Patient seen and examined on rounds,with resident, agree with note with following additions/exceptions: Patient is 87yo female wPMHx HTN, CHF & atrial fibrillation(on coumadin), HLD CVA w/ residual left sided hemiparesis presented to the MICU with new CVA like symptoms. Currently awake, alert, but not following commands Afebrile, BP stable, comfortable in NAD Labs, imaging chart reviewed INR subtherapeutic CVA with residual L hemiparesis CHF HTN Afib on Coumadin HLD Recommend: - supp o2 as needed, duonebs PRN - NO ID issues - Permissive HTN - IVF - NPO - Speechs leti eval - MRI brain - Neuro consult - Lovenox to coumadin bridge - GI ppx - DVT ppx - Monitor in MICU
--- NOTE | 2018-01-07 14:46 | CARD ---
APPROVED REPORT Date of service: 01/06/2018 EKG Measurement Heart [id number] <Conclusion> Atrial fibrillation with premature ventricular or aberrantly conducted complexes Left axis deviation Voltage criteria for left ventricular hypertrophy Inferior infarct, age undetermined Abnormal ECG
[2018-01-07] MEDS: Vancomycin 1gm in NS 250ml 1 GM/250 ML BAG IVPB SCH (18:51)
--- NOTE | 2018-01-07 19:49 | HP ---
HISTORY OF PRESENT ILLNESS: An 87-year-old intermediate resident transferred from [facility] when she was reported to have been found with nonverbalization capability and lethargy. She was advised to be referred to [facility] emergency room for further evaluation. 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 MEDICATIONS: Her medications consisted of Klor-Con 20 mEq daily, valsartan 320 mg daily, warfarin 2.5 mg daily, Norvasc 10 mg daily, Imdur 30 mg daily, Lopressor 50 mg b.i.d., Protonix 40 mg daily, Lipitor 40 mg daily, Lasix 20 mg daily, Levemir 28 units subcu at bedtime, sliding insulin scale. ALLERGIES: NO KNOWN ALLERGIES. SOCIAL HISTORY She is a nonsmoker, nondrinker, non drug user. REVIEW OF SYSTEMS: Ten systems are reviewed. Pertinent findings during the exam. On presentation to the emergency room, the patient was found to be nonverbal, although the EMT Transport Team states that she did seem to respond by grasping with her right hand and squeezing the hand, however, she had a left gaze which was reported at this intermediate as well. PHYSICAL EXAMINATION: VITAL SIGNS: Showed a blood pressure of 182/83, 157/87; respiratory rate was 19; her oxygen sat was 96%; her temperature was 98.7. NECK: Supple. LUNGS: Show diminished breath sounds at the bases. HEART: With an irregular S1, S2 rhythm with 2/6 systolic murmur. ABDOMEN: Soft, scaphoid with positive bowel sounds. No rebound tenderness appreciated. EXTREMITIES: Showed no evidence of edema. NEUROLOGIC: She was nonverbal. She did respond when asked to squeeze with her right hand, there was a slight response as well as some movement of her right leg. LABORATORY DATA: Showed a sodium of 140, potassium 3.7, chloride 105, CO2 of 28, BUN is 18, the creatinine is 0.6. Random blood sugar was 206, calcium 9.2. AST and ALT were normal. The alkaline phosphatase was 130. Troponin was 0.02, BNP 6120, triglycerides 321, cholesterol 115, her HDL is 28, TSH is 1.66, her LDL was 65. CBC showed a WBC of 11.2, RBC 4.77, hemoglobin 13.7, hematocrit 43, platelet count 256. Urinalysis showed many urine bacteria with moderate leukocyte esterase, lactate was 1.4. ASSESSMENT AND PLAN: CAT scan of the head was requested as well as a chest x-ray as well as an intensive care evaluation as the patient was admitted with "stroke" patient. Pending above outstanding studies. The patient will be evaluated by the insurance account manager. Neurology consult has been requested. This has been discussed with the emergency room staff. Sherri Hubbard MD
--- NOTE | 2018-01-07 22:14 | CON ---
DATE: 01/07/2018 REASON FOR CONSULTATION: Atrial fibrillation. HISTORY OF PRESENT ILLNESS: The patient is an 87-year-old white female who has a history of hypertension, congestive heart failure, atrial fibrillation, history of CVA, residual left hemiparesis, who was admitted because of altered mental status as well as aphasia and was found to have left-sided gaze paralysis. The patient was at [facility] when she was noticed by the nursing staff to have the above symptoms. The patient's most recent stroke was in October of this year. No reported hypotension and no reported ventricular arrhythmia so far on the monitor. CURRENT MEDICATIONS: Lipitor 40 mg once a day, potassium chloride infusion totaling 20 mEq, Protonix 40 mg intravenously daily, and normal saline at 100 mL an hour. PAST MEDICAL HISTORY: Atrial fibrillation, CHF, hypertension, and a recent CVA with residual left hemiparesis. PHYSICAL EXAMINATION: GENERAL: The patient is an elderly female who is lethargic and nonverbal. VITAL SIGNS: Blood pressure 138/77, heart rate 90, respirations 19, temperature 98.9. HEENT: No pallor or icterus. NECK: No JVD. CHEST: Diminished breath sounds over the bases. HEART: S1 and S2 regular. Grade 3/6 ejection systolic murmur over the left sternal border. ABDOMEN: Soft. EXTREMITIES: 1+ pitting edema. LABORATORY DATA: Today'S CBC: WBC 10.3, hemoglobin 12.5, hematocrit 40.7, platelet count 228,000. SMA-7: Sodium 142, potassium 3.5, chloride 110, CO2 of 28, glucose 174, BUN 14, creatinine 0.5. Today's liver enzymes are within normal limit. ProBNP is 6120. Triglycerides 121, total cholesterol 115, HDL cholesterol 28, abnormal readings. Head CT scan without contrast, old right frontal mid cerebral artery territory infarct progressed from prior CT examination. Small old left frontal infarct. There may be acute sinusitis of the sphenoid sinus. EKG revealed atrial fibrillation at the rate of 88, PVCs versus aberrancy, poor R wave progression, possible old anterior infarct. Old inferior infarct cannot be excluded either. Echocardiogram study performed in October of this year revealed [id number] concentric LVH with normal systolic function. Severe calcified aortic valve with severe valvular aortic stenosis and mild aortic insufficiency and severe pulmonary hypertension. ASSESSMENT: 1. Rule out acute cerebrovascular accident. 2. Chronic atrial fibrillation. The patient was not optimally anticoagulated. INR on admission was 1.34. 3. Hypertension. 4. Severe calcific valvular aortic stenosis. 5. Moderate mitral insufficiency. 6. Severe pulmonary hypertension. CONDITIONS: Continue Lipitor at 40 mg once a day. Continue IV potassium replacement. Consider initiating aspirin and therapeutic subcutaneous Lovenox therapy. There is no contraindication from the neurological point of view. Reese Drake MD
[2018-01-07] MEDS: Cefepime 1gm in NS 100ml 1 GM/100 ML BAG IVPB SCH (23:00)
[2018-01-08] MEDS: Vancomycin 1gm in NS 250ml 1 GM/250 ML BAG IVPB SCH ×2 (05:19→16:00)
[2018-01-08 07:09] LABS: BASO # 0.02 K/mm3 (0.0-2.0); BASO % 0.2 % (0.0-3.0); EOS # 0.2 (0.0-0.7); EOS % 1.8 % (1.5-5.0); GRAN # 6.74 (1.4-6.5); GRAN % 72.5 % (50.0-68.0); HEMOGLOBIN 12.9 g/dL (12.0-16.0); LYMPH # 1.5 (1.2-3.4); MEAN CELL VOLUME 91.9 fl (80.0-105.0); MEAN CORPUSCULAR HEMOGLOBIN 28.3 pg (25.0-35.0); MEAN CORPUSCULAR HGB CONC 30.8 g/dl (31.0-37.0); MEAN PLATELET VOLUME 12.8 fl (7.0-11.0); MONO # 0.9 (0.1-0.6); MONO % 9.5 % (1.0-6.0); RBC 4.56 10^6/uL (3.5-6.1); RED CELL DISTRIBUTION WIDTH 16.2 % (11.5-14.5); WHITE BLOOD COUNT 9.3 10^3/uL (4.5-11.0)
--- NOTE | 2018-01-08 07:13 | CP.PCM.CON ---
<Francisca Adams - Last Filed: 01/08/18 11:28> History of Present Illness - History of Present Illness History of Present Illness: Infectious Disease Consult Note for Katie Villarreal PGY2 This is an 87yo female with past medical history of CVA w/ L sided hemiparesis, HTN, dyslipidemia, IDDM, a.fib (on Coumadin), CHF who was brought in from [facility] for altered mental status and L sided gaze palsy. Patient is following some commands and answering yes and no to some questions. ROS is limited and history was obtained through chart review. Patient denies having any pain, chest pain, shortness of breath, nausea/vomiting/diarrhea, fever/chills, dysuria or hematuria. Upon admission, patient was found to have mild leukocytosis and positive leukocyte esterase on UA. CXR was negative for pneumonia. Past medical history: HTN, dyslipidemia, IDDM, a.fib (on Coumadin), CVA w/ L sided hemiparesis (3 months ago), CHF Past surgical history: L hip replacement, cholecystectomy Home meds: Reviewed as per MAR Allergies: NKDA Social history: Former tobacco abuse, denies Etoh or drug use. Came from [facility] Family history: Heart problems PMD: Dr. Hubbard Review of Systems - Review of Systems Systems not reviewed;Unavailable: Acuity of Condition All systems: reviewed and no additional remarkable complaints except Review of Systems: 12 point ROS reviewed as per HPI and is also limited due to acuity of condition Past Patient History - Infectious Disease Hx of Infectious Diseases: None - Tetanus Immunizations Tetanus Immunization: Unknown - Past Medical History & Family History Past Medical History?: Yes - Past Social History Smoking Status: Former Smoker - CARDIAC Hx Cardiac Disorders: Yes Hx Cardia Arrhythmia: Yes (afib) Hx Congestive Heart Failure: Yes Hx Hypertension: Yes - PULMONARY Hx Respiratory Disorders: Yes Hx Pneumonia: Yes - NEUROLOGICAL Hx Neurological Disorder: Yes HX Cerebrovascular Accident: Yes (10/2017) - HEENT Hx HEENT Problems: Yes Hx Cataracts: Yes (bilateral eyes) - RENAL Hx Chronic Kidney Disease: No - ENDOCRINE/METABOLIC Hx Endocrine Disorders: Yes Hx Diabetes Mellitus Type 2: Yes - HEMATOLOGICAL/ONCOLOGICAL Hx Blood Disorders: Yes Hx Anemia: Yes - INTEGUMENTARY Hx Dermatological Problems: Yes Other/Comment: red raised itchy rash to both arms - MUSCULOSKELETAL/RHEUMATOLOGICAL Hx Musculoskeletal Disorders: Yes Hx Falls: Yes - GASTROINTESTINAL Hx Gastrointestinal Disorders: Yes Other/Comment: hx poor appetite,fatty liver,gi bleed - GENITOURINARY/GYNECOLOGICAL Hx Genitourinary Disorders: Yes Hx Incontinence: Yes - PSYCHIATRIC Hx Psychophysiologic Disorder: Yes Hx Depression: Yes Hx Substance Use: No - SURGICAL HISTORY Hx Surgeries: Yes Hx Appendectomy: Yes Hx Cholecystectomy: Yes Hx Orthopedic Surgery: Yes (left hip) - ANESTHESIA Hx Anesthesia Reactions: No Hx Malignant Hyperthermia: No Meds Allergies/Adverse Reactions: Allergies Allergy/AdvReac Type Severity Reaction Status Date / Time No Known Allergies Allergy Verified 10/21/17 02:39 - Medications Medications: Current Medications Aspirin (Ecotrin) 81 mg PO DAILY [facility] Atorvastatin Calcium (Lipitor) 40 mg PO DAILY [facility] Last Admin: 01/07/18 12:12 Dose: Not Given Sodium Chloride (Sodium Chloride 0.9%) 1,000 mls @ 100 mls/hr IV .Q10H [facility] Last Admin: 01/07/18 16:00 Dose: 100 mls/hr Cefepime HCl (Maxipime 1gm) 1 gm in 100 mls @ 100 mls/hr IVPB Q12 [facility]; Protocol Last Admin: 01/07/18 23:00 Dose: 100 mls/hr Vancomycin HCl (Vancomycin 1gm) 1 gm in 250 mls @ 167 mls/hr IVPB Q12H [facility]; Protocol Last Admin: 01/08/18 05:19 Dose: 167 mls/hr Insulin Human Lispro (Humalog Med) 0 units SC ACHS [facility]; Protocol Last Admin: 01/07/18 23:00 Dose: Not Given Pantoprazole Sodium (Protonix Inj) 40 mg IVP DAILY [facility] Last Admin: 01/07/18 12:18 Dose: 40 mg Physical Exam - Constitutional Appears: No Acute Distress, Chronically Ill - Head Exam Head Exam: ATRAUMATIC, NORMAL INSPECTION, NORMOCEPHALIC - Eye Exam Eye Exam: Normal appearance Additional comments: R gaze preference - ENT Exam ENT Exam: Mucous Membranes Dry - Respiratory Exam Respiratory Exam: Clear to Auscultation Bilateral, NORMAL BREATHING PATTERN. absent: Rales, Rhonchi, Wheezes - Cardiovascular Exam Cardiovascular Exam: Irregular Rhythm, +S1, +S2, Systolic Murmur. absent: Gallop, Rubs - GI/Abdominal Exam GI & Abdominal Exam: Normal Bowel Sounds, Soft. absent: Guarding, Mass, Rebound, Rigid, Tenderness - Extremities Exam Extremities exam: Positive for: normal inspection. Negative for: calf tendern ess, pedal edema - Neurological Exam Neurological exam: Alert - Expanded Neurological Exam Expanded Speech: Expressive Aphasia Upper motor neuron: Noe Neglect: Abnormal Left Neuro motor strength exam: Left Upper Extremity: 0, Right Upper Extremity: 3, Le ft Lower Extremity: 0, Right Lower Extremity: 3 Coma Scale Eye Opening: SPONTANEOUS Coma Scale Motor Response: OBEYS COMMANDS Coma Scale Verbal: Confused Coma Scale Total: 14 - Skin Skin Exam: Dry, Normal Color, Warm Results - Vital Signs Recent Vital Signs: Last Vital Signs Temp 99.4 F 01/07/18 16:30 Pulse 112 H 01/07/18 20:48 Resp 28 H 01/07/18 20:48 BP 193/114 H 01/07/18 20:48 Pulse Ox 98 01/07/18 20:48 - Labs Result Diagrams: 01/08/18 05:50 01/08/18 05:50 Labs: Laboratory Results - last 24 hr 01/06/18 01/07/18 01/07/18 18:22 05:45 05:45 WBC 10.3 RBC 4.46 Hgb 12.5 Hct 40.7 MCV 91.3 MCH 28.0 MCHC 30.7 L RDW 16.2 H Plt Count 228 MPV 13.0 H Gran % 74.3 H Lymph % (Auto) 14.7 L Grady % (Auto) 8.9 H Eos % (Auto) 1.8 Baso % (Auto) 0.3 Gran # 7.64 H Lymph # (Auto) 1.5 Grady # (Auto) 0.9 H Eos # (Auto) 0.2 Baso # (Auto) 0.03 Sodium 142 Potassium 3.5 L Chloride 110 H Carbon Dioxide 28 Anion Gap 8 L BUN 14 Creatinine 0.5 L Est GFR ( Amer) > 60 Est GFR (Non-Af Amer) > 60 POC Glucose (mg/dL) Random Glucose 174 H Hemoglobin A1c 7.7 H Calcium 8.8 Phosphorus 3.3 Magnesium 2.1 Total Bilirubin 0.6 AST 21 ALT 30 Alkaline Phosphatase 105 Total Protein 6.2 Albumin 2.9 L Globulin 3.2 Albumin/Globulin Ratio 0.9 L 01/07/18 01/07/1818 08:18 12:10 17:10 WBC RBC Hgb Hct MCV MCH MCHC RDW Plt Count MPV Gran % Lymph % (Auto) Grady % (Auto) Eos % (Auto) Baso % (Auto) Gran # Lymph # (Auto) Grady # (Auto) Eos # (Auto) Baso # (Auto) Sodium Potassium Chloride Carbon Dioxide Anion Gap BUN Creatinine Est GFR ( Amer) Est GFR (Non-Af Amer) POC Glucose (mg/dL) 145 H 156 H 134 H Random Glucose Hemoglobin A1c Calcium Phosphorus Magnesium Total Bilirubin AST ALT Alkaline Phosphatase Total Protein Albumin Globulin Albumin/Globulin Ratio 01/07/18 22:08 WBC RBC Hgb Hct MCV MCH MCHC RDW Plt Count MPV Gran % Lymph % (Auto) Grady % (Auto) Eos % (Auto) Baso % (Auto) Gran # Lymph # (Auto) Grady # (Auto) Eos # (Auto) Baso # (Auto) Sodium Potassium Chloride Carbon Dioxide Anion Gap BUN Creatinine Est GFR ( Amer) Est GFR (Non-Af Amer) POC Glucose (mg/dL) 152 H Random Glucose Hemoglobin A1c Calcium Phosphorus Magnesium Total Bilirubin AST ALT Alkaline Phosphatase Total Protein Albumin Globulin Albumin/Globulin Ratio Assessment & Plan - Assessment and Plan (Free Text) Assessment: 1. UTI - UA positive for leukocyte esterase - no sign of sepsis at this time 2. CVA - possible acute on chronic 3. A.fib on coumadin 4. HTN 5. IDDM 6. CHF 7. Dyslipidemia 8. Cholecystectomy Plan: Labs and imaging reviewed. Septic work up pending. Blood cultures negative thus far. Urine cultures pending. Previous urine cultures reviewed which revealed no growth. Patient had blood cultures positive for staph saprophyticus that was resistant to oxacillin in the past. No evidence of aspiration pneumonia at this time. Will continue Cefepime and Vanc until cultures are finalized. Patient is NPO. Will await urine culture for further recommendations. Case seen, discussed and reviewed with Katie Villarreal PGY3 - Date & Time Date: 01/08/18 Time: 09:52 <Juan Grey - Last Filed: 01/08/18 16:26> Meds - Medications Medications: Current Medications Aspirin (Ecotrin) 81 mg PO DAILY [facility] Last Admin: 01/08/18 10:33 Dose: Not Given Atorvastatin Calcium (Lipitor) 40 mg PO DAILY [facility] Last Admin: 01/08/18 10:33 Dose: Not Given Sodium Chloride (Sodium Chloride 0.9%) 1,000 mls @ 100 mls/hr IV .Q10H [facility] Last Admin: 01/08/18 12:25 Dose: 100 mls/hr Cefepime HCl (Maxipime 1gm) 1 gm in 100 mls @ 100 mls/hr IVPB Q12 [facility]; Protocol Last Admin: 01/08/18 10:56 Dose: 100 mls/hr Vancomycin HCl (Vancomycin 1gm) 1 gm in 250 mls @ 167 mls/hr IVPB Q12H [facility]; Protocol Last Admin: 01/08/18 16:00 Dose: 167 mls/hr Insulin Human Lispro (Humalog Med) 0 units SC ACHS [facility]; Protocol Last Admin: 01/08/18 11:29 Dose: Not Given Pantoprazole Sodium (Protonix Inj) 40 mg IVP DAILY [facility] Last Admin: 01/08/18 10:56 Dose: 40 mg Results - Vital Signs Recent Vital Signs: Last Vital Signs Temp 99.4 F 01/07/18 16:30 Pulse 117 H 01/08/18 11:36 Resp 29 H 01/08/18 11:36 BP 166/82 H 01/08/18 11:36 Pulse Ox 98 01/08/18 11:36 - Labs Result Diagrams: 01/08/18 05:50 01/08/18 05:50 Labs: Laboratory Results - last 24 hr 01/07/18 01/07/18 01/08/18 17:10 22:08 05:50 WBC 9.3 RBC 4.56 Hgb 12.9 Hct 41.9 MCV 91.9 MCH 28.3 MCHC 30.8 L RDW 16.2 H Plt Count 234 MPV 12.8 H Gran % 72.5 H Lymph % (Auto) 16.0 L Grady % (Auto) 9.5 H Eos % (Auto) 1.8 Baso % (Auto) 0.2 Gran # 6.74 H Lymph # (Auto) 1.5 Grady # (Auto) 0.9 H Eos # (Auto) 0.2 Baso # (Auto) 0.02 Sodium Potassium Chloride Carbon Dioxide Anion Gap BUN Creatinine Est GFR ( Amer) Est GFR (Non-Af Amer) POC Glucose (mg/dL) 134 H 152 H Random Glucose Calcium Total Bilirubin AST ALT Alkaline Phosphatase Total Protein Albumin Globulin Albumin/Globulin Ratio 01/08/18 01/08/18 01/08/18 05:50 07:57 11:18 WBC RBC Hgb Hct MCV MCH MCHC RDW Plt Count MPV Gran % Lymph % (Auto) Grady % (Auto) Eos % (Auto) Baso % (Auto) Gran # Lymph # (Auto) Grady # (Auto) Eos # (Auto) Baso # (Auto) Sodium 144 Potassium 3.4 L Chloride 110 H Carbon Dioxide 28 Anion Gap 10 BUN 11 Creatinine 0.4 L Est GFR ( Amer) > 60 Est GFR (Non-Af Amer) > 60 POC Glucose (mg/dL) 128 H 146 H Random Glucose 137 H Calcium 8.7 Total Bilirubin 0.8 AST 20 ALT 20 Alkaline Phosphatase 109 Total Protein 6.5 Albumin 3.2 Globulin 3.4 Albumin/Globulin Ratio 0.9 L 01/08/18 11:23 WBC RBC Hgb Hct MCV MCH MCHC RDW Plt Count MPV Gran % Lymph % (Auto) Grady % (Auto) Eos % (Auto) Baso % (Auto) Gran # Lymph # (Auto) Grady # (Auto) Eos # (Auto) Baso # (Auto) Sodium Potassium Chloride Carbon Dioxide Anion Gap BUN Creatinine Est GFR ( Amer) Est GFR (Non-Af Amer) POC Glucose (mg/dL) 152 H Random Glucose Calcium Total Bilirubin AST ALT Alkaline Phosphatase Total Protein Albumin Globulin Albumin/Globulin Ratio Assessment & Plan - Assessment and Plan (Free Text) Plan: Infectious Diseases Attending Physician Attestation Patient seen and examined, discussed with medical billing representative. I have reviewed the patient's history of present illness, past medical, family and social histories, personal history, physical exam, lab findings and imaging studies. I agree with the above findings, assessment and plan. In addition, we have started Vancomycin and Cefepime for this patient with possible UTI in this patient with CVA. Follow up urine cx. Blood cx are negative so far. Will monitor clinically.
[2018-01-08 07:16] LABS: ALB/GLOB RATIO 0.9 (1.1-1.8); ALBUMIN 3.2 g/dL (3.0-4.8); ALT/SGPT 20 U/L (7-56); AST/SGOT 20 U/L (14-36); BLOOD UREA NITROGEN 11 mg/dL (7-21); CALCIUM 8.7 mg/dL (8.4-10.5); GFR NON-AFRICAN AMERICAN > 60
--- NOTE | 2018-01-08 08:56 | CP.PCM.PN ---
<David Lee - Last Filed: 01/08/18 14:31> Subjective - Date & Time of Evaluation Date of Evaluation: 01/08/18 Time of Evaluation: 10:00 - Subjective Subjective: David Lee- Internal Medicine Resident- Progress Note on Behalf of Neurology Team Subjective: Patient seen and examined at bedside. No acute events overnight. Patient is more awake and alert. She is responding to verbal stimuli and is following commands. Able to communicate by nodding and shaking head. Denies fever, chills, chest pain, shortness of breath. 12 point ROS negative except as indicated in HPI Physical Examination: - Constitutional Appears: No Acute Distress - Head Exam Head Exam: ATRAUMATIC, NORMAL INSPECTION, NORMOCEPHALIC - Eye Exam Eye Exam: left sided gaze palsy - ENT Exam ENT Exam: Mucous Membranes Moist, Normal Exam, No tongue laceration - Neck Exam Neck exam: Positive for: Full Rom, Normal Inspection - Respiratory Exam Respiratory Exam: Clear to Auscultation Bilateral, NORMAL BREATHING PATTERN. absent: Accessory Muscle Use, Rales, Rhonchi, Wheezes, Respiratory Distress - Cardiovascular Exam Cardiovascular Exam: Tachycardic, +S1, +S2 - GI/Abdominal Exam GI & Abdominal Exam: Normal Bowel Sounds, Soft. absent: Distended, Firm, Guarding, Rebound, Rigid, Tenderness - Extremities Exam Extremities exam: no cyanosis, no edema - Neurological Exam Neurological exam: awake, alert, responding to verbal stimuli and is following commands, left upper extremity and lower extremity 0/5, right upper extremity 5/5, right lower extremity 3/5, severe aphasia - Psychiatric Exam Psychiatric exam: Normal Affect, Normal Mood - Skin Skin Exam: Intact, Normal Color, Warm Assessment and Plan: Patient is a 87 year old female with a past medical history of HTN, CHF & atrial fibrillation(on Coumadin), HLD, CVA w/ residual left sided hemiparesis who was admitted for evaluation and treatment of altered mental status. Patient was not a candidate for tPA given her history of coumadin use, high NIHSS, and stroke within the last 3 months. AMS - ddx- cva vs tia vs delirium 2/2 infection - 11/06/2017 CT head without contrast- no acute findings - 01/07/2018 CT head without contrast-Old right frontal and old high left frontal infarcts, possible acute sphenoid sinusitis - 01/07/18 MRI brain without contrast - Chronic bilateral infarcts. Areas of linear restricted diffusion are most likely artifactual. - EEG ordered and pending - c/w IVF NS @ 100cc - keep patient euglycemic, normothermic, and electrolytes WNL - recommend secondary stroke prevention - aspirin (hemorrhagic stroke is ruled out), statin - PT/OT Patient case discussed with and plan approved by attending physician, Dr. Jiménez. Objective - Vital Signs/Intake and Output Vital Signs (last 24 hours): Temp Pulse Resp BP Pulse Ox 99.4 F 112 H 28 H 193/114 H 98 01/07/18 16:30 01/07/18 20:48 01/07/18 20:48 01/07/18 20:48 01/07/18 20:48 - Medications Medications: Current Medications Aspirin (Ecotrin) 81 mg PO DAILY [facility] Atorvastatin Calcium (Lipitor) 40 mg PO DAILY [facility] Last Admin: 01/07/18 12:12 Dose: Not Given Sodium Chloride (Sodium Chloride 0.9%) 1,000 mls @ 100 mls/hr IV .Q10H [facility] Last Admin: 01/07/18 16:00 Dose: 100 mls/hr Cefepime HCl (Maxipime 1gm) 1 gm in 100 mls @ 100 mls/hr IVPB Q12 [facility]; Protocol Last Admin: 01/07/18 23:00 Dose: 100 mls/hr Vancomycin HCl (Vancomycin 1gm) 1 gm in 250 mls @ 167 mls/hr IVPB Q12H [facility]; Protocol Last Admin: 01/08/18 05:19 Dose: 167 mls/hr Potassium Chloride (Potassium Chloride 10 Meq/100 Ml) 10 meq in 100 mls @ 50 mls/hr IVPB Q2H [facility] Stop: 01/08/18 11:59 Insulin Human Lispro (Humalog Med) 0 units SC ACHS [facility]; Protocol Last Admin: 01/07/18 23:00 Dose: Not Given Pantoprazole Sodium (Protonix Inj) 40 mg IVP DAILY [facility] Last Admin: 01/07/18 12:18 Dose: 40 mg - Labs Labs: 01/08/18 05:50 01/08/18 05:50 PT 16.0 SECONDS (9.4-12.5) H 01/07/18 05:45 INR 1.38 01/07/18 05:45 APTT 36.1 Seconds (25.1-36.5) 01/06/18 18:22 <TinoRlbasil - Last Filed: 01/08/18 23:10> Objective - Vital Signs/Intake and Output Vital Signs (last 24 hours): Temp Pulse Resp BP Pulse Ox 97.6 F 115 H 20 166/82 H 99 01/08/18 20:00 01/08/18 20:00 01/08/18 20:00 01/08/18 11:36 01/08/18 20:00 Intake and Output: 01/08/18 01/09/18 18:59 06:59 Intake Total 2050 Output Total 900 Balance 1150 - Medications Medications: Current Medications Aspirin (Ecotrin) 81 mg PO DAILY [facility] Last Admin: 01/08/18 10:33 Dose: Not Given Atorvastatin Calcium (Lipitor) 40 mg PO DAILY [facility] Last Admin: 01/08/18 10:33 Dose: Not Given Sodium Chloride (Sodium Chloride 0.9%) 1,000 mls @ 100 mls/hr IV .Q10H [facility] Last Admin: 01/08/18 21:20 Dose: 100 mls/hr Cefepime HCl (Maxipime 1gm) 1 gm in 100 mls @ 100 mls/hr IVPB Q12 [facility]; Protocol Last Admin: 01/08/18 21:19 Dose: 100 mls/hr Vancomycin HCl (Vancomycin 1gm) 1 gm in 250 mls @ 167 mls/hr IVPB Q12H [facility]; Protocol Last Admin: 01/08/18 16:00 Dose: 167 mls/hr Insulin Human Lispro (Humalog Med) 0 units SC ACHS [facility]; Protocol Last Admin: 01/08/18 17:46 Dose: Not Given Pantoprazole Sodium (Protonix Inj) 40 mg IVP DAILY [facility] Last Admin: 01/08/18 10:56 Dose: 40 mg - Labs Labs: 01/08/18 05:50 01/08/18 05:50 PT 16.0 SECONDS (9.4-12.5) H 01/07/18 05:45 INR 1.38 01/07/18 05:45 APTT 36.1 Seconds (25.1-36.5) 01/06/18 18:22 Assessment and Plan - Assessment and Plan (Free Text) Assessment: All medical record entries made by the Resident were at my direction and personally dictated by me. I have reviewed the chart and agree that the record accurately reflects my personal performance of the history, physical exam, medical decision making, and the department course for this patient. I have also personally directed, reviewed, and agree with the discharge instructions and disposition.
--- NOTE | 2018-01-08 09:04 | CP.CCUPN ---
<Matilde Bee - Last Filed: 01/08/18 10:38> CCU Subjective - Physician Review Subjective (Free Text): CRITICAL CARE PROGRESS NOTE FOR DR. LEROY Bee PGY-1 Pt seen and examined at bedside this am. She is still lethargic. She responds to verbal and tactile stimuli and follow commands to squeeze her R hand. She responds by saying no to questions, however speech is otherwise incomprehensible. CCU Objective - Vital Signs / Intake & Output Intake and Output (Last 8hrs): Intake & Output 01/07/18 01/08/18 01/08/18 22:59 06:59 14:59 Intake Total 1200 1200 Output Total 475 475 Balance 725 725 Intake: IV 1200 1200 Right Antecubital 1200 1200 Oral 0 0 Output: Urine 475 475 Urethral (Ta) 475 475 Other: # Bowel Movements 1 1 - Physical Exam Head: Positive for: Atraumatic, Normocephalic Pupils: Positive for: Sluggish Extroacular Muscles: Positive for: Gaze Palsy (left sided gaze palsy) Conjunctiva: Positive for: Normal Mouth: Positive for: Moist Mucous Membranes Respiratory/Chest: Positive for: Clear to Auscultation, Good Air Exchange. Negative for: Respiratory Distress Cardiovascular: Positive for: Irregular Rhythm (irregularly irregular rhythm consistent with atrial fibrillation) Abdomen: Positive for: Normal Bowel Sounds. Negative for: Tenderness, Distention, Peritoneal Signs Upper Extremity: Positive for: Edema (B/L edema noted to hands b/l) Lower Extremity: Positive for: Edema (pedal edma noted to b/l) Neurological: Positive for: Normal Sensory Function, Other (Severe aphasia. left lateral gaze palsy w/ 1/5 motor strength in LUE, LLE, & RLE. 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 ) Skin: Positive for: Warm, Dry, Normal Color Psychiatric: Positive for: Alert - Medications Active Medications: Active Medications Generic Name Dose Route Start Last Admin Trade Name Freq PRN Reason Stop Dose Admin Aspirin 81 mg 01/08/18 10:00 Ecotrin PO DAILY [facility] Atorvastatin Calcium 40 mg 01/07/18 10:00 01/07/18 12:12 Lipitor PO Not Given DAILY [facility] Sodium Chloride 1,000 mls @ 100 mls/hr 01/06/18 19:00 01/07/18 16:00 Sodium Chloride 0.9% IV 100 mls/hr .Q10H [facility] Administration Cefepime HCl 1 gm in 100 mls @ 100 mls/hr 01/07/18 22:00 01/07/18 23:00 Maxipime 1gm IVPB 100 mls/hr Q12 [facility] Administration Protocol Vancomycin HCl 1 gm in 250 mls @ 167 mls/hr 01/07/18 16:30 01/08/18 05:19 Vancomycin 1gm IVPB 167 mls/hr Q12H [facility] Administration Protocol Potassium Chloride 10 meq in 100 mls @ 50 mls/hr 01/08/18 08:00 Potassium Chloride 10 Meq/100 Ml IVPB 01/08/18 11:59 Q2H [facility] Insulin Human Lispro 0 units 01/06/18 22:00 01/07/18 23:00 Humalog Med SC Not Given ACHS [facility] Protocol Pantoprazole Sodium 40 mg 01/07/18 10:00 01/07/18 12:18 Protonix Inj IVP 40 mg DAILY [facility] Administration - Patient Studies Lab Studies: Microbiology Studies 01/06/18 19:00 Blood Culture - Preliminary Blood NO GROWTH AFTER 24 HOURS 01/06/18 18:20 Blood Culture - Preliminary Blood NO GROWTH AFTER 24 HOURS Lab Studies 01/08/18 01/08/18 01/07/18 Range/Units 05:50 05:50 22:08 WBC 9.3 (4.5-11.0) 10^3/uL RBC 4.56 (3.5-6.1) 10^6/uL Hgb 12.9 (12.0-16.0) g/dL Hct 41.9 (36.0-48.0) % MCV 91.9 (80.0-105.0) fl MCH 28.3 (25.0-35.0) pg MCHC 30.8 L (31.0-37.0) g/dl RDW 16.2 H (11.5-14.5) % Plt Count 234 (120.0-450.0) 10^3/uL MPV 12.8 H (7.0-11.0) fl Gran % 72.5 H (50.0-68.0) % Lymph % (Auto) 16.0 L (22.0-35.0) % [place] % (Auto) 9.5 H (1.0-6.0) % Eos % (Auto) 1.8 (1.5-5.0) % Baso % (Auto) 0.2 (0.0-3.0) % Gran # 6.74 H (1.4-6.5) Lymph # (Auto) 1.5 (1.2-3.4) [place] # (Auto) 0.9 H (0.1-0.6) Eos # (Auto) 0.2 (0.0-0.7) Baso # (Auto) 0.02 (0.0-2.0) K/mm3 Sodium 144 (132-148) mmol/L Potassium 3.4 L (3.6-5.0) mmol/L Chloride 110 H (98-107) mmol/L Carbon Dioxide 28 (21-33) mmol/L Anion Gap 10 (10-20) BUN 11 (7-21) mg/dL Creatinine 0.4 L (0.7-1.2) mg/dl Est GFR ( Amer) > 60 Est GFR (Non-Af Amer) > 60 POC Glucose (mg/dL) 152 H (65-110) mg/dL Random Glucose 137 H (70-110) mg/dL Hemoglobin A1c (4.2-6.5) % Calcium 8.7 (8.4-10.5) mg/dL Total Bilirubin 0.8 (0.2-1.3) mg/dL AST 20 (14-36) U/L ALT 20 (7-56) U/L Alkaline Phosphatase 109 (38-126) U/L Total Protein 6.5 (5.8-8.3) g/dL Albumin 3.2 (3.0-4.8) g/dL Globulin 3.4 gm/dL Albumin/Globulin Ratio 0.9 L (1.1-1.8) 01/07/18 01/07/18 01/06/18 Range/Units 17:10 12:10 18:22 WBC (4.5-11.0) 10^3/uL RBC (3.5-6.1) 10^6/uL Hgb (12.0-16.0) g/dL Hct (36.0-48.0) % MCV (80.0-105.0) fl MCH (25.0-35.0) pg MCHC (31.0-37.0) g/dl RDW (11.5-14.5) % Plt Count (120.0-450.0) 10^3/uL MPV (7.0-11.0) fl Gran % (50.0-68.0) % Lymph % (Auto) (22.0-35.0) % [place] % (Auto) (1.0-6.0) % Eos % (Auto) (1.5-5.0) % Baso % (Auto) (0.0-3.0) % Gran # (1.4-6.5) Lymph # (Auto) (1.2-3.4) [place] # (Auto) (0.1-0.6) Eos # (Auto) (0.0-0.7) Baso # (Auto) (0.0-2.0) K/mm3 Sodium (132-148) mmol/L Potassium (3.6-5.0) mmol/L Chloride (98-107) mmol/L Carbon Dioxide (21-33) mmol/L Anion Gap (10-20) BUN (7-21) mg/dL Creatinine (0.7-1.2) mg/dl Est GFR ( Amer) Est GFR (Non-Af Amer) POC Glucose (mg/dL) 134 H 156 H (65-110) mg/dL Random Glucose (70-110) mg/dL Hemoglobin A1c 7.7 H (4.2-6.5) % Calcium (8.4-10.5) mg/dL Total Bilirubin (0.2-1.3) mg/dL AST (14-36) U/L ALT (7-56) U/L Alkaline Phosphatase (38-126) U/L Total Protein (5.8-8.3) g/dL Albumin (3.0-4.8) g/dL Globulin gm/dL Albumin/Globulin Ratio (1.1-1.8) Laboratory Results - last 24 hr 01/06/18 01/07/18 01/07/18 18:22 12:10 17:10 WBC RBC Hgb Hct MCV MCH MCHC RDW Plt Count MPV Gran % Lymph % (Auto) [place] % (Auto) Eos % (Auto) Baso % (Auto) Gran # Lymph # (Auto) [place] # (Auto) Eos # (Auto) Baso # (Auto) Sodium Potassium Chloride Carbon Dioxide Anion Gap BUN Creatinine Est GFR ( Amer) Est GFR (Non-Af Amer) POC Glucose (mg/dL) 156 H 134 H Random Glucose Hemoglobin A1c 7.7 H Calcium Total Bilirubin AST ALT Alkaline Phosphatase Total Protein Albumin Globulin Albumin/Globulin Ratio 01/07/18 01/08/18 01/08/18 22:08 05:50 05:50 WBC 9.3 RBC 4.56 Hgb 12.9 Hct 41.9 MCV 91.9 MCH 28.3 MCHC 30.8 L RDW 16.2 H Plt Count 234 MPV 12.8 H Gran % 72.5 H Lymph % (Auto) 16.0 L [place] % (Auto) 9.5 H Eos % (Auto) 1.8 Baso % (Auto) 0.2 Gran # 6.74 H Lymph # (Auto) 1.5 [place] # (Auto) 0.9 H Eos # (Auto) 0.2 Baso # (Auto) 0.02 Sodium 144 Potassium 3.4 L Chloride 110 H Carbon Dioxide 28 Anion Gap 10 BUN 11 Creatinine 0.4 L Est GFR ( Amer) > 60 Est GFR (Non-Af Amer) > 60 POC Glucose (mg/dL) 152 H Random Glucose 137 H Hemoglobin A1c Calcium 8.7 Total Bilirubin 0.8 AST 20 ALT 20 Alkaline Phosphatase 109 Total Protein 6.5 Albumin 3.2 Globulin 3.4 Albumin/Globulin Ratio 0.9 L Fingerstick Blood Sugar Results: 156 Review of Systems - Review of Systems Review of Systems: per HPI Critical Care Progress Note - Nutrition Nutrition: Nutrition Category Date Time Status Heart Healthy Diet [DIET] Diets 01/07/18 Breakfast Active Assessment/Plan - Assessment and Plan (Free Text) Assessment: 87 y/o F w/ h/o HTN, CHF & atrial fibrillation(on coumadin), HLD CVA w/ residual left sided hemiparesis presented to the Emergency Room by EMS for altered mental status. Pt admitted to ICU for CVA. MRI reveals periventricular ischemic changes which appear chronic in nature. Plan: Neuro: Pt awake, however does not respond to orientation questions MRI Head: Mild brain atrophy & ventricular dilation. Periventricular white mat ter ischemic changes which appear chronic in nature. f/u EEG f/u Neurology recs seizure precautions fall precautions neuro checks continue home lipitor when she passes swallow eval Cardiovascular: Hx of chronic afib Echocardiogram speech eval, then continue AC Maintain MAP >65 Maintain euvolemia Permissive hypertension per neuro recs 220/120 aspirin/atorvastatin consult cardiology. f/u recs Pulmonary: Maintain SaO2 >90% Supplement O2 prn abg wnl GI: NPO failed swallow eval GI ppx: protonix IVP /Renal Replete electrolytes prn maintain euvolemia avoid nephrotoxic agents U/a: moderate leukocyte esterase Avoid nephrotoxic agents f/u ID recs Monitor I/Os Heme: H/H stable INR: 1.38 Resume AC if passes swallow eval Leukocytosis resolving Endo: maintain euglycemia insulin lispro ACHS ID: Afebrile Leukocytosis resolved UTI on u/a Currently on vanc and cefepime blood cultures and urine cultures pending DVT/GI PPx: SCD/Protonix Code status: DNR/DNI Dispo: Pt's lethargy is improving, she denies complaints. She follows commands. Vital signs are stable. She is hemodynamically stable. Leukocytosis is resolving. She no longer requires ICU care. Pt is stable for transfer to telemetry floor. Please re-consult if necessary. Case seen, examined and discussed with attending physician, Dr. Cassidy <Julien Cassidy - Last Filed: 01/08/18 13:24> CCU Objective - Vital Signs / Intake & Output Vital Signs (Last 4 hours): Vital Signs Pulse Resp BP Pulse Ox 01/08/18 11:36 117 H 29 H 166/82 H 95 01/08/18 11:30 104 H 18 175/82 H 94 L 01/08/18 11:20 113 H 21 97 01/08/18 11:10 103 H 20 97 01/08/18 11:00 176/84 H 01/08/18 10:59 110 H 20 97 01/08/18 10:50 102 H 21 98 01/08/18 10:40 103 H 22 97 01/08/18 10:30 161/96 H 01/08/18 10:29 101 H 20 97 01/08/18 10:20 105 H 20 98 01/08/18 10:10 103 H 21 97 01/08/18 10:00 105 H 28 H 174/83 H 97 01/08/18 09:50 97 H 29 H 97 01/08/18 09:40 106 H 31 H 97 01/08/18 09:30 109 H 22 171/90 H 98 Intake and Output (Last 8hrs): Intake & Output 01/07/18 01/08/18 01/08/18 22:59 06:59 14:59 Intake Total 1200 1200 Output Total 475 475 Balance 725 725 Intake: IV 1200 1200 Right Antecubital 1200 1200 Oral 0 0 Output: Urine 475 475 Urethral (Ta) 475 475 Other: # Bowel Movements 1 1 - Medications Active Medications: Active Medications Generic Name Dose Route Start Last Admin Trade Name Freq PRN Reason Stop Dose Admin Aspirin 81 mg 01/08/18 10:00 01/08/18 10:33 Ecotrin PO Not Given DAILY [facility] Atorvastatin Calcium 40 mg 01/07/18 10:00 01/08/18 10:33 Lipitor PO Not Given DAILY [facility] Sodium Chloride 1,000 mls @ 100 mls/hr 01/06/18 19:00 01/08/18 12:25 Sodium Chloride 0.9% IV 100 mls/hr .Q10H [facility] Administration Cefepime HCl 1 gm in 100 mls @ 100 mls/hr 01/07/18 22:00 01/08/18 10:56 Maxipime 1gm IVPB 100 mls/hr Q12 [facility] Administration Protocol Vancomycin HCl 1 gm in 250 mls @ 167 mls/hr 01/07/18 16:30 01/08/18 05:19 Vancomycin 1gm IVPB 167 mls/hr Q12H [facility] Administration Protocol Insulin Human Lispro 0 units 01/06/18 22:00 01/08/18 11:29 Humalog Med SC Not Given ACHS [facility] Protocol Pantoprazole Sodium 40 mg 01/07/18 10:00 01/08/18 10:56 Protonix Inj IVP 40 mg DAILY [facility] Administration - Patient Studies Lab Studies: Microbiology Studies 01/06/18 19:00 Blood Culture - Preliminary Blood NO GROWTH AFTER 24 HOURS 01/06/18 18:20 Blood Culture - Preliminary Blood NO GROWTH AFTER 24 HOURS Lab Studies 01/08/18 01/08/18 01/08/18 Range/Units 11:23 11:18 07:57 WBC (4.5-11.0) 10^3/uL RBC (3.5-6.1) 10^6/uL Hgb (12.0-16.0) g/dL Hct (36.0-48.0) % MCV (80.0-105.0) fl MCH (25.0-35.0) pg MCHC (31.0-37.0) g/dl RDW (11.5-14.5) % Plt Count (120.0-450.0) 10^3/uL MPV (7.0-11.0) fl Gran % (50.0-68.0) % Lymph % (Auto) (22.0-35.0) % [place] % (Auto) (1.0-6.0) % Eos % (Auto) (1.5-5.0) % Baso % (Auto) (0.0-3.0) % Gran # (1.4-6.5) Lymph # (Auto) (1.2-3.4) [place] # (Auto) (0.1-0.6) Eos # (Auto) (0.0-0.7) Baso # (Auto) (0.0-2.0) K/mm3 Sodium (132-148) mmol/L Potassium (3.6-5.0) mmol/L Chloride (98-107) mmol/L Carbon Dioxide (21-33) mmol/L Anion Gap (10-20) BUN (7-21) mg/dL Creatinine (0.7-1.2) mg/dl Est GFR ( Amer) Est GFR (Non-Af Amer) POC Glucose (mg/dL) 152 H 146 H 128 H (65-110) mg/dL Random Glucose (70-110) mg/dL Calcium (8.4-10.5) mg/dL Total Bilirubin (0.2-1.3) mg/dL AST (14-36) U/L ALT (7-56) U/L Alkaline Phosphatase (38-126) U/L Total Protein (5.8-8.3) g/dL Albumin (3.0-4.8) g/dL Globulin gm/dL Albumin/Globulin Ratio (1.1-1.8) 01/08/18 01/08/18 01/07/18 Range/Units 05:50 05:50 22:08 WBC 9.3 (4.5-11.0) 10^3/uL RBC 4.56 (3.5-6.1) 10^6/uL Hgb 12.9 (12.0-16.0) g/dL Hct 41.9 (36.0-48.0) % MCV 91.9 (80.0-105.0) fl MCH 28.3 (25.0-35.0) pg MCHC 30.8 L (31.0-37.0) g/dl RDW 16.2 H (11.5-14.5) % Plt Count 234 (120.0-450.0) 10^3/uL MPV 12.8 H (7.0-11.0) fl Gran % 72.5 H (50.0-68.0) % Lymph % (Auto) 16.0 L (22.0-35.0) % [place] % (Auto) 9.5 H (1.0-6.0) % Eos % (Auto) 1.8 (1.5-5.0) % Baso % (Auto) 0.2 (0.0-3.0) % Gran # 6.74 H (1.4-6.5) Lymph # (Auto) 1.5 (1.2-3.4) [place] # (Auto) 0.9 H (0.1-0.6) Eos # (Auto) 0.2 (0.0-0.7) Baso # (Auto) 0.02 (0.0-2.0) K/mm3 Sodium 144 (132-148) mmol/L Potassium 3.4 L (3.6-5.0) mmol/L Chloride 110 H (98-107) mmol/L Carbon Dioxide 28 (21-33) mmol/L Anion Gap 10 (10-20) BUN 11 (7-21) mg/dL Creatinine 0.4 L (0.7-1.2) mg/dl Est GFR ( Amer) > 60 Est GFR (Non-Af Amer) > 60 POC Glucose (mg/dL) 152 H (65-110) mg/dL Random Glucose 137 H (70-110) mg/dL Calcium 8.7 (8.4-10.5) mg/dL Total Bilirubin 0.8 (0.2-1.3) mg/dL AST 20 (14-36) U/L ALT 20 (7-56) U/L Alkaline Phosphatase 109 (38-126) U/L Total Protein 6.5 (5.8-8.3) g/dL Albumin 3.2 (3.0-4.8) g/dL Globulin 3.4 gm/dL Albumin/Globulin Ratio 0.9 L (1.1-1.8) 01/07/18 Range/Units 17:10 WBC (4.5-11.0) 10^3/uL RBC (3.5-6.1) 10^6/uL Hgb (12.0-16.0) g/dL Hct (36.0-48.0) % MCV (80.0-105.0) fl MCH (25.0-35.0) pg MCHC (31.0-37.0) g/dl RDW (11.5-14.5) % Plt Count (120.0-450.0) 10^3/uL MPV (7.0-11.0) fl Gran % (50.0-68.0) % Lymph % (Auto) (22.0-35.0) % [place] % (Auto) (1.0-6.0) % Eos % (Auto) (1.5-5.0) % Baso % (Auto) (0.0-3.0) % Gran # (1.4-6.5) Lymph # (Auto) (1.2-3.4) [place] # (Auto) (0.1-0.6) Eos # (Auto) (0.0-0.7) Baso # (Auto) (0.0-2.0) K/mm3 Sodium (132-148) mmol/L Potassium (3.6-5.0) mmol/L Chloride (98-107) mmol/L Carbon Dioxide (21-33) mmol/L Anion Gap (10-20) BUN (7-21) mg/dL Creatinine (0.7-1.2) mg/dl Est GFR ( Amer) Est GFR (Non-Af Amer) POC Glucose (mg/dL) 134 H (65-110) mg/dL Random Glucose (70-110) mg/dL Calcium (8.4-10.5) mg/dL Total Bilirubin (0.2-1.3) mg/dL AST (14-36) U/L ALT (7-56) U/L Alkaline Phosphatase (38-126) U/L Total Protein (5.8-8.3) g/dL Albumin (3.0-4.8) g/dL Globulin gm/dL Albumin/Globulin Ratio (1.1-1.8) Laboratory Results - last 24 hr 01/07/18 01/07/18 01/08/18 17:10 22:08 05:50 WBC 9.3 RBC 4.56 Hgb 12.9 Hct 41.9 MCV 91.9 MCH 28.3 MCHC 30.8 L RDW 16.2 H Plt Count 234 MPV 12.8 H Gran % 72.5 H Lymph % (Auto) 16.0 L [place] % (Auto) 9.5 H Eos % (Auto) 1.8 Baso % (Auto) 0.2 Gran # 6.74 H Lymph # (Auto) 1.5 [place] # (Auto) 0.9 H Eos # (Auto) 0.2 Baso # (Auto) 0.02 Sodium Potassium Chloride Carbon Dioxide Anion Gap BUN Creatinine Est GFR ( Amer) Est GFR (Non-Af Amer) POC Glucose (mg/dL) 134 H 152 H Random Glucose Calcium Total Bilirubin AST ALT Alkaline Phosphatase Total Protein Albumin Globulin Albumin/Globulin Ratio 01/08/18 01/08/18 01/08/18 05:50 07:57 11:18 WBC RBC Hgb Hct MCV MCH MCHC RDW Plt Count MPV Gran % Lymph % (Auto) [place] % (Auto) Eos % (Auto) Baso % (Auto) Gran # Lymph # (Auto) [place] # (Auto) Eos # (Auto) Baso # (Auto) Sodium 144 Potassium 3.4 L Chloride 110 H Carbon Dioxide 28 Anion Gap 10 BUN 11 Creatinine 0.4 L Est GFR ( Amer) > 60 Est GFR (Non-Af Amer) > 60 POC Glucose (mg/dL) 128 H 146 H Random Glucose 137 H Calcium 8.7 Total Bilirubin 0.8 AST 20 ALT 20 Alkaline Phosphatase 109 Total Protein 6.5 Albumin 3.2 Globulin 3.4 Albumin/Globulin Ratio 0.9 L 01/08/18 11:23 WBC RBC Hgb Hct MCV MCH MCHC RDW Plt Count MPV Gran % Lymph % (Auto) [place] % (Auto) Eos % (Auto) Baso % (Auto) Gran # Lymph # (Auto) [place] # (Auto) Eos # (Auto) Baso # (Auto) Sodium Potassium Chloride Carbon Dioxide Anion Gap BUN Creatinine Est GFR ( Amer) Est GFR (Non-Af Amer) POC Glucose (mg/dL) 152 H Random Glucose Calcium Total Bilirubin AST ALT Alkaline Phosphatase Total Protein Albumin Globulin Albumin/Globulin Ratio Critical Care Progress Note - Nutrition Nutrition: Nutrition Category Date Time Status Heart Healthy Diet [DIET] Diets 01/07/18 Breakfast Active Assessment/Plan - Assessment and Plan (Free Text) Plan: Patient seen and examined on rounds,with resident, agree with note with following additions/exceptions: Patient is 87yo female wPMHx HTN, CHF & atrial fibrillation(on coumadin), HLD CVA w/ residual left sided hemiparesis presented to the MICU with new CVA like symptoms. Currently awake, protecting airway Afebrile, BP stable, comfortable in NAD Labs, imaging chart reviewed INR subtherapeutic CVA with residual L hemiparesis CHF HTN Afib on Coumadin HLD UTI Recommend: - supp o2 as needed, duonebs PRN - Abx as per ID - Permissive HTN - IVF - NPO - Speech swallow eval - Neuro cfollow up - ASA - GI ppx - DVT ppx - Stable, transfer to tele
--- NOTE | 2018-01-08 10:13 | MRI ---
Date of service: 01/07/2018 PROCEDURE: MRI BRAIN WITHOUT CONTRAST HISTORY: stroke COMPARISON: MRI 10/21/2017 TECHNIQUE: Multiplanar, multisequence MR images of the brain were obtained without intravenous contrast enhancement. FINDINGS: HEMORRHAGE: None DWI: There are some linear areas of restricted diffusion in the posterior frontal lobes bilaterally. This is not verified on the ADC images. The findings may represent T2 shine through from previous infarctions. Extensive white matter changes are seen in the periventricular white matter on the T2 and FLAIR images. It is possible but less likely that there is some superimposed acute infarction in these areas. BRAIN PARENCHYMA: Severe chronic microvascular changes. Chronic infarcts VENTRICLES: Unremarkable. No hydrocephalus. CRANIUM: Unremarkable. ORBITS: Grossly unremarkable. PARANASAL SINUSES/MASTOIDS: Fluid in the sphenoid sinus VASCULAR SYSTEM: Skull base flow voids intact. OTHER FINDINGS: The report concurs with the preliminary [facility] report IMPRESSION: Chronic bilateral infarcts. Areas of linear restricted diffusion are most likely artifactual.
[2018-01-08] MEDS: Insulin Lispro (humaLOG) MEDIUM Coverage SC SCH ×4 (10:32→23:22)
[2018-01-08] MEDS: Cefepime 1gm in NS 100ml 1 GM/100 ML BAG IVPB SCH ×2 (10:56→21:19)
--- NOTE | 2018-01-08 11:23 | PN ---
DATE: 01/08/2018 SUBJECTIVE: An 87-year-old female in the Coronary Care Unit. The patient is awake, nonverbal. PHYSICAL EXAMINATION: VITAL SIGNS: Temperature is 99, pulse is 99, blood pressure is 183/84, respiratory rate is 23, oxygen sat is 97%. LUNGS: Show rhonchi. HEART: Irregular S1, S2 rhythm. ABDOMEN: Obese, soft with positive bowel sounds. EXTREMITIES: No evidence of edema. LABORATORY DATA: Shows a WBC of 9.3, RBC 4.56, hemoglobin 12.9, hematocrit 41.9, platelet count is 234. Chemistry shows sodium of 144, potassium 3.4, chloride 110, BUN of 11, creatinine is 0.4. Random blood sugar is 137. ASSESSMENT AND PLAN: The patient is being followed by Neurology, being evaluated for an altered mental status. MRI results are pending. Await results of MRI and input from Neurology regarding further management neurologically of this patient with a past medical history of stroke, left hemiparesis now presents with lethargy and altered mental status too. She has an abnormal urinalysis, being followed by Infectious Disease, has been placed on vancomycin and cefepime. At this particular point in time, blood cultures are negative at 24 hours. Urine studies are pending. Currently, the patient is on Ecotrin 81 mg daily and sliding insulin scale. She is receiving potassium supplementation for her low potassium. She is on Protonix IV for GI prophylaxis and IV fluids and the patient has a living will. She is a DNR/DNI. Pending neurological assessment, we will discuss with the family neurological recommendations for further management. This has been discussed also with the ICU, CCU project engineering manager. Sherri Hubbard MD
[2018-01-08] MEDS: Sodium Chloride 0.9% 1,000 ML IV SCH ×2 (12:25→21:20)
[2018-01-08] MEDS ORDERED: Potassium Chloride 20 mEq/15 ml LIQ UD PO STA (12:39)
--- NOTE | 2018-01-08 13:24 | PN ---
DATE: 01/08/2018 SUBJECTIVE: The patient is lethargic and is nonverbal. PHYSICAL EXAMINATION: VITAL SIGNS: Blood pressure 166/82, heart rate 117, respiration 29, temperature 99.9. HEENT: No pallor or icterus. CHEST: Clear. HEART: S1 and S2 regular. EXTREMITIES: No edema. LABORATORY DATA: Today's hemoglobin and hematocrit 12.9 and 41.9, white count and platelet count are within normal limits. SMA-7: Sodium 144, potassium 3.4, chloride 110, CO2 28, glucose 137, BUN 11, creatinine 0.4. Brain MRI revealed chronic bilateral infarcts, areas of linear restricted diffusion are most likely artificial. Blood cultures negative after 24 hours. ASSESSMENT: 1. Altered mental status. 2. Chronic atrial fibrillation. 3. Hypertension. 4. Severe calcific valvular aortic stenosis. 5. Severe pulmonary hypertension. 6. Moderate mitral insufficiency. 7. Rule out underlying sepsis. RECOMMENDATIONS: Continue current IV cefepime at 1 g every 12 hours, potassium chloride intravenous replacement is being given, continue vancomycin 1 g intravenously every 12 hours. May start subcutaneous Lovenox therapy if there is no contraindication. Reese Drake MD
[2018-01-09] MEDS: Vancomycin 1gm in NS 250ml 1 GM/250 ML BAG IVPB SCH (04:18)
--- NOTE | 2018-01-09 06:46 | CP.PCM.PN ---
<Francisca Adams - Last Filed: 01/09/18 10:48> Subjective - Date & Time of Evaluation Date of Evaluation: 01/09/18 Time of Evaluation: 07:00 - Subjective Subjective: Infectious Disease Progress Note for Katie Villarreal PGY3 Patient seen and examined at bedside. There were no acute overnight events as per nursing staff. Patient denies abdominal pain, nausea/vomiting/diarrhea, dysuria, urinary frequency or hematuria. Objective - Vital Signs/Intake and Output Vital Signs (last 24 hours): Temp Pulse Resp BP Pulse Ox 97.9 F 120 H 20 159/74 H 95 01/09/18 04:00 01/09/18 06:23 01/09/18 06:23 01/09/18 06:23 01/09/18 06:23 Intake and Output: 01/08/18 01/09/18 18:59 06:59 Intake Total 3600 Output Total 2100 Balance 1500 - Medications Medications: Current Medications Aspirin (Ecotrin) 81 mg PO DAILY [facility] Last Admin: 01/08/18 10:33 Dose: Not Given Atorvastatin Calcium (Lipitor) 40 mg PO DAILY [facility] Last Admin: 01/08/18 10:33 Dose: Not Given Sodium Chloride (Sodium Chloride 0.9%) 1,000 mls @ 100 mls/hr IV .Q10H [facility] Last Admin: 01/08/18 21:20 Dose: 100 mls/hr Cefepime HCl (Maxipime 1gm) 1 gm in 100 mls @ 100 mls/hr IVPB Q12 [facility]; Protocol Last Admin: 01/08/18 21:19 Dose: 100 mls/hr Vancomycin HCl (Vancomycin 1gm) 1 gm in 250 mls @ 167 mls/hr IVPB Q12H [facility]; Protocol Last Admin: 01/09/18 04:18 Dose: 167 mls/hr Insulin Human Lispro (Humalog Med) 0 units SC ACHS [facility]; Protocol Last Admin: 01/08/18 23:22 Dose: Not Given Pantoprazole Sodium (Protonix Inj) 40 mg IVP DAILY [facility] Last Admin: 01/08/18 10:56 Dose: 40 mg - Labs Labs: 01/08/18 05:50 01/08/18 05:50 PT 16.0 SECONDS (9.4-12.5) H 01/07/18 05:45 INR 1.38 01/07/18 05:45 APTT 36.1 Seconds (25.1-36.5) 01/06/18 18:22 - Constitutional Appears: No Acute Distress, Chronically Ill - Head Exam Head Exam: ATRAUMATIC, NORMAL INSPECTION, NORMOCEPHALIC - ENT Exam ENT Exam: Mucous Membranes Dry - Respiratory Exam Respiratory Exam: Clear to Ausculation Bilateral, NORMAL BREATHING PATTERN. absent: Rales, Rhonchi, Wheezes - Cardiovascular Exam Cardiovascular Exam: Tachycardia, Gallop, Irregular Rhythm, +S1, +S2. absent: Rubs, Murmur - GI/Abdominal Exam GI & Abdominal Exam: Soft, Normal Bowel Sounds. absent: Rigid, Tenderness, Mass, Rebound - Extremities Exam Extremities Exam: Normal Capillary Refill. absent: Calf Tenderness, Pedal Edema - Neurological Exam Neurological Exam: Alert, Awake Neuro motor strength exam: Left Upper Extremity: 0, Right Upper Extremity: 3, Left Lower Extremity: 0, Right Lower Extremity: 3 - Psychiatric Exam Psychiatric exam: Normal Affect, Normal Mood - Skin Skin Exam: Dry, Warm Assessment and Plan - Assessment and Plan (Free Text) Assessment: 1. UTI - UA positive for leukocyte esterase - no sign of sepsis at this time 2. CVA - possible acute on chronic 3. A.fib on coumadin 4. HTN 5. IDDM 6. CHF 7. Dyslipidemia 8. Cholecystectomy Plan: Labs and imaging reviewed. Urine culture showed contaminated species. Will repeat urine culture. Continue Cefepime and Vanco day #2. Will continue to monitor clinically. Case seen, discussed and reviewed with Katie Villarreal PGY3 <Juan Grey - Last Filed: 01/09/18 17:26> Objective - Vital Signs/Intake and Output Vital Signs (last 24 hours): Temp Pulse Resp BP Pulse Ox 98.5 F 131 H 21 153/84 H 98 01/09/18 12:00 01/09/18 17:17 01/09/18 14:00 01/09/18 17:17 01/09/18 17:17 Intake and Output: 01/09/18 01/09/18 06:59 18:59 Intake Total 3600 Output Total 2100 Balance 1500 - Medications Medications: Current Medications Aspirin (Ecotrin) 81 mg PO DAILY [facility] Last Admin: 01/09/18 09:55 Dose: 81 mg Atorvastatin Calcium (Lipitor) 40 mg PO DAILY [facility] Last Admin: 01/09/18 09:56 Dose: 40 mg Diltiazem HCl (Cardizem) 30 mg NG QID [facility] Last Admin: 01/09/18 17:13 Dose: 30 mg Enoxaparin Sodium (Lovenox) 60 mg SC Q12H [facility]; Protocol Last Admin: 01/09/18 17:01 Dose: 60 mg Hydralazine HCl (Apresoline) 10 mg IVP Q6 PRN PRN Reason: Diastolic blood pressure Cefepime HCl (Maxipime 1gm) 1 gm in 100 mls @ 100 mls/hr IVPB Q12 [facility]; Protocol Last Admin: 01/09/18 09:56 Dose: 100 mls/hr Insulin Human Lispro (Humalog Med) 0 units SC ACHS [facility]; Protocol Last Admin: 01/09/18 17:14 Dose: Not Given Levalbuterol HCl (Xopenex) 0.63 mg IH [id number] [facility] Last Admin: 01/09/18 13:08 Dose: 0.63 mg Pantoprazole Sodium (Protonix Inj) 40 mg IVP DAILY [facility] Last Admin: 01/09/18 09:56 Dose: 40 mg - Labs Labs: 01/09/18 05:30 01/09/18 08:00 PT 16.0 SECONDS (9.4-12.5) H 01/09/18 14:35 INR 1.39 01/09/18 14:35 APTT 36.1 Seconds (25.1-36.5) 01/06/18 18:22 Assessment and Plan - Assessment and Plan (Free Text) Plan: Infectious Diseases Attending Physician Attestation Patient seen and examined, discussed with regional medical director. I have reviewed the patient's history of present illness, past medical, family and social histories, personal history, physical exam, lab findings and imaging studies. I agree with the above findings, assessment and plan. In addition, we will continue Cefepime for this patient with possible UTI in this patient with CVA. Follow up repeat urine cx (initial one had multiple species). Blood cx are negative so far. Will continue to monitor clinically. Discussed with Dr. Hubbard.
[2018-01-09 07:11] LABS: BASO # 0.03 K/mm3 (0.0-2.0); BASO % 0.3 % (0.0-3.0); EOS # 0.2 (0.0-0.7); EOS % 1.8 % (1.5-5.0); GRAN # 6.48 (1.4-6.5); GRAN % 71.4 % (50.0-68.0); HEMOGLOBIN 12.7 g/dL (12.0-16.0); LYMPH # 1.3 (1.2-3.4); LYMPH % 14.7 % (22.0-35.0); MEAN CELL VOLUME 92.2 fl (80.0-105.0); MEAN CORPUSCULAR HEMOGLOBIN 28.5 pg (25.0-35.0); MEAN CORPUSCULAR HGB CONC 30.9 g/dl (31.0-37.0); MONO # 1.1 (0.1-0.6); MONO % 11.8 % (1.0-6.0); RBC 4.46 10^6/uL (3.5-6.1); RED CELL DISTRIBUTION WIDTH 16.1 % (11.5-14.5); WHITE BLOOD COUNT 9.1 10^3/uL (4.5-11.0)
[2018-01-09 08:22] LABS: ALBUMIN 3.2 g/dL (3.0-4.8); ALT/SGPT 26 U/L (7-56); AST/SGOT 19 U/L (14-36); BLOOD UREA NITROGEN 9 mg/dL (7-21); CALCIUM 8.7 mg/dL (8.4-10.5); GFR NON-AFRICAN AMERICAN > 60
[2018-01-09] MEDS: Insulin Lispro (humaLOG) MEDIUM Coverage SC SCH ×4 (09:44→22:09)
[2018-01-09] MEDS: Cefepime 1gm in NS 100ml 1 GM/100 ML BAG IVPB SCH ×2 (09:56→21:30)
--- NOTE | 2018-01-09 12:36 | CARD ---
APPROVED REPORT Date of service: 01/09/2018 EKG Measurement Heart [id number] <Conclusion> Atrial fibrillation with rapid ventricular response Inferior infarct, age undetermined Anteroseptal infarct, age undetermined ST & T wave abnormality, consider lateral ischemia or digitalis effect Abnormal ECG
--- NOTE | 2018-01-09 12:43 | RAD ---
Date of service: 01/09/2018 HISTORY: N COMPARISON: 01/06/2018 FINDINGS: LUNGS: No active pulmonary disease. PLEURA: No significant pleural effusion identified, no pneumothorax apparent. CARDIOVASCULAR: Aortic calcification Mild cardiomegaly mild vascular and interstitial congestion OSSEOUS STRUCTURES: No significant abnormalities. VISUALIZED UPPER ABDOMEN: Normal. OTHER FINDINGS: None. IMPRESSION: Mild vascular and interstitial congestion
[2018-01-09] MEDS: Levalbuterol 1.25 MG/3 ML Inhal Soln UD IH SCH ×2 (13:08→22:20)
[2018-01-09 14:51] LABS: INR 1.39
--- NOTE | 2018-01-09 15:18 | CON ---
PULMONARY CONSULTATION DATE: 01/09/2018 REASON FOR PULMONARY CONSULTATION: Rule out aspiration pneumonia. REFERRING PHYSICIAN: Dr. Sherri Hubbard. HISTORY OF PRESENT ILLNESS: History is obtained via extensive discussion with Dr. Hubbard. I have also reviewed the chart at length. The patient is currently aphasic. The patient is a chronically ill 87-year-old female, with past medical history significant for previous cerebrovascular accident, residual left hemipareses, hypertension, congestive heart failure, atrial fibrillation, who was transferred to [facility] - from [facility] - after the patient was found to be aphasic, and with a left-sided gaze palsy. The patient was thus admitted to the medical ICU for additional evaluation and treatment. Again, I did discuss the case with Dr. Hubbard at length. I have also discussed the case with the nurse. Apparently, earlier today, the patient did experience shortness of breath and congestion. A minimal cough was also noted. There is no history of sputum production. There is no history of chest pain, coughing up of blood or chest pain - made worse with deep respirations. There is no history of temperatures, chills or infectious exposure. There is no history of night sweats, weight loss or appetite change prior to the above events. No history of calf pains. No history of syncope or diaphoresis. No history of recent travel or trauma. REVIEW OF SYSTEMS: No history of nausea, vomiting, diarrhea. No acute urinary symptoms. Rest of the review of systems is negative. ALLERGIES: NO KNOWN ALLERGIES. SOCIAL HISTORY: negative for tobacco and negative for alcohol. FAMILY HISTORY: No inheritable diseases. HOME MEDICATIONS: Include insulin, Levemir, Lasix, Lipitor, Lopressor, Norvasc, Coumadin, Diovan and Catapres. PHYSICAL EXAMINATION: GENERAL: The patient appears comfortable at the present time. She is not short of breath at rest. VITAL SIGNS: Temperature is 98.8, pulse is 101, respiratory rate 20 and blood pressure 163/70. Oxygen saturation on nasal cannula is 98%. HEENT: Normocephalic and atraumatic. No JVD. CARDIOVASCULAR: Systolic ejection murmur at the lower left sternal border. No S3 gallop. LUNGS: Decreased breath sounds at the bases. Mild bilateral rhonchi. No wheezing. EXTREMITIES: Mild edema. No cyanosis or clubbing. Calves are nontender to palpation. GI: Abdomen is soft, nontender and nondistended. Bowel sounds are positive. SKIN: No acute rash. NEUROLOGIC: Limited at the present time. PERTINENT LABORATORY DATA: Chest x-ray was done very recently in the medical ICU. There is mild pulmonary vascular congestion noted. There are no significant infiltrates. There are no significant effusions. CBC: White count 9.1K, hemoglobin 12.7, hematocrit 41.1 and platelets of 216,000. Initial white count 11.2K. Complete metabolic profile: Potassium 3.2, glucose 118. Rest of the metabolic profile is within normal limits. Urinalysis done in the emergency room: Urine leukocyte esterase--moderate. Urine bacteria--many. IMPRESSION: 1. Rule out acute cerebrovascular accident. 2. History of previous cerebrovascular accident. 3. Possible aspiration pneumonia. 4. Mild bronchospasm. 5. Chronic atrial fibrillation. 6. Urinary tract infection. PLAN: Again, I did discuss the case with Dr. Hubbard at length. I have also discussed the case with the nurse at length. I have also reviewed the chart at length. The patient presents to [facility] - transferred from [facility] - after the patient had become aphasic, and with a left sided gaze palsy. The patient was then subsequently admitted to the medical ICU for additional evaluation and treatment. As above, earlier this morning, the patient did become short of breath and congested. Certainly, this patient is a major set up for aspiration pneumonia. I did review the chest x-ray as above. There are no significant infiltrates on the most present chest x-ray. I will order another chest x-ray - for tomorrow - for comparison. On physical exam, there is mild bronchospasm noted. However, there is no significant alveolar-arterial gradient. I will start the patient on half-strength Xopenex nebulizer treatments. I will also order aspiration precautions. Inputs by Cardiology, Neurology and Infectious Disease are noted. Clinical status of the patient appears very guarded at this point in time. I will discuss the above with the entire ICU team. Thank you very much for this pulmonary consultation. Liban Anderson MD [facility] # [id number] MTDD
--- NOTE | 2018-01-09 15:23 | RAD ---
Date of service: 01/09/2018 PROCEDURE: Portable chest HISTORY: NGT (corflow) position COMPARISON: TECHNIQUE: The study includes the upper abdomen to evaluate the NG tube FINDINGS: IMPRESSION: The nasogastric tube is in satisfactory position in the region of the gastric fundus
[2018-01-09] MEDS: Enoxaparin 60 mg Syringe SC SCH (17:01)
--- NOTE | 2018-01-09 17:57 | PN ---
DATE: 01/09/2018 SUBJECTIVE: Patient is lethargic and aphasic. She is currently on rapid atrial fibrillation. PHYSICAL EXAMINATION: VITAL SIGNS: Blood pressure 159/74, heart rate 112, respiration 20, temperature 97.9. HEENT: Normocephalic. CHEST: Significant bilateral rhonchi. Scattered wheezing. HEART: S1, S2 regular. EXTREMITIES: No edema. LABORATORY DATA: SMA-7: Sodium 141, potassium 3.2, chloride 107, CO2 26, glucose 118, BUN 9, creatinine 0.4. Hemoglobin, hematocrit, white count, and platelet count are within normal limit. Today's chest x-ray revealed mild vascular and interstitial congestion. Today her EKG revealed atrial fibrillation with rapid ventricular response at a rate of 118, inferior infarct age indeterminate, anteroseptal infarct age indeterminate, ST-T waves changes, consider lateral ischemia. ASSESSMENT: 1. Chronic atrial fibrillation. 2. Altered mental status. 3. Hypertension. 4. Severe calcific aortic valve stenosis. 5. Severe pulmonary hypertension. RECOMMENDATIONS: Start mg every 6 hours via nasogastric tube. I discussed the case with Dr. Jiménez, the neurologist who will decide about future resumption of anticoagulation upon seeing her this afternoon. Reese Drake MD
--- NOTE | 2018-01-09 18:54 | PN ---
DATE: 01/09/2018 SUBJECTIVE: The patient is an 87-year-old female in the coronary care unit. Nursing staff relates that there were no incidences during the night, although this morning the nurse states that she sounds a bit congested. PHYSICAL EXAMINATION: VITAL SIGNS: Her blood pressure is 153/84, pulse is 129, her temperature is 98, her oxygen sat is 98% with nasal oxygen. GENERAL: The patient is somewhat sleepy, responds slightly to verbal stimulus. LUNGS: Shows diminished breath sounds at the bases with rhonchi. HEART: In irregular S1, S2 rhythm. ABDOMEN: Obese, soft with positive bowel sounds. EXTREMITIES: Show left hemiparesis. LABORATORY DATA: The patient has a WBC of 9.1, RBC is 4.46, hemoglobin 12.7, hematocrit 41.1, platelet count is 216. PT is 16 with INR 1.39. Chemistry shows a sodium of 141, potassium 3.2, chloride 107, the CO2 is 26, the BUN is 9, creatinine is 0.4, blood sugar is 118. LFTs are normal at this time. Her albumin is 3.2. MEDICATIONS: Currently, the patient is on hydralazine, Cardizem, Ecotrin, insulin sliding scale, Lipitor, Lovenox, Maxipime, Protonix and Xopenex. 1. She is currently being followed by Pulmonary, Cardiology and Infectious Disease and Neurology. She was admitted with an altered mental status. She has a remote history of stroke with left hemiparesis. She has a history of atrial fibrillation. She has a history of degenerative arthritis with gait disorder. She has an abnormal urinalysis. Urine culture is growing 50-100,000 mixed sanjay. A repeat urine culture has been requested. The blood cultures at this point are negative. I have discussed the case with both Neurology and Cardiology and the nursing staff and the family at this particular point in time given the high risk of aspiration. We will initiate feedings on the patient with Glucerna with a small bore NG tube. 2. Anticoagulation therapy will be initiated by Cardiology as per the recommendations of Neurology and Cardiology. 3. Currently, she is on IV antibiotics by Infectious Disease. We will be following up urine culture. 4. She has a living will. She is a DNR/DNI. Family at this time is fully aware of the clinical status of the patient and the current medical management. PLAN: We will continue with sliding insulin scale with coverage and her diet will be adjusted accordingly. Sherri Hubbard MD [facility] # [id number]
[2018-01-09] MEDS: Levalbuterol 0.63 MG/3 ML Inhal Soln UD IH SCH (22:19)
[2018-01-10] MEDS: Enoxaparin 60 mg Syringe SC SCH ×2 (02:25→14:33)
[2018-01-10] MEDS: Levalbuterol 0.63 MG/3 ML Inhal Soln UD IH SCH ×4 (02:55→20:19)
[2018-01-10 06:42] LABS: BASO # 0.02 K/mm3 (0.0-2.0); BASO % 0.2 % (0.0-3.0); EOS # 0.1 (0.0-0.7); EOS % 1.5 % (1.5-5.0); GRAN # 6.83 (1.4-6.5); GRAN % 77.3 % (50.0-68.0); HEMOGLOBIN 13.7 g/dL (12.0-16.0); LYMPH % 10.8 % (22.0-35.0); MEAN CELL VOLUME 90.2 fl (80.0-105.0); MEAN CORPUSCULAR HEMOGLOBIN 29.1 pg (25.0-35.0); MEAN CORPUSCULAR HGB CONC 32.2 g/dl (31.0-37.0); MONO # 0.9 (0.1-0.6); MONO % 10.2 % (1.0-6.0); RBC 4.71 10^6/uL (3.5-6.1); RED CELL DISTRIBUTION WIDTH 15.9 % (11.5-14.5); WHITE BLOOD COUNT 8.8 10^3/uL (4.5-11.0)
[2018-01-10 06:55] LABS: ALBUMIN 3.4 g/dL (3.0-4.8); ALT/SGPT 25 U/L (7-56); AST/SGOT 22 U/L (14-36); BLOOD UREA NITROGEN 13 mg/dL (7-21); CALCIUM 9.1 mg/dL (8.4-10.5); GFR NON-AFRICAN AMERICAN > 60
--- NOTE | 2018-01-10 07:09 | PN ---
DATE: 01/10/2018 PULMONARY NOTE SUBJECTIVE: The patient appears comfortable this morning. She is mildly short of breath, but in no acute distress. She is awake and alert. PHYSICAL EXAMINATION: VITAL SIGNS: Temperature is 97.8, pulse on the monitor is 109, respiratory rate 20/22, blood pressure 185/92. Oxygen saturation on nasal cannula is 96%. HEENT: Normocephalic, atraumatic. No JVD. CARDIOVASCULAR: Systolic ejection murmur at the lower left sternal border. No S3 gallop. LUNGS: Decreased breath sounds at the bases. Less rhonchi. No wheezing. EXTREMITIES: Mild edema. No cyanosis. No clubbing. Calves are nontender to palpation. GI: Abdomen is soft, nontender and nondistended. Bowel sounds are positive. SKIN: No acute rash. NEUROLOGIC: Limited at the present time. IMPRESSION: 1. Rule out acute cerebrovascular accident. 2. History of previous cerebrovascular accident. 3. Possible aspiration pneumonia. 4. Mild bronchospasm. 5. Chronic atrial fibrillation. 6. Urinary tract infection. PLAN: The patient appears comfortable this morning. She is mildly short of breath, but in no acute distress. I did discuss the case with the night nurse at length. The night nurse stated that the patient had a pretty good night. The patient did have a chest x-ray this morning. The chest x-ray is a poor, rotated film. There remains mild pulmonary vascular congestion. I do not appreciate any significant lobar infiltrates. On physical exam, the patient's bronchospasm is less. In addition, there is no significant alveolar-arterial gradient. I will continue with the half-strength Xopenex nebulizer treatments and aspiration precautions. Inputs by Cardiology and Neurology are also noted. The patient also remains on antibiotic therapy. The leukocytosis has resolved. Input by Infectious Disease is noted. Clinical status of the patient does appear improved - compared to the initial presentation. Her overall status/prognosis remains very guarded. I will discuss the above with the entire ICU team in the next few moments. I will also discuss the above with the attending physician. Liban Anderson MD [facility] # [id number] MTDD
--- NOTE | 2018-01-10 08:15 | CP.PCM.PN ---
<Francisca Adams - Last Filed: 01/10/18 08:23> Subjective - Date & Time of Evaluation Date of Evaluation: 01/10/18 Time of Evaluation: 07:00 - Subjective Subjective: Infectious Disease Progress Note for Katie Villarreal PGY3 Patient seen and examined at bedside. There were no acute overnight events as per nursing staff. Patient resting comfortable in bed. Denies chest pain, shortness of breath, nausea/vomiting/diarrhea, fever/chills, dysuria. Objective - Vital Signs/Intake and Output Vital Signs (last 24 hours): Temp Pulse Resp BP Pulse Ox 97.8 F 120 H 27 H 185/92 H 97 01/10/18 00:00 01/10/18 06:02 01/10/18 03:07 01/10/18 06:02 01/10/18 03:07 - Medications Medications: Current Medications Aspirin (Ecotrin) 81 mg PO DAILY [facility] Last Admin: 01/09/18 09:55 Dose: 81 mg Atorvastatin Calcium (Lipitor) 40 mg PO DAILY [facility] Last Admin: 01/09/18 09:56 Dose: 40 mg Diltiazem HCl (Cardizem) 60 mg NG Q8 [facility] Last Admin: 01/10/18 06:02 Dose: 60 mg Enoxaparin Sodium (Lovenox) 60 mg SC Q12H [facility]; Protocol Last Admin: 01/10/18 02:25 Dose: 60 mg Hydralazine HCl (Apresoline) 10 mg IVP Q6 PRN PRN Reason: Diastolic blood pressure Cefepime HCl (Maxipime 1gm) 1 gm in 100 mls @ 100 mls/hr IVPB Q12 [facility]; Protocol Last Admin: 01/09/18 21:30 Dose: 100 mls/hr Insulin Human Lispro (Humalog Med) 0 units SC ACHS [facility]; Protocol Last Admin: 01/09/18 22:09 Dose: Not Given Levalbuterol HCl (Xopenex) 0.63 mg IH [id number] [facility] Last Admin: 01/10/18 07:25 Dose: 0.63 mg Pantoprazole Sodium (Protonix Inj) 40 mg IVP DAILY [facility] Last Admin: 01/09/18 09:56 Dose: 40 mg - Labs Labs: 01/10/18 05:30 01/10/18 05:30 PT 16.0 SECONDS (9.4-12.5) H 01/09/18 14:35 INR 1.39 01/09/18 14:35 APTT 36.1 Seconds (25.1-36.5) 01/06/18 18:22 - Constitutional Appears: No Acute Distress, Chronically Ill - Head Exam Head Exam: ATRAUMATIC, NORMAL INSPECTION, NORMOCEPHALIC - Eye Exam Eye Exam: PERRL Pupil Exam: PERRL - ENT Exam ENT Exam: Mucous Membranes Dry Additional comments: NGT in place - Respiratory Exam Respiratory Exam: Clear to Ausculation Bilateral, NORMAL BREATHING PATTERN. absent: Rales, Rhonchi, Wheezes - Cardiovascular Exam Cardiovascular Exam: Tachycardia, Irregular Rhythm, +S1, +S2. absent: Gallop, Rubs, Murmur - GI/Abdominal Exam GI & Abdominal Exam: Soft, Normal Bowel Sounds. absent: Rigid, Tenderness, Mass, Rebound - Extremities Exam Extremities Exam: absent: Calf Tenderness, Pedal Edema - Neurological Exam Neurological Exam: Alert, Awake, Motor Sensory Deficit - Psychiatric Exam Psychiatric exam: Normal Affect, Normal Mood - Skin Skin Exam: Dry, Warm Assessment and Plan - Assessment and Plan (Free Text) Assessment: 1. Leukocytosis - can be secondary to UTI - UA positive for leukocyte esterase - urine culture multiple species - no sign of sepsis at this time 2. CVA - possible acute on chronic 3. A.fib on coumadin 4. HTN 5. IDDM 6. CHF 7. Dyslipidemia 8. Cholecystectomy Plan: Labs and imaging reviewed. CXR did no show evidence of pneumonia. Awaiting repeat urine culture. Continue Cefepime day #3. Will continue to monitor clinically. Case seen, discussed and reviewed with Katie Villarreal PGY3 <Juan Grey - Last Filed: 01/10/18 14:53> Objective - Vital Signs/Intake and Output Vital Signs (last 24 hours): Temp Pulse Resp BP Pulse Ox 97.8 F 144 H 30 H 162/90 H 98 01/10/18 00:00 01/10/18 14:27 01/10/18 12:56 01/10/18 14:27 01/10/18 12:56 Intake and Output: 01/10/18 01/10/18 06:59 18:59 Output Total 725 Balance -725 - Medications Medications: Current Medications Aspirin (Ecotrin) 81 mg PO DAILY [facility] Last Admin: 01/10/18 10:43 Dose: 81 mg Atorvastatin Calcium (Lipitor) 40 mg PO DAILY [facility] Last Admin: 01/10/18 10:43 Dose: 40 mg Diltiazem HCl (Cardizem) 60 mg NG Q8 [facility] Last Admin: 01/10/18 14:27 Dose: 60 mg Enoxaparin Sodium (Lovenox) 60 mg SC Q12H [facility]; Protocol Last Admin: 01/10/18 14:33 Dose: 60 mg Hydralazine HCl (Apresoline) 10 mg IVP Q6 PRN PRN Reason: Diastolic blood pressure Cefepime HCl (Maxipime 1gm) 1 gm in 100 mls @ 100 mls/hr IVPB Q12 [facility]; Protocol Last Admin: 01/10/18 10:40 Dose: 100 mls/hr Potassium Chloride (Potassium Chloride 20 Meq/100 Ml) 20 meq in 100 mls @ 50 mls/hr IVPB Q2H [facility] Stop: 01/10/18 18:14 Insulin Human Lispro (Humalog Med) 0 units SC ACHS [facility]; Protocol Last Admin: 01/10/18 12:52 Dose: 3 u Levalbuterol HCl (Xopenex) 0.63 mg IH [id number] [facility] Last Admin: 01/10/18 13:01 Dose: 0.63 mg Metoprolol Tartrate (Lopressor) 50 mg NG BID [facility] Last Admin: 01/10/18 14:26 Dose: 50 mg Pantoprazole Sodium (Protonix Inj) 40 mg IVP DAILY [facility] Last Admin: 01/10/18 10:42 Dose: 40 mg - Labs Labs: 01/10/18 05:30 01/10/18 05:30 PT 16.0 SECONDS (9.4-12.5) H 01/09/18 14:35 INR 1.39 01/09/18 14:35 APTT 36.1 Seconds (25.1-36.5) 01/06/18 18:22 Assessment and Plan - Assessment and Plan (Free Text) Plan: Infectious Diseases Attending Physician Attestation Patient seen and examined, discussed with medical data analyst. I have reviewed the patient's history of present illness, past medical, family and social histories, personal history, physical exam, lab findings and imaging studies. I agree with the above findings, assessment and plan. In addition, we will continue Cefepime day 3 for this patient with possible UTI in this patient with CVA. Follow up repeat urine cx (initial one had multiple species). Blood cx are negative so far. Awaiting final cx results.Will give another dose of IV Vancomycin. Will continue to monitor clinically.
--- NOTE | 2018-01-10 08:59 | RAD ---
Date of service: 01/10/2018 HISTORY: follow up COMPARISON: 01/09/2018. FINDINGS: LUNGS: The lungs are well inflated and clear. There is mild pulmonary venous congestion PLEURA: No pleural effusions. There is blunting of both costophrenic which may represent pleural thickening. CARDIOVASCULAR: The heart is normal in size. No aortic atherosclerotic calcification present. OSSEOUS STRUCTURES: Within normal limits for the patient's age. VISUALIZED UPPER ABDOMEN: Normal. OTHER FINDINGS: The nasogastric tube terminates in the stomach. IMPRESSION: No acute findings. No significant interval change. Nasogastric tube terminates in the stomach.
[2018-01-10] MEDS: Insulin Lispro (humaLOG) MEDIUM Coverage SC SCH ×4 (10:33→21:49)
[2018-01-10] MEDS: Cefepime 1gm in NS 100ml 1 GM/100 ML BAG IVPB SCH ×2 (10:40→21:34)
[2018-01-10] MEDS ORDERED: Vancomycin 1gm in NS 250ml 1 GM/250 ML BAG IVPB ONE (14:53)
[2018-01-10] MEDS ORDERED: HYDROmorphone 1 mg/ml ISec IVP PRN (15:34)
[2018-01-10] MEDS ORDERED: Potassium Chloride 20 mEq/15 ml LIQ UD PO STA (15:40)
[2018-01-10] MEDS: HYDROmorphone 0.5 mg/0.5 ml ISec IVP PRN (16:10)
--- NOTE | 2018-01-10 20:18 | PN ---
DATE: 01/10/2018 SUBJECTIVE: An 87-year-old female in the coronary care unit came in from [facility] with an altered mental status. OBJECTIVE: VITAL SIGNS: Pulse of 82. Blood pressure is 138/70. LUNGS: Rhonchi with diminished breath sounds at the bases. HEART: Irregular S1, S2 rhythm. ABDOMEN: Soft with positive bowel sounds. EXTREMITIES: No evidence of edema. LABORATORY DATA: WBC of 8.8, RBC of 4.71, hemoglobin 13.7, hematocrit 42.5, and platelet count is 222. Her PT is 16 with an INR of 1.39. Chemistry shows sodium 140, potassium 3, chloride 104, BUN is 13, and creatinine is 0.4. Random blood sugar is 188. Her LFTs are normal. ASSESSMENT/PLAN: The patient is being followed by Cardiology, Neurology and Infectious Disease. Blood cultures to date are negative. Urine culture repeat is growing gram-positive cocci. She is currently on Maxipime. She is receiving subcu Lovenox. She is on Lopressor, Lipitor, Ecotrin, Cardizem, Apresoline, Protonix and Xopenex. I have discussed the patient's clinical status. At this time, she is a DNR/DNI. We will meet with the family later today to discuss further care. She is currently receiving feedings through a small gauge NG tube. Sherri Hubbard MD
[2018-01-11] MEDS: Levalbuterol 0.63 MG/3 ML Inhal Soln UD IH SCH ×5 (01:43→21:40)
[2018-01-11] MEDS: Enoxaparin 60 mg Syringe SC SCH ×2 (02:25→13:21)
[2018-01-11] MEDS ORDERED: Metoprolol 1 mg/ml Inj IVP ONE (03:17)
[2018-01-11 06:23] LABS: ALBUMIN 3.4 g/dL (3.0-4.8); ALT/SGPT 21 U/L (7-56); AST/SGOT 24 U/L (14-36); BLOOD UREA NITROGEN 18 mg/dL (7-21); CALCIUM 9.3 mg/dL (8.4-10.5); GFR NON-AFRICAN AMERICAN > 60
--- NOTE | 2018-01-11 06:31 | CP.PCM.PN ---
<Francisca Adams - Last Filed: 01/11/18 11:26> Subjective - Date & Time of Evaluation Date of Evaluation: 01/11/18 Time of Evaluation: 07:00 - Subjective Subjective: Infectious Disease Progress Note for Katie Villarreal PGY3 Patient seen and examined at bedside. Patient is resting comfortably in bed. She does not have any complaints and remains afebrile. Objective - Vital Signs/Intake and Output Vital Signs (last 24 hours): Temp Pulse Resp BP Pulse Ox 98.2 F 110 H 19 160/97 H 97 01/11/18 05:47 01/11/18 05:47 01/11/18 05:47 01/11/18 05:47 01/11/18 05:47 Intake and Output: 01/10/18 01/11/18 18:59 06:59 Intake Total 1200 1200 Output Total 200 Balance 1000 1200 - Medications Medications: Current Medications Aspirin (Ecotrin) 81 mg PO DAILY [facility] Last Admin: 01/10/18 10:43 Dose: 81 mg Atorvastatin Calcium (Lipitor) 40 mg PO DAILY [facility] Last Admin: 01/10/18 10:43 Dose: 40 mg Diltiazem HCl (Cardizem) 60 mg NG Q8 [facility] Last Admin: 01/11/18 05:25 Dose: 60 mg Enoxaparin Sodium (Lovenox) 60 mg SC Q12H [facility]; Protocol Last Admin: 01/11/18 02:25 Dose: 60 mg Hydralazine HCl (Apresoline) 10 mg IVP Q6 PRN PRN Reason: Diastolic blood pressure Last Admin: 01/11/18 03:02 Dose: 10 mg Hydromorphone HCl (Dilaudid) 0.5 mg IVP Q4H PRN PRN Reason: Pain, moderate (4-7) Last Admin: 01/10/18 16:10 Dose: 0.5 mg Cefepime HCl (Maxipime 1gm) 1 gm in 100 mls @ 100 mls/hr IVPB Q12 [facility]; Protocol Last Admin: 01/10/18 21:34 Dose: 100 mls/hr Insulin Human Lispro (Humalog Med) 0 units SC ACHS [facility]; Protocol Last Admin: 01/10/18 21:49 Dose: Not Given Levalbuterol HCl (Xopenex) 0.63 mg IH [id number] [facility] Last Admin: 01/11/18 03:12 Dose: 0.63 mg Metoprolol Tartrate (Lopressor) 50 mg NG Q12 [facility] Last Admin: 01/10/18 21:34 Dose: 50 mg Pantoprazole Sodium (Protonix Inj) 40 mg IVP DAILY [facility] Last Admin: 01/10/18 10:42 Dose: 40 mg - Labs Labs: 01/10/18 05:30 01/11/18 05:30 PT 16.0 SECONDS (9.4-12.5) H 01/09/18 14:35 INR 1.39 01/09/18 14:35 APTT 36.1 Seconds (25.1-36.5) 01/06/18 18:22 - Constitutional Appears: No Acute Distress, Chronically Ill - Head Exam Head Exam: ATRAUMATIC, NORMAL INSPECTION, NORMOCEPHALIC - Eye Exam Eye Exam: Normal appearance, PERRL Pupil Exam: NORMAL ACCOMODATION, PERRL - ENT Exam ENT Exam: Mucous Membranes Moist Additional comments: NGT in place - Respiratory Exam Respiratory Exam: Clear to Ausculation Bilateral, NORMAL BREATHING PATTERN. absent: Rales, Rhonchi, Wheezes - Cardiovascular Exam Cardiovascular Exam: Irregular Rhythm, +S1, +S2, Murmur. absent: Gallop, Rubs - GI/Abdominal Exam GI & Abdominal Exam: Soft, Normal Bowel Sounds. absent: Rigid, Tenderness, Mass, Rebound - Extremities Exam Extremities Exam: absent: Calf Tenderness, Pedal Edema - Neurological Exam Neurological Exam: Alert, Awake - Skin Skin Exam: Dry, Warm Assessment and Plan - Assessment and Plan (Free Text) Assessment: 1. UTI - urine culture multiple species - Repeat culture positive for Entercoccus 2. CVA - possible acute on chronic 3. A.fib on coumadin 4. HTN 5. IDDM 6. CHF 7. Dyslipidemia 8. Cholecystectomy Plan: Labs and imaging reviewed. Will d/c Cefepime and start Zosyn to complete 5 days. Will continue to monitor clinically. Case seen, discussed and reviewed with Katie Villarreal PGY3 <Juan Grey - Last Filed: 01/11/18 14:13> Objective - Vital Signs/Intake and Output Vital Signs (last 24 hours): Temp Pulse Resp BP Pulse Ox 99.9 F H 95 H 18 152/96 H 97 01/11/18 11:26 01/11/18 11:26 01/11/18 11:26 01/11/18 11:26 01/11/18 05:47 Intake and Output: 01/11/18 01/11/18 06:59 18:59 Intake Total 1200 Balance 1200 - Medications Medications: Current Medications Aspirin (Ecotrin) 81 mg PO DAILY [facility] Last Admin: 01/11/18 10:01 Dose: 81 mg Atorvastatin Calcium (Lipitor) 40 mg PO DAILY [facility] Last Admin: 01/11/18 10:01 Dose: 40 mg Diltiazem HCl (Cardizem) 60 mg NG Q8 [facility] Last Admin: 01/11/18 05:25 Dose: 60 mg Enoxaparin Sodium (Lovenox) 60 mg SC Q12H [facility]; Protocol Last Admin: 01/11/18 02:25 Dose: 60 mg Hydralazine HCl (Apresoline) 10 mg IVP Q6 PRN PRN Reason: Diastolic blood pressure Last Admin: 01/11/18 03:02 Dose: 10 mg Hydromorphone HCl (Dilaudid) 0.5 mg IVP Q4H PRN PRN Reason: Pain, moderate (4-7) Last Admin: 01/10/18 16:10 Dose: 0.5 mg Piperacillin Sod/Tazobactam Sod (Zosyn 3.375 In Ns 100ml) 100 mls @ 25 mls/hr IVPB Q12 [facility]; Protocol Stop: 01/15/18 13:59 Insulin Human Lispro (Humalog Med) 0 units SC ACHS [facility]; Protocol Last Admin: 01/11/18 08:30 Dose: 5 u Levalbuterol HCl (Xopenex) 0.63 mg IH [id number] [facility] Last Admin: 01/11/18 13:36 Dose: 0.63 mg Metoprolol Tartrate (Lopressor) 50 mg NG Q12 [facility] Last Admin: 01/11/18 10:01 Dose: 50 mg Pantoprazole Sodium (Protonix Susp) 40 mg NG DAILY [facility] - Labs Labs: 01/11/18 05:30 01/11/18 05:30 PT 16.0 SECONDS (9.4-12.5) H 01/09/18 14:35 INR 1.39 01/09/18 14:35 APTT 36.1 Seconds (25.1-36.5) 01/06/18 18:22 Assessment and Plan - Assessment and Plan (Free Text) Plan: Infectious Diseases Attending Physician Attestation Patient seen and examined, discussed with medical technologist generalist. I have reviewed the patient's history of present illness, past medical, family and social histories, personal history, physical exam, lab findings and imaging studies. I agree with the above findings, assessment and plan. In addition, we willchange antibiotics to Zosyn for E. faecalis UTI in this patient with CVA. Blood cx are negative so far. Awaiting final cx results. Will continue to monitor clinically.
[2018-01-11 07:47] LABS: BASO # 0.02 K/mm3 (0.0-2.0); BASO % 0.2 % (0.0-3.0); EOS % 0.3 % (1.5-5.0); GRAN # 7.86 (1.4-6.5); GRAN % 76.8 % (50.0-68.0); HEMOGLOBIN 13.5 g/dL (12.0-16.0); LYMPH # 1.2 (1.2-3.4); MEAN CORPUSCULAR HEMOGLOBIN 29.1 pg (25.0-35.0); MEAN CORPUSCULAR HGB CONC 31.6 g/dl (31.0-37.0); MONO # 1.1 (0.1-0.6); MONO % 10.7 % (1.0-6.0); RBC 4.64 10^6/uL (3.5-6.1); RED CELL DISTRIBUTION WIDTH 16.6 % (11.5-14.5); WHITE BLOOD COUNT 10.2 10^3/uL (4.5-11.0)
[2018-01-11] MEDS: Insulin Lispro (humaLOG) MEDIUM Coverage SC SCH ×4 (08:30→22:31)
--- NOTE | 2018-01-11 08:52 | PN ---
PULMONARY NOTE DATE: 01/11/2018 SUBJECTIVE: The patient appears comfortable this morning. She is not short of breath at rest. PHYSICAL EXAMINATION: VITAL SIGNS: Temperature is 98.2, pulse is 94, respirations 19 and blood pressure 160/97. Oxygen saturation on nasal cannula is 97%. HEENT: Normocephalic and atraumatic. NECK: No JVD. CARDIOVASCULAR: Systolic ejection murmur at the lower left sternal border. No S3 gallop. LUNGS: Decreased breath sounds at the bases. Much less/minimal rhonchi. No wheezing. EXTREMITIES: Mild edema. No cyanosis, no clubbing. Calves are nontender to palpation. GI: Abdomen is soft, nontender and nondistended. Bowel sounds are positive. SKIN: No acute rash. NEUROLOGIC: Exam limited at the present time. PERTINENT LABORATORY DATA: Chest x-ray was done this morning, and reviewed. The chest film was done for nasogastric tube placement. The chest x-ray is a poor, rotated film. It does show mild pulmonary vascular congestion. I do not appreciate any new or significant lobar infiltrates. Official results are pending. IMPRESSION: 1. Rule out acute cerebrovascular accident. 2. History of previous cerebrovascular accident. 3. Possible aspiration pneumonia. 4. Mild bronchospasm. 5. Chronic atrial fibrillation. 6. Urinary tract infection. PLAN: The patient appears comfortable this morning. She is not short of breath at rest. She is awake and alert. I did discuss the case with the night nurse at length. The night nurse stated that the patient had a good night. I did review the chest x-ray as above. Findings are noted. Again, I do not appreciate any new or significant infiltrates. The patient remains on antibiotic therapy - as per Infectious Disease. There are no temperatures noted. The leukocytosis has resolved. On physical exam, there is certainly less bronchospasm noted. In addition, the alveolar-arterial gradient is also less. I will continue the current nebulizer treatments and aspiration precautions for now. Inputs by Cardiology and Neurology are also noted. Clinical status of the patient is certainly improved - compared to the initial presentation. Her overall status/prognosis remains very guarded. I will discuss the above with Dr. Hubbard. Liban Anderson MD MTDD
--- NOTE | 2018-01-11 09:59 | PN ---
DATE: 01/11/2018 SUBJECTIVE: The patient is an 87-year-old female, resident of [facility] with recent admission for altered mental status. PHYSICAL EXAMINATION: VITAL SIGNS: She has a temp of 98.2, her pulse is 110, her blood pressure is 160/97, oxygen saturation is 97% on nasal cannula at 2 L. GENERAL: The patient is resting in bed this morning. She is non expressive. HEART: Regular S1, S2 rhythm. LUNGS: Show diminished breath sounds at the bases with scattered rhonchi. ABDOMEN: Obese, soft with positive bowel sounds. EXTREMITIES: Show no evidence of edema. LABORATORY DATA: Shows a WBC of 10.2, RBC 4.64, hemoglobin 13.5, hematocrit 42.7, platelet count is 205. Her chemistry shows sodium of 144, potassium 4, chloride 107, the CO2 is 30, the BUN is 18, creatinine is 0.4. Random blood sugar is 296, alkaline phosphatase is 138. The patient has an Enterococcus faecalis growing in the urine. ASSESSMENT AND PLAN: 1. Altered mental status in a patient with a prior existing stroke history. Being followed by Neurology. 2. Swallowing problem. Currently, she has a small bore nasogastric tube in place. Receiving Glucerna with blood sugar monitoring. 3. She has a history of atrial fibrillation and hypertension. Being followed by Cardiology. 4. She is on Lovenox subcu at this time. 5. She is on Maxipime IV. Being followed by Infectious Disease. She is on gastrointestinal prophylaxis with Protonix and is on Xopenex for breathing treatments. I will review with the family options for further medical care. She continues to be followed by the above-mentioned consultants. We will continue current level of supportive care. She has a living will. She is a DNR/DNI. Sherri Hubbard MD
[2018-01-11] MEDS: Cefepime 1gm in NS 100ml 1 GM/100 ML BAG IVPB SCH (10:00)
--- NOTE | 2018-01-11 10:16 | CP.PCM.CON ---
History of Present Illness - History of Present Illness History of Present Illness: Palliative consult requested by Dr Althea Hubbard Reason: Goals of care 87 year old female resident of [facility] with history of CVA, CHF and HTN who presented on 01/06/18 with aphasia, altered mental status and left sided gaze.There was no history of fever, chills, nausea, vomiting, chest pain EKG: A Fib with PVS's, left axis deviation, inferior infarct age undetermined Head CT01/06: Old right MCA infarct progressed form prior CT of 11/06/17, small old frontal lobe infarct, possible sinusitis Evert MRI 01/07: Chronic bilateral infarcts Chest x ray 01/06: no active disease, mild vascular congestion Labs 01/06:Wbc 11.2, Hgb 13, Plt 256, Na 140, K 3.7, glucose 206, Ast 26, ALT 25, Alk Phos 130, BNP 6120, Albumin 3.5,, urine > moderate leukocytes, many bacteria. Urine c/s Entereococcus Faecalis. Blood cultures negative PMHX: A Fib, HTN, CVA, GI bleed, UTI, left hip Fx. PSHx: Left hip ORIF, bilateral cataracts Social History: Never smoker, no alcohol or drug use. Resident of [facility] Family History: Non contributory Advance Care Planning: DNR/DNI. Daughter, Socorro Ceja is her POA. Past Patient History - Infectious Disease Hx of Infectious Diseases: None - Tetanus Immunizations Tetanus Immunization: Unknown - Past Medical History & Family History Past Medical History?: Yes - Past Social History Smoking Status: Former Smoker - CARDIAC Hx Cardiac Disorders: Yes Hx Cardia Arrhythmia: Yes (afib) Hx Congestive Heart Failure: Yes Hx Hypertension: Yes - PULMONARY Hx Respiratory Disorders: Yes Hx Pneumonia: Yes - NEUROLOGICAL Hx Neurological Disorder: Yes HX Cerebrovascular Accident: Yes (10/2017) - HEENT Hx HEENT Problems: Yes Hx Cataracts: Yes (bilateral eyes) - RENAL Hx Chronic Kidney Disease: No - ENDOCRINE/METABOLIC Hx Endocrine Disorders: Yes Hx Diabetes Mellitus Type 2: Yes - HEMATOLOGICAL/ONCOLOGICAL Hx Blood Disorders: Yes Hx Anemia: Yes - INTEGUMENTARY Hx Dermatological Problems: Yes Other/Comment: red raised itchy rash to both arms - MUSCULOSKELETAL/RHEUMATOLOGICAL Hx Musculoskeletal Disorders: Yes Hx Falls: Yes - GASTROINTESTINAL Hx Gastrointestinal Disorders: Yes Other/Comment: hx poor appetite,fatty liver,gi bleed - GENITOURINARY/GYNECOLOGICAL Hx Genitourinary Disorders: Yes Hx Incontinence: Yes - PSYCHIATRIC Hx Psychophysiologic Disorder: Yes Hx Depression: Yes Hx Substance Use: No - SURGICAL HISTORY Hx Surgeries: Yes Hx Appendectomy: Yes Hx Cholecystectomy: Yes Hx Orthopedic Surgery: Yes (left hip) - ANESTHESIA Hx Anesthesia Reactions: No Hx Malignant Hyperthermia: No Meds Allergies/Adverse Reactions: Allergies Allergy/AdvReac Type Severity Reaction Status Date / Time No Known Allergies Allergy Verified 10/21/17 02:39 - Medications Medications: Current Medications Aspirin (Ecotrin) 81 mg PO DAILY [facility] Last Admin: 01/10/18 10:43 Dose: 81 mg Atorvastatin Calcium (Lipitor) 40 mg PO DAILY [facility] Last Admin: 01/10/18 10:43 Dose: 40 mg Diltiazem HCl (Cardizem) 60 mg NG Q8 [facility] Last Admin: 01/11/18 05:25 Dose: 60 mg Enoxaparin Sodium (Lovenox) 60 mg SC Q12H [facility]; Protocol Last Admin: 01/11/18 02:25 Dose: 60 mg Hydralazine HCl (Apresoline) 10 mg IVP Q6 PRN PRN Reason: Diastolic blood pressure Last Admin: 01/11/18 03:02 Dose: 10 mg Hydromorphone HCl (Dilaudid) 0.5 mg IVP Q4H PRN PRN Reason: Pain, moderate (4-7) Last Admin: 01/10/18 16:10 Dose: 0.5 mg Cefepime HCl (Maxipime 1gm) 1 gm in 100 mls @ 100 mls/hr IVPB Q12 [facility]; Protocol Last Admin: 01/10/18 21:34 Dose: 100 mls/hr Insulin Human Lispro (Humalog Med) 0 units SC ACHS [facility]; Protocol Last Admin: 01/10/18 21:49 Dose: Not Given Levalbuterol HCl (Xopenex) 0.63 mg IH [id number] [facility] Last Admin: 01/11/18 08:17 Dose: 0.63 mg Metoprolol Tartrate (Lopressor) 50 mg NG Q12 [facility] Last Admin: 01/10/18 21:34 Dose: 50 mg Pantoprazole Sodium (Protonix Inj) 40 mg IVP DAILY [facility] Last Admin: 01/10/18 10:42 Dose: 40 mg Physical Exam - Constitutional Appears: Cachectic, Chronically Ill - Head Exam Head Exam: NORMAL INSPECTION - Eye Exam Additional comments: left gaze - ENT Exam ENT Exam: Mucous Membranes Moist - Neck Exam Neck exam: Positive for: Normal Inspection - Respiratory Exam Respiratory Exam: Decreased Breath Sounds, NORMAL BREATHING PATTERN - Cardiovascular Exam Cardiovascular Exam: Tachycardia, Irregular Rhythm, +S1, +S2 - GI/Abdominal Exam GI & Abdominal Exam: Normal Bowel Sounds, Soft - Extremities Exam Extremities exam: Positive for: pedal edema, pedal pulses present - Neurological Exam Neurological exam: Altered - Skin Skin Exam: Dry, Pallor - Additional Findings Additional findings: Palliative performance scale rating 30% Results - Vital Signs Recent Vital Signs: Last Vital Signs Temp 98.2 F 01/11/18 05:47 Pulse 110 H 01/11/18 05:47 Resp 19 01/11/18 05:47 BP 160/97 H 01/11/18 05:47 Pulse Ox 97 01/11/18 05:47 - Labs Result Diagrams: 01/11/18 05:30 01/11/18 05:30 Labs: Laboratory Results - last 24 hr 01/09/18 01/10/18 01/10/18 21:12 07:12 11:07 WBC RBC Hgb Hct MCV MCH MCHC RDW Plt Count MPV Gran % Lymph % (Auto) [place] % (Auto) Eos % (Auto) Baso % (Auto) Gran # Lymph # (Auto) [place] # (Auto) Eos # (Auto) Baso # (Auto) Sodium Potassium Chloride Carbon Dioxide Anion Gap BUN Creatinine Est GFR ( Amer) Est GFR (Non-Af Amer) POC Glucose (mg/dL) 131 H 175 H 214 H Random Glucose Calcium Total Bilirubin AST ALT Alkaline Phosphatase Total Protein Albumin Globulin Albumin/Globulin Ratio 01/10/18 01/10/18 01/11/18 16:15 21:46 03:30 WBC RBC Hgb Hct MCV MCH MCHC RDW Plt Count MPV Gran % Lymph % (Auto) [place] % (Auto) Eos % (Auto) Baso % (Auto) Gran # Lymph # (Auto) [place] # (Auto) Eos # (Auto) Baso # (Auto) Sodium Potassium Chloride Carbon Dioxide Anion Gap BUN Creatinine Est GFR ( Amer) Est GFR (Non-Af Amer) POC Glucose (mg/dL) 212 H 251 H 261 H Random Glucose Calcium Total Bilirubin AST ALT Alkaline Phosphatase Total Protein Albumin Globulin Albumin/Globulin Ratio 01/11/18 01/11/18 01/11/18 05:30 05:30 07:10 WBC 10.2 RBC 4.64 Hgb 13.5 Hct 42.7 MCV 92.0 MCH 29.1 MCHC 31.6 RDW 16.6 H Plt Count 205 MPV 14.0 H Gran % 76.8 H Lymph % (Auto) 12.0 L [place] % (Auto) 10.7 H Eos % (Auto) 0.3 L Baso % (Auto) 0.2 Gran # 7.86 H Lymph # (Auto) 1.2 [place] # (Auto) 1.1 H Eos # (Auto) 0.0 Baso # (Auto) 0.02 Sodium 144 Potassium 4.0 Chloride 107 Carbon Dioxide 30 Anion Gap 11 BUN 18 Creatinine 0.4 L Est GFR ( Amer) > 60 Est GFR (Non-Af Amer) > 60 POC Glucose (mg/dL) 298 H Random Glucose 296 H Calcium 9.3 Total Bilirubin 0.7 AST 24 ALT 21 Alkaline Phosphatase 138 H Total Protein 6.9 Albumin 3.4 Globulin 3.5 Albumin/Globulin Ratio 1.0 L Assessment & Plan - Assessment and Plan (Free Text) Assessment: 87 year old resident of [facility] with history of A Fib, CHF, CVA, hip fracture and GI bleed who is admitted with AMS, UTI, aphasia, dysphagia. The patient is restless. She is opens her eyes but unable to respond or follow command Lengthy conversation with patients daughters regarding goals of care. Deni, patients daughter expressed that her mothers quality of life is not good and that she wants her to be kept as comfortable. Family does not want permanent feeding tube.Hospice services explained in detail, questions answered. Family is agreeable to transitioning hospice care. Family to meet with [facility] medical liaison tomorrow. Time spent with family in goals of care and end of life decision making, 60 minutes Plan: Goals of care and Advance Care planning Hospice evaluation UTI: Cefepime Carido: ASA, Cardizem, Apresoline, Metoprolol Dysphagia: NG feedings, speech and swallow when more alert OT/PT A Fib/DVT prophylaxis: Lovenox
--- NOTE | 2018-01-11 11:55 | RAD ---
Date of service: 01/11/2018 HISTORY: confirm NG tube placement COMPARISON: Multiple serial examinations preceding the most recent study: January 10, 2018. FINDINGS: LUNGS: No active pulmonary disease. PLEURA: Better visualization left pleural effusion. CARDIOVASCULAR: Pulmonary vascular congestion is progressive. Atherosclerotic calcifications identified primarily aortic arch. OSSEOUS STRUCTURES: No significant abnormalities. VISUALIZED UPPER ABDOMEN: Nasogastric tube courses through the esophagus and stomach although the tip is not visible. OTHER FINDINGS: None. IMPRESSION: Documentation of nasogastric tube in the esophagus and stomach although the tip is not visible. Worsening pulmonary vascular congestion.
[2018-01-11] MEDS: Piperacillin/Tazobact 3.375 gm 100 ML IVPB SCH (13:21)
--- NOTE | 2018-01-11 15:37 | PN ---
DATE: 01/11/2018 FOLLOWUP SUBJECTIVE: The patient in a slightly rapid AFib and hypertensive. PHYSICAL EXAMINATION: VITAL SIGNS: Blood pressure 152/96, heart rate 95, temperature 99.9, respirations 18. HEENT: Normocephalic. CHEST: Diminished breath sounds bilaterally. HEART: S1 and S2 regular. EXTREMITIES: 1+ pitting edema. LABORATORY DATA: Today's hemoglobin and hematocrit, white count and platelet count are within normal limit. Today's SMA-7 is within normal limits except for glucose of 296 and creatinine of 0.4. ASSESSMENT: 1. Chronic atrial fibrillation. 2. Altered mental status. 3. Uncontrolled hypertension. 4. Severe calcific valvular aortic stenosis. 5. Severe pulmonary hypertension. RECOMMENDATIONS: The case was discussed with Dr. Hubbard, the primary physician. The patient will be maintained on Lopressor 50 mg twice a day, which was started yesterday current. Will be maintained on subcutaneous Lovenox at 60 mg every 12 hours and Cardizem, which was increased to 60 mg every 8 hours via nasogastric tube beside IV Zosyn. If the family decides about hospice, then the patient will be taken of therapeutic subcutaneous Lovenox regimen and will be placed on a prophylactic regimen. Reese Drake MD
[2018-01-11] MEDS: HYDROmorphone 0.5 mg/0.5 ml ISec IVP PRN (16:23)
[2018-01-11] MEDS ORDERED: Iohexol 350 MG/100 ML VIAL ONE (17:22)
[2018-01-12] MEDS: Levalbuterol 0.63 MG/3 ML Inhal Soln UD IH SCH ×4 (02:20→22:11)
[2018-01-12] MEDS: Enoxaparin 60 mg Syringe SC SCH ×2 (02:22→13:48)
[2018-01-12 07:56] LABS: BASO # 0.02 K/mm3 (0.0-2.0); BASO % 0.2 % (0.0-3.0); EOS % 0.2 % (1.5-5.0); GRAN # 6.85 (1.4-6.5); GRAN % 74.3 % (50.0-68.0); HEMOGLOBIN 13.7 g/dL (12.0-16.0); LYMPH # 1.5 (1.2-3.4); LYMPH % 16.7 % (22.0-35.0); MEAN CELL VOLUME 93.6 fl (80.0-105.0); MEAN CORPUSCULAR HEMOGLOBIN 29.3 pg (25.0-35.0); MEAN CORPUSCULAR HGB CONC 31.4 g/dl (31.0-37.0); MEAN PLATELET VOLUME 13.8 fl (7.0-11.0); MONO # 0.8 (0.1-0.6); MONO % 8.6 % (1.0-6.0); RBC 4.67 10^6/uL (3.5-6.1); RED CELL DISTRIBUTION WIDTH 17.1 % (11.5-14.5); WHITE BLOOD COUNT 9.2 10^3/uL (4.5-11.0)
[2018-01-12 08:17] LABS: BLOOD UREA NITROGEN 18 mg/dL (7-21); CALCIUM 9.3 mg/dL (8.4-10.5); GFR NON-AFRICAN AMERICAN > 60
[2018-01-12] MEDS: Insulin Lispro (humaLOG) MEDIUM Coverage SC SCH ×4 (08:25→22:00)
[2018-01-12] MEDS: Pantoprazole 40 mg Susp UD NG SCH (10:25)
[2018-01-12] MEDS: Piperacillin/Tazobact 3.375 gm 100 ML IVPB SCH ×2 (10:27→21:32)
--- NOTE | 2018-01-12 11:12 | PN ---
DATE: 01/12/2018 PULMONARY PROGRESS NOTE SUBJECTIVE: The patient offers no respiratory complaint. She does not appear to have shortness of breath. She has been evaluated by Pulmonary for possible aspiration pneumonia. The patient has significant cerebrovascular disease. OBJECTIVE: GENERAL: The patient remains in bed without respiratory distress. VITAL SIGNS: Remain stable. She is afebrile, pulse is 88, respiratory rate 18, blood pressure 140/90, O2 saturation on nasal cannula 98%. HEENT: Normocephalic, atraumatic. NECK: No jugular venous distention. No bruit or mass. CARDIOVASCULAR: Regular rhythm. S1, S2. Soft systolic ejection murmur at the lower left sternal border. There was no gallop or rub. LUNGS: Global decrease in breath sounds. No rales, rhonchi or wheezing appreciated. ABDOMEN: Soft. Bowel sounds normoactive without mass, guarding, rebound or organomegaly. EXTREMITIES: Reveal no clubbing or cyanosis. There is trace edema noted. Homans' sign is negative. SKIN: Shows no rash or excoriation. NEUROLOGIC: Difficult to obtain. LABORATORY DATA: Chest x-ray done yesterday shows nasogastric tube. Chest x-ray shows poor inspiration and rotation. Mild pulmonary vascular congestion. Cannot exclude infiltrates. IMPRESSION: 1. Possible aspiration pneumonia, but Pneumonia is unlikely based on chest x- ray. 2. Aspiration Syndrome. 3. Cerebrovascular accident. 4. Nasogastric tube placement. 5. Pulmonary vascular congestion. 6. Chronic atrial fibrillation. PLAN: Continue close observation and monitoring the patient's respiratory status. Suggest followup chest x-ray in upright position that is not rotated to evaluate for possible new infiltrates. Continue antibiotic therapy per Infectious Disease. Close monitoring of vital signs and white blood cell count. Continue vigorous support to be discussed at length with primary medical physician, Dr. Sherri Hubbard. Close followup is essential. We will follow closely with you and provide the best possible care to make sure that this elderly woman has the opportunity to recuperate from this combined acute/chronic event. Misbah Flores MD JAMES
[2018-01-12] MEDS: Acetaminophen 650mg/20.3ml solution UD PO PRN (11:50)
--- NOTE | 2018-01-12 12:00 | CP.PCM.PN ---
Subjective - Date & Time of Evaluation Date of Evaluation: 01/12/18 Time of Evaluation: 10:25 - Subjective Subjective: No fevers, still somewhat lethargic, no diarrhea. Still with NGT. Objective - Vital Signs/Intake and Output Vital Signs (last 24 hours): Temp Pulse Resp BP Pulse Ox 99.9 F H 95 H 18 152/96 H 97 01/11/18 11:26 01/11/18 11:26 01/11/18 11:26 01/11/18 11:26 01/11/18 05:47 Intake and Output: 01/11/18 01/11/18 06:59 18:59 Intake Total 1200 Balance 1200 - Medications Medications: Current Medications Aspirin (Ecotrin) 81 mg PO DAILY [facility] Last Admin: 01/11/18 10:01 Dose: 81 mg Atorvastatin Calcium (Lipitor) 40 mg PO DAILY [facility] Last Admin: 01/11/18 10:01 Dose: 40 mg Diltiazem HCl (Cardizem) 60 mg NG Q8 [facility] Last Admin: 01/11/18 05:25 Dose: 60 mg Enoxaparin Sodium (Lovenox) 60 mg SC Q12H [facility]; Protocol Last Admin: 01/11/18 02:25 Dose: 60 mg Hydralazine HCl (Apresoline) 10 mg IVP Q6 PRN PRN Reason: Diastolic blood pressure Last Admin: 01/11/18 03:02 Dose: 10 mg Hydromorphone HCl (Dilaudid) 0.5 mg IVP Q4H PRN PRN Reason: Pain, moderate (4-7) Last Admin: 01/10/18 16:10 Dose: 0.5 mg Piperacillin Sod/Tazobactam Sod (Zosyn 3.375 In Ns 100ml) 100 mls @ 25 mls/hr IVPB Q12 [facility]; Protocol Stop: 01/16/18 11:31 Insulin Human Lispro (Humalog Med) 0 units SC ACHS [facility]; Protocol Last Admin: 01/11/18 08:30 Dose: 5 u Levalbuterol HCl (Xopenex) 0.63 mg IH [id number] [facility] Last Admin: 01/11/18 13:36 Dose: 0.63 mg Metoprolol Tartrate (Lopressor) 50 mg NG Q12 [facility] Last Admin: 01/11/18 10:01 Dose: 50 mg Pantoprazole Sodium (Protonix Susp) 40 mg NG DAILY [facility] - Labs Labs: 01/11/18 05:30 01/11/18 05:30 PT 16.0 SECONDS (9.4-12.5) H 01/09/18 14:35 INR 1.39 01/09/18 14:35 APTT 36.1 Seconds (25.1-36.5) 01/06/18 18:22 - Constitutional Appears: Chronically Ill - Head Exam Head Exam: NORMAL INSPECTION - ENT Exam Additional comments: NGT in place - Neck Exam Neck Exam: absent: Meningismus - Respiratory Exam Respiratory Exam: Decreased Breath Sounds - Cardiovascular Exam Cardiovascular Exam: +S1, +S2 - GI/Abdominal Exam GI & Abdominal Exam: Soft. absent: Tenderness Assessment and Plan - Assessment and Plan (Free Text) Plan: Assessment consider UTI with E. faecalis S/P sepsis due to community-acquired pneumonia in this patient with acute CVA blood cx bottle contamination with Staph saprophyticus history of sepsis due to left lower extremity cellulitis on top of chronic lower leg edema, probably related to CHF HTN DM atrial fibrillation history of gastrointestinal bleed dyslipdemia coronary artery disease Plan continue Zosyn for another 3-4 days
--- NOTE | 2018-01-12 16:15 | PN ---
DATE: 01/12/2018 FOLLOWUP SUBJECTIVE: The patient is lethargic and poorly responsive. Family decided upon hospice according to the primary physician. PHYSICAL EXAMINATION: VITAL SIGNS: Blood pressure 133/99, heart rate 112, temperature 100.5, respirations 21. HEENT: No pallor or icterus. CHEST: Diffuse bilateral rhonchi. HEART: S1 and S2 regular. EXTREMITIES: 1+ pitting edema. LABORATORY DATA: Hemoglobin and hematocrit, white count and platelet count today are within normal limits. Today's SMA-7 is within normal limits except for glucose of 250, chloride of 108 and creatinine of 0.5. Yesterday's chest x-ray reported worsening of pulmonary vascular congestion. ASSESSMENT: 1. Chronic atrial fibrillation. 2. Altered mental status. 3. Uncontrolled hypertension. 4. Severe valvular aortic stenosis. 5. Severe pulmonary hypertension. 6. Enterococcus faecalis urinary tract infection. RECOMMENDATIONS: Case was discussed with the primary care physician, Dr. Hubbard. Lovenox dose will be reduced to a prophylactic regimen at 30 mg subcutaneously daily. Continue aspirin 81 mg once a day, Lopressor 50 mg twice a day via nasogastric tube and IV Zosyn at 3.375 g every 12 hours. Reese Drake MD
--- NOTE | 2018-01-12 17:45 | PN ---
DATE: 01/12/2018 SUBJECTIVE: The patient is an 87-year-old female with a living will DNR/DNI, resting in bed. This morning, the patient is lethargic somewhat. PHYSICAL EXAMINATION: VITAL SIGNS: The temperature is 100.5, her pulse is 112, her blood pressure is 139/99, respiratory rate is 21. LUNGS: Rhonchi. HEART: An irregular S1, S2 rhythm. ABDOMEN: Soft with positive bowel sounds. EXTREMITIES: No evidence of edema. LABORATORY DATA: WBC of 9.2, RBC of 4.67, hemoglobin 13.7, hematocrit 43.7, and platelet count 172. Chemistry shows sodium of 144, potassium 3.9, chloride 108, BUN is 18 and creatinine is 0.5. Random blood sugar is 193. Calcium is 9.3. ASSESSMENT/PLAN: The patient is receiving IV antibiotics for urinary tract infection. She has had a recent admission for altered mental status with the change in verbalization capability, being followed by Neurology, receiving supportive care. She is being followed by Cardiology for her atrial fibrillation. She is on subcu Lovenox. She is on Lopressor via her NG tube every 12 hours and Lipitor. She is on insulin sliding scale for her sugar, aspirin and Cardizem and Apresoline. She is being followed by Pulmonary and Infectious Disease as well as Cardiology. The family is currently in discussions with compassionate care regarding entering the patient into hospice. We will continue supportive care at this time pending the discussion with the family and the hospice people. They are aware of her clinical status and her prognosis. Sherri Hubbard MD
[2018-01-12] MEDS: HYDROmorphone 0.5 mg/0.5 ml ISec IVP PRN (21:40)
[2018-01-13] MEDS: Levalbuterol 0.63 MG/3 ML Inhal Soln UD IH SCH ×4 (03:30→20:58)
[2018-01-13 06:10] VITALS: O2SAT 96
[2018-01-13] MEDS: Insulin Lispro (humaLOG) MEDIUM Coverage SC SCH ×4 (08:15→22:11)
[2018-01-13] MEDS: Enoxaparin 30 mg Syringe SC SCH (10:18)
[2018-01-13] MEDS: Piperacillin/Tazobact 3.375 gm 100 ML IVPB SCH ×2 (10:18→22:03)
[2018-01-13] MEDS: Pantoprazole 40 mg Susp UD NG SCH (10:19)
[2018-01-13] MEDS: Acetaminophen 650mg/20.3ml solution UD PO PRN (10:23)
--- NOTE | 2018-01-13 11:04 | CP.PCM.PN ---
Subjective - Date & Time of Evaluation Date of Evaluation: 01/13/18 Time of Evaluation: 10:25 - Subjective Subjective: Continues to have NGT, still somewhat lethargic, no fevers overnight. Objective - Vital Signs/Intake and Output Vital Signs (last 24 hours): Temp Pulse Resp BP Pulse Ox 100.5 F H 126 H 22 148/65 95 01/12/18 11:50 01/12/18 10:25 01/12/18 06:00 01/12/18 10:25 01/12/18 06:00 Intake and Output: 01/12/18 01/12/18 06:59 18:59 Intake Total 580 Output Total 350 Balance 230 - Medications Medications: Current Medications Acetaminophen (Tylenol 650mg/20.3ml Solution Ud) 650 mg PO Q6H PRN PRN Reason: Temperature Last Admin: 01/12/18 11:50 Dose: 650 mg Aspirin (Ecotrin) 81 mg PO DAILY [facility] Last Admin: 01/12/18 10:27 Dose: 81 mg Atorvastatin Calcium (Lipitor) 40 mg PO DAILY [facility] Last Admin: 01/12/18 10:25 Dose: 40 mg Diltiazem HCl (Cardizem) 60 mg NG Q8 [facility] Last Admin: 01/12/18 05:09 Dose: 60 mg Enoxaparin Sodium (Lovenox) 60 mg SC Q12H [facility]; Protocol Last Admin: 01/12/18 02:22 Dose: 60 mg Hydralazine HCl (Apresoline) 10 mg IVP Q6 PRN PRN Reason: Diastolic blood pressure Last Admin: 01/11/18 03:02 Dose: 10 mg Hydromorphone HCl (Dilaudid) 0.5 mg IVP Q4H PRN PRN Reason: Pain, moderate (4-7) Last Admin: 01/11/18 16:23 Dose: 0.5 mg Piperacillin Sod/Tazobactam Sod (Zosyn 3.375 In Ns 100ml) 100 mls @ 25 mls/hr IVPB Q12 [facility]; Protocol Stop: 01/16/18 11:31 Last Admin: 01/12/18 10:27 Dose: 25 mls/hr Insulin Human Lispro (Humalog Med) 0 units SC ACHS [facility]; Protocol Last Admin: 01/12/18 08:25 Dose: 3 u Levalbuterol HCl (Xopenex) 0.63 mg IH [id number] [facility] Last Admin: 01/12/18 09:12 Dose: 0.63 mg Metoprolol Tartrate (Lopressor) 50 mg NG Q12 [facility] Last Admin: 01/12/18 10:25 Dose: 50 mg Pantoprazole Sodium (Protonix Susp) 40 mg NG DAILY [facility] Last Admin: 01/12/18 10:25 Dose: 40 mg - Labs Labs: 01/12/18 07:00 01/12/18 07:00 PT 16.0 SECONDS (9.4-12.5) H 01/09/18 14:35 INR 1.39 01/09/18 14:35 APTT 36.1 Seconds (25.1-36.5) 01/06/18 18:22 - Constitutional Appears: Chronically Ill - Head Exam Head Exam: NORMAL INSPECTION - ENT Exam Additional comments: NGT in place - Neck Exam Neck Exam: absent: Meningismus - Respiratory Exam Respiratory Exam: Decreased Breath Sounds - Cardiovascular Exam Cardiovascular Exam: +S1, +S2 - GI/Abdominal Exam GI & Abdominal Exam: Soft. absent: Tenderness Assessment and Plan - Assessment and Plan (Free Text) Plan: Assessment consider UTI with E. faecalis S/P sepsis due to community-acquired pneumonia in this patient with acute CVA blood cx bottle contamination with Staph saprophyticus history of sepsis due to left lower extremity cellulitis on top of chronic lower leg edema, probably related to CHF HTN DM atrial fibrillation history of gastrointestinal bleed dyslipdemia coronary artery disease Plan continue Zosyn for another 2-[address] Hubbard - patient is for hospice care
--- NOTE | 2018-01-13 13:08 | PN ---
DATE: 01/13/2018 SUBJECTIVE: This is an 87-year-old female, resting quietly in bed at this time. Nursing staff relates that there were no problems during the night. PHYSICAL EXAMINATION: GENERAL: The patient is lethargic. VITAL SIGNS: Her temp is 98, her pulse is 95, blood pressure is 146/88, oxygen sat on 2 liters nasal oxygen is reported 96% with a respiratory rate of 20. LUNGS: Scattered rhonchi. HEART: Irregular S1, S2 rhythm. ABDOMEN: Soft with positive bowel sounds. EXTREMITIES: No evidence of edema. ASSESSMENT AND PLAN: The patient may be entered into hospice after discussion between the family and compassionate care and only receiving supportive care. At this particular point in time, she is receiving Ativan every 4 hours as needed for agitation, Cardizem 60 mg every 8 hours, Ecotrin 81 mg daily. She had a sliding insulin scale. She is receiving her NG feedings. She is on Lipitor 40 mg daily, Lopressor 50 mg every 12 hours, Lovenox 30 mg subcutaneously, Protonix 40 mg for GI prophylaxis and Tylenol every 6 hours 2 tabs as needed for temperature 101 or greater, and she is on respiratory treatments with Xopenex. She is also completing Zosyn for her urinary tract infection. She has been followed by Pulmonary and Cardiology and the hospice nurse. Continue current level of supportive care. She has a history of altered mental status and cerebrovascular accident with left hemiparesis, history of hyperkalemia, cellulitis, lower GI bleed, insulin-dependent diabetes, congestive heart failure, degenerative arthritis. She has a living will. She is a DNR/DNI. Sherri Hubbard MD JAMES
--- NOTE | 2018-01-13 17:30 | PN ---
DATE: 01/13/2018 SUBJECTIVE: The patient is lethargic and does not appear to be in any respiratory distress. PHYSICAL EXAMINATION: VITAL SIGNS: Blood pressure 146/88, heart rate 95, temperature 100, respirations 20. HEENT: No pallor or icterus. CHEST: Bilateral rhonchi. HEART: S1, S2 regular. EXTREMITIES: Trace leg edema. LABORATORY DATA: Today's SMA-7: Sodium 144, potassium 3.9, chloride 108, CO2 of 29, glucose 150, BUN 18, creatinine 0.5. ASSESSMENT: 1. Chronic atrial fibrillation. 2. History of cerebrovascular accident. 3. Altered mental status. 4. Uncontrolled diabetes mellitus. 5. Severe valvular aortic stenosis. 6. Severe pulmonary hypertension. 7. Enterococcus urinary tract infection. RECOMMENDATIONS: Continue hydralazine 10 mg intravenously every 6 hours as needed, Cardizem at 60 mg every 8 hours, aspirin 81 mg once a day, Lipitor 40 mg once a day, Lopressor 50 mg twice a day, Lovenox 30 mg once a day, and Zosyn 3.375 g intravenously every 12 hours. Reese Drake MD
[2018-01-14] MEDS: Levalbuterol 0.63 MG/3 ML Inhal Soln UD IH SCH ×3 (01:29→13:37)
--- NOTE | 2018-01-14 07:08 | PN ---
DATE: 01/14/2018 SUBJECTIVE: The patient appears very lethargic this morning. She is mildly short of breath, but in no acute distress. PHYSICAL EXAMINATION VITAL SIGNS: Temperature is 98.3, pulse on the monitor is 114, respiratory rate 22/24, blood pressure 144/88. Oxygen saturation on nasal cannula is 96%. HEENT: Normocephalic, atraumatic. No JVD. Cardiovascular: Systolic ejection murmur at the lower left sternal border. No S3 gallop. LUNGS: Decreased breath sounds at the bases. Minimal bilateral rhonchi. No wheezing. EXTREMITIES: Mild edema. No cyanosis, no clubbing. Calves are nontender to palpation. GI: Abdomen is soft, nontender, nondistended. Bowel sounds are positive. SKIN: No acute rash. NEUROLOGIC: Exam limited at the present time. IMPRESSION: 1. Rule out acute cerebrovascular accident. 2. History of previous cerebrovascular accident. 3. Possible aspiration pneumonia. 4. Mild bronchospasm. 5. Chronic atrial fibrillation. 6. Urinary tract infection. PLAN: The patient appears very lethargic this morning. She is mildly short of breath, but in no acute distress. I did discuss the case with the night nurse at length. The night nurse informed me that the patient did become much more lethargic over the weekend. On physical exam, there is only minimal bronchospasm noted. In addition, there is no significant alveolar-arterial gradient. I will continue the current nebulizer treatments and aspiration precautions for now. Inputs by Cardiology, Infectious Disease are also noted. Again, I did discuss the case with the nurses at length. I have also reviewed the input by Doreen Goldstein (Palliative care). The patient will be transitioned to hospice care in the near future. I will discuss the above with Dr. Hubbard. Liban Anderson MD MTDD
[2018-01-14] MEDS: Insulin Lispro (humaLOG) MEDIUM Coverage SC SCH ×2 (08:08→11:38)
[2018-01-14] MEDS: Enoxaparin 30 mg Syringe SC SCH (09:29)
[2018-01-14] MEDS: Pantoprazole 40 mg Susp UD NG SCH (09:31)
[2018-01-14] MEDS: Piperacillin/Tazobact 3.375 gm 100 ML IVPB SCH (09:31)
--- NOTE | 2018-01-14 10:49 | PN ---
DATE: 01/14/2018 SUBJECTIVE: An 87-year-old female lying in bed this morning. The patient is lethargic. PHYSICAL EXAMINATION VITAL SIGNS: Her temperature is 98.3, pulse is 100, her blood pressure is 156/93, respiratory rate is 24, oxygen sat is reported at 96% on nasal cannula. LUNGS: Show bibasilar rhonchi. HEART: An irregular S1, S2 rhythm. Breathing appears to be more labored. The patient appears to be a bit more restless this morning. ABDOMEN: Soft, scaphoid. Positive bowel sounds. EXTREMITIES: Show no evidence of edema. The patient is being followed by Infectious Disease, Cardiology and Pulmonary. She has got a history of cerebrovascular accident, recent altered mental status, urinary tract infection, left hemiparesis, degenerative arthritis, insulin-dependent diabetes, hypertension, atrial fibrillation. She is currently receiving supportive care in the hospital, currently on feedings and IV antibiotics. Family is in discussions regarding transition into hospice. We will discuss with the hospice team and continue current level of supportive care. She has a living will. She is a DNR/DNI. Sherri Hubbard MD
[2018-01-14] MEDS: Acetaminophen 650mg/20.3ml solution UD PO PRN (11:31)
--- NOTE | 2018-01-14 11:43 | CP.PCM.PN ---
Subjective - Date & Time of Evaluation Date of Evaluation: 01/14/18 Time of Evaluation: 10:30 - Subjective Subjective: Tachypnea, accessory muscle use, restlessness Objective - Vital Signs/Intake and Output Vital Signs (last 24 hours): Temp Pulse Resp BP Pulse Ox 101.8 F H 120 H 24 144/88 96 01/14/18 11:31 01/14/18 09:28 01/14/18 06:00 01/14/18 09:28 01/14/18 06:00 Intake and Output: 01/14/18 01/14/18 06:59 18:59 Intake Total 700 Output Total 950 Balance -250 - Medications Medications: Current Medications Acetaminophen (Tylenol 650mg/20.3ml Solution Ud) 650 mg PO Q6H PRN PRN Reason: Temperature Last Admin: 01/14/18 11:31 Dose: 650 mg Aspirin (Ecotrin) 81 mg PO DAILY [facility] Last Admin: 01/14/18 09:27 Dose: 81 mg Atorvastatin Calcium (Lipitor) 40 mg PO DAILY [facility] Last Admin: 01/14/18 09:27 Dose: 40 mg Diltiazem HCl (Cardizem) 60 mg NG Q8 [facility] Last Admin: 01/14/18 05:51 Dose: 60 mg Enoxaparin Sodium (Lovenox) 30 mg SC DAILY [facility]; Protocol Last Admin: 01/14/18 09:29 Dose: 30 mg Hydralazine HCl (Apresoline) 10 mg IVP Q6 PRN PRN Reason: Diastolic blood pressure Last Admin: 01/11/18 03:02 Dose: 10 mg Hydromorphone HCl (Dilaudid) 0.5 mg IVP Q4H PRN PRN Reason: Pain, moderate (4-7) Last Admin: 01/12/18 21:40 Dose: 0.5 mg Piperacillin Sod/Tazobactam Sod (Zosyn 3.375 In Ns 100ml) 100 mls @ 25 mls/hr IVPB Q12 [facility]; Protocol Stop: 01/16/18 11:31 Last Admin: 01/14/18 09:31 Dose: 25 mls/hr Insulin Human Lispro (Humalog Med) 0 units SC ACHS [facility]; Protocol Last Admin: 01/14/18 08:08 Dose: 7 u Levalbuterol HCl (Xopenex) 0.63 mg IH [id number] [facility] Last Admin: 01/14/18 08:37 Dose: 0.63 mg Lorazepam (Ativan) 0.5 mg PO Q4 PRN; Protocol PRN Reason: Agitation Last Admin: 01/12/18 18:16 Dose: 0.5 mg Metoprolol Tartrate (Lopressor) 50 mg NG Q12 [facility] Last Admin: 01/14/18 09:28 Dose: 50 mg Pantoprazole Sodium (Protonix Susp) 40 mg NG DAILY [facility] Last Admin: 01/14/18 09:31 Dose: 40 mg - Labs Labs: 01/12/18 07:00 01/12/18 07:00 PT 16.0 SECONDS (9.4-12.5) H 01/09/18 14:35 INR 1.39 01/09/18 14:35 APTT 36.1 Seconds (25.1-36.5) 01/06/18 18:22 - Constitutional Appears: Chronically Ill - Eye Exam Eye Exam: Normal appearance Additional comments: sluggish - ENT Exam ENT Exam: Mucous Membranes Moist - Respiratory Exam Respiratory Exam: Accessory Muscle Use, Decreased Breath Sounds - GI/Abdominal Exam GI & Abdominal Exam: Soft, Normal Bowel Sounds - Extremities Exam Extremities Exam: Pedal Edema Additional comments: restlessness both lower extremities R>L - Neurological Exam Neurological Exam: Altered - Skin Skin Exam: Dry, Pallor Assessment and Plan - Assessment and Plan (Free Text) Assessment: 87 year old female with history of HTN, DM, A Fib,HLD, CVA who is admitted with UTI, bronchospam,altered mental status, dysphagia,aphasia. The patient is tahcypneic, with accessory muscle use. She has periods of restlessness. She is febrile. She is altered, non verbal Plan: Evaluate for [facility] hospice under Compassionate Care services Tylenol for fever over 100F Dilaudid 0.5mg IV for pain Ativan IVP for restlessness and agitation
--- NOTE | 2018-01-14 12:16 | CP.PCM.PN ---
Subjective - Date & Time of Evaluation Date of Evaluation: 01/14/18 Time of Evaluation: 09:30 - Subjective Subjective: Afebrile, still somewhat lethargic. Objective - Vital Signs/Intake and Output Vital Signs (last 24 hours): Temp Pulse Resp BP Pulse Ox 100 F H 95 H 20 146/88 96 01/13/18 10:23 01/13/18 10:19 01/13/18 06:00 01/13/18 10:19 01/13/18 06:00 Intake and Output: 01/13/18 01/13/18 06:59 18:59 Intake Total 680 Output Total 400 Balance 280 - Medications Medications: Current Medications Acetaminophen (Tylenol 650mg/20.3ml Solution Ud) 650 mg PO Q6H PRN PRN Reason: Temperature Last Admin: 01/13/18 10:23 Dose: 650 mg Aspirin (Ecotrin) 81 mg PO DAILY [facility] Last Admin: 01/13/18 10:19 Dose: 81 mg Atorvastatin Calcium (Lipitor) 40 mg PO DAILY [facility] Last Admin: 01/13/18 10:19 Dose: 40 mg Diltiazem HCl (Cardizem) 60 mg NG Q8 [facility] Last Admin: 01/13/18 05:04 Dose: 60 mg Enoxaparin Sodium (Lovenox) 30 mg SC DAILY [facility]; Protocol Last Admin: 01/13/18 10:18 Dose: 30 mg Hydralazine HCl (Apresoline) 10 mg IVP Q6 PRN PRN Reason: Diastolic blood pressure Last Admin: 01/11/18 03:02 Dose: 10 mg Hydromorphone HCl (Dilaudid) 0.5 mg IVP Q4H PRN PRN Reason: Pain, moderate (4-7) Last Admin: 01/12/18 21:40 Dose: 0.5 mg Piperacillin Sod/Tazobactam Sod (Zosyn 3.375 In Ns 100ml) 100 mls @ 25 mls/hr IVPB Q12 [facility]; Protocol Stop: 01/16/18 11:31 Last Admin: 01/13/18 10:18 Dose: 25 mls/hr Insulin Human Lispro (Humalog Med) 0 units SC ACHS [facility]; Protocol Last Admin: 01/13/18 08:15 Dose: 5 u Levalbuterol HCl (Xopenex) 0.63 mg IH [id number] [facility] Last Admin: 01/13/18 07:36 Dose: 0.63 mg Lorazepam (Ativan) 0.5 mg PO Q4 PRN; Protocol PRN Reason: Agitation Last Admin: 01/12/18 18:16 Dose: 0.5 mg Metoprolol Tartrate (Lopressor) 50 mg NG Q12 [facility] Last Admin: 01/13/18 10:19 Dose: 50 mg Pantoprazole Sodium (Protonix Susp) 40 mg NG DAILY [facility] Last Admin: 01/13/18 10:19 Dose: 40 mg - Labs Labs: 01/12/18 07:00 01/12/18 07:00 PT 16.0 SECONDS (9.4-12.5) H 01/09/18 14:35 INR 1.39 01/09/18 14:35 APTT 36.1 Seconds (25.1-36.5) 01/06/18 18:22 - Constitutional Appears: Chronically Ill - Head Exam Head Exam: NORMAL INSPECTION - ENT Exam Additional comments: NGT in place - Respiratory Exam Respiratory Exam: Decreased Breath Sounds - Cardiovascular Exam Cardiovascular Exam: +S1, +S2 - GI/Abdominal Exam GI & Abdominal Exam: Soft. absent: Tenderness Assessment and Plan - Assessment and Plan (Free Text) Plan: Assessment consider UTI with E. faecalis S/P sepsis due to community-acquired pneumonia in this patient with acute CVA blood cx bottle contamination with Staph saprophyticus history of sepsis due to left lower extremity cellulitis on top of chronic lower leg edema, probably related to CHF HTN DM atrial fibrillation history of gastrointestinal bleed dyslipdemia coronary artery disease Plan continue Zosyn for another 1-[address] Hubbard - patient is for hospice care
[2018-01-14 12:47] VITALS: BP 163/85; PULSE 100; RESP 16; TEMP 101.7
== END 2018-01-14 14:21 | disposition hospice, inpatient (51) | DRG 64 ==
LOC: ED 17:59 → ERH 19:08 → CCU 21:34 → 2RSO 01-10 20:07
PROVIDERS: ADMIT Internal Medicine; ATTEND Internal Medicine
DX: I63.9 Cerebral infarction, unspecified (principal); J69.0 Pneumonitis due to inhalation of food and vomit; I69.354 Hemiplegia and hemiparesis following cerebral infarction affecting left non-dominant side; N39.0 Urinary tract infection, site not specified; I11.0 Hypertensive heart disease with heart failure; I25.10 Atherosclerotic heart disease of native coronary artery without angina pectoris; H51.0 Palsy (spasm) of conjugate gaze; R41.82 Altered mental status, unspecified; I48.2 Chronic atrial fibrillation; Z79.01 Long term (current) use of anticoagulants; Z87.891 Personal history of nicotine dependence; I35.0 Nonrheumatic aortic (valve) stenosis; I27.20 Pulmonary hypertension, unspecified; E11.65 Type 2 diabetes mellitus with hyperglycemia; B95.2 Enterococcus as the cause of diseases classified elsewhere; I69.320 Aphasia following cerebral infarction; E78.5 Hyperlipidemia, unspecified; I34.0 Nonrheumatic mitral (valve) insufficiency; I50.9 Heart failure, unspecified; J98.01 Acute bronchospasm; K76.0 Fatty (change of) liver, not elsewhere classified; M16.10 Unilateral primary osteoarthritis, unspecified hip; Z51.5 Encounter for palliative care; Z66 Do not resuscitate; Z79.02 Long term (current) use of antithrombotics/antiplatelets; Z79.4 Long term (current) use of insulin; Z87.01 Personal history of pneumonia (recurrent); Z90.49 Acquired absence of other specified parts of digestive tract; Z96.642 Presence of left artificial hip joint

== ENCOUNTER 2018-01-14 14:20 | Inpatient (IN) | payer OTHER ==
[2018-01-14] MEDS ORDERED: Morphine PCA 1 mg/ml (30ml) 30 ML IV PRN (14:39)
[2018-01-14] MEDS ORDERED: Albuterol-Ipratrop 3 mg / 0.5 (3 ml) UD IH PRN (14:41)
[2018-01-14] MEDS ORDERED: Morphine 2 mg/ml ISec IVP STA (14:41)
[2018-01-14 20:23] VITALS: BMI 21.4
[2018-01-14] MEDS ORDERED: Pneumococcal 23-Valent Vaccine IM ONE (20:23)
[2018-01-14 20:28] VITALS: TEMP 101.3
[2018-01-14 22:57] VITALS: BP 137/85; PULSE 76; RESP 22; O2SAT 90
--- NOTE | 2018-01-15 01:14 | CP.PCM.PRO ---
Pronouncement of Note - Clinical Findings Physical Exam: No Response Verbal/Painful Stimuli, Absent Peripheral Puls es{Carotid & Femoral}, Absent Heart & Breath Sounds, No Pupillary Light Reflex, No Corneal Reflex, Pupils Fixed & Dilated, Absence of Vital Signs - Pronouncement Time Time of Pronouncement of : 01:09 - Notifications Pronouncement Notifications: Family Notified, Atending Notified Lining Cleaner Notified: No - [place] [id number]
--- NOTE | 2018-01-15 13:10 | HP ---
DATE OF EXAM: 01/15/2018 HISTORY OF PRESENT ILLNESS: The patient is an 87-year-old female being entered into hospice with a consent of the family after discussion with compassionate care. She has a history of stroke with left hemiparesis recently, admitted with an altered mental status with urinary tract infection, elevated blood sugars, altered mental status, was receiving feedings and the family wish the patient to enter hospice. This was discussed with family and the hospice team. PHYSICAL EXAMINATION: VITAL SIGNS: Her temperature was 98.3, her pulse was 100, her blood pressure was 156/93, respiratory rate was 24, and oxygen sat was 96% on nasal oxygen. LUNGS: Show bibasilar rhonchi. HEART: Irregular S1, S2 rhythm. ABDOMEN: Soft, scaphoid. Positive bowel sounds. EXTREMITIES: Show no evidence of edema. IMPRESSION And PLAN: Given this patient's clinical status and family was fully aware of her prognosis and entered the patient with a living will DNR/DNI into a hospice plan, and treatment protocol will be discussed with the hospice nurse and supportive care would be given. Sherri Hubbard MD
== END 2018-01-15 01:09 | DRG 64 ==
LOC: 2RSO 14:20 → 3RNO 20:15
PROVIDERS: ADMIT Internal Medicine; ATTEND Internal Medicine
DX: I63.9 Cerebral infarction, unspecified (principal); J69.0 Pneumonitis due to inhalation of food and vomit; I69.354 Hemiplegia and hemiparesis following cerebral infarction affecting left non-dominant side; N39.0 Urinary tract infection, site not specified; I11.0 Hypertensive heart disease with heart failure; I25.10 Atherosclerotic heart disease of native coronary artery without angina pectoris; H51.0 Palsy (spasm) of conjugate gaze; R41.82 Altered mental status, unspecified; I48.2 Chronic atrial fibrillation; Z79.01 Long term (current) use of anticoagulants; Z87.891 Personal history of nicotine dependence; E11.65 Type 2 diabetes mellitus with hyperglycemia; I69.320 Aphasia following cerebral infarction; Z66 Do not resuscitate; Z51.5 Encounter for palliative care